=== PATIENT | female | born 1980 | race Caucasian/White ===

== ENCOUNTER 2023-03-16 07:58 | Outpatient (OUT) | payer BC, SELFPAY ==
--- NOTE | 2023-03-16 08:26 | MM_ITS ---
Patient Name: ANTHONY BETST MR#: [id number] : 1980 Exam Date: 03/16/2023 Ordering Doctor: DR KRISTYN BENNETT RADIOLOGY REPORT PROCEDURE: MM TOMOSYNTHESIS SCREENING BI COMPARISON: None. INDICATIONS: Screening Calculator Name NCI Breast Cancer Risk Assessment Tool 5 Year Breast Cancer Risk 0.70% Lifetime Breast Cancer Risk 12.50% Personal Breast Cancer No Personal Ovarian Cancer No Treatments None Family Cancers Aunt-paternal with breast cancer at age 50; Aunt-paternal with breast cancer at age 60; Grandmother-maternal with lung cancer at age 50; Grandfather-maternal with lung cancer at age 60; Grandfather-paternal with lung cancer at age 80; Aunt-maternal with vocal cord cancer at age 60. LOCATION: [facility] BREAST COMPOSITION: Heterogeneously dense,which may obscure small masses. FINDINGS: DIAGNOSTIC CATEGORY 1--NEGATIVE. RIGHT BREAST: No significant suspicious finding. LEFT BREAST: No significant suspicious finding. RECOMMENDATIONS: ROUTINE MAMMOGRAM AND CLINICAL EVALUATION IN 12 MONTHS. PLEASE NOTE: A NORMAL MAMMOGRAM DOES NOT EXCLUDE THE POSSIBILITY OF BREAST CANCER. A CLINICALLY SUSPICIOUS PALPABLE LUMP SHOULD BE BIOPSIED. Dictated by: Cong Ohara M.D. on 03/16/2023 at 14:45 Approved by: Cong Ohara M.D. on 03/16/2023 at 14:46
== END 2023-03-16 07:59 | disposition home or self-care (01) ==
LOC: MAMMO 07:58
PROVIDERS: PCP Nurse Practitioner Family; Visit Provider Nurse Practitioner Family
DX: Z12.31 Encounter for screening mammogram for malignant neoplasm of breast (principal); Z80.3 Family history of malignant neoplasm of breast; Z80.1 Family history of malignant neoplasm of trachea, bronchus and lung; Z80.8 Family history of malignant neoplasm of other organs or systems
CPT/HCPCS: 77063; 77067

== ENCOUNTER 2024-05-05 11:31 | Emergency (ER) | payer OTHER, SELFPAY ==
[2024-05-05 11:45] VITALS: BP 165/91; PULSE 90; TEMP 36.6; O2SAT 98; BMI 40.7
--- OUTSIDE RECORDS SUMMARY | 2024-05-05 11:48 | XMS_ITS | CCD ---
Author Organization [facility] Care Team Providers Care Fitter Type Bar And Segment Name Role Phone DARRELL Bennett R Primary Care Provider MD Phani Hope Referring Provider [phone] MD Nadir Farris Attending Provider [phone] Fabiola Felipe Admitting Unavailable Fabiola Felipe Attending Unavailable Phani Hope Referring Unavailable Sabrina, Estela R Primary Care Unavailable Nadir Farris Admitting Unavailable Nadir Farris Attending Unavailable Sabrina, Estela R Primary Care Unavailable Maxine Hanna Admitting Unavailable Maxine Hanna Attending Unavailable Sabrina, Estela R Primary Care Unavailable Phani Hope Admitting Unavailable Phani Hope Attending Unavailable Keith Torres Primary Care Unavailable Malcom Fonseca Admitting Unavailable Sabrina, Estela R Primary Care Unavailable Christian Alex Attending Unavailable Nadir Farris Admitting Unavailable Nadir Farris Attending Unavailable Sabrina, Estela R Primary Care Unavailable MELISSA, DR PARKER Referring Unavailable SABRINA, DR ESTELA Sheehan Admitting Unavailable SABRINA, DR ESTELA Sheehan Attending Unavailable SABRINA, DR ESTELA Sheehan Consulting Unavailable SABRINA, DR ESTELA Sheehan Primary Care Unavailable MISC, DR CHRISTIANSON Admitting Unavailable MISC, DR CHRISTIANSON Attending Unavailable MISC, DR CHRISTIANSON Consulting Unavailable SABRINA, DR ESTELA Sheehan Primary Care Unavailable SABRINA, DR ESTELA Sheehan Primary Care Unavailable SABRINA, DR ESTELA Sheehan Admitting Unavailable SABRINA, DR ESTELA Sheehan Attending Unavailable SABRINA, DR ESTELA Sheehan Consulting Unavailable CASIE ., DR TIERNEY Attending Unavailable CASIE ., DR TIERNEY Admitting Unavailable TIFFANIE, DR ZAYDA Gonzalez Consulting Unavailable SARBINA, DR ESTELA Sheehan Primary Care Unavailable CASIE ., DR TIERNEY Consulting Unavailable MISC, DR CHRISTIANSON Admitting Unavailable MISC, DR CHRISTIANSON Attending Unavailable MISC, DR CHRISTIANSON Consulting Unavailable SABRINA, DR ESTELA Sheehan Primary Care Unavailable ZIEBHERIBERTO, DR JENNIFER Sheehan Consulting Unavailable SABRINA, DR ESTELA Sheehan Admitting Unavailable SABRINA, DR ESTELA Sheehan Attending Unavailable SABRINA, DR ESTELA Sheehan Consulting Unavailable SABRINA, DR ESTELA Sheehan Primary Care Unavailable Kuns TERRAPIN FISHER-ASSISTANT PRESS OPERATOREstela Primary Care Provider ESTELA BENNETT Attending Unavailable ESTELA BENNETT Referring Unavailable SABRINA PRISCILLA Primary Care Unavailable SABRINA, ESTELA GROSS Attending Unavailable ESTELA BENNETT Referring Unavailable ESTELA BENNETT Primary Care Unavailable ESTELA BENNETT Attending Unavailable SABRINA, ESTELA GROSS Referring Unavailable KUNS, ESTELA GROSS Primary Care Unavailable JESS, ALFONSO L Attending Unavailable JESS, ALFONSO L Referring Unavailable JESS, ALFONSO L Primary Care Unavailable ESTELA BENNETT Referring Unavailable SABRINA, PRISCILLA Primary Care Unavailable JESS, ALFONSO L Referring Unavailable JESS, ALFONSO L Primary Care Unavailable Jess TERRAPIN FISHER-ENERGY CONSERVATION DIRECTOR, Alfonso L Primary Care Provider Medications Current Medications Medication Drug Class(es) Dates Sig (Normalized) Sig (Original) acetaminophen 500 mg oral tablet (3 sources) take 1 tablet by mouth every six hours as needed for pain acetaminophen (TYLENOL EXTRA STRENGTH) 500 mg tablet Take 1 tablet (500 mg total) by mouth every 6 (six) hours as needed for pain. Active cephalexin 500 mg oral capsule (1 source) Cephalosporin Antibacterial Start: 06-15-2023 End: 06-22-2023 take 1 capsule by mouth three times daily CEPHalexin (KEFLEX) 500 mg capsule Indications: Tongue and jaw pain , Adenitis, acute Take 1 capsule (500 mg total) by mouth 3 (three) times a day for 7 days. 21 capsule 0 06/15/2023 06/22/2023 Active doxycycline hyclate 100 mg oral capsule (1 source) Tetracycline-class Drug Start: 11-03-2021 take 100 mg by mouth twice daily Doxycycline Hyclate Active 100 MG PO Twice daily November 03, 2021 12:00am gentamicin 0.001 mg/mg topical ointment (1 source) Start: 10-06-2021 Gentamicin Active 1 APPLIC TOPICAL .3 times weekly October 06, 2021 12:00am follow wound care orders ibuprofen 600 mg oral tablet (5 sources) Nonsteroidal Anti-inflammatory Drug Start: 08-09-2021 Ibuprofen Active 600 MG PO Every 6 hours August 09, 2021 12:00am do not exceed 4 doses in a 24 hour period take 1 tablet by yola th every six hours as needed for pain ibuprofen (MOTRIN) 800 mg tablet Take 1 tablet (800 mg total) by mouth every 6 (six) hours as needed for pain. Active levoFLOXacin 500 mg oral tablet (1 source) Quinolone Antimicrobial Start: 11-07-2021 take 500 mg by mouth once daily Levofloxacin Active 500 MG PO Daily 14 November 07, 2021 12:00am levothyroxine sodium 0.1 mg oral tablet (5 sources) l-Thyroxine Start: 08-19-2023 take 1 tablet by mouth in the morning levothyroxine (SYNTHROID, LEVOTHROID) 100 MCG tablet Take 1 tablet (100 mcg total) by mouth in the morning. 90 tablet 3 08/19/2023 Active Start: 12-11-2022 take 1 tablet by yola th once daily levothyroxine (SYNTHROID, LEVOTHROID) 100 MCG tablet Take 1 tablet by mouth once daily 30 tablet 5 12/11/2022 Active Start: 08-06-2021 take 100 ug by mouth once daily Levothyroxine Active 100 MCG PO Daily August 06, 2021 12:00am metroNIDAZOLE 0.01 mg/mg topical gel (2 sources) Nitroimidazole Antimicrobial Start: 08-17-2023 metroNIDAZOLE (MetrogeL) 1 % gel Apply 1 Application topically in the morning. 45 g 1 08/17/2023 Active phentermine hydrochloride 37.5 mg oral tablet (2 sources) Sympathomimetic Amine Anorectic Start: 10-17-2023 take 1 tablet by mouth once daily before breakfast phentermine (ADIPEX-P) 37.5 mg tablet Indications: Morbid obesity (CMS-HCC) Take 1 tablet (37.5 mg total) by mouth every morning before breakfast. 30 tablet 10/17/2023 Active Prenat.Vits,Eddie,Mi l-Xpny-Jyjqn (2 sources) Start: 08-06-2021 take 1 tablet by mouth once daily Prenat.Vits,Eddie,Mi h-Wqgb-Fvoki Active 1 TAB PO Daily August 06, 2021 12:00am Completed/Discontinued Medications Medication Drug Class(es) Dates Sig (Normalized) Sig (Original) ciprofloxacin 500 mg oral tablet (2 sources) Quinolone Antimicrobial Start: 10-06-2021 End: 10-13-2021 take 1 tablet by mouth twice daily Ciprofloxacin Hcl (Cipro) 500 mg tablet Discontinued 500 MG PO Twice daily October 06, 2021 12:00am October 13, 2021 9:03am Problems Active Problems Problem Classification Problem Date Documented Date Episodic/Chronic Cardiac and circulatory congenital anomalies (4 sources) Congenital insufficiency of aortic valve; Translations: [CONGENITAL INSUFFICNCY AORTIC VALVE] Onset: 09-29-2021 Chronic Other inflammatory condition of skin (1 source) Rosacea, unspecified; Translations: [Rosacea, unspecified] Onset: 08-17-2023 Chronic Other injuries and conditions due to external causes (2 sources) Open wound with complication; Translations: [Other injury of unspecified body region, initial encounter] 10-04-2021 Episodic Other injuries and conditions due to external causes (2 sources) Other injury of unspecified body region, initial encounter; Translations: [Open wound(s) (multiple) of unspecified site(s), complicated] 12-13-2021 Episodic Other injuries and conditions due to external causes (1 source) Local infection of wound; Translations: [Other injury of unspecified body region, initial encounter] 12-22-2021 Episodic Other nutritional; endocrine; and metabolic disorders (1 source) Body mass index (BMI) 40.0-44.9, adult; Translations: [Body mass index (BMI) 40.0-44.9, adult] Onset: 10-12-2023 Chronic Other nutritional; endocrine; and metabolic disorders (1 source) Morbid (severe) obesity due to excess calories; Translations: [Morbid (severe) obesity due to excess calories] Onset: 08-17-2023 Chronic Other screening for suspected conditions (not mental disorders or infectious disease) (1 source) Patient encounter status; Translations: [Encounter for screening mammogram for malignant neoplasm of breast] 04-30-2024 Episodic Residual codes; unclassified (2 sources) Gestation period, 39 weeks; Translations: [39 weeks gestation of ] 08-06-2021 Episodic Thyroid disorders (10 sources) Hypothyroidism; Translations: [Hypothyroidism, unspecified] Onset: 07-17-2022 10-04-2021 Chronic Unclassified (1 source) Other complications of procedures, not elsewhere classified, initial encounter; Translations: [Other complications of procedures, not elsewhere classified, initial encounter] Onset: 05-08-2022 Unclassified (1 source) Encounter for preprocedural laboratory examination; Translations: [Encounter for preprocedural laboratory examination] Onset: 12-20-2021 Unclassified (1 source) Z39.1 - Encounter for care and examination of lactating mother; Translations: [Z39.1 - Encounter for care and examination of lactating mother] Onset: 08-11-2021 Unclassified (1 source) Z3A.39 - 39 weeks gestation of ; Translations: [Z3A.39 - 39 weeks gestation of ] Onset: 08-06-2021 Unclassified (1 source) Z36.85 - Encounter for screening for Streptococcus B; Translations: [Z36.85 - Encounter for screening for Streptococcus B] Onset: 07-18-2021 Unclassified (1 source) CONTACT W/AND (SUSP) EXPOS COVID-19; Translations: [CONTACT W/AND (SUSP) EXPOS COVID-19] Onset: 09-01-2021 Unclassified (1 source) Weight Check Onset: 09-11-2023 Unclassified (1 source) Annual Exam Onset: 08-17-2023 Unclassified (1 source) tongue pain Onset: 06-15-2023 Past or Other Problems Problem Classification Problem Date Documented Da te Episodic/Chronic Abdominal pain (3 sources) Lower abdominal pain, unspecified; Translations: [LOWER ABDOMINAL PAIN UNSPECIFIED] Onset: 08-30-2021 Episodic Complications of surgical procedures or medical care (8 sources) Non-healing surgical wound; Translations: [Other complications of procedures, not elsewhere classified, initial encounter] Onset: 03-21-2022 11-22-2021 Episodic Diseases of mouth; excluding dental (2 sources) Glossodynia; Translations: [Glossodynia] Onset: 06-15-2023 06-15-2023 Episodic Disorders of teeth and jaw (1 source) Jaw pain; Translations: [Jaw pain] Onset: 06-15-2023 Episodic Fever of unknown origin (1 source) Fever, unspecified; Translations: [FEVER UNSPECIFIED] Onset: 09-01-2021 Episodic Lymphadenitis (2 sources) Acute lymphadenitis; Translations: [Acute lymphadenitis, unspecified] Onset: 06-15-2023 06-15-2023 Episodic Mood disorders (3 sources) Mood disorders Onset: 06-15-2023 Resolved: 10-12-2023 06-15-2023 Other complications of ; puerperium affecting management of mother (1 source) Infection of obstetric surgical wound, organ and space site; Translations: [INF OB SURG WND ORGAN AND SPACE SITE] Onset: 09-01-2021 Episodic Other complications of ; puerperium affecting management of mother (1 source) Sepsis following an obstetrical procedure; Translations: [SEPSIS FOLLOW OBSTETRICAL PROCEDURE] Onset: 09-01-2021 Episodic Other complications of (3 sources) Maternal obesity complicating , childbirth and the puerperium, antepartum; Translations: [Obesity complicating , unspecified trimester] Onset: 12-04-2018 Resolved: 08-04-2022 08-04-2022 Chronic Other complications of (3 sources) Elderly primigravida; Translations: [Supervision of elderly primigravida, unspecified trimester] Onset: 12-04-2018 Resolved: 08-04-2022 08-04-2022 Episodic Other gastrointestinal disorders (4 sources) Intra-abdominal and pelvic swelling, mass and lump, unspecified site; Translations: [INTRA-ABD PELV SWELL MASS LUMP] Onset: 08-29-2021 Episodic Residual codes; unclassified (1 source) 36 weeks gestation of ; Translations: [Z3A.36 - 36 weeks gestation of ] Onset: 07-18-2021 Episodic Septicemia (except in labor) (1 source) Sepsis, unspecified organism; Translations: [SEPSIS UNSPECIFIED ORGANISM] Onset: 09-01-2021 Episodic Unclassified (2 sources) Onset: 08-17-2023 08-17-2023 Results Test Name Value Interpretation Reference Range Facility FREE T4on 10-12-2023 Free T4 [Mass/Vol] 1.04 ng/dL Normal 0.61-1.60 [facility] Comment on above: Performed By: #### 3 016-3, 3024-7 #### [facility] ([id number]) [address], [address] [place] [address] TSH Qnon 10-12-2023 TSH 1.05 uIU/mL Normal 0.49-4.67 [place] Comment on above: Performed By: #### 3 016-3, 3024-7 #### [facility] ([id number]) [address], [address] [place] [address] COMPREHENSIVE METABOLIC PANE Cuauhtemoc 08-17-2023 Albumin [Mass/Vol] 4.3 g/dL Normal 3.2-5.3 [facility] Comment on above: Performed By: #### C ANDREAS, 91768-7, THYR #### [facility] ([id number]) [address], [address] [place] [address] ALP [Catalytic activity/Vol] 64 U/L Normal 39-130 [place] Comment on above: Performed By: #### Zeny JOHNS, 78142-8, THYR #### [facility] ([id number]) [address], [address] [place] [address] ALT [Catalytic activity/Vol] 15 U/L Normal 0-31 [place] Comment on above: Performed By: #### Zeny JOHNS, 38597-2, THYR #### [facility] ([id number]) [address], [address] [place] [address] Anion gap [Moles/Vol] 8 mmol/L Normal 5-15 [facility] Comment on above: Performed By: #### Zeny JOHNS, 26873-0, THYR #### [facility] ([id number]) [address], [address] [place] [address] AST [Catalytic activity/Vol] 17 U/L Normal 0-41 [place] Comment on above: Performed By: #### Zeny JOHNS, 13988-6, THYR #### [facility] ([id number]) [address], [address] [place] [address] Bilirubin [Mass/Vol] 0.5 mg/dL Normal 0.3-1.2 [facility] Comment on above: Performed By: #### C ANDREAS, 94886-0, THYR #### [facility] ([id number]) [address], [address] [place] [address] Calcium [Mass/Vol] 9.1 mg/dL Normal 8.5-10.5 [facility] Comment on above: Performed By: #### Zeny JOHNS, 54491-0, THYR #### [facility] ([id number]) [address], [address] [place] [address] Chloride [Moles/Vol] 103 mmol/L Normal 98-109 [facility] Comment on above: Performed By: #### Zeny JOHNS, 61432-7, THYR #### [facility] ([id number]) [address], [address] [place] [address] CO2 [Moles/Vol] 26 mmol/L Normal 22-32 [place] Comment on above: Performed By: #### Zeny JOHNS, 23985-3, THYR #### [facility] ([id number]) [address], [address] [place] [address] Creatinine [Mass/Vol] 0.73 mg/dL Normal 0.40-1.00 [facility] Comment on above: Result Comment: METH OD TRACEABLE TO IDMS STANDARD Performed By: #### Zeny JOHNS, 98247-2, THYR #### [facility] ([id number]) [address], [address] [place] [address] eGFR (CKD-EPI) NON-RACE DEPENDENT >90 Normal >59 [place] Comment on above: Result Comment: Reported eGFR is based on the CKD-EPI 2020 equation that does not use a race coefficient. Performed By: #### Zeny JOHNS, 40805-5, THYR #### [facility] ([id number]) [address], [address] [place] [address] Glucose [Mass/Vol] 91 mg/dL Normal 65-99 [facility] Comment on above: Performed By: #### C ANDREAS, 87419-8, THYR #### [facility] ([id number]) [address], [address] [place] [address] Potassium [Moles/Vol] 4.6 mmol/L Normal 3.5-5.0 [facility] Comment on above: Performed By: #### Zeny JOHNS, 37721-1, THYR #### [facility] ([id number]) [address], [address] [place] [address] Protein [Mass/Vol] 7.8 g/dL Normal 6.0-8.0 [facility] Comment on above: Performed By: #### Zeny JOHNS, 23734-5, THYR #### [facility] ([id number]) [address], [address] [place] [address] Sodium [Moles/Vol] 137 mmol/L Normal 134-146 [facility] Comment on above: Performed By: #### Zeny JOHNS, 88660-1, THYR #### [facility] ([id number]) [address], [address] [place] [address] Urea nitrogen [Mass/Vol] 17 mg/dL Normal 5-23 [place] Comment on above: Performed By: #### Zeny JOHNS, 02370-8, THYR #### [facility] ([id number]) [address], [address] [place] [address] Lipid 1996 panelon 4 Cholesterol [Mass/Vol] 173 mg/dL Normal 150-200 [facility] Comment on above: Performed By: #### Zeny JOHNS, 98603-1, THYR #### [facility] ([id number]) [address], [address] [place] [address] Cholesterol in HDL [Mass/Vol] 60 mg/dL Normal >39 [place] Comment on above: Result Comment: HDL <40 mg/dL - High Risk HDL > or = 40mg/dL- Desirable HDL >60 mg/dL - Negative Risk Performed By: #### Zeny JOHNS, 73607-0, THYR #### [facility] ([id number]) [address], [address] [place] [address] Cholesterol in LDL [Mass/Vol] 96 mg/dL Normal <130 [place] Comment on above: Result Comment: LDL <100 mg/dL - Desirable LDL >160 mg/dL - High Risk Performed By: #### Zeny JOHNS, 93893-0, THYR #### [facility] ([id number]) [address], [address] [place] [address] Cholesterol in VLDL [Mass/Vol] 17 mg/dL Normal 0-30 [place] Comment on above: Performed By: #### Zeny JOHNS, 05075-1, THYR #### [facility] ([id number]) [address], [address] [place] [address] CHOLESTEROL:HDL 2.9 Normal 1.0-5.0 [place] Comment on above: Performed By: #### Zeny JOHNS, 97099-0, THYR #### [facility] ([id number]) [address], [address] [place] [address] Triglyceride [Mass/Vol] 83 mg/dL Normal 27-150 [facility] Comment on above: Performed By: #### Zeny JOHNS, 91360-0, THYR #### [facility] ([id number]) [address], [address] [place] [address] THYROID PROFILEon 08-17-2023 Free T4 [Mass/Vol] 0.85 ng/dL Normal 0.61-1.60 [facility] Comment on above: Performed By: #### C MP, 96449-2, THYR #### [facility] ([id number]) [address], [address] [place] [address] TSH 0.82 uIU/mL Normal 0.49-4.67 [place] Comment on above: Performed By: #### C ANDREAS, 57450-4, THYR #### [facility] ([id number]) [address] [place] [address] FREE T4on 08-12-2022 Free T4 [Mass/Vol] 0.98 ng/dL Normal 0.76-1.46 [facility] Comment on above: Performed By: #### F T4 #### [facility] [address] [place] [address] Dr. Yluy Schuler LIPID PROFILEon 08-12-2022 CHOL-HDL RATIO NORM SEE BELOW Normal [facility] Comment on above: Result Comment: 3.3 - 4.4 LOW RISK 4.4 - 7.1 AVERAGE RISK 7.1 - 11.0 MODERATE RISK >11.0 HIGH RISK Performed By: #### C MP, TSH #### [facility] [address] [place] [address] Dr. Yuly Schuler Cholesterol [Mass/Vol] 194 mg/dL Normal <=200 [facility] Comment on above: Performed By: #### C MP, TSH #### [facility] [address] [address] [address] Yuly Schuler Cholesterol in HDL [Mass/Vol] 63 mg/dL Critically high 40-60 [facility] Comment on above: Performed By: #### C MP, TSH #### [facility] [address] [place] [address] Dr. Yuly Schuler Cholesterol in LDL [Mass/Vol] 116.0 mg/dL Normal [facility] Comment on above: Performed By: #### C MP, TSH #### [facility] [address] [address] [address] Yuly Schuler Cholesterol.total/Choles terol in HDL [Mass ratio] 3.1 {ratio} Normal [facility] Comment on above: Performed By: #### C MP, TSH #### [facility] [address] [address] [address] Yuly Schuler HDL NORMAL > or = 60 mg/dl - LOW CARDIOVASCULAR RISK <40 mg/dl - HIGH CARDIOVASCULAR RISK Normal [facility] Comment on above: Performed By: #### C MP, TSH #### [facility] [address] [address] [address] Yuly Schuler LDL CALC NORMAL SEE BELOW Normal [facility] Comment on above: Result Comment: <100 mg/dl OPTIMAL 100 - 129 mg/dl NEAR OR ABOVE OPTIMAL 130 - 159 mg/dl BORDERLINE HIGH 160 - 189 mg/dl HIGH >190 mg/dl VERY HIGH Performed By: #### C MP, TSH #### [facility] [address] [address] [address] Yuly Schuler Triglyceride [Mass/Vol] 75 mg/dL Normal <=150 T [facility] Comment on above: Performed By: #### C MP, TSH #### [facility] [address] [address] [address] Yuly Schuler VLDL CALC 15.0 mg/dL Normal [facility] Comment on above: Performed By: #### C MP, TSH #### [facility] [address] [address] [address] Yuly Schuler PROF 14(COMP METB)on 023 Albumin [Mass/Vol] 3.6 g/dL Normal 3.4-5.0 [facility] Comment on above: Performed By: #### C MP, TSH #### [facility] [address] [place] [address] Dr. Yuly Schuler Albumin/Globulin [Mass ratio] 0.8 {ratio} Normal [facility] Comment on above: Performed By: #### C MP, TSH #### [facility] [address] [place] [address] Dr. Yuly Schuler ALP [Catalytic activity/Vol] 87 U/L Normal 46-116 [facility] Comment on above: Performed By: #### C MP, TSH #### [facility] [address] [place] [address] Dr. Yuly Schuler ALT [Catalytic activity/Vol] 23 U/L Normal 14-59 [facility] Comment on above: Performed By: #### C MP, TSH #### [facility] [address] [address] [address] Yuly Schuler Anion gap [Moles/Vol] 10.7 mmol/L Normal Th [facility] Comment on above: Performed By: #### C MP, TSH #### [facility] [address] [place] [address] Dr. Yuly Schuler AST [Catalytic activity/Vol] 17 U/L Normal 15-37 [facility] Comment on above: Performed By: #### C MP, TSH #### [facility] [address] [place] [address] Dr. Yuly Schuler Bilirubin [Mass/Vol] 0.2 mg/dL Normal 0.2-1.0 [facility] Comment on above: Performed By: #### C MP, TSH #### [facility] [address] [place] [address] Dr. Yuly Schuler Calcium [Mass/Vol] 8.8 mg/dL Normal 8.5-10.1 [facility] Comment on above: Performed By: #### C MP, TSH #### [facility] [address] [place] [address] Dr. Yuly Schuler Chloride [Moles/Vol] 104 mmol/L Normal 98-107 [facility] Comment on above: Performed By: #### C MP, TSH #### [facility] [address] [place] [address] Dr. Yuly Schuler CO2 [Moles/Vol] 28.5 mmol/L Normal 21.0-32.0 [facility] Comment on above: Performed By: #### C MP, TSH #### [facility] [address] [place] [address] Dr. Yuly Schuler Creatinine [Mass/Vol] 0.73 mg/dL Normal 0.55-1.02 [facility] Comment on above: Performed By: #### C MP, TSH #### [facility] [address] [place] [address] Dr. Yuly Schuler EGFR-AF ARGENTINE >60 Normal >=60 [facility] Comment on above: Performed By: #### C MP, TSH #### [facility] [address] [address] [address] Yuly Schuler EGFR-NON AF ARGENTINE >60 Normal >=60 [facility] Comment on above: Performed By: #### C MP, TSH #### [facility] [address] [address] [address] Yuly Schuler Globulin (S) [Mass/Vol] 4.4 g/dL Normal [facility] Comment on above: Performed By: #### C MP, TSH #### [facility] [address] [place] [address] Dr. Yuly Schuler Glucose [Mass/Vol] 96 mg/dL Normal 74-106 [facility] Comment on above: Performed By: #### C MP, TSH #### [facility] [address] [address] [address] Yuly Schuler Potassium [Moles/Vol] 4.2 mmol/L Normal 3.5-5.1 [facility] Comment on above: Performed By: #### C MP, TSH #### [facility] [address] [address] [address] Yuly Schuler Protein [Mass/Vol] 8.0 g/dL Normal 6.4-8.2 [facility] Comment on above: Performed By: #### C MP, TSH #### [facility] [address] [address] [address] Yuly Schuler Sodium [Moles/Vol] 139 mmol/L Normal 136-145 [facility] Comment on above: Performed By: #### C MP, TSH #### [facility] [address] [address] [address] Yuly Schuler Urea nitrogen [Mass/Vol] 12.0 mg/dL Normal 7.0-18.0 [facility] Comment on above: Performed By: #### C MP, TSH #### [facility] [address] [place] [address] Dr. Yuly Schuler Urea nitrogen/Creatinine [Mass ratio] 16.4 mg/mg Normal [facility] Comment on above: Performed By: #### C MP, TSH #### [facility] [address] [place] [address] Dr. Yuly Schuler TSHon 08-12-2022 TSH 1.533 uIU/mL Normal 0.358-3.740 [facility] Comment on above: Performed By: #### C MP, TSH #### [facility] [address] [place] [address] Dr. Yuly Schuler KAT by IFAon 03-22-2022 Antinuclear Antibodies, IFA Negative Normal [facility] Comment on above: Result Comment: Nega tive <1:80 Borderline 1:80 Positive >1:80 ICAP nomenclature: AC-0 For more information about Hep-2 cell patterns use ANApatterns.org, the official website for the International Consensus on Antinuclear Antibody (KAT) Patterns (ICAP). Performed By: #### C MP, TSH #### [facility] [address] [place] [address] Dr. Yuly Schuler CRPon 03-21-2022 CRP [Mass/Vol] mg/L Normal <=1.0 [facility] Comment on above: Performed By: #### C RP, PREALB #### [facility] [address] [place] [address] Dr. Yuly Schuler PREALBUMINon 03-21-2022 Prealbumin [Mass/Vol] 25.8 mg/dL Normal 20.9-45.5 [facility] Comment on above: Performed By: #### C RP, PREALB #### [facility] [address] [place] [address] Dr. Yuly Schuler SED RATE WESTERGRENon 2021 SED RATE 35 mm/hr Critically high <=20 [facility] Comment on above: Performed By: #### C MP, TSH #### [facility] [address] [address] [address] Yuly Schuler Aerobic Cultureon 02-27-2022 Aerobic Culture ORGANISM: Proteus mirabilis (O:PROMIR) Quantity of Growth Light Growth No Anaerobes Isolated 3 Days Gram Stain Result No Bacteria Seen Aerobic LANDON Charge (NUC86) ------ SUSCEPTIBILITY ----- ORGANISM: O:PROMIR ANTIBIOTIC INTERPRETATION LANDON Amikacin S <16 Ampicillin S <8 Ampicillin/Sulbacta m S <8 Aztreonam S <4 Cefazolin S <2 Cefepime S <2 Ceftazidime S <1 Ceftazidime/Avibact am S <8 Ceftriaxone S <1 Ciprofloxacin S <1 Ertapenem S <0.5 Gentamicin S <4 Levofloxacin S <2 Meropenem S <1 Piperacillin/Tazoba ctam S <16 Tetracycline R >8 Tobramycin S <4 Trimethoprim/Sulfam ethoxazole S <2 S = SUSCEPTIBLE I = INTERMEDIATE R = RESISTANT BLANK = DATA NOT AVAILABLE, OR DRUG NOT ADVISABLE OR TESTED R* = RESISTANCE DUE TO EXTENDED SPECTRUM BETA-LACTAMASES ESBL = EXTENDED SPECTRUM BETA-LACTAMASE TFG = THYMIDINE-DEPENDENT STRAIN HUA = BETA-LACTAMASE POSITIVE IB = INDUCIBLE BETA-LACTAMASE. APPEARS IN PLACE OF 'S' WITH SPECIES KNOWN TO POSSESS INDUCIBLE BETA-LACTAMASES. POTENTIALLY THEY MAY BECOME RESISTANT TO ALL B-LACTAM DRUGS. PERFORMED BY: [place] [address] PATHOLOGIST FITTER TYPE BAR AND SEGMENT TANYA CATHERINE M.D. [facility] Comment on above: Performed By: #### A [facility] #### [address] Aerobic Cultureon 12-22-2021 Aerobic Culture Result Tab Codes No Growth 2 Days No Anaerobes Isolated 3 Days Gram Stain Result Rare White Blood Cells No Bacteria Seen PERFORMED BY: [place] [address] PATHOLOGIST FITTER TYPE BAR AND SEGMENT TANYA CATHERINE M.D. [facility] Comment on above: Performed By: #### C OVID-19 YANICK, SOFIANEG #### [facility] [address] [place] [address] Gram Stainon 12-22-2021 Microscopic observation Gram stain Nom (Unsp spec) Gram Stain Result Rare White Blood Cells No Bacteria Seen PERFORMED BY: [place] [address] PATHOLOGIST FITTER TYPE BAR AND SEGMENT TANYA CATHERINE M.D. [facility] Comment on above: Performed By: #### A ERC, GS #### [address] HCG ( test) IAdiana lincoln Ql (U)Ordered By: Dhaval Moran on 12-22-2021 HCG ( test) Ql (U) Negative [facility] HCG,Urineon 12-22-2021 Beta HCG ( test) Ql (U) Negative [facility] Comment on above: Result Comment: PERF ORMED BY: [place] [address] PATHOLOGIST FITTER TYPE BAR AND SEGMENT TANYA CATHERINE M.D. Performed By: #### C OVID-19 YANICK SOFIANEG #### [address] Cuauhtemoc 12-22-2021 L Specimen: [id number] Received: 12/22/21 Status: KEELY Verónica Num: [id number] Spec Type: Surgical Subm Dr: Nadir Farris MD Tissues: A Debridement-Skin/Ot her Than Skin (ABDOMEN) Procedures: HE Stain, Gross/Micro L3 Age/ Patient Sex Location Account Attending Physician Anthony Ritchie 41/F [place] [id number] Nadir Farris MD SPEC NUM: [id number] RECD: 12/22/21 STATUS: KEELY SANCHES NUM: [id number] HELGA: 12/22/[address] [facility] [address]: Nadir Farris MD ENTERED: 12/22/[address] [facility] [address]: VICTOR HUGO TYPE: Surgical DEPT: S ORDERED: HE Stain, Gross/Micro L3 ORDERED: HE Stain, Gross/Micro L3 Pathological Diagnosis Skin and soft tissue, abdomen, products of debridement: - Benign skin with ulceration, granulation tissue and focal fibrosis. - No evidence of malignancy seen. Clinical Information Nonhealing wound Gross Description Received in formalin labeled with the patient's name, number and POD abdomen is a 1.8 x 1.7 x 0.7 cm aggregate of izquierdo red rubbery tissue which is partially surface by roper white skin.. Entirely submitted in one cassette labeled A1. Microscopic Description One glass slide with H E stained material has been examined. The microscopic findings support the above pathologic diagnosis. CPT Codes 34170 Specimen: [id number] Received: 12/22/21 Status: ELISEMaritza Sanches Num: [id number] Spec Type: Surgical Subm Dr: Nadir Farris MD Tissues: A Debridement-Skin/Ot her Than Skin (ABDOMEN) Procedures: HE Stain, Gross/Micro L3 Patient: Anthony Ritchie [id number] (Continued) Signed (signatur e on file) Anthony Peña MD 12/26/21 1516 Normal [facility] COVID-19 [facility] [place] SARS-CoV-2 (COVID-19) RNA AMINA+probe Ql (Unsp spec) Negative Normal Negative [facility] Comment on above: Order Comment: Healt hcare Worker?: N Result Comment: Testing for SARS-CoV-2 by RT-PCR This test was developed and its performance characteristics determined by [employer]) and validated at the [facility]. This test has not been FDA cleared or approved. This test has been authorized by FDA under an Emergency Use Authorization (EUA). This test has been validated in accordance with the FDA's Guidance Document (Policy for Diagnostics Testing in Laboratories Certified to Perform High Complexity Testing under CLIA prior to Emergency Use Authorization for Coronavirus Disease-2019 during the Public Health Emergency) issued on July 17, 2019. This test is only authorized for the duration of time the declaration that circumstances exist justifying the authorization of the emergency use of in vitro diagnostic tests for detection of SARS-CoV-2 virus and/or diagnosis of COVID-19 infection under section 564(b)(1) of the Act, 21 U.S.C. 360bbb-3(b)(1), unless the authorization is terminated or revoked sooner. PERFORMED BY: [place] [address] PATHOLOGIST FITTER TYPE BAR AND SEGMENT TANYA CATHERINE M.D. Performed By: #### C OVID 19 [facility] [place] #### [address] COVID-19 Positive/NegativeOr dered By: Nadir Farris on 12-20-2021 SARS-CoV-2 (COVID-19) N gene AMINA+probe Ql (Resp) Negative Negative [facility] Comment on above: Testing for SARS-CoV -2 by RT-PCR This test was developed and its performance characteristics determined by [employer] ([employer]) and validated at the [facility]. This test has not been FDA cleared or approved. This test has been authorized by FDA under an Emergency Use Authorization (EUA). This test has been validated in accordance with the FDA's Guidance Document (Policy for Diagnostics Testing in Laboratories Certified to Perform High Complexity Testing under CLIA prior to Emergency Use Authorization for Coronavirus Disease-2019 during the Public Health Emergency) issued on July 17, 2019. This test is only authorized for the duration of time the declaration that circumstances exist justifying the authorization of the emergency use of in vitro diagnostic tests for detection of SARS-CoV-2 virus and/or diagnosis of COVID-19 infection under section 564(b)(1) of the Act, 21 U.S.C. 360bbb-3(b)(1), unless the authorization is terminated or revoked sooner. Bacteria identified Anaer cx Nom (Unsp spec)Ordered By: Fabiola Felipe on 12-10-2021 Anaerobic microbial culture No Anaerobes Isolated 3 Days [facility] ABO and Rh group post transf usion reaction Nom (Bld)Ordered By: Fabiola Felipe on 12-08-2021 Microscopic observation Gram stain Nom (Unsp spec) [facility] Aerobic Cultureon 12-07-2021 Aerobic Culture Rare normal skin oli 2 Days No Anaerobes Isolated 3 Days Gram Stain Result No Bacteria Seen PERFORMED BY: [place] [address] PATHOLOGIST FITTER TYPE BAR AND SEGMENT TANYA CATHERINE M.D. [facility] Comment on above: Performed By: #### A ERC #### [address] CBC (INCLUDES DIFF/PLT)on Basophils (Bld) [#/Vol] 0.048 10*3/uL Normal 0-200 [facility] Comment on above: Performed By: #### 1 0231, 3991, 65987, 1620 #### [facility] [address] [facility], [address] [place] [id number] Oyster Cultivator: Jasbir Membreno MD Basophils/100 WBC (Bld) 0.7 % Normal [facility] Comment on above: Performed By: #### 1 0231, 6399, 72757, 8990 #### [facility] [address] , [address] [place] [address] Oyster Cultivator: Jasbir Membreno MD Eosinophils (Bld) [#/Vol] 0.041 10*3/uL Normal 15-500 [facility] Comment on above: Performed By: #### 1 0231, 6399, 73239, 7600 #### [facility] of [address], [address] [place] [address] Oyster Cultivator: Jasbir Membreno MD Eosinophils/100 WBC (Bld) 0.6 % Normal [facility] Comment on above: Performed By: #### 1 0231, 6399, 16724, 7600 #### [facility] of [address], [address] [place] [address] Oyster Cultivator: Jasbir Membreno MD Erythrocyte distribution width (RBC) [Ratio] 13.4 % Normal 11.0-15.0 [facility] Comment on above: Performed By: #### 1 0231, 6399, 07999, 7600 #### [facility] of [address], [address] [place] [address] Oyster Cultivator: Jasbir Membreno MD Hematocrit (Bld) [Volume fraction] 40.0 % Normal 35.0-45.0 [facility] Comment on above: Performed By: #### 1 0231, 63, 73295, 7600 #### [facility] of [address], [address] [place] [address] Oyster Cultivator: Jasbir Membreno MD Hemoglobin (Bld) [Mass/Vol] 13.4 g/dL Normal 11.7-15.5 [facility] Comment on above: Performed By: #### 1 0231, 6399, 33363, 7600 #### [facility] of [address], [address] [place] [address] Oyster Cultivator: Jasbir Membreno MD Lymphocytes (Bld) [#/Vol] 1.691 10*3/uL Normal 850-3900 [facility] Comment on above: Performed By: #### 1 0231, 6399, 97923, 7600 #### [facility] of [address], [address] [place] [address] Oyster Cultivator: Jasbir Membreno MD Lymphocytes/100 WBC (Bld) 24.5 % Normal [facility] Comment on above: Performed By: #### 1 0231, 6399, 21157, 7600 #### [facility] of [address], [address] [place] [address] Oyster Cultivator: Jasbir Membreno MD MCH (RBC) [Entitic mass] 29.5 pg Normal 27.0-33.0 [facility] Comment on above: Performed By: #### 1 0231, 6399, 62479, 7600 #### [facility] of [address], [address] [place] [address] Oyster Cultivator: Jasbir Membreno MD MCHC (RBC) [Mass/Vol] 33.5 g/dL Normal 32.0-36.[address] [facility] Comment on above: Performed By: #### 1 0231, 63, 84453, 7600 #### [facility] of [address], [address] [place] [address] Oyster Cultivator: Jasbir Membreno MD MCV (RBC) [Entitic vol] 87.9 fL Normal 80.0-100.0 [facility] Comment on above: Performed By: #### 1 0231, 6399, 15533, 7600 #### [facility] of [place] [address] Oyster Cultivator: Jasbir Membreno MD Monocytes (Bld) [#/Vol] 0.49 10*3/uL Normal 200-950 [facility] Comment on above: Performed By: #### 1 0231, 6399, 94743, 7600 #### [facility] of [place] [address] Oyster Cultivator: Jasbir Membreno MD Monocytes/100 WBC (Bld) 7.1 % Normal [facility] Comment on above: Performed By: #### 1 0231, 6399, 35775, 7600 #### [facility] of [place] [address] Oyster Cultivator: Jasbir Membreno MD Neutrophils (Bld) [#/Vol] 4.63 10*3/uL Normal 5049-7890 [facility] Comment on above: Performed By: #### 1 0231, 6399, 12707, 7600 #### [facility] of [address], [address] [place] [address] Oyster Cultivator: Jasbir Membreno MD Neutrophils/100 WBC (Bld) 67.1 % Normal [facility] Comment on above: Performed By: #### 1 0231, 6399, 97361, 7600 #### [facility] of [place] [address] Oyster Cultivator: Jasbir Membreno MD Platelet mean volume (Bld) [Entitic vol] 9.3 fL Normal 7.5-12.5 [facility] Comment on above: Performed By: #### 1 0231, 63, 84582, 7600 #### [facility] of [address], [address] [place] [address] Oyster Cultivator: Jasbir Membreno MD Platelets (Bld) [#/Vol] 390 10*3/uL Normal 140-400 [facility] Comment on above: Performed By: #### 1 0231, 6399, 60450, 7600 #### [facility] [place] [address] Oyster Cultivator: Jasbir Membreno MD RBC (Bld) [#/Vol] 4.55 10*6/uL Normal 3.80-5.10 [facility] Comment on above: Performed By: #### 1 0231, 6399, 78787, 7600 #### [facility] of [place] [address] Oyster Cultivator: Jasbir Membreno MD WBC (Bld) [#/Vol] 6.9 10*3/uL Normal 3.8-10.8 [facility] Comment on above: Performed By: #### 1 0231, 6399, 77084, 7600 #### [facility] of [address], [address] [place] [address] Oyster Cultivator: Jasbir Membreno MD [facility] 11-26-2021 Albumin [Mass/Vol] 4.2 g/dL Normal 3.6-5.1 [facility] Comment on above: Performed By: #### 1 0231, 6399, 13913, 7600 #### [facility] of [address], [address] [place] [address] Oyster Cultivator: Jasbir Membreno MD Albumin/Globulin [Mass ratio] 1.3 {ratio} Normal 1.0-2.5 [facility] Comment on above: Performed By: #### 1 0231, 6399, 31567, 7600 #### [facility] of [address], [address] [place] [address] Oyster Cultivator: Jasbir Membreno MD ALP [Catalytic activity/Vol] 89 U/L Normal 31-125 [facility] Comment on above: Performed By: #### 1 0231, 6399, 81347, 7600 #### [facility] of [address], [address] [place] [address] Oyster Cultivator: Jasbir Membreno MD ALT [Catalytic activity/Vol] 16 U/L Normal 6-29 [facility] Comment on above: Performed By: #### 1 0231, 6399, 39258, 7600 #### [facility] of [address], [address] [place] [address] Oyster Cultivator: Jasbir Membreno MD AST [Catalytic activity/Vol] 14 U/L Normal 10-30 [facility] Comment on above: Performed By: #### 1 0231, 6399, 28174, 7600 #### [facility] of [place] [address] Oyster Cultivator: Jasbir Membreno MD Bilirubin [Mass/Vol] 0.2 mg/dL Normal 0.2-1.2 [facility] Comment on above: Performed By: #### 1 0231, 6399, 33319, 7600 #### [facility] of [address], [address] [place] [address] Oyster Cultivator: Jasbir Membreno MD BUN/CREATININE RATIO NOT APPLICABLE Normal 6-22 [facility] Comment on above: Performed By: #### 1 0231, 6399, 71719, 7600 #### [facility] of [address], [address] [place] [address] Oyster Cultivator: Jasbir Membreno MD Calcium [Mass/Vol] 9.1 mg/dL Normal 8.6-10.2 [facility] Comment on above: Performed By: #### 1 0231, 6399, 09515, 7600 #### [facility] of [address], [address] [place] [address] Oyster Cultivator: Jasbir Membreno MD Chloride [Moles/Vol] 104 mmol/L Normal 98-110 [facility] Comment on above: Performed By: #### 1 0231, 6399, 14085, 7600 #### [facility] of [address], [address] [place] [address] Oyster Cultivator: Jasbir Membreno MD CO2 [Moles/Vol] 30 mmol/L Normal 20-32 [facility] Comment on above: Performed By: #### 1 0231, 6399, 98208, 7600 #### [facility] of [address], [address] [place] [address] Oyster Cultivator: Jasbir Membreno MD Creatinine [Mass/Vol] 0.73 mg/dL Normal 0.50-0.[address] [facility] [address] [facility] Comment on above: Performed By: #### 1 0231, 6399, 54592, 7600 #### [facility] of [address], [address] [place] [address] Oyster Cultivator: Jasbir Membreno MD GFR/1.73 sq M.predicted among non-blacks MDRD (S/P/Bld) [Vol rate/Area] 107 mL/min/{1.73_m2} Normal > OR = 60 [facility] Comment on above: Result Comment: The eGFR is based on the CKD-EPI 2020 equation. To calculate the new eGFR from a previous Creatinine or Cystatin C result, go to https://www.kidney.org/professionals/ kdoqi/gfr%5Fcalculator Performed By: #### 1 0231, 6399, 68014, 7600 #### [facility] [address], [address] [place] [address] Oyster Cultivator: Jasbir Membreno MD Globulin (S) [Mass/Vol] 3.2 g/dL Normal 1.9-3.7 [facility] Comment on above: Performed By: #### 1 0231, 6399, 67034, 7600 #### [facility] of [address], [address] [place] [address] Oyster Cultivator: Jasbir Membreno MD Glucose [Mass/Vol] 82 mg/dL Normal 65-139 [facility] Comment on above: Result Comment: Non-fasting reference interval Performed By: #### 1 0231, 6399, 28686, 7600 #### [facility] [address], [address] [place] [address] Oyster Cultivator: Jasbir Membreno MD Potassium [Moles/Vol] 4.4 mmol/L Normal 3.5-5.[address] [facility] Comment on above: Performed By: #### 1 0231, 6399, 10863, 7600 #### [facility] [place] [address] Oyster Cultivator: Jasbir Membreno MD Protein [Mass/Vol] 7.4 g/dL Normal 6.1-8.1 [facility] Comment on above: Performed By: #### 1 0231, 6399, 76287, 7600 #### [facility] [place] [address] Oyster Cultivator: Jasbir Membreno MD Sodium [Moles/Vol] 139 mmol/L Normal 135-146 [facility] Comment on above: Performed By: #### 1 0231, 6399, 38106, 7600 #### [facility] of [address], [address] [place] [address] Oyster Cultivator: Jasbir Membreno MD Urea nitrogen [Mass/Vol] 17 mg/dL Normal 7-25 [facility] Comment on above: Performed By: #### 1 0231, 6399, 48409, 7600 #### [facility] [address], [address] [place] [address] Oyster Cultivator: Jasbir Membreno MD LIPID PANEL, [facility] 08- Cholesterol [Mass/Vol] 158 mg/dL Normal <200 [facility] Comment on above: Order Comment: FASTI NG:NO FASTING: NO Performed By: #### 1 0231, 6399, 83394, 7600 #### [facility] [address], [address] [place] [address] Oyster Cultivator: Jasbir Membreno MD Cholesterol in HDL [Mass/Vol] 57 mg/dL Normal > OR = 50 [facility] Comment on above: Order Comment: FASTI NG:NO FASTING: NO Performed By: #### 1 0231, 6399, 87149, 7600 #### [facility] [address], [address] [place] [address] Oyster Cultivator: Jasbir Membreno MD Cholesterol in LDL [Mass/Vol] 85 mg/dL Normal [facility] Comment on above: Order Comment: FASTI NG:NO FASTING: NO Result Comment: Refe rence range: <100 Desirable range <100 mg/dL for primary prevention; <70 mg/dL for patients with CHD or diabetic patients with > or = 2 CHD risk factors. LDL-C is now calculated using the Colten calculation, which is a validated novel method providing better accuracy than the Friedewald equation in the estimation of LDL-C. Thai SS et al. LEFTY. 2013;310(19): 9255-2154 (http://education.[employer]/faq/BKD590) Performed By: #### 1 0231, 6399, 28856, 7600 #### [facility] [address], [address] [place] [address] Oyster Cultivator: Jasbir Membreno MD Cholesterol.total/Choles terol in HDL [Mass ratio] 2.8 {ratio} Normal <5.0 [facility] Comment on above: Order Comment: FASTI NG:NO FASTING: NO Performed By: #### 1 0231, 6399, 81484, 7600 #### [facility] [place] [address] Oyster Cultivator: Jasbir Membreno MD NON HDL CHOLESTEROL 101 mg/dL (calc) Normal <130 [facility] Comment on above: Order Comment: FASTI NG:NO FASTING: NO Result Comment: For patients with diabetes plus 1 major ASCVD risk factor, treating to a non-HDL-C goal of <100 mg/dL (LDL-C of <70 mg/dL) is considered a therapeutic option. Performed By: #### 1 0231, 6399, 58007, 7600 #### [facility] [place] [address] Oyster Cultivator: Jasbir Membreno MD Triglyceride [Mass/Vol] 75 mg/dL Normal <150 [facility] Comment on above: Order Comment: FASTI NG:NO FASTING: NO Performed By: #### 1 0231, 6399, 52099, 7600 #### [facility] [place] [address] Oyster Cultivator: Jasbir Membreno MD TSH+FREE T4on 11-26-2021 Free T4 [Mass/Vol] 1.3 ng/dL Normal 0.8-1.8 [facility] Comment on above: Performed By: #### 1 0231, 6399, 63811, 7600 #### [facility] [place] [address] Oyster Cultivator: Jasbir Membreno MD TSH Qn 0.67 m[IU]/L Normal [facility] Comment on above: Result Comment: Refe rence Range > or = 20 Years 0.40-4.50 Ranges First trimester 0.26-2.66 Second trimester 0.55-2.73 Third trimester 0.43-2.91 Performed By: #### 1 0231, 6399, 27766, 7600 #### [facility] [address], [address] [place] [address] Oyster Cultivator: Jasbir Membreno MD XR KUB 1 VIEWon 11-06-2021 XR KUB 1 VIEW EXAMINATION: XR KUB 1 VIEW HISTORY: Wound of abdomen ; recent COMPARISON: No relevant comparison available. FINDINGS: BOWEL GAS PATTERN: No abnormal dilation or deviation. CALCIFICATIONS: None significant. OTHER: Negative. No abnormal gaseous collections. IMPRESSION: 1. Normal bowel gas pattern. 2. No abnormal or suspicious findings. Electronically authenticated by: JENNIFER CALERO Date: 2021-11-06 08:23 Normal [facility] Superficial Wound Cultureon 11-02-2021 Superficial Wound Culture ORGANISM: Proteus mirabilis (O:PROMIR) Quantity of Growth Light Growth Aerobic LANDON Charge (NUC86) ------ SUSCEPTIBILITY ----- ORGANISM: O:PROMIR ANTIBIOTIC INTERPRETATION LANDON Amikacin S <16 Ampicillin S <8 Ampicillin/Sulbacta m S <8/4 Aztreonam S <4 Cefazolin S <2 Cefepime S <2 Ceftazidime S <1 Ceftazidime/Avibact am S <8 Ceftriaxone S <1 Ciprofloxacin S <1 Ertapenem S <0.5 Gentamicin S <4 Levofloxacin S <2 Meropenem S <1 Piperacillin/Tazoba ctam S <16 Tetracycline R >8 Tobramycin S <4 Trimethoprim/Sulfam ethoxazole S <2/38 S = SUSCEPTIBLE I = INTERMEDIATE R = RESISTANT BLANK = DATA NOT AVAILABLE, OR DRUG NOT ADVISABLE OR TESTED R* = RESISTANCE DUE TO EXTENDED SPECTRUM BETA-LACTAMASES ESBL = EXTENDED SPECTRUM BETA-LACTAMASE TFG = THYMIDINE-DEPENDENT STRAIN HUA = BETA-LACTAMASE POSITIVE IB = INDUCIBLE BETA-LACTAMASE. APPEARS IN PLACE OF 'S' WITH SPECIES KNOWN TO POSSESS INDUCIBLE BETA-LACTAMASES. POTENTIALLY THEY MAY BECOME RESISTANT TO ALL B-LACTAM DRUGS. PERFORMED BY: [address] [place] [address] PATHOLOGIST FITTER TYPE BAR AND SEGMENT TANYA CATHERINE M.D. [facility] Comment on above: Performed By: #### C OVID-19 IMELDA HERNDON #### [facility] [address] [place] [address] Aerobic Cultureon 10-04-2021 Aerobic Culture ORGANISM: Proteus mirabilis (O:PROMIR) Quantity of Growth Light Growth No Anaerobes Isolated 3 Days Gram Stain Result No Bacteria Seen Aerobic LANDON Charge (NUC86) ------ SUSCEPTIBILITY ----- ORGANISM: O:PROMIR ANTIBIOTIC INTERPRETATION LANDON Amikacin S <16 Ampicillin S <8 Ampicillin/Sulbacta m S <8/4 Aztreonam S <4 Cefazolin R 8 Cefepime S <2 Ceftazidime S <1 Ceftazidime/Avibact am S <8 Ceftriaxone S <1 Ciprofloxacin S <1 Ertapenem S <0.5 Gentamicin S <4 Levofloxacin S <2 Meropenem S <1 Piperacillin/Tazoba ctam S <16 Tetracycline R >8 Tobramycin S <4 Trimethoprim/Sulfam ethoxazole S <2/38 S = SUSCEPTIBLE I = INTERMEDIATE R = RESISTANT BLANK = DATA NOT AVAILABLE, OR DRUG NOT ADVISABLE OR TESTED R* = RESISTANCE DUE TO EXTENDED SPECTRUM BETA-LACTAMASES ESBL = EXTENDED SPECTRUM BETA-LACTAMASE TFG = THYMIDINE-DEPENDENT STRAIN HUA = BETA-LACTAMASE POSITIVE IB = INDUCIBLE BETA-LACTAMASE. APPEARS IN PLACE OF 'S' WITH SPECIES KNOWN TO POSSESS INDUCIBLE BETA-LACTAMASES. POTENTIALLY THEY MAY BECOME RESISTANT TO ALL B-LACTAM DRUGS. PERFORMED BY: [place] [address] PATHOLOGIST FITTER TYPE BAR AND SEGMENT TANYA CATHERINE M.D. [facility] Comment on above: Performed By: #### C OVID-19 IMELDA HERNDON #### [place] [id number] [facility] ECHOCARDIO M/2D COMPLETEon 0 09-29-2021 ECHOCARDIO M/2D COMPLETE Patient: ANTHONY RITCHIE Exam Date: 09/29/2021 : 1980 Gender:F Ordering : ESTELA Hall SABRINA Admission #: [id number] Family : Order #: [id number] CLICK HERE TO VIEW EXAM ECHOCARDIOGRAM REPORT PROCEDURE: CARDIO PULMONARY ECHOCARDIO M/2D COMP INDICATIONS: Familial bicuspid aortic valve COMPARISON: None. DESCRIPTION: COMPLETE ECHOCARDIOGRAM Real-time transthoracic echocardiography with 2D, M-mode, spectral and color flow Doppler performed. QUALITY: Technical quality was good. LEFT VENTRICLE: Normal chamber size. Normal left ventricular wall thickness. Global left ventricular systolic function is normal. LV EF: Normal left ventricular ejection fraction, (>55%). DIASTOLIC: Normal diastolic function. ATRIAL SEPTUM: Visually appears intact. LEFT ATRIUM: Normal chamber size. RIGHT ATRIUM: Normal chamber size. RIGHT VENTRICLE: Normal chamber size. Normal right ventricular systolic function. TRICUSPID VALVE: Normal mobility and thickness. No stenosis with trivial regurgitation. No evidence of pulmonary hypertension. RVSP 22 mmHg MITRAL VALVE: Normal mobility and thickness. No evidence of mitral valve stenosis. There is no mitral annular calcification. Trivial mitral regurgitation. AORTIC VALVE: Normal trileaflet appearance. No visible sclerosis. Normal leaflet mobility. No evidence of aortic valve stenosis. No aortic regurgitation. AORTIC ROOT: Normal diameter and appearance. Ascending aorta is normal in size. PULMONIC VALVE: Normal thickness and mobility. No stenosis. No regurgitation. PERICARDIUM: No evidence of pericardial effusion. IVC: Collapses with inspirations. IVC is normal in size. PLEURA: CONCLUSION: 1. Normal ventricular function. LVEF is 55 to 60%. 2. No significant valvular dysfunction. 3. Normal right-sided pressures. 4. No pericardial effusion. Adult Echocardiography Procedure Report Left Ventricle LVEDD (3.7 - 5.6 cm): 4.59 cm LVESD (2.2 - 4.0 cm): 3.42 cm LVIVS thickness (0.6 - 1.2 cm): 8.07 mm LVPW thickness (0.5 - 1.0 cm): 7.71 mm e': 10.60 cm/s E - e': 8.70 LVOT Area (cm2): 3.80 cm2 LVOT Diameter 2.20 cm Left Ventricular Ejection Fraction: 55-60 % Left Atrium LA Volume Index (2D A2C): 13.90 ml/m2 Left Atrium Systolic Dimension: 3.70 cm Left Atrium Systolic Area(A2C): 13.10 cm2 Left Atrium Systolic Area(A4C): 14.80 cm2 Left Atrium Systolic Volume(A2C): 51832 mm3 Left Atrium Systolic Volume(A4C): 13111 mm3 Mitral Valve MV E to A Ratio: 1.20 Mitral Valve A-Wave Peak Velocity: 76.50 cm/s Mitral Valve E-Wave Peak Velocity: 92.30 cm/s Deceleration Time: 190 ms Right Ventricle Aorta AO Root Diam: 2.90 cm Aortic Valve AoV Area (Peak Tao): 2.16 cm2 Peak Velocity(Antegrade Flow): 156.00 cm/s Peak Gradient(Antegrade Flow): 10 mm[Hg] Tricuspid Valve Peak Velocity (Regurgitant Flow): 212.00 cm/s Pulmonic Valve Peak Velocity: 117.00 cm/s Peak Gradient: 5 mm[Hg] Right Atrium Dictated by: Adrian Rogel M.D. on 09/29/2021 at 14:31 Approved by: Adrian Rogel M.D. on 09/29/2021 at 14:34 Normal [facility] WOUND CULTUREon 09-03-2021 Antimicrobial Susceptibility Comment Normal [facility] Comment on above: Result Comment: S = Susceptible; I = Intermediate; R = Resistant P = Positive; N = Negative MICS are expressed in micrograms per mL Antibiotic RSLT#1 RSLT#2 RSLT#3 RSLT#4 Amoxicillin/Clavulanic Acid S Ampicillin S Cefazolin R Cefepime S Ceftriaxone S Cefuroxime S Ciprofloxacin S Ertapenem S Gentamicin S Levofloxacin S Meropenem S Penicillin S Piperacillin/Tazobactam S Tetracycline R Tobramycin S Trimethoprim/Sulfa S Vancomycin S Performed By: #### C MP, TSH #### [facility] [address] [address] [address] Yuly Schuler Bacteria identified Aer cx Nom (Unsp spec) Final report Abnormal [facility] Comment on above: Performed By: #### C MP, TSH #### [facility] [address] [place] [address] Dr. Yuly Schuler Result 1 Enterococcus faecalis Abnormal [facility] Comment on above: Result Comment: For Enterococcus species, aminoglycosides (except for high-level resistance screening), cephalosporins, clindamycin, and trimethoprim-sulfamethoxazole are not effective clinically. (CLSI, [id number], 2016) Moderate growth Performed By: #### C MP, TSH #### [facility] [address] [place] [address] Dr. Yuly Schuler Result 2 Comment Abnormal [facility] Comment on above: Result Comment: Prot eus mirabilis/penneri Moderate growth Performed By: #### C MP, TSH #### [facility] [address] [place] [address] Dr. Yuly Schuler CBC AUTO DIFFon 08-30-2021 BASO # 0.1 103/ul Normal 0.0-0.1 [facility] Comment on above: Performed By: #### C BC #### [facility] [address] [place] [address] Dr. Yuly Schuler Basophils/100 WBC (Bld) 0.3 % Normal 0.2-2.0 [facility] Comment on above: Performed By: #### C BC #### [facility] [address] [place] [address] Dr. Yuly Schuler EO # 0.1 103/ul Normal 0.0-0.7 [facility] Comment on above: Performed By: #### C BC #### [facility] [address] [place] [address] Dr. Yuly Schuler Eosinophils/100 WBC (Bld) 0.4 % Critically low 0.9-7.0 [facility] Comment on above: Performed By: #### C BC #### [facility] [address] [place] [address] Dr. Yuly Schuler Erythrocyte distribution width (RBC) [Ratio] 14.0 % Normal 11.0-15.0 [facility] Comment on above: Performed By: #### C BC #### [facility] [address] [place] [address] Dr. Yuly Schuler Hematocrit (Bld) [Volume fraction] 33.2 % Critically low 36.0-48.0 [facility] Comment on above: Performed By: #### C BC #### [facility] [address] [address] [address] Yuly Schuler Hemoglobin (Bld) [Mass/Vol] 10.8 g/dL Critically low 12.0-16.0 [facility] Comment on above: Performed By: #### C BC #### [facility] [address] [place] [address] Dr. Yuly Schuler IG # 0.12 10e3/ul Critically high 0.00-0.03 [facility] Comment on above: Performed By: #### C BC #### [facility] [address] [place] [address] Dr. Yuly Schuler IG % 0.7 % Critically high 0.0-0.5 [facility] Comment on above: Performed By: #### C BC #### [facility] [address] [place] [address] Dr. Yuly Schuler LYMPH # 1.6 103/ul Normal 1.2-3.8 [facility] Comment on above: Performed By: #### C BC #### [facility] [address] [place] [address] Dr. Yuly Schuler Lymphocytes/100 WBC (Bld) 9.4 % Critically low 20.5-60.0 [facility] Comment on above: Performed By: #### C BC #### [facility] [address] [place] [address] Dr. Yuly Schuler MANUAL DIFF REQ NO Normal [facility] Comment on above: Performed By: #### C BC #### [facility] [address] [place] [address] Dr. Yuly Schuler MCH (RBC) [Entitic mass] 29.7 pg Normal 26.7-34.0 [facility] Comment on above: Performed By: #### C BC #### [facility] [address] [place] [address] Dr. Yuly Schuler MCHC (RBC) [Mass/Vol] 32.5 g/dL Normal 29.9-35.2 [facility] Comment on above: Performed By: #### C BC #### [facility] [address] [place] [address] Dr. Yuly Schuler MCV (RBC) [Entitic vol] 91.2 fL Normal 81.0-99.0 [facility] Comment on above: Performed By: #### C BC #### [facility] [address] [place] [address] Dr. Yuly Schuler MONO # 0.9 103/ul Critically high 0.3-0.8 [facility] Comment on above: Performed By: #### C BC #### [facility] [address] [place] [address] Dr. Yuly Schuler Monocytes/100 WBC (Bld) 5.5 % Normal 1.7-12.0 [facility] Comment on above: Performed By: #### C BC #### [facility] [address] [place] [address] Dr. Yuly Schuler NEUT # 14.0 103/ul Critically high 1.4-6.5 [facility] Comment on above: Performed By: #### C BC #### [facility] [address] [place] [address] Dr. Yuly Schuler Neutrophils/100 WBC (Bld) 83.7 % Critically high 43.0-75.0 [facility] Comment on above: Performed By: #### C BC #### [facility] [address] [place] [address] Dr. Yuly Schuler Platelet mean volume (Bld) [Entitic vol] 7.7 fL Critically low 9.5-13.5 [facility] Comment on above: Performed By: #### C BC #### [facility] [address] [place] [address] Dr. Yuly Schuler PLT 568 103/ul Critically high 150-450 [facility] Comment on above: Performed By: #### C BC #### [facility] [address] [place] [address] Dr. Yuly Schuler RBC 3.64 106/ul Critically low 4.20-5.40 [facility] Comment on above: Performed By: #### C BC #### [facility] [address] [place] [address] Dr. Yuly Schuler WBC 16.7 103/ul Critically high 4.0-11.0 [facility] Comment on above: Performed By: #### C BC #### [facility] [id number] Yuly Schuler CT ABD/PELVIS WO CONon 08-30 CT ABD/PELVIS WO CON EXAMINATION: CT ABD/PELVIS WO CON, 08/30/2021 7:45 AM EDT HISTORY: Lower abdominal pain COMPARISON: None. TECHNIQUE: CT scan of the abdomen and pelvis was performed without IV contrast. CT dose reduction technique was used, including Automated Exposure Control. FINDINGS: LUNG BASES: No visible pulmonary or pleural disease. LIVER: No enlargement, atrophy, abnormal density, or significant focal lesion. BILIARY: No dilatation or calcification. PANCREAS: No lesion, fluid collection, ductal dilatation, or atrophy. SPLEEN: No enlargement or focal lesion. ADRENALS: No mass or enlargement. KIDNEYS: No mass, obstruction, or calcification. BOWEL/MESENTERY: No visible mass, obstruction, or bowel wall thickening. AORTA/VASCULAR: No aneurysm or dissection. RETROPERITONEUM: No mass or adenopathy. LYMPH NODES: No adenopathy. URINARY BLADDER: No visible focal wall thickening, lesion, or calculus. PELVIC ORGANS: Enlarged uterus. Suspected fluid along the anterior aspect of the uterus measuring 4.5 x 0.9 cm, axial image 109. Some stranding of the ventral peritoneal fat with fluid extending to the rectus ABDOMINAL WALL: Thickening of the rectus abdominis wall with focal fluid collection in the subcutaneous fat extending to the skin surface. Some skin thickening. The area of fluid attenuation is 8.0 x 2.2 cm on axial image 123 BONES: No bony lesion or fracture. OTHER: Negative. IMPRESSION: 8 cm ventral abdominal fat fluid collection with inflammatory changes in the surrounding fat extending to the rectus and ventral peritoneal cavity with an additional fluid collection anterior to the uterus. While some of this likely represents postsurgical changes from section. Infection/abscess should be considered Electronically authenticated by: ZAYDA MORENO Date: 2021-08-30 08:38 Normal [facility] CULTURE BLOODon 08-30-2021 Microscopic examination of blood, culture Culture Observations: NO GROWTH AT 5 DAYS. Normal [facility] Comment on above: Performed By: #### C MP, TSH #### [facility] [address] [address] [address] Yuly Schuler Microscopic examination of blood, culture Culture Observations: NO GROWTH AT 5 DAYS. Normal [facility] Comment on above: Performed By: #### C MP, TSH #### [facility] [address] [place] [address] Dr. Yuly Schuler CULTURE URINEon 08-30-2021 CULTURE URINE Culture Observations: LIGHT GROWTH OF MIXED GENITAL OLI. NO POTENTIAL PATHOGENS SEEN. Normal [facility] Comment on above: Performed By: #### C MP, TSH #### [facility] [address] [address] [address] Yuly Schuler Covid-19 PCR (CVDTBH)on 08-14 SARS-CoV-2 (COVID-19) RNA AMINA+probe Ql (Unsp spec) Not detected Normal NOT DETECTED [facility] Comment on above: Result Comment: When diagnostic testing is negative, the possibility of a false negative should be considered in the context of a patient's recent exposures and the presence of clinical signs and symptoms consistent with SARS-CoV-2. This test is not yet approved or cleared by the [place] FDA. When there are no FDA-approved or cleared tests available, and other criteria are met, FDA can make tests available under an emergency access mechanism called an Emergency Use Authorization (EUA). The EUA for this test is supported by the [place] of Health and Human Service's declaration that circumstances exist to justify the emergency use of in vitro diagnostics for the detection and/or diagnosis of the virus that causes COVID-19. This EUA will remain in effect for the duration of the COVID-19 declaration justifying emergency of IVDs, unless it is terminated or revoked by the FDA (after which the test may no longer be used). Performed By: #### C VDTBH #### [facility] [address] [place] [address] Dr. Yuly Schuler ER URINE PROFILEon 2 Bilirubin Ql (U) Negative Normal NEGATIVE [facility] Comment on above: Performed By: #### C MP, TSH #### [facility] [address] [place] [address] Dr. Yuly Schuler Clarity (U) CLEAR Normal CLEAR [facility] Comment on above: Performed By: #### C MP, TSH #### [facility] [address] [place] [address] Dr. Yuly Schuler Color (U) LT. YELLOW Normal YELLOW [facility] Comment on above: Performed By: #### C MP, TSH #### [facility] [address] [place] [address] Dr. Yuly CAMACHOAHWild A micrscopic examination will be performed if indicated. Normal [facility] Comment on above: Performed By: #### C MP, TSH #### [facility] [address] [place] [address] Dr. Yuly Schuler Glucose Ql (U) Negative Normal NEGATIVE [facility] Comment on above: Performed By: #### C MP, TSH #### [facility] [address] [place] [address] Dr. Yuly Schuler Hemoglobin Ql (U) TRACE-INTACT Abnormal NEGATIVE [facility] Comment on above: Performed By: #### C MP, TSH #### [facility] [address] [place] [address] Dr. Yuly Schuler Ketones Ql (U) Negative Normal NEGATIVE [facility] Comment on above: Performed By: #### C MP, TSH #### [facility] [address] [place] [address] Dr. Yuly Schuler LEUKOCYTES TRACE Abnormal NEGATIVE [facility] Comment on above: Performed By: #### C MP, TSH #### [facility] [address] [place] [address] Dr. Yuly Schuler Nitrite Ql (U) Negative Normal NEGATIVE [facility] Comment on above: Performed By: #### C MP, TSH #### [facility] [address] [place] [address] Dr. Yuly Schuler pH (U) 6.5 [pH] Normal 5-9 [facility] Comment on above: Performed By: #### C MP, TSH #### [facility] [address] [place] [address] Dr. Yuly Schuler SPEC GRAVITY <=1.005 Abnormal 1.005-<=1.02 5 [facility] Comment on above: Performed By: #### C MP, TSH #### [facility] [address] [place] [address] Dr. Yuly Schuler UA PROTEIN Negative Normal NEGATIVE/ TRACE [facility] Comment on above: Performed By: #### C MP, TSH #### [facility] [address] [place] [address] Dr. Yuly Schuelr UR MICRO IND INDICATED Normal [facility] Comment on above: Performed By: #### C MP, TSH #### [facility] [address] [place] [address] Dr. Yuly Schuler Urobilinogen Qn (U) 0.2 {Robby'U}/dL Normal 0.2 - 1. 0 [facility] Comment on above: Performed By: #### C MP, TSH #### [facility] [address] [place] [address] Dr. Yuly Schuler LACTATE/LACTIC ACIDon 2021 Lactate [Moles/Vol] 0.4 mmol/L Normal 0.4-1.9 [facility] Comment on above: Performed By: #### L ACT #### [facility] [address] [place] [address] Dr. Yuly Schuler PROF 14(COMP METB)on 022 Albumin [Mass/Vol] 2.3 g/dL Critically low 3.4-5.0 [facility] Comment on above: Performed By: #### C MP #### [facility] [address] [place] [address] Dr. Yuly Schuler Albumin/Globulin [Mass ratio] 0.4 {ratio} Normal [facility] Comment on above: Performed By: #### C MP #### [facility] [address] [place] [address] Dr. Yuly Schuler ALP [Catalytic activity/Vol] 136 U/L Critically high 46-116 [facility] Comment on above: Performed By: #### C MP #### [facility] [address] [place] [address] Dr. Yuly Schuler ALT [Catalytic activity/Vol] 41 U/L Normal 14-59 [facility] Comment on above: Performed By: #### C MP #### [facility] [address] [place] [address] Dr. Yuly Schuler Anion gap [Moles/Vol] 12.6 mmol/L Normal [facility] Comment on above: Performed By: #### C MP #### [facility] [address] [address] [address] Yuly Schuler AST [Catalytic activity/Vol] 19 U/L Normal 15-37 [facility] Comment on above: Performed By: #### C MP #### [facility] [address] [address] [address] Yuly Schuler Bilirubin [Mass/Vol] 0.2 mg/dL Normal 0.2-1.0 [facility] Comment on above: Performed By: #### C MP #### [facility] [address] [place] [address] Dr. Yuly Schuler Calcium [Mass/Vol] 8.7 mg/dL Normal 8.5-10.1 [facility] Comment on above: Performed By: #### C MP #### [facility] [address] [place] [address] Dr. Yuly Schuler Chloride [Moles/Vol] 101 mmol/L Normal 98-107 [facility] Comment on above: Performed By: #### C MP #### [facility] [address] [address] [address] Yuly Schuler CO2 [Moles/Vol] 27.1 mmol/L Normal 21.0-32.0 [facility] Comment on above: Performed By: #### C MP #### [facility] [address] [address] [address] Yuly Schuler Creatinine [Mass/Vol] 0.79 mg/dL Normal 0.55-1.02 [facility] Comment on above: Performed By: #### C MP #### [facility] [address] [address] [address] Yuly Schuler EGFR-AF ARGENTINE >60 Normal >=60 [facility] Comment on above: Performed By: #### C MP #### [facility] [address] [address] [address] Yuly Schuler EGFR-NON AF ARGENTINE >60 Normal >=60 [facility] Comment on above: Performed By: #### C MP #### [facility] [address] [address] [address] Yuly Schuler Globulin (S) [Mass/Vol] 6.1 g/dL Normal [facility] Comment on above: Performed By: #### C MP #### [facility] [address] [address] [address] Yuly Schuler Glucose [Mass/Vol] 88 mg/dL Normal 74-106 [facility] Comment on above: Performed By: #### C MP #### [facility] [address] [address] [address] Yuly Schuler Potassium [Moles/Vol] 3.7 mmol/L Normal 3.5-5.1 [facility] Comment on above: Performed By: #### C MP #### [facility] [address] [address] [address] Yuly Schuler Protein [Mass/Vol] 8.4 g/dL Critically high 6.4-8.2 [facility] Comment on above: Performed By: #### C MP #### [facility] [address] [address] [address] Yuly Schuler Sodium [Moles/Vol] 137 mmol/L Normal 136-145 [facility] Comment on above: Performed By: #### C MP #### [facility] [address] [address] [address] Yuly Schuler Urea nitrogen [Mass/Vol] 11.0 mg/dL Normal 7.0-18.0 [facility] Comment on above: Performed By: #### C MP #### [facility] [address] [address] [address] Yuly Schuler Urea nitrogen/Creatinine [Mass ratio] 13.9 mg/mg Normal [facility] Comment on above: Performed By: #### C MP #### [facility] [address] [place] [address] Dr. Yuly Schuler URINE MICROSCOPIC ONLYon BACTERIA TRACE Abnormal NONE SEEN [facility] Comment on above: Performed By: #### C MP, TSH #### [facility] [address] [place] [address] Dr. Yuly Schuler Bacteria identified Cx Nom (U) INDICATED Normal [facility] Comment on above: Performed By: #### C MP, TSH #### [facility] [address] [place] [address] Dr. Yuly Schuler CAST NONE SEEN Normal NONE SEEN [facility] Comment on above: Performed By: #### C MP, TSH #### [facility] [address] [place] [address] Dr. Yuly Schuler Crystals LM Nom (Urine sed) NONE SEEN Normal NONE SEEN [facility] Comment on above: Performed By: #### C MP, TSH #### [facility] [address] [place] [address] Dr. Yuly Schuler Epithelial cells LM Ql (Urine sed) RARE Normal NONE SEEN /RARE [facility] Comment on above: Performed By: #### C MP, TSH #### [facility] [address] [place] [address] Dr. Yuly Schuler MUCOUS NONE SEEN Normal NONE SEEN [facility] Comment on above: Performed By: #### C MP, TSH #### [facility] [address] [place] [address] Dr. Yuly Schuler RBC 0-2 Normal 0-2 [facility] Comment on above: Performed By: #### C MP, TSH #### [facility] [address] [place] [address] Dr. Yuly Schuler WBC 0-2 Abnormal NONE SEEN [facility] Comment on above: Performed By: #### C MP, TSH #### [facility] [address] [place] [address] Dr. Yuly Schuler CBC AUTO DIFFon 08-29-2021 BASO # 0.1 103/ul Normal 0.0-0.1 [facility] Comment on above: Performed By: #### C BC #### [facility] [address] [address] [address] Yuly Schuler Basophils/100 WBC (Bld) 0.3 % Normal 0.2-2.0 [facility] Comment on above: Performed By: #### C BC #### [facility] [address] [address] [address] Yuly Schuler EO # 0.1 103/ul Normal 0.0-0.7 [facility] Comment on above: Performed By: #### C BC #### [facility] [address] [address] [address] Yuly Schuler Eosinophils/100 WBC (Bld) 0.4 % Critically low 0.9-7.0 [facility] Comment on above: Performed By: #### C BC #### [facility] [address] [place] [address] Dr. Yuly Schuler Erythrocyte distribution width (RBC) [Ratio] 14.0 % Normal 11.0-15.0 [facility] Comment on above: Performed By: #### C BC #### [facility] [address] [place] [address] Dr. Yuly Schuler Hematocrit (Bld) [Volume fraction] 31.7 % Critically low 36.0-48.0 [facility] Comment on above: Performed By: #### C BC #### [facility] [address] [place] [address] Dr. Yuly Schuler Hemoglobin (Bld) [Mass/Vol] 10.1 g/dL Critically low 12.0-16.0 [facility] Comment on above: Performed By: #### C BC #### [facility] [address] [address] [address] Yuly Schuler IG # 0.11 10e3/ul Critically high 0.00-0.03 [facility] Comment on above: Performed By: #### C BC #### [facility] [address] [address] [address] Yuly Schuler IG % 0.7 % Critically high 0.0-0.5 [facility] Comment on above: Performed By: #### C BC #### [facility] [address] [address] [address] Yuly Schuler LYMPH # 2.0 103/ul Normal 1.2-3.8 [facility] Comment on above: Performed By: #### C BC #### [facility] [address] [address] [address] Yuly Schuler Lymphocytes/100 WBC (Bld) 13.3 % Critically low 20.5-60.0 [facility] Comment on above: Performed By: #### C BC #### [facility] [address] [place] [address] Dr. Yuly Schuler MANUAL DIFF REQ NO Normal [facility] Comment on above: Performed By: #### C BC #### [facility] [address] [place] [address] Dr. Yuly Schuler MCH (RBC) [Entitic mass] 29.3 pg Normal 26.7-34.0 [facility] Comment on above: Performed By: #### C BC #### [facility] [address] [place] [address] Dr. Yuly Schuler MCHC (RBC) [Mass/Vol] 31.9 g/dL Normal 29.9-35.2 [facility] Comment on above: Performed By: #### C BC #### [facility] [address] [place] [address] Dr. Yuly Schuler MCV (RBC) [Entitic vol] 91.9 fL Normal 81.0-99.0 [facility] Comment on above: Performed By: #### C BC #### [facility] [address] [place] [address] Dr. Yuly Schuler MONO # 0.8 103/ul Normal 0.3-0.8 [facility] Comment on above: Performed By: #### C BC #### [facility] [address] [place] [address] Dr. Yuly Schuler Monocytes/100 WBC (Bld) 5.3 % Normal 1.7-12.0 [facility] Comment on above: Performed By: #### C BC #### [facility] [address] [address] [address] Yuly Schuler NEUT # 12.0 103/ul Critically high 1.4-6.5 [facility] Comment on above: Performed By: #### C BC #### [facility] [address] [address] [address] Yuly Schuler Neutrophils/100 WBC (Bld) 80.0 % Critically high 43.0-75.0 [facility] Comment on above: Performed By: #### C BC #### [facility] [address] [address] [address] Yuly Schuler Platelet mean volume (Bld) [Entitic vol] 8.0 fL Critically low 9.5-13.5 [facility] Comment on above: Performed By: #### C BC #### [facility] [address] [place] [address] Dr. Yuly Schuler PLT 608 103/ul Critically high 150-450 [facility] Comment on above: Performed By: #### C BC #### [facility] [address] [place] [address] Dr. Yuly Schuler RBC 3.45 106/ul Critically low 4.20-5.40 [facility] Comment on above: Performed By: #### C BC #### [facility] [address] [place] [address] Dr. Yuly Schuler WBC 15.0 103/ul Critically high 4.0-11.0 [facility] Comment on above: Performed By: #### C BC #### [facility] [address] [place] [address] Dr. Yuly Schuler PROF 14(COMP METB)on 022 Albumin [Mass/Vol] 2.3 g/dL Critically low 3.4-5.0 [facility] Comment on above: Performed By: #### C MP, TSH #### [facility] [address] [place] [address] Dr. Yuly Schuler Albumin/Globulin [Mass ratio] 0.4 {ratio} Normal [facility] Comment on above: Performed By: #### C MP, TSH #### [facility] [address] [address] [address] Yuly Schuler ALP [Catalytic activity/Vol] 131 U/L Critically high 46-116 [facility] Comment on above: Performed By: #### C MP, TSH #### [facility] [address] [address] [address] Yuly Schuler ALT [Catalytic activity/Vol] 43 U/L Normal 14-59 [facility] Comment on above: Performed By: #### C MP, TSH #### [facility] [address] [address] [address] Yuly Schuler Anion gap [Moles/Vol] 11.3 mmol/L Normal [facility] Comment on above: Performed By: #### C MP, TSH #### [facility] [address] [address] [address] Yuly Schuler AST [Catalytic activity/Vol] 18 U/L Normal 15-37 [facility] Comment on above: Performed By: #### C MP, TSH #### [facility] [address] [address] [address] Yuly Schuler Bilirubin [Mass/Vol] 0.1 mg/dL Critically low 0.2-1.0 [facility] Comment on above: Performed By: #### C MP, TSH #### [facility] [address] [address] [address] Yuly Schuler Calcium [Mass/Vol] 8.9 mg/dL Normal 8.5-10.1 [facility] Comment on above: Performed By: #### C MP, TSH #### [facility] [address] [address] [address] Yuly Schuler Chloride [Moles/Vol] 101 mmol/L Normal 98-107 [facility] Comment on above: Performed By: #### C MP, TSH #### [facility] [address] [address] [address] Yuly Schuler CO2 [Moles/Vol] 28.9 mmol/L Normal 21.0-32.0 [facility] Comment on above: Performed By: #### C MP, TSH #### [facility] [address] [place] [address] Dr. Yuly Schuler Creatinine [Mass/Vol] 0.80 mg/dL Normal 0.55-1.02 [facility] Comment on above: Performed By: #### C MP, TSH #### [facility] [address] [address] [address] Yuly Schuler EGFR-AF ARGENTINE >60 Normal >=60 [facility] Comment on above: Performed By: #### C MP, TSH #### [facility] [address] [address] [address] Yuly Schuler EGFR-NON AF ARGENTINE >60 Normal >=60 [facility] Comment on above: Performed By: #### C MP, TSH #### [facility] [address] [place] [address] Dr. Yuly Schuler Globulin (S) [Mass/Vol] 5.9 g/dL Normal [facility] Comment on above: Performed By: #### C MP, TSH #### [facility] [address] [place] [address] Dr. Yuly Schuler Glucose [Mass/Vol] 92 mg/dL Normal 74-106 [facility] Comment on above: Performed By: #### C MP, TSH #### [facility] [address] [place] [address] Dr. Yuly Schuler Potassium [Moles/Vol] 4.2 mmol/L Normal 3.5-5.1 [facility] Comment on above: Performed By: #### C MP, TSH #### [facility] [address] [place] [address] Dr. Yuly Schuler Protein [Mass/Vol] 8.2 g/dL Normal 6.4-8.2 [facility] Comment on above: Performed By: #### C MP, TSH #### [facility] [address] [place] [address] Dr. Yuly Schuler Sodium [Moles/Vol] 137 mmol/L Normal 136-145 [facility] Comment on above: Performed By: #### C MP, TSH #### [facility] [address] [address] [address] Yuly Schuler Urea nitrogen [Mass/Vol] 11.0 mg/dL Normal 7.0-18.0 [facility] Comment on above: Performed By: #### C MP, TSH #### [facility] [address] [address] [address] Yuly Schuler Urea nitrogen/Creatinine [Mass ratio] 13.8 mg/mg Normal [facility] Comment on above: Performed By: #### C MP, TSH #### [facility] [address] [address] [address] Yuly Schuler SED RATE [facility] 2021 SED RATE 72 mm/hr Critically high <=20 [facility] Comment on above: Performed By: #### C MP, TSH #### [facility] [address] [place] [address] Dr. Yuly Schuler TSHon 08-29-2021 TSH 1.088 uIU/mL Normal 0.358-3.740 [facility] Comment on above: Performed By: #### C MP, TSH #### [facility] [address] [address] [address] Yuly Schuler TSH RANGE SEE BELOW Normal [facility] Comment on above: Result Comment: <0.3 4 UIU/ml HYPERTHYROID 0.34-5.60 UIU/ml EUTHYROID >5.60 UIU/ml HYPOTHYROID Performed By: #### C MP, TSH #### [facility] [address] [address] [address] Yuly Schuler Complete Blood Count Auto Di ffon 08-07-2021 Basophils (Bld) [#/Vol] 0.0 10*3/uL Normal 0.0-0.2 [facility] Comment on above: Result Comment: PERF ORMED BY: [place] [address] PATHOLOGIST FITTER TYPE BAR AND SEGMENT TANYA CATHERINE M.D. Performed By: #### C BC #### [place] [address] [place] Basophils/100 WBC (Bld) 0.3 % Normal . [facility] Comment on above: Performed By: #### C BC #### [facility] [address] Eosinophils (Bld) [#/Vol] 0.0 10*3/uL Normal 0.0-0.45 [facility] Comment on above: Performed By: #### C BC #### [facility] [address] Eosinophils/100 WBC (Bld) 0.1 % Normal . [facility] Comment on above: Performed By: #### C BC #### [address] Erythrocyte distribution width (RBC) [Ratio] 13.9 % Normal 11.9-15.3 [facility] Comment on above: Performed By: #### C BC #### [address] Hematocrit (Bld) [Volume fraction] 35.0 % Normal 34.0-46.4 [facility] Comment on above: Performed By: #### C BC #### [address] Hemoglobin (Bld) [Mass/Vol] 11.8 g/dL Normal 11.8-15.4 [facility] Comment on above: Performed By: #### C BC #### [address] Lymphocytes (Bld) [#/Vol] 1.0 10*3/uL Normal 1.00-4.8 [facility] Comment on above: Performed By: #### C BC #### [address] Lymphocytes/100 WBC (Bld) 6.0 % Normal . [facility] Comment on above: Performed By: #### C BC #### [address] MCH (RBC) [Entitic mass] 31.1 pg Normal 24.7-34.3 [facility] Comment on above: Performed By: #### C BC #### [facility] [address] MCV (RBC) [Entitic vol] 92.0 fL Normal 80-100 [facility] Comment on above: Performed By: #### C BC #### [facility] [address] Mean Corpuscular HGB Conc 33.8 g/dL Normal 32.0-35.0 [facility] Comment on above: Performed By: #### C BC #### [facility] [address] Monocytes (Bld) [#/Vol] 0.8 10*3/uL Normal 0.0-0.8 [facility] Comment on above: Performed By: #### C BC #### [facility] [address] Monocytes/100 WBC (Bld) 4.8 % Normal . [facility] Comment on above: Performed By: #### C BC #### [facility] [address] Neutrophils (Bld) [#/Vol] 15.3 10*3/uL High 1.8-7.7 [facility] Comment on above: Performed By: #### C BC #### [facility] [address] Neutrophils/100 WBC (Bld) 88.8 % Normal . [facility] Comment on above: Performed By: #### C BC #### [facility] [address] Nucleated RBC/100 WBC (Bld) [Ratio] 0.0 % Normal 0-0.5 [facility] Comment on above: Performed By: #### C BC #### [facility] [address] Platelet mean volume (Bld) [Entitic vol] 8.8 fL Normal 6.3-10.7 [facility] Comment on above: Performed By: #### C BC #### [facility] [address] Platelets (Bld) [#/Vol] 214 10*3/uL Normal 150-450 [facility] Comment on above: Performed By: #### C BC #### [facility] [address] RBC (Bld) [#/Vol] 3.80 10*6/uL Normal 3.60-5.00 [facility] Comment on above: Performed By: #### C BC #### [facility] [address] WBC (Bld) [#/Vol] 17.2 10*3/uL High 4.5-11.0 [facility] Comment on above: Performed By: #### C BC #### [address] COVID-19 Antigenon 2 COVID-19 Antigen Healthcare Worker?: N Reference Range: Negative Negative results, from patients with symptom onset beyond five days, should be treated as presumptive and confirmation with a molecular assay, if necessary, for patient management, may be performed. Negative results do not rule out COVID-19 and should not be used as the sole basis for treatment or patient management decisions, including infection control decisions. Negative results should be considered in the context of a patient's recent exposures, history and the presence of clinical signs and symptoms consistent with COVID-19. The Yanick SARS Antigen IRMA does not differentiate between SARS-CoV and SARS-CoV-2. This test was developed and its performance characteristic determined by [facility] and validated at [facility]. This test has not been FDA cleared or approved. This test has been authorized by FDA under an Emergency Use Authorization (EUA). This test has been validated in accordance with the FDA's Guidance Document (Policy for Diagnostics Testing in Laboratories Certified to Perform High Complexity Testing under CLIA prior to Emergency Use Authorization for Coronavirus Disease-2019 during the Public Health Emergency) issued on July 17, 2019. This test is only authorized for the duration of time the declaration that circumstances exist justifying the authorization of the emergency use of in vitro diagnostic tests for detection of SARS-CoV-2 virus and/or diagnosis of COVID-19 infection under section 564(b)(1) of the Act, 21 U.S.C. 360bbb-3(b)(1), unless the authorization is terminated or revoked sooner. SARS-CoV+SARS-CoV-2 (COVID-19) Ag [Presence] in Respiratory specimen by Rapid immunoassay Negative for SARS Antigen by IRMA PERFORMED BY: [place] [address] PATHOLOGIST FITTER TYPE BAR AND SEGMENT TANYA CATHERINE M.D. Normal [facility] Comment on above: Performed By: #### C OVID-19 YANICK, SOFIANEG #### [address] Complete Blood Count Auto Di ffon 08-06-2021 Basophils (Bld) [#/Vol] 0.0 10*3/uL Normal 0.0-0.2 [facility] Comment on above: Result Comment: PERF ORMED BY: [place] [address] PATHOLOGIST FITTER TYPE BAR AND SEGMENT TANYA CATHERINE M.D. Performed By: #### C OVID-19 YANICK, SOFIANEG #### [address] Basophils/100 WBC (Bld) 0.5 % Normal . [facility] Comment on above: Performed By: #### C OVID-19 YANICK, SOFIANEG #### [facility] [address] [place] [address] [place] Eosinophils (Bld) [#/Vol] 0.0 10*3/uL Normal 0.0-0.45 [facility] Comment on above: Performed By: #### C OVID-19 YANICK, SOFIANEG #### [place] [address] [place] Eosinophils/100 WBC (Bld) 0.1 % Normal . [facility] Comment on above: Performed By: #### C OVID-19 YANICK, SOFIANEG #### [facility] [address] [place] [address] Erythrocyte distribution width (RBC) [Ratio] 13.8 % Normal 11.9-15.3 [facility] Comment on above: Performed By: #### C OVID-19 YANICK, SOFIANEG #### [facility] [address] [place] [address] Hematocrit (Bld) [Volume fraction] 41.3 % Normal 34.0-46.4 [facility] Comment on above: Performed By: #### C OVID-19 YANICK, SOFIANEG #### [address] Hemoglobin (Bld) [Mass/Vol] 14.0 g/dL Normal 11.8-15.4 [facility] Comment on above: Performed By: #### C OVID-19 YANICK, SOFIANEG #### [address] Lymphocytes (Bld) [#/Vol] 1.2 10*3/uL Normal 1.00-4.8 [facility] Comment on above: Performed By: #### C OVID-19 YANICK, SOFIANEG #### [address] Lymphocytes/100 WBC (Bld) 12.5 % Normal . [facility] Comment on above: Performed By: #### C OVID-19 YANICK, SOFIANEG #### [address] MCH (RBC) [Entitic mass] 31.0 pg Normal 24.7-34.3 [facility] Comment on above: Performed By: #### C OVID-19 YANICK, SOFIANEG #### [address] MCV (RBC) [Entitic vol] 91.1 fL Normal 80-100 [facility] Comment on above: Performed By: #### C OVID-19 YANICK, SOFIANEG #### [facility] [address] [place] [address] Mean Corpuscular HGB Conc 34.0 g/dL Normal 32.0-35.0 [facility] Comment on above: Performed By: #### C OVID-19 YANICK, SOFIANEG #### [facility] [address] [place] [address] [place] Monocytes (Bld) [#/Vol] 0.4 10*3/uL Normal 0.0-0.8 [facility] Comment on above: Performed By: #### C OVID-19 YANICK, SOFIANEG #### [facility] [address] Monocytes/100 WBC (Bld) 4.2 % Normal . [facility] Comment on above: Performed By: #### C OVID-19 YANICK, SOFIANEG #### [facility] [address] [place] [address] Neutrophils (Bld) [#/Vol] 7.6 10*3/uL Normal 1.8-7.7 [facility] Comment on above: Performed By: #### C OVID-19 YANICK, SOFIANEG #### [facility] [address] [place] [address] Neutrophils/100 WBC (Bld) 82.7 % Normal . [facility] Comment on above: Performed By: #### C OVID-19 YANICK, SOFIANEG #### [facility] [address] [place] [address] Nucleated RBC/100 WBC (Bld) [Ratio] 0.0 % Normal 0-0.5 [facility] Comment on above: Performed By: #### C OVID-19 YANICK, SOFIANEG #### [facility] [address] [place] [address] [place] Platelet mean volume (Bld) [Entitic vol] 8.0 fL Normal 6.3-10.7 [facility] Comment on above: Performed By: #### C OVID-19 YANICK, SOFIANEG #### [facility] [address] [place] [address] [place] Platelets (Bld) [#/Vol] 240 10*3/uL Normal 150-450 [facility] Comment on above: Performed By: #### C OVID-19 YANICK, SOFIANEG #### [address] [place] [id number] [place] RBC (Bld) [#/Vol] 4.53 10*6/uL Normal 3.60-5.00 [facility] Comment on above: Performed By: #### C OVID-19 YANICK, SOFIANEG #### [facility] [address] WBC (Bld) [#/Vol] 9.2 10*3/uL Normal 4.5-11.0 [facility] Comment on above: Performed By: #### C OVID-19 YANICK, SOFIANEG #### [facility] [address] Cuauhtemoc 08-06-2021 L Specimen: [id number] Received: 08/08/21 Status: KEELY Sanches Num: [id number] Spec Type: Surgical Subm Dr: Malcom Fonseca MD-[facility] Tissues: A Placenta - 3rd Trimester (Greater than 28 weeks) (PLACENTA WITH CORD) Procedures: LEENA Stain/6, Gross/Micro L5 Patient Age/Sex Location Account Attending Physician Anthony Ritchie 40/F [id number] Malcom Fonseca MD-[facility] SPEC NUM: [id number] RECD: 08/08/21 STATUS: KEELY SANCHES NUM: [id number] HELGA: 08/06/21- SUBM DR: Malcom Fonseca MD-[facility] ENTERED: 08/08/[address] [facility] [address]: VICTOR HUGO TYPE: Surgical DEPT: S ORDERED: HE Stain/6, Gross/Micro L5 ORDERED: HE Stain/6, Gross/Micro L5 Pathological Diagnosis Placenta and cord: - Third trimester placenta (541 g) with focal hemorrhage and intervillous thrombus. - Three-vessel umbilical cord. - Membrane with mild meconium stain, minimal acute chorionitis, no amnionitis identified. Clinical Information IUP 39 weeks, failure to progress, primary . Gross Description Received in formalin labeled with the patient's name, number and placenta is an 18.5 x 14.5 x 3 cm ovoid smith placenta. The marginally inserted izquierdo, translucent to edematous and slightly green tinged membranes are disrupted and a point of rupture is indeterminate. Eccentrically located, 2 cm to the disc edge is an 11.8 cm in length x 1.7 cm in diameter izquierdo-roper, loosely coiled trivascular umbilical cord. The surface is well vascularized, roper to green tinged and slightly edematous. The maternal surface appears focally disrupted and questionably complete. The placenta is 541 g after removal of the umbilical cord and membranes. Sectioning reveals few izquierdo, solid and fibrotic lesions measuring up to 1.7 cm in greatest dimension. The lesions comprise less than 5% of the disc volume. Also received within the specimen container are 2 fragments of detached umbilical cord that measure 3.2 cm in length and 6.9 cm in length. [place] Re[place] sections are submitted in 6 cassettes as follows: A1 - end umbilical cord and membrane roll A2 - Maternal end of the umbilical cord and membrane roll Specimen: [id number] Received: 08/08/21 Status: KEELY Sanches Num: [id number] Spec Type: Surgical Subm Dr: Malcom Fonseca MD-[facility] Tissues: A Placenta - 3rd Trimester (Greater than 28 weeks) (PLACENTA WITH CORD) Procedures: HE Stain/6, Gross/Micro L5 Patient: Anthony Ritchie [id number] (Continued) Specimen: [id number] Received: 08/08/21 (Continued) Gross Description (Continued) Signed (signatur e on file) Yolanda Leblanc MD 08/09/21 1837 Specimen: [id number] Received: 08/08/21 Status: KEELY Sanches Num: [id number] Spec Type: Surgical Subm Dr: Malcom Fonseca MD-[facility] Tissues: A Placenta - 3rd Trimester (Greater than 28 weeks) (PLACENTA WITH CORD) Procedures: HE Stain/6, Gross/Micro L5 Patient: Anthony Ritchie [id number] (Continued) Specimen: Received: 08/08/21 (Continued) Gross Description (Continued) A3 - Central A4 - Peripheral A5 - Lesions A6 - Maternal surface with adherent blood clot Type of Fixative: 10% Neutral Buffered Formalin (GAYLA/YDominik) Microscopic Description Six glass slides with H E stained material have been examined. The microscopic findings support the above pathologic diagnosis. CPT Codes 82531 Specimen: [id number] Received: 08/08/21 Status: KEELY Sanches Num: [id number] Spec Type: Surgical Subm Dr: Malcom Fonseca MD-[facility] Tissues: A Placenta - 3rd Trimester (Greater than 28 weeks) (PLACENTA WITH CORD) Procedures: HE Stain/6, Gross/Micro L5 Patient: ChauAnthony [id number] (more content not included)... Normal [facility] OB Urine Drug Screen (NO THC )on 08-06-2021 Amphetamine Screen,Urine Negative Normal Negative [facility] Comment on above: Performed By: #### O BUDS #### [facility] [address] Barbiturate Screen,Urine Negative Normal Negative [facility] Comment on above: Performed By: #### O BUDS #### [facility] [address] [place] [address] [place] Benzodiazepines Screen,Urine Negative Normal Negative [facility] Comment on above: Performed By: #### O BUDS #### [facility] [address] Cocaine Screen,Urine Negative Normal Negative [facility] Comment on above: Performed By: #### O BUDS #### [facility] [address] [place] [address] [place] Opiate Screen,Urine Negative Normal Negative [facility] Comment on above: Performed By: #### O BUDS #### [address] Phencyclidine Screen, Urine Negative Normal Negative [facility] Comment on above: Result Comment: Thes e are unconfirmed results and should not be used for legal purposes. Drug Cut-Off Concentration: AMPH 1000 ng/mL AUDREY 200 ng/mL NITA 200 ng/mL COCM 300 ng/mL OP 300 ng/mL PCP 25 ng/mL PERFORMED BY: [place] [address] PATHOLOGIST FITTER TYPE BAR AND SEGMENT TANYA CATHERINE M.D. Performed By: #### O BUDS #### [address] RPR w/rfx to Quant TP Abson 08-06-2021 RPR, Rfx Quant RPR Non-Reactive Normal Non Reactive [facility] Comment on above: Result Comment: Perf ormed at: CB - [facility] [place] [phone] Assistant Scientist: Ed Green PhD, Phone: [phone] PERFORMED BY: [place] [address] PATHOLOGIST FITTER TYPE BAR AND SEGMENT TANYA CATHERINE M.D. Performed By: #### C OVID-19 YANICK, SOFIANEG #### [address] Yan[place] Ag Negativeon 08-07-19 22 Yan[place] Ag Negative Negative Normal Negative [facility] Comment on above: Result Comment: This is a duplicate Yanick SARS Antigen (IRMA) result to be used for statistical tracking purpose only. PERFORMED BY: [place] [address] PATHOLOGIST FITTER TYPE BAR AND SEGMENT TANYA CATHERINE M.D. Performed By: #### C OVID-19 YANICK, SOFIANEG #### [address] Urinalysison 08-06-2021 Appearance (U) Clear Normal Clear [facility] Comment on above: Order Comment: Name Collection Type:: Clean-Voided Midstream Performed By: #### U A #### [facility] [address] [place] [address] [place] Bilirubin,Urine Negative Normal Negative [facility] Comment on above: Order Comment: Name Collection Type:: Clean-Voided Midstream Performed By: #### U A #### [facility] [address] [place] [address] [place] Color (U) Yellow Normal Yellow [facility] Comment on above: Order Comment: Name Collection Type:: Clean-Voided Midstream Performed By: #### U A #### [facility] [address] [place] [address] [place] Glucose Ql (U) Normal Normal Normal [facility] Comment on above: Order Comment: Name Collection Type:: Clean-Voided Midstream Performed By: #### U A #### [facility] [address] [place] [address] [place] Ketones Ql (U) Negative Normal Negative [facility] Comment on above: Order Comment: Name Collection Type:: Clean-Voided Midstream Performed By: #### U A #### [facility] [address] [place] [address] [place] Leukocyte esterase Test strip Ql (U) Negative Normal Negative [facility] Comment on above: Order Comment: Name Collection Type:: Clean-Voided Midstream Performed By: #### U A #### [facility] [address] [place] [address] [place] Nitrite,Urine Negative Normal Negative [facility] Comment on above: Order Comment: Name Collection Type:: Clean-Voided Midstream Performed By: #### U A #### [facility] [address] [place] [address] [place] Occult Blood,Urine Negative Normal Negative [facility] Comment on above: Order Comment: Name Collection Type:: Clean-Voided Midstream Result Comment: PERF ORMED BY: [place] [address] PATHOLOGIST FITTER TYPE BAR AND SEGMENT TANYA CATHERINE M.D. Performed By: #### U A #### [address] pH (U) 6.5 [pH] Normal 5.0-9.0 [facility] Comment on above: Order Comment: Name Collection Type:: Clean-Voided Midstream Performed By: #### U A #### [address] Protein,Urine Negative Normal Negative [facility] Comment on above: Order Comment: Name Collection Type:: Clean-Voided Midstream Performed By: #### U A #### [address] Specificy [place],Urine 1.006 Normal 1.001-1.030 [facility] Comment on above: Order Comment: Name Collection Type:: Clean-Voided Midstream Performed By: #### U A #### [address] Urobilinogen,Urine Normal Normal Normal [facility] Comment on above: Order Comment: Name Collection Type:: Clean-Voided Midstream Performed By: #### U A #### [address] Strep B Cultureon 07-18-2021 Strep B Culture Reason for Exam 36 weeks gestation of ; screening for stre Vaginal/Rectal ORGANISM: Strep. agalactiae Grp B (O:B) PERFORMED BY: [place] [address] PATHOLOGIST FITTER TYPE BAR AND SEGMENT TANYA CATHERINE M.D. [facility] Comment on above: Performed By: #### C USTB #### [address] Provider Letteron 10-27-2020 Provider Letter October 27, 2020 Dear Anthony, We have been trying to reach you with no success. It is important that you return our call regarding your appointment upon receiving this letter. Also, at the time of your call, please provide us with your current information. Thank you for your prompt attention to this matter. Sincerely, [facility] [address] [place] [address] Normal [facility] Auth for Release of Medical Recordson 09-27-2020 Auth for Release of Medical Records [id number]:127 Normal [facility] Ambulatory Clinical Summaryo n 06-14-2020 Ambulatory Clinical Summary {[id number] Normal [facility] Gynecology Office/Clinic Not dougie 06-14-2020 Gynecology Office/Clinic Note Chief Complaint Yearly Exam last pap 06-10-2018 Neg. with Neg. HR/HPV, LMP 05-20-2020 is trying to get , still breast feeding twice a day, formula rest of feedings, will call when gets ( + ) test at home Obstetric History History (0,0,0,1) # 1 Baby 1 Outcome Date: 04/24/2019 Outcome: Live Outcome or Result: Vaginal Gender: Female Gest Age: 39 weeks 1 days Wt: -- Hospital: [facility] Labor: 40 hr 30 min Child's Name: -- Baby's Father: -- Anesthesia Type: Epidural Complications: None History of Present Illness 39 yo here for WWE. Last pap 06-10-2018 Neg. with Neg. HR/HPV, LMP 05-20-2020 is trying to get , still breast feeding twice a day, formula rest of feedings, will call when gets ( + ) test at home. Has been having periods since 6 wks PP despite . Currently weaning, prob will be done by end of week. Review of Systems ROS ? Provider Constitutional: No fever, No chills, No sweats, No weakness. No Weight change; No fatigue. Skin: No rash, No lesions. ENMT: No ear pain, No sore throat, No congestion. Respiratory: No shortness of breath, No cough, No orthopnea, No wheezing. Cardiovascular: No chest pain, No palpitations, No peripheral edema. Gastrointestinal: No nausea, No vomiting, No diarrhea, No GI bleeding. Genitourinary: No dysuria, No hematuria, No discharge, No pain. Gynecology: No abnormal vaginal discharge, No vaginal itching/burning, No vaginal dryness, No painful periods, No abnormal bleeding, No pelvic pain, No painful intercourse, No hair loss/growth, No hot flashes Breast: No breast pain, No skin changes, No masses/lumps, No nipple discharge. Musculoskeletal: No back pain, No trauma. Neurological: No headache, No dizziness, No numbness, No weakness. Psychiatric: No sleeping problems, No irritability, No mood swings/depression. Heme/Lymph: No bleeding tendency, No bruising tendency, No petechiae, No swollen. Physical Exam Vitals & Measurements T: 37 ?C (Temporal Artery) BP: 130/78 HT: 160 cm HT: 160.0 cm WT: 102.1 kg WT: 102.1 kg BMI: 39.88 General Exam: Constitutional: alert, no acute distress, well hydrated, well developed, well nourished. Skin: normal color, no rashes, no lesions, no unusual bruising. Head: atraumatic, normocephalic. Eyes: EOM intact, no nystagmus, no icterus. Ears: no external deformities, gross hearing intact. Mouth: normal dentition Breasts: skin/areolae normal, no masses, no nipple discharge, no erythema/warmth/ten derness, axillae normal. Fibrocystic changes throughout. Respiratory: no respiratory distress. Abdomen: nondistended, nontender, no guarding, no masses. Spine: normal mobility, no deformities. Extremities: no deformities, no clubbing, no cyanosis, no edema. Neuro: normal, cranial nn II-XII grossly intact, sensation intact, motor intact, station & gait normal. Psych: oriented to all spheres, affect and mood appropriate, normal interaction, good eye contact. Pelvic Exam: Vulva: normal appearance, normal hair distribution, no lesions or masses. Urethra: normal, no masses, non-tender, no discharge. Bladder: normal, non-tender, non-distended. Vagina: normal, rugated, physiologic discharge, no lesions, no masses, adequate pelvic support. Cervix: normal, midposition, no motion tenderness, no lesions. Uterus: smooth, mobile, non-tender, adequate support, retroverted. Adnexa: normal, no masses, mobile, nontender. Assessment/Plan RTC 1 yr or prn. Not due for pap smear. Attempting currently. 1. Encounter for routine gynecological examination (Z01.419: Encounter for gynecological examination (general) (routine) without abnormal findings) Ordered: Jim Preventative 18 to 39 years [address] Follow-up With When Contact Information [facility] In 1 year Additional Instructions: Problem List/Past Medical History Ongoing Hypothyroidism Obesity Historical Obesity complicating childbirth Procedure/Surgical History Tonsillectomy and adenoidectomy (1988). Medications ibuprofen 800 mg Tab, 800 mg= 1 tab(s), Oral, TID levothyroxine 100 mcg (0.1 mg) Tab, 100 mcg, Oral, Daily, PRN, 6 refills M-Franklin Plus oral tablet, 1 tab(s), Oral, Daily, 3 refills Allergies No Known Allergies Social History Alcohol - Denies Alcohol Use, 04/11/2019 Past, Wine, 1-2 times per year, Household alcohol concerns: No., 06/14/2020 Employment/School Employed, Work/School description: [employer]. Activity level: Occasional physical work., 04/03/2019 Nutrition/Health Caffeine intake amount: one pop/day., 10/04/2018 Sexual Sexually active: Yes., 10/04/2018 Substance Abuse - Denies Substance Abuse, 04/11/2019 DENIES, Household substance abuse concerns: No., 06/14/2020 Tobacco - Denies Tobacco Use, 04/11/2019 Never (less than 100 in lifetime) Tobacco Use:. Never Smokeless Tobacco Use:., 06/14/2020 (more content not included)... Normal [facility] Comment on above: Result Comment: Elec tronically Signed By: KODY BOWEN, Kathryn Lehman\.christine\Date and Time Signed: 06/14/20 17:02 JIM Patient Educationon 06-15-19 Patient Education Preventive Care for Adults, Female A healthy lifestyle and preventive care can promote health and wellness. Preventive health guidelines for women include the following junior practices. ? A routine yearly physical is a good way to check with your caregiver about your health and preventive screening. It is a chance to share any concerns and updates on your health, and to receive a thorough exam. ? Visit your dentist for a routine exam and preventive care every 6 months. Wall your teeth twice a day and floss once a day. Good oral hygiene prevents tooth decay and gum disease. ? The frequency of eye exams is based on your age, health, family medical history, use of contact lenses, and other factors. Follow your caregiver's recommendations for frequency of eye exams. ? Eat a healthy diet. Foods like vegetables, fruits, whole grains, low-fat dairy products, and lean protein foods contain the nutrients you need without too many calories. Decrease your intake of foods high in solid fats, added sugars, and salt. Eat the right amount of calories for you.?Get information about a proper diet from your caregiver, if necessary. ? Regular physical exercise is one of the most important things you can do for your health. Most adults should get at least 150 minutes of moderate-intensity exercise (any activity that increases your heart rate and causes you to sweat) each week. In addition, most adults need muscle-strengthenin g exercises on 2 or more days a week. ? Maintain a healthy weight. The body mass index (BMI) is a screening tool to identify possible weight problems. It provides an estimate of body fat based on height and weight. Your caregiver can help determine your BMI, and can help you achieve or maintain a healthy weight.?For adults 20 years and older: ? A BMI below 18.5 is considered underweight. ? A BMI of 18.5 to 24.9 is normal. ? A BMI of 25 to 29.9 is considered overweight. ? A BMI of 30 and above is considered obese. ? Maintain normal blood lipids and cholesterol levels by exercising and minimizing your intake of saturated fat. Eat a balanced diet with plenty of fruit and vegetables. Blood tests for lipids and cholesterol should begin at age 20 and be repeated every 5 years. If your lipid or cholesterol levels are high, you are over 50, or you are at high risk for heart disease, you may need your cholesterol levels checked more frequently.?Ongoing high lipid and cholesterol levels should be treated with medicines if diet and exercise are not effective. ? If you smoke, find out from your caregiver how to quit. If you do not use tobacco, do not start. ? If you are , do not drink alcohol. If you are , be very cautious about drinking alcohol. If you are not and choose to drink alcohol, do not exceed 1 drink per day. One drink is considered to be 12 ounces (355 mL) of beer, 5 ounces (148 mL) of wine, or 1.5 ounces (44 mL) of liquor. ? Avoid use of street drugs. Do not share needles with anyone. Ask for help if you need support or instructions about stopping the use of drugs. ? High blood pressure causes heart disease and increases the risk of stroke. Your blood pressure should be checked at least every 1 to 2 years. Ongoing high blood pressure should be treated with medicines if weight loss and exercise are not effective. ? If you are 55 to 79 years old, ask your caregiver if you should take aspirin to prevent strokes. ? Diabetes screening involves taking a blood sample to check your fasting blood sugar level. This should be done once every 3 years, after age 45, if you are within normal weight and without risk factors for diabetes. Testing should be considered at a younger age or be carried out more frequently if you are overweight and have at least 1 risk factor for diabetes. ? Breast cancer screening is essential preventive care for women. You should practice breast self-awareness. This means understanding the normal appearance and feel of your breasts and may include breast self-examination. Any changes detected, no matter how small, should be reported to a caregiver. Women in their 20s and 30s should have a clinical breast exam (CBE) by a caregiver as part of a regular health exam every 1 to 3 years. After age 40, women should have a CBE every year. Starting at age 40, women should consider having a mammography (breast X-ray test ) every year. Women who have a family history of breast cancer should talk to their caregiver about genetic screening. Women at a high risk of breast cancer should talk to their caregivers about having magnetic resonance imaging (MRI) and a mammography every year. ? The Pap test is a screening test for cervical cancer. A Pap test can show cell changes on the cervix that might become cervical cancer if left untreated. A Pap test is a procedure in which cells are obtained and examined from the lower end of the uterus (cervix ). ? Women should have a Pap test starting at age 21. ? Between ages 21 and 29, Pap tests (more content not included)... Normal Carlos [facility] Progress Noteon 12-04-2018 Nail Galvanizer Authentication Interface Message Text The total patient time of the visit was 30 minutes, of which greater than 50% of the time was spent counseling and coordinating care. Yoko Ann MD [facility] Coding Summary.on 10-07-2018 Coding Summary. CODING DATE: 10/07/2018 FINAL [facility] STATUS: Home (Routine DC) PAYOR: [facility] [place] [facility] DESCRIPTION 5671 Level 1 Pathology ADMIT DX: REASON FOR VISIT DX: O09.511 Supervision of elderly primigravida, first trimester FINAL DX: PRINCIPAL: O09.511 Supervision of elderly primigravida, first trimester SECONDARY: O99.214 Obesity complicating childbirth O99.281 Endocrine, nutritional and metabolic diseases complicating , first trimester Z3A.10 10 weeks gestation of PYMT PROC APC STAT DESCRIPTION DOCTOR NAME DATE NOTE: The code number assigned matches the documented diagnosis and / or procedure in the patient's chart. However, the narrative phrase printed from the coding software may appear abbreviated, or result in slightly different terminology. Coded By: Arely Escobedo CphT Date Saved: 10/07/2018 07:12 am [facility] C Urineon 10-06-2018 Bacteria identified Cx Nom (U) Microbiology PROCEDURE: Urine Culture [R1] SOURCE: U Random BODY SITE: COLLECTED DATE/TIME: 10/04/2018 11:48 EDT RECEIVED DATE/TIME: 10/04/2018 19:46 EDT START DATE/TIME: 10/04/2018 19:46 EDT FREE TEXT SOURCE: Donna BERMUDEZ CNP, CNP, Heather R FINAL REPORTS Final Report [] Verified Date/Time: 10/06/2018 06:52 EDT 100 cfu/ml Mixed skin contaminants Performing Locations R1: This test was performed at: [facility], [address] [place] [address], [id number] , [facility] Comment on above: Performed By: #### 2 [id number] #### [facility] [address] [place] [address] Hep Bs Agon 10-06-2018 HBV surface Ag IA Ql Negative Negative Fish er [facility] Comment on above: Result Comment: Perf ormed at: [facility] [address] [id number] PhD Peter Ward Performed By: #### 2 [id number], [id number], [id number] #### [facility] [address] [place] [address] ABSCon 10-04-2018 ABSC Gel Interp Negative Normal [facility] Comment on above: Performed By: #### 1 [id number] #### [facility] [address] [place] [address] CBC w/Indiceson 10-04-2018 Erythrocyte distribution width Ratio (RBC) 13.1 % Normal 10.9-14.2 [facility] Comment on above: Performed By: #### 2 [id number], [id number], [id number], [id number] #### [facility] [address] [place] [address] Hematocrit Volume Fraction (Bld) 40.9 % Normal 34.0-46.0 [facility] Comment on above: Performed By: #### 2 558677, [id number], [id number], [id number] #### [facility] [address] [place] [address] Hemoglobin mass conc (Bld) 14.3 g/dL Normal 12.0-16.0 [facility] Comment on above: Performed By: #### 2 218992, [id number], [id number], [id number] #### [facility] [address] [place] [address] MCH Entitic mass (RBC) 32.5 pg Normal 27.0-34.0 [facility] Comment on above: Performed By: #### 2 830650, [id number], [id number], [id number] #### [facility] [address] [place] [address] MCHC mass conc (RBC) 35.0 g/dL Normal 33.3-35.7 [facility] Comment on above: Performed By: #### 2 022975, [id number], [id number], [id number] #### [facility] [address] [place] [address] MCV Entitic volume (RBC) 92.8 fL Normal 80.0-100.0 [facility] Comment on above: Performed By: #### 2 737339, [id number], [id number], [id number] #### [facility] [address] [place] [address] Platelet mean volume Entitic volume (Bld) 8.0 fL Normal 6.4-10.8 [facility] Comment on above: Performed By: #### 2 658479, [id number], [id number], [id number] #### [facility] [address] [place] [address] Platelets #/vol (Bld) 267.0 E9/L Normal 150.0-500.0 [facility] Comment on above: Performed By: #### 2 136707, [id number], [id number], [id number] #### [facility] [address] [place] [address] RBC #/vol (Bld) 4.4 E12/L Normal 4.3-5.9 [facility] Comment on above: Performed By: #### 2 557019, [id number], [id number], [id number] #### [facility] [address] [place] [address] WBC corrected for nucl RBC Auto #/vol (Bld) 8.3 E9/L Normal 4.0-11.0 [facility] Comment on above: Performed By: #### 2 852649, [id number], [id number], [id number] #### [facility] [address] [place] [address] Gynecology Office/Clinic Not dougie 10-04-2018 Gynecology Office/Clinic Note Chief Complaint First OB Visit Last pap 06/10/18 neg hpv neg Obstetric History History (0,0,0,0) No previous pregnancies history have been recorded History of Present Illness who is here for . This is her first visit. Having nausea daily, most in the evening. Tolerable Denies bleeding, pain, or cramping Had chicken pox as a child She is and monogamous Pap UTD Does have a cat at home, but changing litter box Discussed different options of genetic testing and she would like NIPT. Denies recent travel out of the country LMP 07/24/18, with SUSANAN of 04/30/18 but did have 2 periods in June. FOB, Carine, excited for . Review of Systems PHQ Score Initial Depression Screen Score: 0 ROS ? Provider Constitutional: No fever, No chills, Nosweats, No weakness.No Weight change;No fatigue. Skin:No rash,No lesions. ENMT:No ear pain,No sore throat,No congestion. Respiratory:No shortness of breath,No cough,No orthopnea,No wheezing. Cardiovascular:No chest pain,No palpitations,No peripheral edema. Gastrointestinal:No nausea,No vomiting,No diarrhea,No GI bleeding. Genitourinary:No dysuria,No hematuria,No discharge,No pain. Gynecology:No abnormal vaginal discharge,No vaginal itching/burning,No vaginal dryness,No painful periods,No abnormal bleeding,No pelvic pain,No painful intercourse,No hair loss/growth,No hot flashes Breast:No breast pain,No skin changes,No masses/lumps,No nipple discharge. Musculoskeletal:No back pain,No trauma. Neurological:No headache,No dizziness,No numbness,No weakness. Psychiatric:No sleeping problems,No irritability,No mood swings/depression. Heme/Lymph:No bleeding tendency,No bruising tendency,No petechiae,No swollen. Has hypothyroid, had TSH 2 weeks ago, stable. Physical Exam Vitals & Measurements HR: 76(Peripheral) RR: 20 BP: 116/68 HT: 160 cm WT: 99.2 kg BMI: 38.75 General Exam: Constitutional: alert, no acute distress, well hydrated, well developed, well nourished. Obese. Skin: normal color, no rashes, no lesions, no unusual bruising. Head: atraumatic, normocephalic. Eyes: EOM intact, no injection, no nystagmus, no icterus. Ears: no external deformities, gross hearing intact. Mouth: normal dentition Cardiovascular: RRR, no murmurs, no gallops, no edema. Respiratory: no respiratory distress, clear to auscultation. Abdomen: nondistended, nontender, no guarding. Spine: normal mobility, no deformities. Extremities: no deformities, no clubbing, no cyanosis, no edema. Neuro: normal, cranial nn II-XII grossly intact, sensation intact, motor intact, station & gait normal. Psych: oriented to all spheres, affect and mood appropriate, normal interaction, good eye contact. Pelvic Exam: Vulva: normal appearance, normal hair distribution, no lesions or masses. Urethra: normal, no masses, non-tender, no discharge. Bladder: normal, non-tender, non-distended. Vagina: normal, rugated, physiologic discharge, no lesions, no masses, adequate pelvic support. Cultures obtained and sent. no pap per asccp guidelines Cervix: normal, midposition, no motion tenderness, no lesions. Uterus: smooth, mobile, non-tender, adequate support. Adnexa: normal, no masses, mobile, nontender. Assessment/Plan 1. 10 weeks gestation of (Z3A.10: 10 weeks gestation of ) RTC 4 weeks Dating US ordered Still take PNV Given safe medication list in Discussed needs TSH monitored, had drawn 2 weeks ago and was WNL, will repeat Obese, discussed weight gain in and the need to gain minimal weight with her current BMI Discussed purple folder in depth Discussed genetic testing, discussed options, patient would like NIPT Ordered: Antibody Screen CBC w/ Indices Chlamydia/Gonococcu s, AMINA Collection Venous Blood Venipuncture 93292 Drug Screen Urine Hepatitis B Surface Antigen HgbA1c HIV Screen 4th Generation wRfx Office Visit Level 4 Est 37022 RPR Rubella Antibody TSH With T4fr Reflex Urine Culture US 1st Trimester 2. Endocrine, nutritional and metabolic diseases complicating , first trimester(O99.281: Hypothyroid) Will monitor TSH in Ordered: Antibody Screen CBC w/ Indices Chlamydia/Gonococcu s, AMINA Collection Venous Blood Venipuncture 78395 Drug Screen Urine Hepatitis B Surface Antigen HgbA1c HIV Screen 4th Generation wRfx Office Visit Level 4 Est 64162 RPR Rubella Antibody TSH With T4fr Reflex Urine Culture US 1st Trimester 3. Obesity complicating childbirth, (O99.214: Obesity)Obesity complicating childbirth Discussed in depth need to gain minimal weight in Ordered: Antibody Screen CBC w/ Indices Chlamydia/Gonococcu s, AMINA Collection Venous Blood Venipuncture 67043 Drug Screen Urine Hepatitis B Surface Antigen HgbA1c HIV Screen 4th Generation wRfx Office Visit Level 4 Est 78507 RPR Rubella Antibody TSH With T4fr Reflex Urine Culture US 1st Trimester 4. Supervision of elderly primigravida, first trimester(O09.511: Supervision of high risk in first trimester) NIPT ordered Will have weekly BPPS at 36 weeks Ordered: Antibody Screen CBC w/ Indices Chlamydia/Gonococcu s, AMINA Collection Venous Blood Venipuncture 08815 Drug Screen Urine Hepatitis B Surface Antigen HgbA1c HIV Screen 4th Generation wRfx Office Visit Level 4 Est 36034 RPR Rubella Antibody TSH With T4fr Reflex Urine Culture US 1st Trimester Follow-up With When Contact Information womens health In 4 weeks Additional Instructions: Problem List/Past Medical History Ongoing Abnormal uterine bleeding Hyperthyroidism Historical Obesity complicating childbirth Procedure/Surgical History Tonsillectomy and adenoidectomy (1988). Medications levothyroxine, 100 microgram, Oral, Daily, PRN Plus, 1 tab(s), Oral, Daily Allergies No Known Allergies Social History Alcohol - Denies Alcohol Use, 10/04/2018 Nutrition/Health Caffeine intake amount: one pop/day., 10/04/2018 Sexual Sexually active: Yes., 10/04/2018 Substance Abuse - Denies Substance Abuse, 10/04/2018 Tobacco Never (less than 100 in lifetime) Tobacco Use:. Never Smokeless Tobacco Use:., 10/04/2018 Family History Heart failure: Father. Lab Results Ambulatory Point of Care Results Glucose Urine Dipstick: Negative (10/04/18 10:48:00 EDT) Protein Urine Dipstick: Negative (10/04/18 10:48:00 EDT) Normal [facility] Comment on above: Result Comment: Elec tronically Signed By: Donna BERMUDEZ CNP.christine\Date and Time Signed: 10/04/18 13:24 EDT [id number] 10-04-2018 Hemoglobin A1c/Hemoglobin.total mass fraction (Bld) 4.9 % Normal <=5.9 [facility] Comment on above: Performed By: #### 2 [id number] #### [facility] [address] [place] [address] TSH With T4fr Reflexon 10-04 Thyrotropin Qn 1.03 mcIU/mL Normal 0.34-5.60 [facility] Comment on above: Performed By: #### 2 [id number] #### [facility] [address] [place] [address] U Drug Screenon 10-04-2018 Amphetamines Screen method >1000 ng/mL Ql (U) Negative Normal Negative [facility] Comment on above: Result Comment: Nega tive Cutoff: <1000 ng/mL Performed By: #### 2 [id number] #### [facility] [address] [place] [address] Barbiturates Screen Ql (U) Negative Normal Negative [facility] Comment on above: Result Comment: Nega tive Cutoff: <200 ng/mL Performed By: #### 2 [id number] #### [facility] [address] [place] [address] Benzodiazepines Ql (U) Negative Normal Negative [facility] Comment on above: Result Comment: Nega tive Cutoff: <200 ng/mL Performed By: #### 2 [id number] #### [facility] [address] [place] [address] Cocaine Ql (U) Negative Normal Negative [facility] Comment on above: Result Comment: Nega tive Cutoff: <300 ng/mL Performed By: #### 2 [id number] #### [facility] [address] [place] [address] Opiates Screen Ql (U) Negative Normal Negative [facility] Comment on above: Result Comment: Nega tive Cutoff: <300 ng/mL Performed By: #### 2 [id number] #### [facility] [address] [place] [address] Phencyclidine Screen method >25 ng/mL Ql (U) Negative Normal Negative [facility] Comment on above: Result Comment: Nega tive Cutoff: <25 ng/mL These drug screen results are to be used for medical (i.e., treatment) purposes only. Unconfirmed drug screening results must not be used for non-medical purposes (e.g., employment testing, legal testing). Performed By: #### 2 [id number] #### [facility] [address] [place] [address] Tetrahydrocannabinol Screen method >50 ng/mL Ql (U) Negative Normal Negative [facility] Comment on above: Result Comment: Nega tive Cutoff: <50 ng/mL Performed By: #### 2 [id number] #### [facility] [address] [place] [address] Vital Signs Date Time Vital Sign Value Performing Clinician Ck mariano 06-15-2023 09:56-0500 Body height 160 cm Estela Bennett APRN-ASSISTANT PRESS OPERATOR Work Phone: [facility] 06-15-2023 09:56-0500 Body mass index (BMI) [Ratio] 45.67 kg/m2 Estela Bennett APRN-ASSISTANT PRESS OPERATOR Work Phone: [facility] 06-15-2023 09:56-0500 Body temperature 98.4 [degF] Estela Bennett APRN-ASSISTANT PRESS OPERATOR Work Phone: [facility] [email or web address] 06-15-2023 09:56-0500 Body weight 116.94 kg Estela Bennett APRN-ASSISTANT PRESS OPERATOR Work Phone: [facility] [employer] [facility] 06-15-2023 09:56-0500 Diastolic blood pressure 62 mm[Hg] Estela Bennett APRN-ASSISTANT PRESS OPERATOR Work Phone: [facility] [employer] [facility] 06-15-2023 09:56-0500 Heart rate 88 /min Estela Bennett APRN-ASSISTANT PRESS OPERATOR Work Phone: [facility] [email or web address] 06-15-2023 09:56-0500 SaO2% (BldA) [Mass fraction] 99 % Estela Bennett APRN-ASSISTANT PRESS OPERATOR Work Phone: [facility] [employer] [facility] 06-15-2023 09:56-0500 Systolic blood pressure 108 mm[Hg] Estela Kuns TERRAPIN FISHER-ASSISTANT PRESS OPERATOR Work Phone: [facility] 12-22-2021 12:26-0400 Diastolic blood pressure 81 mm[Hg] ASSISTANT PRESS OPERATOR Estela Bennett Work Phone: [facility] 12-22-2021 12:26-0400 Heart rate 69 /min ASSISTANT PRESS OPERATOR Estela Bennett Work Phone: [facility] 12-22-2021 12:26-0400 Respiratory rate 16 /min ASSISTANT PRESS OPERATOR Estela Bennett Work Phone: [facility] 12-22-2021 12:26-0400 SaO2% (BldA) [Mass fraction] 100 % ASSISTANT PRESS OPERATOR Estela Bennett Work Phone: [facility] 12-22-2021 12:26-0400 Systolic blood pressure 126 mm[Hg] ASSISTANT PRESS OPERATOR Estela Bennett Work Phone: [facility] 12-22-2021 11:41-0400 Inhaled oxygen flow rate 8 L/min ASSISTANT PRESS OPERATOR Estela Bennett Work Phone: [facility] 12-22-2021 11:15-0400 Body mass index (BMI) [Ratio] 42.5 kg/m2 ASSISTANT PRESS OPERATOR Estela Bennett Work Phone: [facility] 12-22-2021 10:25-0400 Body height 160.02 cm ASSISTANT PRESS OPERATOR Estela Bennett Work Phone: [facility] 12-22-2021 10:25-0400 Body weight 108.86 kg ASSISTANT PRESS OPERATOR Estela Bennett Work Phone: [facility] 12-22-2021 09:05-0400 Body temperature 97.9 [degF] ASSISTANT PRESS OPERATORRoshan Bennett Work Phone: [facility] 12-13-2021 10:23-0400 Body height 160.02 cm ASSISTANT PRESS OPERATORRoshan Bennett Work Phone: [facility] 12-13-2021 10:23-0400 Body mass index (BMI) [Ratio] 38.9 kg/m2 ASSISTANT PRESS OPERATOR Estela Bennett Work Phone: [facility] 12-13-2021 10:23-0400 Body weight 99.79 kg ASSISTANT PRESS OPERATOR Estela Bennett Work Phone: [facility] 12-13-2021 09:28-0400 Body temperature 97.7 [degF] ASSISTANT PRESS OPERATOR Estela Bennett Work Phone: [facility] 12-13-2021 09:28-0400 Diastolic blood pressure 80 mm[Hg] ASSISTANT PRESS OPERATOR Estela Bennett Work Phone: [facility] 12-13-2021 09:28-0400 Heart rate 72 /min ASSISTANT PRESS OPERATOR Estela Bennett Work Phone: [facility] 12-13-2021 09:28-0400 Respiratory rate 16 /min ASSISTANT PRESS OPERATOR Estela Bennett Work Phone: [facility] 12-13-2021 09:28-0400 Systolic blood pressure 134 mm[Hg] [facility] Estela Bennett Work Phone: [facility] Encounters Encounter Date Encounter Type Care Provider Facility Start: 04-30-2024 End: 04-30-2024 Orders Only Alfonso Escalante TERRAPIN FISHER-ENERGY CONSERVATION DIRECTOR [facility] Comment on above: Encounter for screen ing mammogram for malignant neoplasm of breast (Primary Dx) Start: 04-29-2024 End: 04-30-2024 Telephone encounter Saranya Mendoza [facility] Start: 10-12-2023 End: 10-12-2023 ambulatory ALFONSO L [facility] Start: 10-12-2023 End: 10-12-2023 ambulatory [facility] Pernell [facility] Start: 09-11-2023 End: 09-11-2023 ambulatory [facility] Start: 08-17-2023 End: 08-17-2023 ambulatory [facility] Start: 08-17-2023 Encounter for genera l adult medical examination without abnormal findings [facility] MARC[facility] [place] Start: 08-17-2023 End: 08-17-2023 ambulatory ESTELA GROSS SABRINA [facility] Start: 08-17-2023 Encounter for genera l adult medical examination without abnormal findings [facility] Start: 06-15-2023 End: 06-15-2023 Office outpatient visit 15 minutes Estela Bennett TERRAPIN FISHER-ASSISTANT PRESS OPERATOR Work Phone: [facility] Comment on above: Tongue and jaw pain (Primary Dx); Adenitis, acute Start: 06-15-2023 End: 06-15-2023 ambulatory [facility] Start: 08-17-2022 Encounter for genera l adult medical examination without abnormal findings DR ESTELA BENNETT [facility] Start: 08-12-2022 End: 08-13-[address] ESTELA BENNETT Facility:[facility] Start: 08-12-2022 End: 08-13-2022 Encounter for general adult medical examination without abnormal findings DR ESTELA BENNETT Facility:[facility] Start: 05-08-2022 End: 05-08-2022 ambulatory Fabiola Felipe Facility:[facility] Start: 03-21-2022 End: 03-22-[address] DOCTOR HEWITT Facility:[facility] Start: 12-22-2021 End: 12-22-2021 ambulatory Nadir Farris Facility:[facility] Start: 12-22-2021 End: 12-22-2021 Admission to same day surgery center DARRELL Bennett Work Phone: [facility] [place] Start: 12-20-2021 End: 12-20-2021 ambulatory Nadir Farris Facility:[facility] Start: 12-20-2021 End: 12-20-2021 Patient encounter procedure DARRELL Bennett Work Phone: [facility] Start: 12-13-2021 Registered Recurring DARRELL Bennett Work Phone: [facility] [place] Start: 11-04-2021 End: 11-05-[address] DOCTOR HEWITT Facility:[facility] Start: 09-29-2021 End: 09-30-[address] ESTELA BENNETT Facility:[facility] Start: 08-30-2021 End: 08-30-[address] KELSY JASON . Facility:[facility] Start: 08-29-2021 End: 08-30-[address] KEITH TORRES Facility:[facility] Start: 08-11-2021 End: 08-11-2021 ambulatory Maxine Hanna Facility:[facility] Start: 08-06-2021 End: 08-09-2021 Evaluation and management of inpatient Malcom Roshan Fonseca Facility:[facility] Start: 07-18-2021 End: 07-18-2021 ambulatory Phani Hope Facility:[facility] Procedures Date Procedure Procedure Detail Performing Clinician Start: 10-12-2023 Adult depression scr eening assessment Alfonso Escalante TERRAPIN FISHER-ENERGY CONSERVATION DIRECTOR Work Phone: Start: 06-15-2023 Adult depression scr eening assessment Estela Bennett TERRAPIN FISHER-ASSISTANT PRESS OPERATOR Work Phone: Start: 03-22-2023 Mammography Alfonso Sykes TERRAPIN FISHER-ENERGY CONSERVATION DIRECTOR Work Phone: Start: 02-02-2023 Microscopic observat ion [Identifier] in Cervix by Cyto stain Estela Bennett TERRAPIN FISHER-ASSISTANT PRESS OPERATOR Work Phone: Start: 12-22-2021 OR Wound Debridement/I&D/Hydradeniti s (Not Applicable) ASSISTANT PRESS OPERATOR Estela Bennett Work Phone: Aerobic microbial culture FN P Estela Bennett Work Phone: Anaerobic microbial culture ASSISTANT PRESS OPERATOR Estela Sabrina Work Phone: Investigation of transfusion reaction ASSISTANT PRESS OPERATOR Estela Marcycaden Work Phone: Plan of Treatment Date Care Activity Detail Author Start: 06-21-2031 DTaP,Tdap and Td Vaccines (4 - Td or Tdap) DTaP,Tdap and Td Vaccines (4 - Td or Tdap) [facility] [employer] [facility] Start: 02-02-2026 Screening for malign ant neoplasm of cervix Pap Smear [facility] Start: 10-11-2024 Adult BMI Screening Adult BMI Screen ing [facility] Start: 10-11-2024 Depression Screening Depression Scre ening [facility] Start: 10-11-2024 Tobacco Screening Tobacco Screening [facility] Start: 08-22-2024 End: 08-22-2024 Patient encounter procedure 08/22/2024 8:40 AM EDT Office Visit [facility] [address] [place] [address] Alfonso Escalante, TERRAPIN FISHER-ENERGY CONSERVATION DIRECTOR [address] [facility] [place] [address] [facility] Start: 08-16-2024 Adult BMI Follow Up Plan Adult BMI Follow Up Plan [facility] Start: 06-14-2024 Depression Screening Depression Scre ening [facility] Start: 06-14-2024 Tobacco Screening Tobacco Screening [facility] Start: 04-30-2024 End: 04-30-2025 DBT Breast - bilateral screening Mammography screening bilateral with CAD Imaging Routine Encounter for screening mammogram for malignant neoplasm of breast Expected: 04/30/2024, Expires: 04/30/[address] [facility] Work Phone: Comment on above: Expected: 04/30/2024 , Expires: 04/30/2025 Start: 03-22-2024 Screening for malign ant neoplasm of breast Mammogram [facility] Start: 02-03-2024 Adult BMI Screening Adult BMI Screen ing [facility] Start: 12-16-2023 Influenza vaccination Influenza Vacc ine [facility] Start: 08-17-2023 End: 08-17-2023 Patient encounter procedure 08/17/2023 9:00 AM EDT [facility] [address] [place] [address] Estela Bennett, TERRAPIN FISHER-ASSISTANT PRESS OPERATOR [address] [facility] [place] [address] [facility] Start: 12-15-2022 Influenza vaccination Influenza Vacc ine [facility] Start: 12-23-2021 [facility] Work Phone: Start: 12-22-2021 End: 12-22-2021 [facility] Work Phone: Start: 12-20-2021 [facility] Work Phone: Start: 2000 Adult BMI Follow Up Plan Adult BMI Follow Up Plan [facility] Aerobic Culture Aerobic Culture [facility] Anaerobic Culture Anaerobic Culture [facility] Bacteria identified in Unspecified specimen by Aerobe culture [facility] Work Phone: Bacteria identified in Unspecified specimen by Anaerobe culture [facility] Work Phone: Microscopic observat ion [Identifier] in Unspecified specimen by Gram stain [facility] Patient Education How to Change a Wet to Dry Dressing [facility] Work Phone: Patient referral [facility] Work Phone: SARS-CoV-2 (COVID-19 ) N gene [Presence] in Respiratory specimen by AMINA with probe detection [facility] Work Phone: Immunizations Immunization Date Immunization Notes Care Provider Fa cility 06-20-2021 diphtheria, tetanus toxoids and acellular pertussis vaccine, 5 pertussis antigens Estela Bennett TERRAPIN FISHER-ASSISTANT PRESS OPERATOR Work Phone: [facility] 02-03-2019 tetanus toxoid, reduced diphtheria toxoid, and acellular pertussis vaccine, adsorbed Estela Bennett TERRAPIN FISHER-ASSISTANT PRESS OPERATOR Work Phone: [facility] 06-10-2012 tetanus toxoid, reduced diphtheria toxoid, and acellular pertussis vaccine, adsorbed Estela Bennett TERRAPIN FISHER-ASSISTANT PRESS OPERATOR Work Phone: [facility] 06-01-2000 hepatitis A vaccine, unspecified formulation Estela Bennett TERRAPIN FISHER-ASSISTANT PRESS OPERATOR Work Phone: [employer] 06-01-2000 hepatitis B vaccine, pediatric or pediatric/adolescent dosage Estela Bennett TERRAPIN FISHER-ASSISTANT PRESS OPERATOR Work Phone: [employer] 01-11-2000 hepatitis B vaccine, pediatric or pediatric/adolescent dosage Estela Bennett TERRAPIN FISHER-ASSISTANT PRESS OPERATOR Work Phone: [employer] [facility] 11-18-1999 hepatitis A vaccine, unspecified formulation Estela Bennett TERRAPIN FISHER-ASSISTANT PRESS OPERATOR Work Phone: [employer] 11-18-1999 hepatitis B vaccine, pediatric or pediatric/adolescent dosage Estela Bennett TERRAPIN FISHER-ASSISTANT PRESS OPERATOR Work Phone: [facility] NEGATED: Highlighted row has not occurred!08-06-2021 tetanus toxoid, reduced diphtheria toxoid, and acellular pertussis vaccine, adsorbed ASSISTANT PRESS OPERATOR Estela Bennett Work Phone: [facility] Payers Date Payer Category Payer [employer] [facility] ANTHEM [id number] 2022 Unknown ANTHEM BCBS OUT OF STATE PPO/TRUST [id number] 2022-Present [phone] [address] [place] [address] [id number] 2021 Self-pay [id number] 1982 Unknown [id number]. 593 1982 Unknown [id number] 2.16840.1.884992.3.579.2. 593 1982 Unknown [id number] 2.840.1.733962.3.579.2. 59 1982 Unknown [id number] 2.840.1.798561.3.579.2. 59 1982 Unknown [id number] 2.840.1.279879.3.579.2. 59 1982 Unknown [id number] 2.840.1.767363.3.579.2. 59 1982 Unknown [id number] 2.840.1.428329.3.579.2. 128 1982 Unknown [id number] 2.840.1.947723.3.579.2. 1285 1982 Unknown [id number] 2.840.1.536455.3.579.2. 1285 1982 Unknown [id number] 840.1.721481.3.579.2. 1285 1982 Unknown [id number] .840.1.874810.3.579.2. 128 1982 Unknown [id number] 840.1.017236.3.579.2. 1286 1959 Unknown [id number] 1959 Unknown [id number] Unknown [id number] 2.840.1.289480.3.579.2. 531 Unknown [id number] 2.16.840.1.959131.3.579.2. 531 Unknown [id number] 2.16.840.1.740768.3.579.2. 531 Unknown [id number] 2.16.840.1.133101.3.579.2. 531 Unknown [id number] 2.16.840.1.726515.3.579.2. 531 Unknown [id number] 2.16.840.1.574952.3.579.2. 531 Social History Date Type Detail Facility Start: 12-13-2021 End: 08-04-2022 Tobacco smoking status NHIS Never smoked tobacco (finding) [facility] Start: 1980 Sex Assigned At Female [facility] Start: 08-04-2022 Tobacco use and exposure Smokeless tobacco non-user [facility] Start: 06-15-2023 End: 10-12-2023 Alcohol intake Ex-drinker (finding) [facility] Start: 06-15-2023 End: 10-12-2023 History of Social function [facility] Start: 06-15-2023 End: 10-12-2023 Tobacco use panel [facility] How hard is it for y ou to pay for the very basics like food, housing, medical care, and heating Not hard at all [facility] Start: 1980 Sex Assigned At Not on file [facility] How hard is it for y ou to pay for the very basics like food, housing, medical care, and heating Not very hard [facility] Start: 12-26-2021 Sex Female (finding) [facility] Goals Date Patient Goal Desired Activity /State Note 04-29-2024 Telephone Encounter - Saranya Mendoza CMA - 04/29/2024 1:31 PM EST Note Date & Type Note Facility 04-29-2024 Miscellaneous Notes Formattin g of this note might be different from the original. Patient called and would like a mammogram. documented in this encounter [facility] Telephone encounter Note 04-29-2024 Telephone Encounter - Saranya Mendoza CMA - 04/29/2024 1:31 PM EST Note Date & Type Note Facility 04-29-2024 Telephone encount er Note Patient called and would like a mammogram. [facility] History of Present illness Narrative 06-15-2023 Estela Bennett, TERRAPIN FISHER-ASSISTANT PRESS OPERATOR - 06/15/2023 9:40 AM EST Note Date & Type Note Facility 06-15-2023 History of Present illness Narrative Subjective Patient ID: Anthony Ritchie is a 42 y.o. female. On May 24 she had her right upper wisdom tooth pulled It was a relatively easy extraction however it did take at least two weeks to heal Since then she has had intermittent pain in both the back right of her tongue and on the right side of her tongue but mostly in the far back of her tongue It is worse at night It improves with swallowing liquids She describes it as a stabbing pain Sometimes motrin helps She called the dentist but he didn't think it was a problem as in it wasn't related to the extraction as it was an upper tooth that was pulled and not a lower The following portions of the patient's history were reviewed and updated as appropriate: allergies, current medications, past family history, past medical history, past social history, past surgical history, problem list, and medication reconciliation was completed including current medication and post discharge medication. Review of Systems Constitutional: Negative. HENT: Positive for dental problem (tongue pain). Eyes: Negative. Respiratory: Negative. Cardiovascular: Negative. Gastrointestinal: Negative. Endocrine: Negative. Genitourinary: Negative. Musculoskeletal: Negative. Allergic/Immunologic: Negative. Neurological: Negative. Hematological: Negative. Psychiatric/Behavioral: Negative. Objective Physical Exam Vitals and nursing note reviewed. HENT: Right Ear: Tympanic membrane, ear canal and external ear normal. Left Ear: Tympanic membrane, ear canal and external ear normal. Nose: Nose normal. Mouth/Throat: Comments: The oral cavity appears normal moist The site of the recent extraction appears well healed and is not tender Palpation of the buccal mucosa and the lower teeth is not tender Unable to palpate any mass or irregularity of the tongue The tongue appears normal in appearance Eyes: Conjunctiva/sclera: Conjunctivae normal. Neck: Comments: She has tenderness in the right submandibular area and swelling in this region Cardiovascular: Rate and Rhythm: Normal rate and regular rhythm. Heart sounds: Murmur heard. Pulmonary: Effort: Pulmonary effort is normal. Breath sounds: Normal breath sounds. Musculoskeletal: Cervical back: Tenderness present. Psychiatric: Thought Content: Thought content normal. Judgment: Judgment normal. Assessment/Plan Anthony was seen today for tongue pain. Diagnoses and all orders for this visit: Tongue and jaw pain - CEPHalexin (KEFLEX) 500 mg capsule; Take 1 capsule (500 mg total) by mouth 3 (three) times a day for 7 days. Adenitis, acute - CEPHalexin (KEFLEX) 500 mg capsule; Take 1 capsule (500 mg total) by mouth 3 (three) times a day for 7 days. With the submandibular tenderness will treat this as an infection and then reassess, if the symptoms are persistent will refer to ENT for further management LAVELLE Dodson 06/15/23 1052 documented in this encounter [facility] Evaluation note Note Date & Type Note Facility Evaluation note Diagnosis Onset Date Non-healing surgical wound a cute Hypothyroidism chronic Nonhealing nonsurgical wound chronic [facility] Work Phone: Evaluation note Note Date & Type Note Facility Evaluation note Diagnosis Tongue and jaw pain- Primary Adenitis, acute documented [facility] Evaluation note Note Date & Type Note Facility Evaluation note Diagnosis Encounter for screening mammogram for malignant neoplasm of breast- Primary documented in this encounter [facility] Instructions Note Date & Type Note Facility Instructions Not on filedocumented in this en counter [facility] Instructions Note Date & Type Note Facility Instructions Not on filedocumented in this en counter [facility] Summary Purpose Family History Relationship Condition Age at Onset Recorded Date/T ruby grandparent Malignant neoplasm of lung Unknown grandparent Tuberculosis Unknown Malignant neoplasm of lung Unknown grandparent Lupus Unknown Advance Directives Advance Directive Response Recorded Date/ Time Advance Directives No April 29, 2021 2:55pm Chief Complaint and Reason for Visit Chief Complaint Open Wound Abdominal Wound Reason for Visit Non-healing surgical wound Hypothyroidism Nonhealing nonsurgical wound Chief Complaint Open Wound Abdominal Wound Abdominal Wound Reason for Visit Non-healing surgical wound Hypothyroidism Nonhealing nonsurgical wound Additional Source Comments INFORMATION SOURCE (unrecogn ized section and content) DATE CREATED AUTHOR 10/07/2018 [facility] DATE CREATED AUTHOR AUTHOR'S ORGANIZ ATION 12/05/2018 [facility] DATE CREATED AUTHOR AUTHOR'S ORGANIZ ATION 10/28/2020 [facility] DATE CREATED AUTHOR AUTHOR'S ORGANIZ ATION 11/26/2021 [facility] DATE CREATED AUTHOR AUTHOR'S ORGANIZ ATION 07/17/2022 [facility] DATE CREATED AUTHOR AUTHOR'S ORGANIZ ATION 08/18/2022 [facility] DATE CREATED AUTHOR AUTHOR'S ORGANIZ ATION 10/14/2023 [facility] DATE CREATED AUTHOR AUTHOR'S ORGANIZ ATION 10/14/2023 [place] Care Teams (unrecognized sec tion and content) Team Status: Inactive Member Role Status Dates DARRELL Prabhakar Primary Care Provider Active Nadir Farris MD Attending Provider Active Team Status: Active Member Role Status Dates DARRELL Prabhakar Primary Care Provider Active Fabiola Felipe APRN Active Phani Hope MD Referring Provider Active Nadir Farris MD Attending Provider Active Team Status: Active Member Role Status Dates DARRELL Prabhakar Primary Care Provider Active F[employer] Relationship Specialty Start Date End Date Estela Bennett APRN-ASSISTANT PRESS OPERATOR [address] [place] [address] PCP - General Internal Medicine 01/30/22 [employer] Relationship Specialty Start Date End Date Alfonso Escalante APRN-CNP [address] [place] [address] PCP - General Internal Medicine 09/11/23 Fitter Type Bar And Segment Relationship Specialty Start Date End Date Alfonso Escalante APRN-CNP [address] [place] [address] PCP - General Internal Medicine 09/11/23 Goals (unrecognized section and content) Goals may be documented in a n alternate sectionNot on filedocumented as of this encounterNot on filedocumented as of this encounterNot on filedocumented as of this encounter Reason for Visit (unrecogniz ed section and content) Reason Comments tongue pain No fever roughly 2 w eeks FOR RECORDS PERTAINING TO PATIENTS WHO ARE OR HAVE BEEN ENROLLED IN A CHEMICAL DEPENDENCY/SUBSTANCEABUSE PROGRAM, SOME INFORMATION MAY BE OMITTED. This clinical summary was aggregated from multiple sources. Caution should be exercised in using it in the provision of clinical care. This summary normalizes information from multiple sources, and as a consequence, information in this document may materially change the coding, format and clinical context of patient data. In addition, data may be omitted in some cases. CLINICAL DECISIONS SHOULD BE BASED ON THE PRIMARY CLINICAL RECORDS. [facility] provides no warranty or guarantee of the accuracy or completeness of information in this document.
[2024-05-05] MEDS: LIDOCAINE/EPINEPHRINE/TETRACAINE 3 ML GEL.PF.APP 1.5 ML TOPICAL (12:13)
[2024-05-05] MEDS: LIDOCAINE HCL 1% 100 MG/10 ML MDV INJ (12:13)
[2024-05-05 13:06] VITALS: BP 145/85; PULSE 78; O2SAT 98
--- NOTE | 2024-05-05 17:21 | ED_ITS ---
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 and apparently she was trying to get a dog from his pulmonary to get the ground when the patient was bit in her upper lip by the dog, the patient mentioned that the dog is owned but he is not up-to-date with his vaccination from last year, the patient is up-to-date with her tetanus Patient mentioned that it was provoked because she was trying to get the dog food shredder operator and have his rectal gland evaluated and the dog is not aggressive usually Related Data Home Medications ?Medication ?Instructions ?Recorded ?Confirmed levothyroxine 100 mcg tablet 100 mcg PO .once daily 05/05/24 05/05/24 Previous Rx's ?Medication ?Instructions ?Recorded amoxicillin 875 mg-potassium 1 tab PO Q12H #20 tabs 05/05/24 clavulanate 125 mg tablet bacitracin 500 unit/gram topical 1 applic topical BID #14 grams 05/05/24 ointment ibuprofen 600 mg tablet 600 mg PO Q8H PRN pain #20 tabs 05/05/24 Allergies Allergy/AdvReac Type Severity Reaction Status Date / Time No Known Drug Allergies Allergy Verified 05/05/24 11:48 Review of Systems ROS Status of ROS 10 or more systems reviewed and unremark able except as noted in history and below PFSH PFSH Social History Little interest or pleasure in doing things: not at all Feeling down, depressed, or hopeless: not at all Exam Narrative Exam Narrative: Nurses notes and vital signs reviewed and patient is not hypoxic. General: Well-appearing and in no apparent distress. Skin: Warm, dry, no pallor noted. No rash. Head: Normocephalic, just above the upper lip in the middle almost involving the lip by 2 mm there is a 5 cm 2 lacerations beside each other the right sided laceration is more superficial than the left side and is not a full-thickness laceration and there is no foreign body Neck: Supple, non-tender. Eye: Pupils are equal, round and EOMI. No scleral icterus. Ears, Nose, Mouth, and Throat: TM are clear, no nasal mucosal hypertrophy. Oral mucosa is moist, no posterior oropharynx erythema, uvula is mid-line Cardiovascular: Regular Rate and Rhythm without murmur, gallop or rub. Respiratory: No accessory muscle use or respiratory distress. Constitutional Vital Signs, click to edit/add: Last Vital Signs Temp 98 F 05/05/24 11:45 Pulse 78 05/05/24 13:06 Resp 16 05/05/24 13:06 BP 145/85 H 05/05/24 13:06 Pulse Ox 98 05/05/24 13:06 O2 Del Method Room Air 05/05/24 13:06 Course Vital Signs Vital signs: Vital Signs Temperature 98 F 05/05/24 11:45 Pulse Rate 90 05/05/24 11:45 Respiratory Rate 16 05/05/24 11:45 Blood Pressure 165/91 H 05/05/24 11:45 Pulse Oximetry 98 05/05/24 11:45 Oxygen Delivery Method Room Air 05/05/24 11:45 Temperature 98 F 05/05/24 11:45 Pulse Rate 78 05/05/24 13:06 Respiratory Rate 16 05/05/24 13:06 Blood Pressure 145/85 H 05/05/24 13:06 Pulse Oximetry 98 05/05/24 13:06 Oxygen Delivery Method Room Air 05/05/24 13:06 MDM - Animal Bite MDM Narrative Medical decision making narrative: The patient is up-to-date with a tetanus I did explain to the patient that the risk of exposure to rabies mostly less likely especially with the patient being attacked by a dog that is owned and and the fact that the patient provoked attacked by trying to get the dog from his optometrist/practice owner, but still the optometrist/practice owner have to be contacted and make sure that the optometrist/practice owner will contact her in case of any thing happened to the dog or any new sickness I also explained to the patient due to cosmetic reason I need to place stitches on the laceration to close them because of the depth of the laceration ,that is going through the dermis and epidermis and there is a risk of infection that would be covered with Augmentin but with the cosmetic risk as well and the fact that is in the middle of her face and just above her lip , it is better not to leave it open to avoid any cosmetic complication as well, with monitoring for risk of infection Patient understand and she agreed with the stitches The patient was provided with Augmentin After cleaning the area thoroughly with Betadine and chlorhexidine the patient had the area initially treated with LET then the patient had the area infiltrated with almost 2 cc of 1% lidocaine Then I placed 4 stitches of 6-0 Prolene The patient to monitor her symptoms in case of infection she is to come back to the ER she is also to keep the wound clean and dry and sutures have to be moved after 5 days Bacitracin to be applied twice daily High-dose ibuprofen for pain The patient had her work comp paper filled The patient is to follow up with primary care physician in next 2-3 days or to return to the emergency department should any of the signs or symptoms worsen or new symptoms develop. The patient agrees with the following Diagnosis and Treatment plan and the patient will be discharged home. Discharge Plan Discharge Chief Complaint: Animal Bite Clinical Impression: Dog bite, Face lacerations Patient Disposition: Home, Self-Care Time of Disposition Decision: 12:57 Condition: Good Mode of Transportation: Private Vehicle Prescriptions / Home Meds: New amoxicillin-pot clavulanate 875-125 mg tablet 1 tab PO Q12H Qty: 20 0RF bacitracin 500 unit/gram ointment 1 applic topical BID Qty: 14 0RF ibuprofen 600 mg tablet 600 mg PO Q8H PRN (Reason: pain) Qty: 20 0RF No Action levothyroxine 100 mcg tablet 100 mcg PO .once daily Print Language: Persian Instructions: Animal Bite (ED), Facial Laceration (ED) Referrals: Physician,Non-Staff, MD [Primary Care Provider] - 1 week Discharge Date/Time: 05/05/24 13:06
== END 2024-05-05 13:06 | disposition home or self-care (01) ==
PROVIDERS: Emergency Provider Emergency Medicine
DX: S01.511A Laceration without foreign body of lip, initial encounter (principal); W54.0XXA Bitten by dog, initial encounter
CPT/HCPCS: 12011; 99284

== ENCOUNTER 2024-06-20 08:25 | Outpatient (OUT) | payer BC, SELFPAY ==
--- NOTE | 2024-06-20 | MM_ITS ---
Patient Name: ANTHONY BETTS MR#: [id number] : 1980 Exam Date: 06/20/2024 Ordering Doctor: ALFONSO MERCADO RADIOLOGY REPORT PROCEDURE: MM TOMOSYNTHESIS SCREENING BI COMPARISON: MM TOMOSYNTHESIS SCREENING BI, 03/16/2023. INDICATIONS: ENCOUNTER FOR SCREENING MAMMOGRAM Z12.31 Calculator Name NCI Breast Cancer Risk Assessment Tool 5 Year Breast Cancer Risk 0.80% Lifetime Breast Cancer Risk 12.40% Personal Breast Cancer No Personal Ovarian Cancer No Treatments None Family Cancers Aunt-paternal with breast cancer at age 50; Aunt-paternal with breast cancer at age 60; Grandmother-maternal with lung cancer at age 50; Grandfather-maternal with lung cancer at age 60; Grandfather-paternal with lung cancer at age 80; Aunt-maternal with vocal cord cancer at age 60. LOCATION: [facility] BREAST COMPOSITION: There are scattered areas of fibroglandular density. FINDINGS: DIAGNOSTIC CATEGORY 0--INCOMPLETE: NEED ADDITIONAL IMAGING EVALUATION. LEFT BREAST: No significant suspicious finding. Asymmetry superior aspect of the right breast, posterior depth on MLO view only. RECOMMENDATIONS: ADDITIONAL MAMMOGRAPHIC VIEWS REQUIRED: RIGHT BREAST - spot-compression/true lateral views, possible ultrasound recommended. PLEASE NOTE: A NORMAL MAMMOGRAM DOES NOT EXCLUDE THE POSSIBILITY OF BREAST CANCER. A CLINICALLY SUSPICIOUS PALPABLE LUMP SHOULD BE BIOPSIED. Dictated by: Jay Booker DO on 06/20/2024 at 15:51 Approved by: Jay Booker DO on 06/20/2024 at 16:00
--- OUTSIDE RECORDS SUMMARY | 2024-06-20 08:29 | XMS_ITS | CCD ---
Author Organization [facility] Care Team Providers Care Filter Changing Technician Name Role Phone DARRELL Bennett R Primary Care Provider [phone] MD Phani Hope Referring Provider [phone] MD Nadir Farris Attending Provider [phone] Fabiola Felipe Admitting Unavailable Fabiola Felipe Attending Unavailable Phani Hope Referring Unavailable Sabrina, Estela R Primary Care Unavailable Nadir Farris Admitting Unavailable Nadir aFrris Attending Unavailable Sabrina, Estela R Primary Care [...] Unavailable TIFFANIE, DR ZAYDA Gonzalez Consulting Unavailable SABRINA, DR ESTELA Sheehan Primary Care Unavailable CASIE ., DR TIERNEY Consulting Unavailable MISC, DR CHRISTIANSON Admitting Unavailable MISC, DR CHRISTIANSON Attending Unavailable MISC, DR CHRISTIANSON Consulting Unavailable SABRINA, DR ESTELA Sheehan Primary Care Unavailable ZIEBHERIBERTO, DR JENNIFER Sheehan Consulting Unavailable SABRINA, DR ESTELA Sheehan Admitting Unavailable SABRINA, DR ESTELA Sheehan Attending Unavailable SABRINA, DR ESTELA Sheehan Consulting Unavailable SBARINA, DR ESTELA Sheehan Primary Care Unavailable SABRINA, ESTELA GROSS Attending Unavailable SABRINA, ESTELA GROSS Referring Unavailable MARCYS, ESTELA GROSS Primary Care Unavailable SABRINA, ESTELA GROSS Attending Unavailable SABRINA, ESTELA GROSS Referring Unavailable SABRINA, ESTELA GROSS Primary Care Unavailable SABRINA, ESTELA GROSS Attending Unavailable ETSELA BENNETT Referring Unavailable MARCYS, ESTELA GROSS Primary Care Unavailable JESS, ALFONSO L Attending Unavailable JESS, ALFNOSO L Referring Unavailable JESS, ALFONSO L Primary Care Unavailable SABRINA, ESTELA GROSS Referring Unavailable MARCYS, PRISCILLA Primary Care Unavailable JESS, ALFONSO L Referring Unavailable JESS, ALFONSO L Primary Care Unavailable Jess INDUSTRIAL WELDER-PARADI OPERATOR, Alfonso L Primary Care Provider Sabrina INDUSTRIAL WELDER-DYE STAND LOADER, Estela Gross Primary Care Provider Medications Current Medications Medication Drug Class(es) Dates Sig (Normalized) Sig (Original) acetaminophen 500 mg oral tablet (9 sources) take 1 tablet by mouth every [...] care orders ibuprofen 600 mg oral tablet (11 sources) Nonsteroidal Anti-inflammatory Drug Start: 08-09-2021 Ibuprofen [...] daily Levofloxacin Active 500 MG PO Daily November 07, 2021 12:00am levothyroxine sodium 0.1 mg oral tablet (12 sources) l-Thyroxine Start: 12-11-2022 End: 08-19-2023 take 1 tablet by mouth in the morning levothyroxine (SYNTHROID, LEVOTHROID) 100 MCG tablet Take 1 tablet (100 mcg total) by mouth in the morning. 90 tablet 3 08/19/2023 Active Start: 08-06-2021 take 100 ug by mouth once daily Levothyroxine Active 100 MCG PO Daily August 06, 2021 12:00am metroNIDAZOLE 0.01 mg/mg topical gel (8 sources) Nitroimidazole Antimicrobial Start: 08-17-2023 metroNIDAZOLE (MetrogeL) 1 % gel Apply 1 Application topically in the morning. 45 g 1 08/17/2023 Active phentermine hydrochloride 37.5 mg oral tablet (10 sources) Sympathomimetic Amine Anorectic Start: 10-17-2023 take 1 tablet by mouth once daily before breakfast phentermine (ADIPEX-P) 37.5 mg tablet Indications: Morbid obesity (CMS-HCC) Take 1 tablet (37.5 mg total) by mouth every morning before breakfast. 30 tablet 10/17/2023 Active Start: 08-17-2023 End: 10-17-2023 take 1 tablet by mouth once daily before breakfast phentermine (ADIPEX-P) 37.5 mg tablet Indications: Morbid obesity (CMS-HCC) Take 1 tablet (37.5 mg total) by mouth every morning before breakfast. 30 tablet 10/17/2023 Active Prenat.Vits,Eddie,Kuu-Zmni-Tph ic (2 sources) Start: 08-06-2021 take 1 tablet by mouth once daily Prenat.Vits,Eddie,Fcw-Chcu-Hfags Active 1 TAB PO Daily August 06, [...] Translations: [Rosacea, unspecified] Onset: 08-17-2023 Chronic Other inflammatory condition of skin (2 sources) Rosacea; Translations: [Rosacea, unspecified] 08-17-2023 Chronic Other injuries and conditions due [...] to excess calories] Onset: 08-17-2023 Chronic Other nutritional; endocrine; and metabolic disorders (4 sources) Morbid obesity; Translations: [Morbid (severe) obesity due to excess calories] 08-17-2023 Chronic Other nutritional; endocrine; and metabolic disorders (1 source) Severe obesity; Translations: [Morbid (severe) obesity due to excess calories] 10-12-2023 Chronic Other screening for suspected conditions (not mental disorders or infectious disease) (1 source) Patient encounter status; Translations: [Encounter for screening mammogram for malignant neoplasm of breast] 04-30-2024 Episodic Residual codes; unclassified (2 sources) Gestation period, 39 weeks; Translations: [39 weeks gestation of ] 08-06-2021 Episodic Thyroid disorders (18 sources) Hypothyroidism; Translations: [Hypothyroidism, unspecified] Onset: 07-17-2022 [...] [LOWER ABDOMINAL PAIN UNSPECIFIED] Onset: 08-30-2021 Episodic Cardiac dysrhythmias (1 source) Palpitations; Translations: [Palpitations] 09-11-2023 Episodic Complications of surgical procedures or medical [...] Onset: 09-01-2021 Episodic Lymphadenitis (2 sources) Acute lymphadenitis, unspecified; Translations: [Acute lymphadenitis] Onset: 06-15-2023 06-15-2023 Episodic Mood disorders (9 sources) Mood disorders Onset: 06-15-2023 Resolved: 10-12-2023 10-12-2023 Other complications of ; puerperium affecting management of mother (1 source) Infection of obstetric surgical wound, organ and space site; Translations: [INF OB SURG WND ORGAN AND SPACE SITE] Onset: 09-01-2021 Episodic Other complications of ; puerperium affecting management of mother (1 source) Sepsis following an obstetrical procedure; Translations: [SEPSIS FOLLOW OBSTETRICAL PROCEDURE] Onset: 09-01-2021 Episodic Other complications of (9 sources) Maternal obesity complicating , childbirth and the puerperium, antepartum; Translations: [Obesity complicating , unspecified trimester] Onset: 12-04-2018 Resolved: 08-04-2022 08-04-2022 Chronic Other complications of (9 sources) Elderly primigravida; Translations: [Supervision of elderly [...] [SEPSIS UNSPECIFIED ORGANISM] Onset: 09-01-2021 Episodic Unclassified (8 sources) Onset: 08-17-2023 08-17-2023 Results Test Name Value Interpretation Reference Range Facility FREE T4on 10-12-2023 Free T4 [Mass/Vol] 1.04 ng/dL Normal 0.61-1.60 [facility] Comment on above: Performed By: #### 3 016-3, 3024-7 #### [facility] ([id number]) [address], [address] [place] [address] TSH Qnon 10-12-2023 TSH 1.05 uIU/mL Normal 0.49-4.67 [facility] Comment on above: Performed By: #### 3 016-3, 3024-7 #### [facility] ([id number]) [address], [address] [place] [address] COMPREHENSIVE METABOLIC PANE Cuauhtemoc 08-17-2023 Albumin [Mass/Vol] 4.3 g/dL Normal 3.2-5.3 [facility] Comment on above: Performed By: #### Zeny JOHNS 70234-3, THYR #### [facility] ([id number]) [address], [address] [place] [address] ALP [Catalytic activity/Vol] 64 U/L Normal 39-130 [facility] Comment on above: Performed By: #### Zeny JOHNS 66104-3, THYR #### [facility] ([id number]) [address], [address] [place] [address] ALT [Catalytic activity/Vol] 15 U/L Normal 0-31 [facility] Comment on above: Performed By: #### Zeny JOHNS, 44092-8, THYR #### [facility] ([id number]) [address], [address] [place] [address] Anion gap [Moles/Vol] 8 mmol/L Normal 5-15 [facility] Comment on above: Performed By: #### C ANDREAS, 92863-5, THYR #### [facility] ([id number]) [address], [address] [place] [address] AST [Catalytic activity/Vol] 17 U/L Normal 0-41 [facility] Comment on above: Performed By: #### C ANDREAS, 28984-3, THYR #### [facility] ([id number]) [address], [address] [place] [address] Bilirubin [Mass/Vol] 0.5 mg/dL Normal 0.3-1.2 [facility] Comment on above: Performed By: #### C ANDREAS 82166-0, THYR #### [facility] ([id number]) [address], [address] [place] [address] Calcium [Mass/Vol] 9.1 mg/dL Normal 8.5-10.5 [facility] Comment on above: Performed By: #### C ANDREAS, 59656-7, THYR #### [facility] ([id number]) [address], [address] [place] [address] Chloride [Moles/Vol] 103 mmol/L Normal 98-109 [facility] Comment on above: Performed By: #### Zeny JOHNS 25010-2, THYR #### [facility] ([id number]) [address] [place] [address] CO2 [Moles/Vol] 26 mmol/L Normal 22-32 [facility] Comment on above: Performed By: #### Zeny JOHNS, 72520-3, THYR #### [facility] ([id number]) [address], [address] [place] [address] Creatinine [Mass/Vol] 0.73 mg/dL Normal 0.40-1.00 [facility] Comment on above: Result Comment: METH OD TRACEABLE TO IDMS STANDARD Performed By: #### C ANDREAS 81065-7, THYR #### [facility] ([id number]) [address], [address] [place] [address] eGFR (CKD-EPI) NON-RACE DEPENDENT >90 Normal >59 [facility] Comment on above: Result Comment: Reported eGFR is based on the CKD-EPI 2020 equation that does not use a race coefficient. Performed By: #### Vinicio Moura MP31-1, THYR #### [facility] ([id number]) [address] [place] [address] Glucose [Mass/Vol] 91 mg/dL Normal 65-99 [facility] Comment on above: Performed By: #### Vinicio Moura MP31-1, THYR #### [facility] ([id number]) [address] [place] [address] Potassium [Moles/Vol] 4.6 mmol/L Normal 3.5-5.0 [facility] Comment on above: Performed By: #### Zeny JOHNS 46404-4, THYR #### [facility] ([id number]) [address] [place] [address] Protein [Mass/Vol] 7.8 g/dL Normal 6.0-8.0 [facility] Comment on above: Performed By: #### Zeny JOHNS 94403-5, THYR #### [facility] ([id number]) [address] [place] [address] Sodium [Moles/Vol] 137 mmol/L Normal 134-146 [facility] Comment on above: Performed By: #### Vinicio Moura MP31-1, THYR #### [facility] ([id number]) [address], [address] [place] [address] Urea nitrogen [Mass/Vol] 17 mg/dL Normal 5-23 [facility] Comment on above: Performed By: #### Vinicio Moura MP31-1, THYR #### [facility] ([id number]) [address], [address] [place] [address] Comprehensive metabolic pane cuauhtemoc 08-17-2023 Albumin [Mass/Vol] 4.3 g/dL 3.2 - 5.3 g/dL [facility] ALP [Catalytic activity/Vol] 64 U/L 39 - 130 U/L [facility] ALT No additional P-5'-P [Catalytic activity/Vol] 15 U/L 0 - 31 U/L [facility] Anion gap [Moles/Vol] 8 mmol/L 5 - 15 mmol/L [facility] AST [Catalytic activity/Vol] 17 U/L 0 - 41 U/L [facility] Bilirubin [Mass/Vol] 0.5 mg/dL 0.3 - 1 .2 mg/dL [facility] Calcium [Mass/Vol] 9.1 mg/dL 8.5 - 10. 5 mg/dL [facility] Chloride [Moles/Vol] 103 mmol/L 98 - 10 9 mmol/L [facility] CO2 [Moles/Vol] 26 mmol/L 22 - 32 mmol/L [facility] Creatinine [Mass/Vol] 0.73 mg/dL 0.40 - 1.00 mg/dL [facility] Comment on above: METHOD TRACEABLE TO IDRI STANDARD eGFR (CKD-EPI)non-race dependent - PINF [facility] Comment on above: Reported eGFR is based on the CKD-EPI 2020 equation that does not use a race coefficient. Glucose [Mass/Vol] 91 mg/dL 65 - 99 mg/dL [facility] Potassium [Moles/Vol] 4.6 mmol/L 3.5 - 5.0 mmol/L [facility] Protein [Mass/Vol] 7.8 g/dL 6.0 - 8.0 g/dL [facility] Sodium [Moles/Vol] 137 mmol/L 134 - 146 mmol/L [facility] Urea nitrogen [Mass/Vol] 17 mg/dL 5 - 23 mg/d L [facility] Lipid 1996 panelon Cholesterol [Mass/Vol] 173 mg/dL 150 - 200 mg/dL [facility] Cholesterol in HDL [Mass/Vol] 60 mg/dL 39 - PINF mg/dL [facility] Comment on above: HDL <40 mg/dL - High Risk HDL > or = 40mg/dL- Desirable HDL >60 mg/dL - Negative Risk Cholesterol in LDL [Mass/Vol] 96 mg/dL NINF - 130 mg/dL [facility] Comment on above: LDL <100 mg/dL - Desirable LDL >160 mg/dL - High Risk Cholesterol in VLDL [Mass/Vol] 17 mg/dL 0 - 30 mg/dL [facility] Cholesterol.total/Choles terol in HDL [Mass ratio] 2.9 {ratio} 1.0 - 5.0 [facility] Triglyceride [Mass/Vol] 83 mg/dL 27 - 150 mg/dL [facility] Cholesterol [Mass/Vol] 173 mg/dL Normal 150-200 [facility] Comment on above: Performed By: ###[place], [address]-3, THYR #### [facility] ([id number]) [address], [address] [place] [address] Cholesterol in HDL [Mass/Vol] 60 mg/dL Normal >39 [facility] Comment on above: Result Comment: HDL <40 mg/dL - High Risk HDL > or = 40mg/dL- Desirable HDL >60 mg/dL - Negative Risk Performed By: #### Zeny JOHNS, 49936-8, THYR #### [facility] ([id number]) [address], [address] [place] [address] Cholesterol in LDL [Mass/Vol] 96 mg/dL Normal <130 [facility] Comment on above: Result Comment: LDL <100 mg/dL - Desirable LDL >160 mg/dL - High Risk Performed By: #### Zeny JOHNS, 93702-0, THYR #### [facility] ([id number]) [address] [place] [address] Cholesterol in VLDL [Mass/Vol] 17 mg/dL Normal 0-30 [facility] Comment on above: Performed By: #### Zeny JOHNS, 49879-8, THYR #### [facility] ([id number]) [address] [address] CHOLESTEROL:HDL 2.9 Normal 1.0-5.0 [facility] Comment on above: Performed By: #### Zeny JOHNS 53043-0, THYR #### [facility] ([id number]) [address], [facility] [address] [place] [address] Triglyceride [Mass/Vol] 83 mg/dL Normal 27-150 [facility] Comment on above: Performed By: #### Zeny JOHNS 95869-6, THYR #### [facility] ([id number]) [address], [facility] [address] [place] [address] No Panel Informationon 08-16 [facility] THYROID PROFILEon 08-17-2023 Free T4 [Mass/Vol] 0.85 ng/dL Normal 0.61-1.60 [facility] Comment on above: Performed By: #### Zeny JOHNS, 39768-8, THYR #### [facility] ([id number]) [address] [address] TSH 0.82 uIU/mL Normal 0.49-4.67 [facility] Comment on above: Performed By: #### [place], [address]-4, THYR #### [facility] ([id number]) [address] [place] [address] Thyroid profile includes TSH FT4on 08-17-2023 Free T4 [Mass/Vol] 0.85 ng/dL 0.61 - 1. 60 ng/dL [facility] TSH Qn 0.82 m[IU]/L [facility] FREE T4on 08-12-2022 Free T4 [Mass/Vol] 0.98 ng/dL Normal 0.76-1.46 [facility] Comment on above: Performed By: #### F T4 #### [facility] [address] [place] [address] Dr. Yuly Schuler LIPID PROFILEon 08-12-2022 CHOL-HDL RATIO NORM SEE BELOW Normal [facility] Comment on above: Result Comment: 3.3 - 4.4 LOW RISK 4.4 - 7.1 AVERAGE RISK 7.1 - 11.0 MODERATE RISK >11.0 HIGH RISK Performed By: #### C MP, TSH #### [facility] [address] [address] [address] Yuly Schuler Cholesterol [Mass/Vol] 194 mg/dL Normal <=[address] [facility] Comment on above: Performed By: #### C MP, TSH #### [facility] [address] [address] [address] Yuly Schuler Cholesterol in HDL [Mass/Vol] 63 mg/dL Critically high 40-60 [facility] Comment on above: Performed By: #### C MP, TSH #### [facility] [address] [address] [address] Yuly Schuler Cholesterol in LDL [Mass/Vol] 116.0 mg/dL Normal [facility] Comment on above: Performed By: #### C MP, TSH #### [facility] [address] [address] [address] Yuly Schuler Cholesterol.total/Choles terol in HDL [Mass ratio] 3.1 {ratio} Normal [facility] Comment on above: Performed By: #### C MP, TSH #### [facility] [address] [address] [address] Yuly Schuler HDL NORMAL > or = 60 mg/dl - LOW CARDIOVASCULAR RISK <40 mg/dl - HIGH CARDIOVASCULAR RISK Normal [facility] Comment on above: Performed By: #### C MP, TSH #### [facility] [address] [place] [address] Dr. Yuly Schuler LDL CALC NORMAL SEE BELOW Normal [facility] Comment on above: Result Comment: <100 mg/dl OPTIMAL 100 - 129 mg/dl NEAR OR ABOVE OPTIMAL 130 - 159 mg/dl BORDERLINE HIGH 160 - 189 mg/dl HIGH >190 mg/dl VERY HIGH Performed By: #### C MP, TSH #### [facility] [address] [place] [address] Dr. Yuly Schuler Triglyceride [Mass/Vol] 75 mg/dL Normal <=150 T [facility] Comment on above: Performed By: #### C MP, TSH #### [facility] [address] [place] [address] Dr. Yuly Schuler VLDL CALC 15.0 mg/dL Normal [facility] Comment on above: Performed By: #### C MP, TSH #### [facility] [address] [place] [address] Dr. Yuly Schuler PROF 14(COMP METB)on 023 Albumin [Mass/Vol] 3.6 g/dL Normal 3.4-5.0 [facility] Comment on above: Performed By: #### C MP, TSH #### [facility] [address] [place] [address] Dr. Yuly Schuler Albumin/Globulin [Mass ratio] 0.8 {ratio} Normal [facility] Comment on above: Performed By: #### C MP, TSH #### [facility] [address] [place] [address] Dr. Yuly Schuler ALP [Catalytic activity/Vol] 87 U/L Normal 46-116 [facility] Comment on above: Performed By: #### C MP, TSH #### [facility] [address] [address] [address] Yuly Schuler ALT [Catalytic activity/Vol] 23 U/L Normal 14-59 [facility] Comment on above: Performed By: #### C MP, TSH #### [facility] [address] [address] [address] Yuly Schuler Anion gap [Moles/Vol] 10.7 mmol/L Normal Th [facility] Comment on above: Performed By: #### C MP, TSH #### [facility] [address] [place] [address] Dr. Yuly Schuler AST [Catalytic activity/Vol] 17 U/L Normal 15-37 [facility] Comment on above: Performed By: #### C MP, TSH #### [facility] [address] [place] [address] Dr. Yuly Schuler Bilirubin [Mass/Vol] 0.2 mg/dL Normal 0.2-1.0 [facility] Comment on above: Performed By: #### C MP, TSH #### [facility] [address] [place] [address] Dr. Yuly Schuler Calcium [Mass/Vol] 8.8 mg/dL Normal 8.5-10.1 [facility] Comment on above: Performed By: #### C MP, TSH #### [facility] [address] [place] [address] Dr. Yuly Schuler Chloride [Moles/Vol] 104 mmol/L Normal 98-107 [facility] Comment on above: Performed By: #### C MP, TSH #### [facility] [address] [place] [address] Dr. Yuly Schuler CO2 [Moles/Vol] 28.5 mmol/L Normal 21.0-32.0 [facility] Comment on above: Performed By: #### C MP, TSH #### [facility] [address] [place] [address] Dr. Yuly Schuler Creatinine [Mass/Vol] 0.73 mg/dL Normal 0.55-1.02 [facility] Comment on above: Performed By: #### C MP, TSH #### [facility] [address] [address] [address] Yuly Schuler EGFR-AF IRISH >60 Normal >=60 [facility] Comment on above: Performed By: #### C MP, TSH #### [facility] [address] [address] [address] Yuly Schuler EGFR-NON AF IRISH >60 Normal >=60 [facility] Comment on above: Performed By: #### C MP, TSH #### [facility] [address] [address] [address] Yuly Schuler Globulin (S) [Mass/Vol] 4.4 g/dL Normal T [facility] Comment on above: Performed By: #### C MP, TSH #### [facility] [address] [place] [address] Dr. Yuly Schuler Glucose [Mass/Vol] 96 mg/dL Normal 74-106 [facility] Comment on above: Performed By: #### C MP, TSH #### [facility] [address] [place] [address] Dr. Yuly Schuler Potassium [Moles/Vol] 4.2 mmol/L Normal 3.5-5.1 [facility] Comment on above: Performed By: #### C MP, TSH #### [facility] [address] [place] [address] Dr. Yuly Schuler Protein [Mass/Vol] 8.0 g/dL Normal 6.4-8.2 [facility] Comment on above: Performed By: #### C MP, TSH #### [facility] [address] [place] [address] Dr. Yuly Schuler Sodium [Moles/Vol] 139 mmol/L Normal 136-145 [facility] Comment on above: Performed By: #### C MP, TSH #### [facility] [address] [address] [address] Yuly Schuler Urea nitrogen [Mass/Vol] 12.0 mg/dL Normal 7.0-18.0 [facility] Comment on above: Performed By: #### C MP, TSH #### [facility] [address] [place] [address] Dr. Yuly Schuler Urea nitrogen/Creatinine [Mass ratio] 16.4 mg/mg Normal [facility] Comment on above: Performed By: #### C MP, TSH #### [facility] [address] [place] [address] Dr. Yuly Schuler TSHon 08-12-2022 TSH 1.533 uIU/mL Normal 0.358-3.740 [facility] Comment on above: Performed By: #### C MP, TSH #### [facility] [address] [place] [address] Dr. Yuly Schuler KAT by IFAon 03-22-2022 Antinuclear Antibodies, IFA Negative Normal [facility] Comment on above: Result Comment: Nega tive <1:80 Borderline 1:80 Positive >1:80 ICAP nomenclature: AC-0 For more information about Hep-2 cell patterns use ANApatterns.org, the official website for the International Consensus on Antinuclear Antibody (KAT) Patterns (ICAP). Performed By: #### C MP, TSH #### [facility] [address] [place] [address] Dr. Yuly Schuler CRPon 03-21-2022 CRP [Mass/Vol] mg/L Normal <=1.0 [facility] Comment on above: Performed By: #### C RP, PREALB #### [facility] [address] [place] [address] Dr. Yuly Schuler PREALBUMINon 03-21-2022 Prealbumin [Mass/Vol] 25.8 mg/dL Normal 20.9-45.5 [facility] Comment on above: Performed By: #### C RP, PREALB #### [facility] [address] [place] [address] Dr. Yuly Schuler SED RATE WESTERGRENon 2021 SED RATE 35 mm/hr Critically high <=20 [facility] Comment on above: Performed By: #### C MP, TSH #### [facility] [address] [place] [address] Dr. Yuly Schuler Aerobic Cultureon 02-27-2022 Aerobic [...] RESISTANT TO ALL B-LACTAM DRUGS. PERFORMED BY: [place] [address] PATHOLOGIST EVIDENCE SPECIALIST TANYA CATHERINE M.D. [facility] Comment on above: Performed By: #### A [facility] #### [address] Aerobic Cultureon 12-22-2021 Aerobic Culture Result Tab Codes No Growth 2 Days No Anaerobes Isolated 3 Days Gram Stain Result Rare White Blood Cells No Bacteria Seen PERFORMED BY: [place] [address] PATHOLOGIST EVIDENCE SPECIALIST TANYA CATHERINE M.D. [facility] Comment on above: Performed By: #### C OVID-19 YANICK, SOFIANEG #### [id number] [place] Gram Stainon 12-22-2021 Microscopic observation Gram stain Nom (Unsp spec) Gram Stain Result Rare White Blood Cells No Bacteria Seen PERFORMED BY: [place] [address] PATHOLOGIST EVIDENCE SPECIALIST TANYA CATHERINE M.D. Normal [facility] Comment on above: Performed By: #### A ALIDA, BLANK #### [facility] [address] [place] [address] HCG ( test) IA.rapi d Ql (U)Ordered By: Dhaval Moran on 12-22-2021 HCG ( test) Ql (U) Negative [facility] HCG,Urineon 12-22-2021 Beta HCG ( test) Ql (U) Negative Normal [facility] Comment on above: Result Comment: PERF ORMED BY: [place] [address] PATHOLOGIST EVIDENCE SPECIALIST TANYA CATHERINE M.D. Performed By: #### C OVID-19 IMELDA HERNDON #### [address] [place] 12-22-2021 L Specimen: [id number] Received: 12/22/21 Status: KEELY Verónica Num: [id number] Spec Type: Surgical Subm Dr: Nadir Farris MD Tissues: A Debridement-Skin/Ot her Than Skin (ABDOMEN) Procedures: HE Stain, Gross/Micro L3 Age/ Patient Sex Location Account Attending Physician ChauAnthony young Yakelin 41/F [place] [id number] Nadir Farris MD SPEC NUM: [id number] RECD: 12/22/21 STATUS: KEELY SANCHES NUM: [id number] HELGA: 12/22/[address] [facility] [address]: Nadir Farris MD ENTERED: 12/22/[address] [facility] [address]: VICTOR HUGO TYPE: Surgical DEPT: [...] support the above pathologic diagnosis. CPT Codes 30780 Specimen: [id number] Received: 12/22/21 Status: KEELY Adamskelley Num: [id number] Spec Type: Surgical Subm Dr: Nadir Farris MD Tissues: A Debridement-Skin/Ot her Than Skin (ABDOMEN) Procedures: HE Stain, Gross/Micro L3 Patient: Anthony Ritchie [id number] (Continued) Signed (signatur e on file) Anthony Peña MD 12/26/21 1516 [facility]19 [facility] SARS-CoV-2 (COVID-19) RNA AMINA+probe Ql (Unsp spec) Negative Normal Negative [facility] Comment on above: Order Comment: Healt hcare Worker?: N Result Comment: Testing for SARS-CoV-2 by RT-PCR This test was developed and its performance characteristics determined by [employer] (BD) and validated at the [facility]. This test has not been FDA [...] is terminated or revoked sooner. PERFORMED BY: [place] [address] PATHOLOGIST EVIDENCE SPECIALIST TANYA CATHERINE M.D. Performed By: #### C OVID 19 [facility] #### [address] COVID-19 Positive/NegativeOr dered By: Nadir Farris on 12-20-2021 SARS-CoV-2 (COVID-19) N gene AMINA+probe Ql (Resp) Negative Negative [facility] Comment on above: Testing for SARS-CoV -2 by RT-PCR This test was developed and its performance characteristics determined by [employer] (BD) and validated at the [facility]. This test has not been FDA [...] microbial culture No Anaerobes Isolated [address] [facility] ABO and Rh group post transf usion reaction Nom (Bld)Ordered By: Fabiola Felipe on 12-08-2021 Microscopic observation Gram stain Nom (Unsp spec) [facility] Aerobic Cultureon 12-07-2021 Aerobic Culture Rare normal skin oli 2 Days No Anaerobes Isolated 3 Days Gram Stain Result No Bacteria Seen PERFORMED BY: [place] [address] PATHOLOGIST EVIDENCE SPECIALIST TANYA CATHERINE M.D. [facility] Comment on above: Performed By: #### A ERC #### [address] CBC (INCLUDES DIFF/PLT)on Basophils (Bld) [#/Vol] 0.048 10*3/uL Normal 0-200 [facility] Comment on above: Performed By: #### 1 0231, 6342, 23447, 2100 #### [facility] [place] [address] Front Line Leader: Jabsir Membreno MD Basophils/100 WBC (Bld) 0.7 % Normal [facility] Comment on above: Performed By: #### 1 0231, 6399, 38468, 7600 #### [facility] [address], [address] [place] [address] Front Line Leader: Jasbir Membreno MD Eosinophils (Bld) [#/Vol] 0.041 10*3/uL Normal 15-500 [facility] Comment on above: Performed By: #### 1 0231, 6392, 96346, 7600 #### [facility] of [address], [address] [place] [address] Front Line Leader: Jasbir Membreno MD Eosinophils/100 WBC (Bld) 0.6 % Normal [facility] Comment on above: Performed By: #### 1 0231, 6399, 64292, 7600 #### [facility] of [place] [address] Front Line Leader: Jasbir Membreno MD Erythrocyte distribution width (RBC) [Ratio] 13.4 % Normal 11.0-15.0 [facility] Comment on above: Performed By: #### 1 0231, 63, 11201, 7600 #### [facility] of [address], [address] [place] [address] Front Line Leader: Jasbir Membreno MD Hematocrit (Bld) [Volume fraction] 40.0 % Normal 35.0-45.0 [facility] Comment on above: Performed By: #### 1 0231, 63, 94925, 7600 #### [facility] of [place] [address] Front Line Leader: Jasbir Membreno MD Hemoglobin (Bld) [Mass/Vol] 13.4 g/dL Normal 11.7-15.5 [facility] Comment on above: Performed By: #### 1 0231, 63, 12028, 7600 #### [facility] of [address], [address] [place] [address] Front Line Leader: Jasbir Membreno MD Lymphocytes (Bld) [#/Vol] 1.691 10*3/uL Normal 850-3900 [facility] Comment on above: Performed By: #### 1 0231, 6399, 87977, 7600 #### [facility] of [place] [address] Front Line Leader: Jasbir Membreno MD Lymphocytes/100 WBC (Bld) 24.5 % Normal [facility] Comment on above: Performed By: #### 1 0231, 63, 29128, 7600 #### [facility] of [place] [address] Front Line Leader: Jasbir Membreno MD MCH (RBC) [Entitic mass] 29.5 pg Normal 27.0-33.0 [facility] Comment on above: Performed By: #### 1 0231, 6399, 63767, 7600 #### [facility] of [place] [address] Front Line Leader: Jasbir Membreno MD MCHC (RBC) [Mass/Vol] 33.5 g/dL Normal 32.0-36.[address] [facility] Comment on above: Performed By: #### 1 0231, 6399, 39382, 7600 #### [facility] of [place] [address] Front Line Leader: Jasbir Membreno MD MCV (RBC) [Entitic vol] 87.9 fL Normal 80.0-100.0 [facility] Comment on above: Performed By: #### 1 0231, 6399, 80756, 7600 #### [facility] of [place] [address] Front Line Leader: Jasbir Membreno MD Monocytes (Bld) [#/Vol] 0.49 10*3/uL Normal 200-950 [facility] Comment on above: Performed By: #### 1 0231, 6399, 90070, 7600 #### [facility] of [place] [address] Front Line Leader: Jasbir Membreno MD Monocytes/100 WBC (Bld) 7.1 % Normal [facility] Comment on above: Performed By: #### 1 0231, 6399, 89386, 7600 #### [facility] of [place] [address] Front Line Leader: Jasbir Membreno MD Neutrophils (Bld) [#/Vol] 4.63 10*3/uL Normal 8472-7559 [facility] Comment on above: Performed By: #### 1 0231, 6399, 10864, 7600 #### [facility] of [place] [address] Front Line Leader: Jasbir Membreno MD Neutrophils/100 WBC (Bld) 67.1 % Normal [facility] Comment on above: Performed By: #### 1 0231, 6399, 18460, 7600 #### [facility] of [place] [address] Front Line Leader: Jasbir Membreno MD Platelet mean volume (Bld) [Entitic vol] 9.3 fL Normal 7.5-12.5 [facility] Comment on above: Performed By: #### 1 0231, 6399, 32197, 7600 #### [facility] of [address], [address] [place] [address] Front Line Leader: Jasbir Membreno MD Platelets (Bld) [#/Vol] 390 10*3/uL Normal 140-400 [facility] Comment on above: Performed By: #### 1 0231, 6399, 72191, 7600 #### [facility] of [place] [address] Front Line Leader: Jasbir Membreno MD RBC (Bld) [#/Vol] 4.55 10*6/uL Normal 3.80-5.10 [facility] Comment on above: Performed By: #### 1 0231, 6399, 16955, 7600 #### [facility] of [address], [address] [place] [address] Front Line Leader: Jasbir Membreno MD WBC (Bld) [#/Vol] 6.9 10*3/uL Normal 3.8-10.8 [facility] Comment on above: Performed By: #### 1 0231, 6399, 68597, 7600 #### [facility] of [address], [address] [place] [address] Front Line Leader: Jasbir Membreno MD COMPREHENSIVE METABOLIC PANE [facility] 11-26-2021 Albumin [Mass/Vol] 4.2 g/dL Normal 3.6-5.1 [facility] Comment on above: Performed By: #### 1 0231, 6399, 76426, 7600 #### [facility] of [address], [address] [place] [address] Front Line Leader: Jasbir Membreno MD Albumin/Globulin [Mass ratio] 1.3 {ratio} Normal 1.0-2.5 [facility] Comment on above: Performed By: #### 1 0231, 6399, 91099, 7600 #### [facility] of [address], [address] [place] [address] Front Line Leader: Jasbir Membreno MD ALP [Catalytic activity/Vol] 89 U/L Normal 31-125 [facility] Comment on above: Performed By: #### 1 0231, 6399, 10598, 7600 #### [facility] of [address], [address] [place] [address] Front Line Leader: Jasbir Membreno MD ALT [Catalytic activity/Vol] 16 U/L Normal 6-29 [facility] Comment on above: Performed By: #### 1 0231, 6399, 02750, 7600 #### [facility] of [place] [address] Front Line Leader: Jasbir Membreno MD AST [Catalytic activity/Vol] 14 U/L Normal 10-30 [facility] Comment on above: Performed By: #### 1 0231, 6399, 57004, 7600 #### [facility] of [address], [address] [place] [address] Front Line Leader: Jasbir Membreno MD Bilirubin [Mass/Vol] 0.2 mg/dL Normal 0.2-1.2 [facility] Comment on above: Performed By: #### 1 0231, 6399, 99782, 7600 #### [facility] of [address], [address] [place] [address] Front Line Leader: Jasbir Membreno MD BUN/CREATININE RATIO NOT APPLICABLE Normal 6-22 [facility] Comment on above: Performed By: #### 1 0231, 6399, 23456, 7600 #### [facility] [address], [address] [place] [address] Front Line Leader: Jasbir Membreno MD Calcium [Mass/Vol] 9.1 mg/dL Normal 8.6-10.2 [facility] Comment on above: Performed By: #### 1 0231, 6399, 20168, 7600 #### [facility] [address], [address] [place] [address] Front Line Leader: Jasbir Membreno MD Chloride [Moles/Vol] 104 mmol/L Normal 98-110 [facility] Comment on above: Performed By: #### 1 0231, 6399, 25892, 7600 #### [facility] [address], [address] [place] [address] Front Line Leader: Jasbir Membreno MD CO2 [Moles/Vol] 30 mmol/L Normal 20-32 [facility] Comment on above: Performed By: #### 1 0231, 6399, 62020, 7600 #### [facility] [address], [address] [place] [address] Front Line Leader: Jasbir Membreno MD Creatinine [Mass/Vol] 0.73 mg/dL Normal 0.50-0.[address] [facility] Comment on above: Performed By: #### 1 0231, 6399, 74632, 7600 #### [facility] of [address], [address] [place] [address] Front Line Leader: Jasbir Membreno MD GFR/1.73 sq M.predicted among non-blacks MDRD (S/P/Bld) [Vol rate/Area] 107 mL/min/{1.73_m2} Normal > OR = 60 [facility] Comment on above: Result Comment: The eGFR is based on the CKD-EPI 202 equation. To calculate the new eGFR from a previous Creatinine or Cystatin C result, go to https://www.kidney.org/professionals/ kdoqi/gfr%5Fcalculator Performed By: #### 1 0231, 6399, 22413, 7600 #### [facility] [place] [address] Front Line Leader: Jasbir Membreno MD Globulin (S) [Mass/Vol] 3.2 g/dL Normal 1.9-3.7 [facility] Comment on above: Performed By: #### 1 0231, 6399, 95356, 7600 #### [facility] of [address], [address] [place] [address] Front Line Leader: Jasbir Membreno MD Glucose [Mass/Vol] 82 mg/dL Normal 65-139 [facility] Comment on above: Result Comment: Non-fasting reference interval Performed By: #### 1 0231, 6399, 51307, 7600 #### [facility] [address], [address] [place] [address] Front Line Leader: Jasbir Membreno MD Potassium [Moles/Vol] 4.4 mmol/L Normal 3.5-5.[address] [facility] Comment on above: Performed By: #### 1 0231, 6399, 03503, 7600 #### [facility] [place] [address] Front Line Leader: Jasbir Membreno MD Protein [Mass/Vol] 7.4 g/dL Normal 6.1-8.1 [facility] Comment on above: Performed By: #### 1 0231, 63, 15919, 7600 #### [facility] of [place] [address] Front Line Leader: Jasbir Membreno MD Sodium [Moles/Vol] 139 mmol/L Normal 135-146 [facility] Comment on above: Performed By: #### 1 0231, 6399, 33950, 7600 #### [facility] of [place] [address] Front Line Leader: Jasbir Membreno MD Urea nitrogen [Mass/Vol] 17 mg/dL Normal 7-25 [facility] Comment on above: Performed By: #### 1 0231, 6399, 82620, 7600 #### [facility] [address], [address] [place] [address] Front Line Leader: Jasbir Membreno MD LIPID PANEL, [facility] 08- Cholesterol [Mass/Vol] 158 mg/dL Normal <200 [facility] Comment on above: Order Comment: FASTI NG:NO FASTING: NO Performed By: #### 1 0231, 6399, 36445, 7600 #### [facility] [address], [address] [place] [address] Front Line Leader: Jasbir Membreno MD Cholesterol in HDL [Mass/Vol] 57 mg/dL Normal > OR = 50 [facility] Comment on above: Order Comment: FASTI NG:NO FASTING: NO Performed By: #### 1 0231, 6399, 04415, 7600 #### [facility] [address], [address] [place] [address] Front Line Leader: Jasbir Membreno MD Cholesterol in LDL [Mass/Vol] 85 mg/dL Normal [facility] Comment on above: Order Comment: FASTI NG:NO FASTING: NO Result Comment: Refe rence range: <100 Desirable range <100 mg/dL for primary prevention; <70 mg/dL for patients with CHD or diabetic patients with > or = 2 CHD risk factors. LDL-C is now calculated using the Thai-Tamera calculation, which is a validated novel method providing better accuracy than the Friedewald equation in the estimation of LDL-C. Thai CALDWELL et al. LEFTY. 2013;310(19): 9081-5852 (http://education.Nagi.Smartsheet/faq/RQL656) Performed By: #### 1 0231, 6399, 58026, 7600 #### [facility] [address], [address] [place] [address] Front Line Leader: Jasbir Membreno MD Cholesterol.total/Choles terol in HDL [Mass ratio] 2.8 {ratio} Normal <5.0 [facility] Comment on above: Order Comment: FASTI NG:NO FASTING: NO Performed By: #### 1 0231, 6399, 74461, 7600 #### [facility] [address], [address] [place] [address] Front Line Leader: Jasbir Membreno MD NON HDL CHOLESTEROL 101 mg/dL (calc) Normal <130 [facility] Comment on above: Order Comment: FASTI NG:NO FASTING: NO Result Comment: For patients with diabetes plus 1 major ASCVD risk factor, treating to a non-HDL-C goal of <100 mg/dL (LDL-C of <70 mg/dL) is considered a therapeutic option. Performed By: #### 1 0231, 6399, 41399, 7600 #### [facility] [place] [address] Front Line Leader: Jasbir Membreno MD Triglyceride [Mass/Vol] 75 mg/dL Normal <150 [facility] Comment on above: Order Comment: FASTI NG:NO FASTING: NO Performed By: #### 1 0231, 6399, 87185, 7600 #### [facility] [address], [address] [place] [address] Front Line Leader: Jasbir Membreno MD TSH+FREE T4 11-26-2021 Free T4 [Mass/Vol] 1.3 ng/dL Normal 0.8-1.8 [facility] Comment on above: Performed By: #### 1 0231, 6399, 16238, 7600 #### [facility] [place] [address] Front Line Leader: Jasbir Membreno MD TSH Qn 0.67 m[IU]/L Normal [facility] Comment on above: Result Comment: Refe rence Range > or = 20 Years 0.40-4.50 Ranges First trimester 0.26-2.66 Second trimester 0.55-2.73 Third trimester 0.43-2.91 Performed By: #### 1 0231, 6399, 58429, 7600 #### [facility] [address], [address] [place] [address] Front Line Leader: Jasbir Membreno MD XR KUB 1 VIEWon [...] by: JENNIFER CALERO Date: 2021-11-06 08:23 Normal [facility] Superficial Wound Cultureon 11-02-2021 Superficial Wound [...] RESISTANT TO ALL B-LACTAM DRUGS. PERFORMED BY: [facility] [address] [place] [address] PATHOLOGIST EVIDENCE SPECIALIST TANYA CATHERINE M.D. Normal [facility] Comment on above: Performed By: #### C OVID-19 IMELDA HERNDON #### [facility] [address] [place], [place] [id number] [facility] Aerobic Cultureon 10-04-2021 Aerobic Culture ORGANISM: Proteus [...] RESISTANT TO ALL B-LACTAM DRUGS. PERFORMED BY: [place] [address] PATHOLOGIST EVIDENCE SPECIALIST TANYA CATHERINE M.D. Normal [facility] Comment on above: Performed By: #### C OVID-19 IMELDA HERNDON #### [facility] [address] [place] [address] ECHOCARDIO M/2D COMPLETEon 0 09-29-2021 ECHOCARDIO M/2D COMPLETE Patient: ANTHONY RITCHIE Exam Date: 09/29/2021 : 1980 Gender:F Ordering : DR ESTELA BENNETT Admission #: [id number] Family : Order #: [id number] CLICK HERE TO VIEW EXAM ECHOCARDIOGRAM REPORT [...] Area(A4C): 14.80 cm2 Left Atrium Systolic Volume(A2C): 50492 mm3 Left Atrium Systolic Volume(A4C): 72905 mm3 Mitral Valve MV E to A [...] Rogel M.D. on 09/29/2021 at 14:34 Normal [facility] WOUND CULTUREon 09-03-2021 Antimicrobial Susceptibility Comment Normal [facility] Comment on above: Result Comment: S = [...] S Vancomycin S Performed By: #### C ANDREAS, TSH #### [facility] [address] [place] [address] Dr. Yuly Schuler Bacteria identified Aer cx Nom (Unsp spec) Final report Abnormal [facility] Comment on above: Performed By: #### C MP, TSH #### [facility] [address] [place] [address] [address] Yuly Schuler Result 1 Enterococcus faecalis Abnormal [facility] Comment on above: Result Comment: For Enterococcus species, aminoglycosides (except for high-level resistance screening), cephalosporins, clindamycin, and trimethoprim-sulfamethoxazole are not effective clinically. (CLSI, Z944-E90, 2016) Moderate growth Performed By: #### C MP, TSH #### [facility] [address] [place] [address] [address] Yuly Schuler Result 2 Comment Abnormal [facility] Comment on above: Result Comment: Prot eus mirabilis/penneri Moderate growth Performed By: #### C MP, TSH #### [facility] [address] [place] [address] [address] Yuly Schuler CBC AUTO DIFFon 08-30-2021 BASO # 0.1 103/ul Normal 0.0-0.1 [facility] Comment on above: Performed By: #### C BC #### [facility] [address] [place] [address] Dr. Yuly Schuler Basophils/100 WBC (Bld) 0.3 % Normal 0.2-2.0 [facility] Comment on above: Performed By: #### C BC #### [facility] [address] [place] [address] Dr. Yuly Schuler EO # 0.1 103/ul Normal 0.0-0.7 [facility] Comment on above: Performed By: #### C BC #### [facility] [address] [place] [address] Dr. Yuly Schuler Eosinophils/100 WBC (Bld) 0.4 % Critically low 0.9-7.0 [facility] Comment on above: Performed By: #### C BC #### [facility] [address] [place] [address] Dr. Yuly Schuler Erythrocyte distribution width (RBC) [Ratio] 14.0 % Normal 11.0-15.0 [facility] Comment on above: Performed By: #### C BC #### [facility] [address] [place] [address] Dr. Yuly Schuler Hematocrit (Bld) [Volume fraction] 33.2 % Critically low 36.0-48.0 [facility] Comment on above: Performed By: #### C BC #### [facility] [address] [place] [address] Dr. Yuly Schuler Hemoglobin (Bld) [Mass/Vol] 10.8 g/dL Critically low 12.0-16.0 [facility] Comment on above: Performed By: #### C BC #### [facility] [address] [place] [address] [address] Yuly Schuler IG # 0.12 10e3/ul Critically high 0.00-0.03 [facility] Comment on above: Performed By: #### C BC #### [facility] [address] [place] [address] [address] Yuly Schuler IG % 0.7 % Critically high 0.0-0.5 [facility] Comment on above: Performed By: #### C BC #### [facility] [address] [place] [address] [address] Yuly Schuler LYMPH # 1.6 103/ul Normal 1.2-3.8 [facility] Comment on above: Performed By: #### C BC #### [facility] [address] [place] [address] Dr. Yuly Schuler Lymphocytes/100 WBC (Bld) 9.4 % Critically low 20.5-60.0 [facility] Comment on above: Performed By: #### C BC #### [facility] [address] [place] [address] Dr. Yuly Schuler MANUAL DIFF REQ NO Normal [facility] Comment on above: Performed By: #### C BC #### [facility] [address] [place] [address] Dr. Yuly Schuler MCH (RBC) [Entitic mass] 29.7 pg Normal 26.7-34.0 [facility] Comment on above: Performed By: #### C BC #### [facility] [address] [place] [address] Dr. Yuly Schuler MCHC (RBC) [Mass/Vol] 32.5 g/dL Normal 29.9-35.2 [facility] Comment on above: Performed By: #### C BC #### [facility] [address] [place] [address] [address] Yuly Schuler MCV (RBC) [Entitic vol] 91.2 fL Normal 81.0-99.0 [facility] Comment on above: Performed By: #### C BC #### [facility] [address] [place] [address] [address] Yuly Schuler MONO # 0.9 103/ul Critically high 0.3-0.8 [facility] Comment on above: Performed By: #### C BC #### [facility] [address] [place] [address] [address] Yuly Schuler Monocytes/100 WBC (Bld) 5.5 % Normal 1.7-12.0 [facility] Comment on above: Performed By: #### C BC #### [facility] [address] [place] [address] [address] Yuly Schuler NEUT # 14.0 103/ul Critically high 1.4-6.5 [facility] Comment on above: Performed By: #### C BC #### [facility] [address] [place] [address] Dr. Yuly Schuler Neutrophils/100 WBC (Bld) 83.7 % Critically high 43.0-75.0 [facility] Comment on above: Performed By: #### C BC #### [facility] [address] [place] [address] Dr. Yuly Schuler Platelet mean volume (Bld) [Entitic vol] 7.7 fL Critically low 9.5-13.5 [facility] Comment on above: Performed By: #### C BC #### [facility] [address] [place] [address] [address] Yuly Schuler PLT 568 103/ul Critically high 150-450 [facility] Comment on above: Performed By: #### C BC #### [facility] [address] [place] [address] [address] Yuly Schuler RBC 3.64 106/ul Critically low 4.20-5.40 [facility] Comment on above: Performed By: #### C BC #### [facility] [address] [address] [address] Yuly Schuler WBC 16.7 103/ul Critically high 4.0-11.0 [facility] Comment on above: Performed By: #### C BC #### [facility] [address] [address] ABD/PELVIS WO CONon [...] ZAYDA MORENO Date: 2021-08-30 08:38 Normal [facility] CULTURE BLOODon 08-30-2021 Microscopic examination of blood, culture Culture Observations: NO GROWTH AT 5 DAYS. Normal [facility] Comment on above: Performed By: #### C MP, [facility] #### [facility] [address] [address] [address] Yuly Schuler Microscopic examination of blood, culture Culture Observations: NO GROWTH AT 5 DAYS. Normal [facility] Comment on above: Performed By: #### C MP, TSH #### [facility] [address] [place] [address] Dr. Yuly Schuler CULTURE URINEon 08-30-2021 CULTURE URINE Culture Observations: LIGHT GROWTH OF MIXED GENITAL OLI. NO POTENTIAL PATHOGENS SEEN. Normal [facility] Comment on above: Performed By: #### C MP, TSH #### [facility] [address] [place] [address] Dr. Yuly Schuler Covid-19 PCR (CVDTB)on 08-14 SARS-CoV-2 (COVID-19) RNA AMINA+probe Ql (Unsp spec) Not detected Normal NOT DETECTED [facility] Comment on above: Result Comment: When diagnostic [...] for this test is supported by the [place] of Health and Human Service's declaration that [...] used). Performed By: #### C VDTBH #### [facility] [address] [place] [address] Dr. Yuly Schuler ER URINE PROFILEon 2 Bilirubin Ql (U) Negative Normal NEGATIVE [facility] Comment on above: Performed By: #### C MP, TSH #### [facility] [address] [place] [address] Dr. Yuly Schluer Clarity (U) CLEAR Normal CLEAR [facility] Comment on above: Performed By: #### C MP, TSH #### [facility] [address] [place] [address] Dr. Yuly Schuler Color (U) LT. YELLOW Normal YELLOW [facility] Comment on above: Performed By: #### C MP, TSH #### [facility] [address] [place] [address] Dr. Yuly TEJEDA A micrscopic examination will be performed if indicated. Normal [facility] Comment on above: Performed By: #### C MP, TSH #### [facility] [address] [place] [address] Dr. Yuly Schuler Glucose Ql (U) Negative Normal NEGATIVE [facility] Comment on above: Performed By: #### C MP, TSH #### [facility] [address] [place] [address] Dr. Yuly Schuler Hemoglobin Ql (U) TRACE-INTACT Abnormal NEGATIVE [facility] Comment on above: Performed By: #### C MP, TSH #### [facility] [address] [place] [address] Dr. Yuly Schuler Ketones Ql (U) Negative Normal NEGATIVE [facility] Comment on above: Performed By: #### C MP, TSH #### [facility] [address] [place] [address] Dr. Yuly Schuler LEUKOCYTES TRACE Abnormal NEGATIVE [facility] Comment on above: Performed By: #### C MP, TSH #### [facility] [address] [place] [address] Dr. Yuly Schuler Nitrite Ql (U) Negative Normal NEGATIVE [facility] Comment on above: Performed By: #### C MP, TSH #### [facility] [address] [place] [address] Dr. Yuly Schuler pH (U) 6.5 [pH] Normal 5-9 [facility] Comment on above: Performed By: #### C MP, TSH #### [facility] [address] [place] [address] Dr. Yuly Schuler SPEC GRAVITY <=1.005 Abnormal 1.005-<=1.02 5 [facility] Comment on above: Performed By: #### C MP, TSH #### [facility] [address] [place] [address] Dr. Yuly Schuler UA PROTEIN Negative Normal NEGATIVE/ TRACE [facility] Comment on above: Performed By: #### C MP, TSH #### [facility] [address] [place] [address] Dr. Yuly Schuler UR MICRO IND INDICATED Normal [facility] Comment on above: Performed By: #### C MP, TSH #### [facility] [address] [place] [address] Dr. Yuly Schuler Urobilinogen Qn (U) 0.2 {Robby'U}/dL Normal 0.2 - 1. 0 [facility] Comment on above: Performed By: #### C MP, TSH #### [facility] [address] [place] [address] Dr. Yuly Schuler LACTATE/LACTIC ACIDon 2021 Lactate [Moles/Vol] 0.4 mmol/L Normal 0.4-1.9 [facility] Comment on above: Performed By: #### L ACT #### [facility] [address] [place] [address] Dr. Yuly Schuler PROF 14(COMP METB)on 022 Albumin [Mass/Vol] 2.3 g/dL Critically low 3.4-5.0 [facility] Comment on above: Performed By: #### C MP #### [facility] [address] [place] [address] Dr. Yuly Schuler Albumin/Globulin [Mass ratio] 0.4 {ratio} Normal [facility] Comment on above: Performed By: #### C MP #### [facility] [address] [place] [address] Dr. Yuly Schuler ALP [Catalytic activity/Vol] 136 U/L Critically high 46-116 [facility] Comment on above: Performed By: #### C MP #### [facility] [address] [place] [address] Dr. Yuly Schuler ALT [Catalytic activity/Vol] 41 U/L Normal 14-59 [facility] Comment on above: Performed By: #### C MP #### [facility] [address] [address] [address] Yuly Schuler Anion gap [Moles/Vol] 12.6 mmol/L Normal Th [facility] Comment on above: Performed By: #### C MP #### [facility] [address] [address] [address] Yuly Schuler AST [Catalytic activity/Vol] 19 U/L Normal 15-37 [facility] Comment on above: Performed By: #### C MP #### [facility] [address] [address] [address] Yuly Schuler Bilirubin [Mass/Vol] 0.2 mg/dL Normal 0.2-1.0 [facility] Comment on above: Performed By: #### C MP #### [facility] [address] [place] [address] Dr. Yuly Schuler Calcium [Mass/Vol] 8.7 mg/dL Normal 8.5-10.1 [facility] Comment on above: Performed By: #### C MP #### [facility] [address] [place] [address] Dr. Yuly Schuler Chloride [Moles/Vol] 101 mmol/L Normal 98-107 [facility] Comment on above: Performed By: #### C MP #### [facility] [address] [place] [address] Dr. Yuly Schuler CO2 [Moles/Vol] 27.1 mmol/L Normal 21.0-32.0 [facility] Comment on above: Performed By: #### C MP #### [facility] [address] [place] [address] Dr. Yuly Schuler Creatinine [Mass/Vol] 0.79 mg/dL Normal 0.55-1.02 [facility] Comment on above: Performed By: #### C MP #### [facility] [address] [address] [address] Yuly Schuler EGFR-AF IRISH >60 Normal >=60 [facility] Comment on above: Performed By: #### C MP #### [facility] [address] [place] [address] Dr. Yuly Schuler EGFR-NON AF IRISH >60 Normal >=60 [facility] Comment on above: Performed By: #### C MP #### [facility] [address] [place] [address] Dr. Yuly Schuler Globulin (S) [Mass/Vol] 6.1 g/dL Normal [facility] Comment on above: Performed By: #### C MP #### [facility] [address] [address] [address] Yuly Schuler Glucose [Mass/Vol] 88 mg/dL Normal 74-106 [facility] Comment on above: Performed By: #### C MP #### [facility] [address] [place] [address] Dr. Yuly Schuler Potassium [Moles/Vol] 3.7 mmol/L Normal 3.5-5.1 [facility] Comment on above: Performed By: #### C MP #### [facility] [address] [place] [address] Dr. Yuly Schuler Protein [Mass/Vol] 8.4 g/dL Critically high 6.4-8.2 [facility] Comment on above: Performed By: #### C MP #### [facility] [address] [place] [address] Dr. Yuly Schuler Sodium [Moles/Vol] 137 mmol/L Normal 136-145 [facility] Comment on above: Performed By: #### C MP #### [facility] [address] [place] [address] Dr. Yuly Schuler Urea nitrogen [Mass/Vol] 11.0 mg/dL Normal 7.0-18.0 [facility] Comment on above: Performed By: #### C MP #### [facility] [address] [address] [address] Yuly Schuler Urea nitrogen/Creatinine [Mass ratio] 13.9 mg/mg Normal [facility] Comment on above: Performed By: #### C MP #### [facility] [address] [place] [address] Dr. Yuly Schuler URINE MICROSCOPIC ONLYon BACTERIA TRACE Abnormal NONE SEEN [facility] Comment on above: Performed By: #### C MP, TSH #### [facility] [address] [place] [address] Dr. Yuly Schuler Bacteria identified Cx Nom (U) INDICATED Normal [facility] Comment on above: Performed By: #### C MP, TSH #### [facility] [address] [place] [address] Dr. Yuly Schuler CAST NONE SEEN Normal NONE SEEN [facility] Comment on above: Performed By: #### C MP, TSH #### [facility] [address] [place] [address] Dr. Yuly Schuler Crystals LM Nom (Urine sed) NONE SEEN Normal NONE SEEN [facility] Comment on above: Performed By: #### C MP, TSH #### [facility] [address] [place] [address] Dr. Yuly Schuler Epithelial cells LM Ql (Urine sed) RARE Normal NONE SEEN /RARE [facility] Comment on above: Performed By: #### C MP, TSH #### [facility] [address] [place] [address] Dr. Yuly Schuler MUCOUS NONE SEEN Normal NONE SEEN [facility] Comment on above: Performed By: #### C MP, TSH #### [facility] [address] [place] [address] Dr. Yuly Schuler RBC 0-2 Normal 0-2 [facility] Comment on above: Performed By: #### C MP, TSH #### [facility] [address] [place] [address] Dr. Yuly Schuler WBC 0-2 Abnormal NONE SEEN [facility] Comment on above: Performed By: #### C MP, TSH #### [facility] [address] [place] [address] Dr. Yuly Schuler CBC AUTO DIFFon 08-29-2021 BASO # 0.1 103/ul Normal 0.0-0.1 [facility] Comment on above: Performed By: #### C BC #### [facility] [address] [place] [address] Dr. Yuly Schuler Basophils/100 WBC (Bld) 0.3 % Normal 0.2-2.0 [facility] Comment on above: Performed By: #### C BC #### [facility] [address] [place] [address] Dr. Yuly Schuler EO # 0.1 103/ul Normal 0.0-0.7 [facility] Comment on above: Performed By: #### C BC #### [facility] [address] [place] [address] Dr. Yuly Schuler Eosinophils/100 WBC (Bld) 0.4 % Critically low 0.9-7.0 [facility] Comment on above: Performed By: #### C BC #### [facility] [address] [place] [address] Dr. Yuly Schuler Erythrocyte distribution width (RBC) [Ratio] 14.0 % Normal 11.0-15.0 [facility] Comment on above: Performed By: #### C BC #### [facility] [address] [place] [address] Dr. Yuly Schuler Hematocrit (Bld) [Volume fraction] 31.7 % Critically low 36.0-48.0 [facility] Comment on above: Performed By: #### C BC #### [facility] [address] [place] [address] Dr. Yuly Schuler Hemoglobin (Bld) [Mass/Vol] 10.1 g/dL Critically low 12.0-16.0 [facility] Comment on above: Performed By: #### C BC #### [facility] [address] [place] [address] Dr. Yuly Schuler IG # 0.11 10e3/ul Critically high 0.00-0.03 [facility] Comment on above: Performed By: #### C BC #### [facility] [address] [place] [address] Dr. Yuly Schuler IG % 0.7 % Critically high 0.0-0.5 [facility] Comment on above: Performed By: #### C BC #### [facility] [address] [place] [address] Dr. Yuly Schuler LYMPH # 2.0 103/ul Normal 1.2-3.8 [facility] Comment on above: Performed By: #### C BC #### [facility] [address] [place] [address] Dr. Yuly Schuler Lymphocytes/100 WBC (Bld) 13.3 % Critically low 20.5-60.0 [facility] Comment on above: Performed By: #### C BC #### [facility] [address] [place] [address] Dr. Yuly Schuler MANUAL DIFF REQ NO Normal [facility] Comment on above: Performed By: #### C BC #### [facility] [address] [place] [address] Dr. Yuly Schuler MCH (RBC) [Entitic mass] 29.3 pg Normal 26.7-34.0 [facility] Comment on above: Performed By: #### C BC #### [facility] [address] [place] [address] Dr. Yuly Schuler MCHC (RBC) [Mass/Vol] 31.9 g/dL Normal 29.9-35.2 [facility] Comment on above: Performed By: #### C BC #### [facility] [address] [place] [address] Dr. Yuly Schuler MCV (RBC) [Entitic vol] 91.9 fL Normal 81.0-99.0 [facility] Comment on above: Performed By: #### C BC #### [facility] [address] [place] [address] Dr. Yuly Schuler MONO # 0.8 103/ul Normal 0.3-0.8 [facility] Comment on above: Performed By: #### C BC #### [facility] [address] [place] [address] Dr. Yuly Schuler Monocytes/100 WBC (Bld) 5.3 % Normal 1.7-12.0 [facility] Comment on above: Performed By: #### C BC #### [facility] [address] [place] [address] Dr. Yuly Schuler NEUT # 12.0 103/ul Critically high 1.4-6.5 [facility] Comment on above: Performed By: #### C BC #### [facility] [address] [address] [address] Yuly Schuler Neutrophils/100 WBC (Bld) 80.0 % Critically high 43.0-75.0 [facility] Comment on above: Performed By: #### C BC #### [facility] [address] [address] [address] Yuly Schuler Platelet mean volume (Bld) [Entitic vol] 8.0 fL Critically low 9.5-13.5 [facility] Comment on above: Performed By: #### C BC #### [facility] [address] [address] [address] Yuly Schuler PLT 608 103/ul Critically high 150-450 [facility] Comment on above: Performed By: #### C BC #### [facility] [address] [place] [address] Dr. Yuly Schuler RBC 3.45 106/ul Critically low 4.20-5.40 [facility] Comment on above: Performed By: #### C BC #### [facility] [address] [place] [address] Dr. Yuly Schuler WBC 15.0 103/ul Critically high 4.0-11.0 [facility] Comment on above: Performed By: #### C BC #### [facility] [address] [place] [address] Dr. Yuly Schuler PROF 14(COMP METB)on 022 Albumin [Mass/Vol] 2.3 g/dL Critically low 3.4-5.[address] [facility] Comment on above: Performed By: #### C MP, TSH #### [facility] [address] [place] [address] Dr. Yuly Schuler Albumin/Globulin [Mass ratio] 0.4 {ratio} Normal [facility] Comment on above: Performed By: #### C MP, TSH #### [facility] [address] [address] [address] Yuly Schuler ALP [Catalytic activity/Vol] 131 U/L Critically high 46-116 [facility] Comment on above: Performed By: #### C MP, TSH #### [facility] [address] [address] [address] Yuly Schuler ALT [Catalytic activity/Vol] 43 U/L Normal 14-59 [facility] Comment on above: Performed By: #### C MP, TSH #### [facility] [address] [address] [address] Yuly Schuler Anion gap [Moles/Vol] 11.3 mmol/L Normal Th [facility] Comment on above: Performed By: #### C MP, TSH #### [facility] [address] [address] [address] Yuly Schuler AST [Catalytic activity/Vol] 18 U/L Normal 15-37 [facility] Comment on above: Performed By: #### C MP, TSH #### [facility] [address] [place] [address] Dr. Yuly Schuler Bilirubin [Mass/Vol] 0.1 mg/dL Critically low 0.2-1.0 [facility] Comment on above: Performed By: #### C MP, TSH #### [facility] [address] [address] [address] Yuly Schuler Calcium [Mass/Vol] 8.9 mg/dL Normal 8.5-10.1 [facility] Comment on above: Performed By: #### C MP, TSH #### [facility] [address] [address] [address] Yuly Schuler Chloride [Moles/Vol] 101 mmol/L Normal 98-107 [facility] Comment on above: Performed By: #### C MP, TSH #### [facility] [address] [address] [address] Yuly Schuler CO2 [Moles/Vol] 28.9 mmol/L Normal 21.0-32.0 [facility] Comment on above: Performed By: #### C MP, TSH #### [facility] [address] [address] [address] Yuly Schuler Creatinine [Mass/Vol] 0.80 mg/dL Normal 0.55-1.02 [facility] Comment on above: Performed By: #### C MP, TSH #### [facility] [address] [address] [address] Yuly Schuler EGFR-AF IRISH >60 Normal >=60 [facility] Comment on above: Performed By: #### C MP, TSH #### [facility] [address] [address] [address] Yuly Schuler EGFR-NON AF IRISH >60 Normal >=60 [facility] Comment on above: Performed By: #### C MP, TSH #### [facility] [address] [address] [address] Yuly Schuler Globulin (S) [Mass/Vol] 5.9 g/dL Normal T [facility] Comment on above: Performed By: #### C MP, TSH #### [facility] [address] [address] [address] Yuly Schuler Glucose [Mass/Vol] 92 mg/dL Normal 74-106 [facility] Comment on above: Performed By: #### C MP, TSH #### [facility] [address] [address] [address] Yuly Schuler Potassium [Moles/Vol] 4.2 mmol/L Normal 3.5-5.1 [facility] Comment on above: Performed By: #### C MP, TSH #### [facility] [address] [address] [address] Yuly Schuler Protein [Mass/Vol] 8.2 g/dL Normal 6.4-8.2 [facility] Comment on above: Performed By: #### C MP, TSH #### [facility] [address] [address] [address] Yuly Schuler Sodium [Moles/Vol] 137 mmol/L Normal 136-145 [facility] Comment on above: Performed By: #### C MP, TSH #### [facility] [address] [address] [address] Yuly Schuler Urea nitrogen [Mass/Vol] 11.0 mg/dL Normal 7.0-18.0 [facility] Comment on above: Performed By: #### C MP, TSH #### [facility] [address] [address] [address] Yuly Schuler Urea nitrogen/Creatinine [Mass ratio] 13.8 mg/mg Normal [facility] Comment on above: Performed By: #### C MP, TSH #### [facility] [address] [address] [address] [facility] mm/hr Critically high <=20 [facility] Comment on above: Performed By: #### C MP, TSH #### [facility] [address] [address] [address] Yuly Schuler TSHon 08-29-2021 TSH 1.088 uIU/mL Normal 0.358-3.740 [facility] Comment on above: Performed By: #### C MP, TSH #### [facility] [address] [address] [address] Yuly Schuler TSH RANGE SEE BELOW Normal [facility] Comment on above: Result Comment: <0.3 4 UIU/ml HYPERTHYROID 0.34-5.60 UIU/ml EUTHYROID >5.60 UIU/ml HYPOTHYROID Performed By: #### C MP, TSH #### [facility] [address] [place] [address] Dr. Yuly Schuler Complete Blood Count Auto Di ffon 08-07-2021 Basophils (Bld) [#/Vol] 0.0 10*3/uL Normal 0.0-0.[address] [facility] Comment on above: Result Comment: PERF ORMED BY: [place] [address] PATHOLOGIST EVIDENCE SPECIALIST TANYA CATHERINE M.D. Performed By: #### C BC #### [facility] [address] [place] [address] [place] Basophils/100 WBC (Bld) 0.3 % Normal . [facility] Comment on above: Performed By: #### C BC #### [address] Eosinophils (Bld) [#/Vol] 0.0 10*3/uL Normal 0.0-0.[address] [facility] Comment on above: Performed By: #### C BC #### [address] Eosinophils/100 WBC (Bld) 0.1 % Normal . [facility] Comment on above: Performed By: #### C BC #### [address] Erythrocyte distribution width (RBC) [Ratio] 13.9 % Normal 11.9-15.[address] [facility] Comment on above: Performed By: #### C BC #### [address] Hematocrit (Bld) [Volume fraction] 35.0 % Normal 34.0-46.[address] [facility] Comment on above: Performed By: #### C BC #### [address] Hemoglobin (Bld) [Mass/Vol] 11.8 g/dL Normal 11.8-15.[address] [facility] Comment on above: Performed By: #### C BC #### [address] Lymphocytes (Bld) [#/Vol] 1.0 10*3/uL Normal 1.00-4.[address] [facility] Comment on above: Performed By: #### C BC #### [address] Lymphocytes/100 WBC (Bld) 6.0 % Normal . [facility] Comment on above: Performed By: #### C BC #### [address] MCH (RBC) [Entitic mass] 31.1 pg Normal 24.7-34.[address] [facility] Comment on above: Performed By: #### C BC #### [address] MCV (RBC) [Entitic vol] 92.0 fL Normal 80-100 [facility] Comment on above: Performed By: #### C BC #### [facility] [address] Mean Corpuscular HGB Conc 33.8 g/dL Normal 32.0-35.[address] [facility] Comment on above: Performed By: #### C BC #### [facility] [address] [place] [address] [place] Monocytes (Bld) [#/Vol] 0.8 10*3/uL Normal 0.0-0.[address] [facility] Comment on above: Performed By: #### C BC #### [facility] [address] [place] [address] [place] Monocytes/100 WBC (Bld) 4.8 % Normal . [facility] Comment on above: Performed By: #### C BC #### [facility] [address] [place] [address] [place] Neutrophils (Bld) [#/Vol] 15.3 10*3/uL High 1.8-7.[address] [facility] Comment on above: Performed By: #### C BC #### [facility] [address] [place] [address] [place] Neutrophils/100 WBC (Bld) 88.8 % Normal . [facility] Comment on above: Performed By: #### C BC #### [facility] [address] [place] [address] [place] Nucleated RBC/100 WBC (Bld) [Ratio] 0.0 % Normal 0-0.[address] [facility] Comment on above: Performed By: #### C BC #### [facility] [address] [place] [address] [place] Platelet mean volume (Bld) [Entitic vol] 8.8 fL Normal 6.3-10.[address] [facility] Comment on above: Performed By: #### C BC #### [facility] [address] [place] [address] [place] Platelets (Bld) [#/Vol] 214 10*3/uL Normal 150-[address] [facility] Comment on above: Performed By: #### C BC #### [facility] [id number] [facility] RBC (Bld) [#/Vol] 3.80 10*6/uL Normal 3.60-5.00 [facility] Comment on above: Performed By: #### C BC #### [facility] [address] [id number] [place] WBC (Bld) [#/Vol] 17.2 10*3/uL High 4.5-11.0 [facility] Comment on above: Performed By: #### C BC #### [facility] [address] COVID-19 Antigenon 2 COVID-19 [facility] [...] developed and its performance characteristic determined by [employer] and validated at [facility]. This test has not been FDA [...] for SARS Antigen by [facility] PERFORMED BY: [place] [address] PATHOLOGIST EVIDENCE SPECIALIST TANYA CATHERINE M.D. [facility] Comment on above: Performed By: #### C OVID-19 YANICK, SOFIANEG #### [address] Complete Blood Count Auto Di ffon 08-06-2021 Basophils (Bld) [#/Vol] 0.0 10*3/uL Normal 0.0-0.[address] [facility] Comment on above: Result Comment: PERF ORMED BY: [place] [address] PATHOLOGIST EVIDENCE SPECIALIST TANYA CATHERINE M.D. Performed By: #### C OVID-19 YANICK, SOFIANEG #### [address] Basophils/100 WBC (Bld) 0.5 % Normal . [facility] Comment on above: Performed By: #### C OVID-19 YANICK, SOFIANEG #### [address] Eosinophils (Bld) [#/Vol] 0.0 10*3/uL Normal 0.0-0.[address] [facility] Comment on above: Performed By: #### C OVID-19 YANICK, SOFIANEG #### [address] Eosinophils/100 WBC (Bld) 0.1 % Normal . [facility] Comment on above: Performed By: #### C OVID-19 YANICK, SOFIANEG #### [address] Erythrocyte distribution width (RBC) [Ratio] 13.8 % Normal 11.9-15.[address] [facility] Comment on above: Performed By: #### C OVID-19 YANICK, SOFIANEG #### [facility] [address] Hematocrit (Bld) [Volume fraction] 41.3 % Normal 34.0-46.[address] [facility] Comment on above: Performed By: #### C OVID-19 YANICK, SOFIANEG #### [address] Hemoglobin (Bld) [Mass/Vol] 14.0 g/dL Normal 11.8-15.[address] [facility] Comment on above: Performed By: #### C OVID-19 YANICK, SOFIANEG #### [address] Lymphocytes (Bld) [#/Vol] 1.2 10*3/uL Normal 1.00-4.[address] [facility] Comment on above: Performed By: #### C OVID-19 YANICK, SOFIANEG #### [address] Lymphocytes/100 WBC (Bld) 12.5 % Normal . [facility] Comment on above: Performed By: #### C OVID-19 YANICK, SOFIANEG #### [address] MCH (RBC) [Entitic mass] 31.0 pg Normal 24.7-34.[address] [facility] Comment on above: Performed By: #### C OVID-19 YANICK, SOFIANEG #### [address] MCV (RBC) [Entitic vol] 91.1 fL Normal 80-100 [facility] Comment on above: Performed By: #### C OVID-19 YANICK, SOFIANEG #### [facility] [address] [place] [address] Mean Corpuscular HGB Conc 34.0 g/dL Normal 32.0-35.[address] [facility] Comment on above: Performed By: #### C OVID-19 YANICK, SOFIANEG #### [facility] [address] [place] [address] [place] Monocytes (Bld) [#/Vol] 0.4 10*3/uL Normal 0.0-0.[address] [facility] Comment on above: Performed By: #### C OVID-19 YANICK, SOFIANEG #### [facility] [address] [place] [address] [place] Monocytes/100 WBC (Bld) 4.2 % Normal . [facility] Comment on above: Performed By: #### C OVID-19 YANICK, SOFIANEG #### [facility] [address] Neutrophils (Bld) [#/Vol] 7.6 10*3/uL Normal 1.8-7.[address] [facility] Comment on above: Performed By: #### C OVID-19 YANICK, SOFIANEG #### [facility] [address] Neutrophils/100 WBC (Bld) 82.7 % Normal . [facility] Comment on above: Performed By: #### C OVID-19 YANICK, SOFIANEG #### [facility] [address] [place] [address] [place] Nucleated RBC/100 WBC (Bld) [Ratio] 0.0 % Normal 0-0.[address] [facility] Comment on above: Performed By: #### C OVID-19 YANICK, SOFIANEG #### [facility] [address] Platelet mean volume (Bld) [Entitic vol] 8.0 fL Normal 6.3-10.[address] [facility] Comment on above: Performed By: #### C OVID-19 YANICK, SOFIANEG #### [facility] [address] [place] [address] [place] Platelets (Bld) [#/Vol] 240 10*3/uL Normal 150-[address] [facility] Comment on above: Performed By: #### C OVID-19 YANICK, SOFIANEG #### [facility] [address] [place] [address] [place] RBC (Bld) [#/Vol] 4.53 10*6/uL Normal 3.60-5.00 [facility] Comment on above: Performed By: #### C OVID-19 YANICK, SOFIANEG #### [facility] [address] WBC (Bld) [#/Vol] 9.2 10*3/uL Normal 4.5-11.0 [facility] Comment on above: Performed By: #### C OVID-19 YANICK, SOFIANEG #### [facility] [address] Cuauhtemoc 08-06-2021 L Specimen: [id number] Received: 08/08/21 Status: KEELY Sanches Num: [id number] Spec Type: Surgical Subm Dr: Malcom Fonseca MD-NOMS Tissues: A Placenta - 3rd Trimester (Greater than 28 weeks) (PLACENTA WITH CORD) Procedures: HE Stain/6, Gross/Micro L5 Patient Age/Sex Location Account Attending Physician Anthony Ritchie 40/F [id number] Malcom Fonseca MD-NOMS SPEC NUM: [id number] RECD: 08/08/21 STATUS: KEELY SANCHES NUM: [id number] HELGA: 08/06/21- SUBM DR: Malcom Fonseca MD-NOMS ENTERED: 08/08/[address] [facility] [address]: VICTOR HUGO TYPE: Surgical DEPT: [...] in length and 6.9 cm in length. Embossed Or Impressed Lettering Painter sections are submitted in 6 cassettes as follows: A1 - end umbilical cord and membrane roll A2 - Maternal end of the umbilical cord and membrane roll Specimen: [id number] Received: 08/08/21 Status: KEELY Sanches Num: [id number] Spec Type: Surgical Subm Dr: Malcom Fonseca MD-NOMS Tissues: A Placenta - 3rd Trimester (Greater than 28 weeks) (PLACENTA WITH CORD) Procedures: LEENA Stain/6, Gross/Micro L5 Patient: Anthony Ritchie [id number] (Continued) Specimen: [id number] Received: 08/08/21 (Continued) Gross Description (Continued) Signed (signatur e on file) Yolanda Leblanc MD 08/09/21 1837 Specimen: [id number] Received: 08/08/21 Status: KEELY Sanches Num: [id number] Spec Type: Surgical Subm Dr: Malcom Fonseca MD-[facility]OMS Tissues: A Placenta - 3rd Trimester (Greater than 28 weeks) (PLACENTA WITH CORD) Procedures: HE Stain/6, Gross/Micro L5 Patient: Anthony Ritchie [id number] (Continued) Specimen: Received: 08/08/21 (Continued) Gross Description (Continued) A3 - Central A4 - Peripheral A5 - Lesions A6 - Maternal surface with adherent blood clot Type of Fixative: 10% Neutral Buffered Formalin (GAYLA/YDominik) Microscopic Description Six glass slides with H E stained material have been examined. The microscopic findings support the above pathologic diagnosis. CPT Codes 56927 Specimen: [id number] Received: 08/08/21 Status: KEELY Sanches Num: [id number] Spec Type: Surgical Subm Dr: Malcom Fonseca MD-[facility] Tissues: A Placenta - 3rd Trimester (Greater than 28 weeks) (PLACENTA WITH CORD) Procedures: HE Stain/6, Gross/Micro L5 Patient: Anthony Ritchie [id number] (more content not included)... Normal [facility] OB Urine Drug Screen (NO THC )on 08-06-2021 Amphetamine Screen,Urine Negative Normal Negative [facility] Comment on above: Performed By: #### O BUDS #### [facility] [address] [place] [address] Barbiturate Screen,Urine Negative Normal Negative [facility] Comment on above: Performed By: #### O BUDS #### [facility] [address] [place] [address] [place] Benzodiazepines Screen,Urine Negative Normal Negative [facility] Comment on above: Performed By: #### O BUDS #### [facility] [address] [place] [address] [place] Cocaine Screen,Urine Negative Normal Negative [facility] Comment on above: Performed By: #### O BUDS #### [facility] [address] Opiate Screen,Urine Negative Normal Negative [facility] Comment on above: Performed By: #### O BUDS #### [address] Phencyclidine Screen, Urine Negative Normal Negative [facility] Comment on above: Result Comment: Thes e are unconfirmed results and should not be used for legal purposes. Drug Cut-Off Concentration: AMPH 1000 ng/mL AUDREY 200 ng/mL NITA 200 ng/mL COCM 300 ng/mL OP 300 ng/mL PCP 25 ng/mL PERFORMED BY: [place] [address] PATHOLOGIST EVIDENCE SPECIALIST TANYA CATHERINE M.D. Performed By: #### O BUDS #### [address] RPR w/rfx to Quant TP Abson 08-06-2021 RPR, Rfx Quant RPR Non-Reactive Normal Non Reactive [facility] Comment on above: Result Comment: Perf ormed at: - [facility] [address] [id number] Piercing Specialist: Ed Green PhD, Phone: [phone] PERFORMED BY: [place] [address] PATHOLOGIST EVIDENCE SPECIALIST TANYA CATHERINE M.D. Performed By: #### C OVID-19 YAINCK, SOFIANEG #### [address] Yanick Ag Negativeon 08-07-19 Yanick Ag Negative Negative Normal Negative [facility] Comment on above: Result Comment: This is a duplicate Yanick SARS Antigen (IRMA) result to be used for statistical tracking purpose only. PERFORMED BY: [place] [address] PATHOLOGIST EVIDENCE SPECIALIST TANYA CATHERINE M.D. Performed By: #### C OVID-19 YANICK, SOFIANEG #### [address] Urinalysison 08-06-2021 Appearance (U) Clear Normal Clear [facility] Comment on above: Order Comment: Name Collection Type:: Clean-Voided Midstream Performed By: #### U A #### [facility] [address] [place] [address] [place] Bilirubin,Urine Negative Normal Negative [facility] Comment on above: Order Comment: Name Collection Type:: Clean-Voided Midstream Performed By: #### U A #### [place] [address] [place] Color (U) Yellow Normal Yellow [facility] Comment on above: Order Comment: Name Collection Type:: Clean-Voided Midstream Performed By: #### U A #### [place] [address] [place] Glucose Ql (U) Normal Normal Normal [facility] Comment on above: Order Comment: Name Collection Type:: Clean-Voided Midstream Performed By: #### U A #### [address] Ketones Ql (U) Negative Normal Negative [facility] Comment on above: Order Comment: Name Collection Type:: Clean-Voided Midstream Performed By: #### U A #### [address] Leukocyte esterase Test strip Ql (U) Negative Normal Negative [facility] Comment on above: Order Comment: Name Collection Type:: Clean-Voided Midstream Performed By: #### U A #### [place] [address] [place] Nitrite,Urine Negative Normal Negative [facility] Comment on above: Order Comment: Name Collection Type:: Clean-Voided Midstream Performed By: #### U A #### [facility] [address] [place] [address] [place] Occult Blood,Urine Negative Normal Negative [facility] Comment on above: Order Comment: Name Collection Type:: Clean-Voided Midstream Result Comment: PERF ORMED BY: [place] [address] PATHOLOGIST EVIDENCE SPECIALIST TANYA CATHERINE M.D. Performed By: #### U A #### [place] [address] [place] pH (U) 6.5 [pH] Normal 5.0-9.[address] [facility] Comment on above: Order Comment: Name Collection Type:: Clean-Voided Midstream Performed By: #### U A #### [address] Protein,Urine Negative Normal Negative [facility] Comment on above: Order Comment: Name Collection Type:: Clean-Voided Midstream Performed By: #### U A #### [address] Specificy [place],Urine 1.006 Normal 1.001-1.[address] [facility] Comment on above: Order Comment: Name Collection Type:: Clean-Voided Midstream Performed By: #### U A #### [address] Urobilinogen,Urine Normal Normal Normal [facility] Comment on above: Order Comment: Name Collection Type:: Clean-Voided Midstream Performed By: #### U A #### [address] Strep B Cultureon 07-18-2021 Strep B Culture Reason for Exam 36 weeks gestation of ; screening for stre Vaginal/Rectal ORGANISM: Strep. agalactiae Grp B (O:B) PERFORMED BY: [place] [address] PATHOLOGIST EVIDENCE SPECIALIST TANYA CATHERINE M.D. [facility] Comment on above: Performed By: #### C USTB #### [address] Provider Letteron 10-27-2020 Provider Letter October [...] this matter. Sincerely, [facility] [address] [place] [address] [facility] Auth for Release of Medical Recordson 09-27-2020 Auth for Release of Medical Records [id number]#[id number]:[address] [facility] Ambulatory Clinical Summaryo n 06-14-2020 Ambulatory Clinical Summary {[id number] [facility] Gynecology Office/Clinic Not dougie 06-14-2020 Gynecology [...] examination (general) (routine) without abnormal findings) Ordered: Est Preventative 18 to 39 years [address] Follow-up With When Contact Information [facility] In 1 year Additional Instructions: Problem List/Past Medical History Ongoing Hypothyroidism Obesity Historical Obesity complicating childbirth Procedure/Surgical History Tonsillectomy and adenoidectomy (1988). Medications ibuprofen 800 mg Tab, 800 mg= 1 tab(s), Oral, TID levothyroxine 100 mcg (0.1 mg) Tab, 100 mcg, Oral, Daily, PRN, 6 refills M- Plus oral tablet, 1 tab(s), Oral, Daily, 3 refills Allergies No Known Allergies Social History Alcohol - Denies Alcohol Use, 04/11/2019 Past, Wine, 1-2 times per year, Household alcohol concerns: No., 06/14/2020 Employment/School Employed, Work/School description: [employer]. Activity level: Occasional physical work., 04/03/2019 Nutrition/Health Caffeine intake amount: one pop/day., 10/04/2018 Sexual Sexually active: Yes., 10/04/2018 Substance Abuse - Denies Substance Abuse, 04/11/2019 DENIES, Household substance abuse concerns: No., 06/14/2020 Tobacco - Denies Tobacco Use, 04/11/2019 Never (less than 100 in lifetime) Tobacco Use:. Never Smokeless Tobacco Use:., 06/14/2020 (more content not included)... Normal [facility] Comment on above: Result Comment: Elec tronically Signed By: KODY BOWEN, Kathryn Caballero.joey\Date and Time Signed: 06/14/20 17:02 EST Patient Educationon 06-15-19 21 Patient Education Preventive Care for Adults, Female [...] exam and preventive care every 6 months. Sherrill your teeth twice a day and floss [...] Pap tests (more content not included)... Normal [facility] Progress Noteon 12-04-2018 Public Records Officer Authentication Interface Message Text The total patient time of the visit was 30 minutes, of which greater than 50% of the time was spent counseling and coordinating care. Yoko Ann MD [facility] Coding Summary.on 10-07-2018 Coding Summary. CODING DATE: 10/07/2018 FINAL [facility] STATUS: Home (Routine DC) PAYOR: Medical [place] [employer] DESCRIPTION 5671 Level 1 Pathology ADMIT [...] Escobedo CphT Date Saved: 10/07/2018 07:12 am [facility] C Urineon 10-06-2018 Bacteria identified Cx Nom [...] Locations R1: This test was performed at: [facility], [address] [place] [address], [address] , [facility] Comment on above: Performed By: #### 2 [id number] #### [facility] [address] [place] [address] Hep Bs Agon 10-06-2018 HBV surface Ag IA Ql Negative Negative Fish [facility] Comment on above: Result Comment: Perf ormed at: [facility] [address] [id number] PhD Peter Ward Performed By: #### 2 068511, [id number], [id number], [id number] #### [facility] [address] [place] [address] ABSCon 10-04-2018 ABSC Gel Interp Negative Normal [facility] Comment on above: Performed By: #### 1 [id number] #### [facility] [address] [place] [address] CBC w/Indiceson 10-04-2018 Erythrocyte distribution width Ratio (RBC) 13.1 % Normal 10.9-14.2 [facility] Comment on above: Performed By: #### 2 647340, [id number], [id number], [id number] #### [facility] [address] [place] [address] Hematocrit Volume Fraction (Bld) 40.9 % Normal 34.0-46.0 [facility] Comment on above: Performed By: #### 2 572875, [id number], [id number], [id number] #### [facility] [address] [place] [address] Hemoglobin mass conc (Bld) 14.3 g/dL Normal 12.0-16.0 [facility] Comment on above: Performed By: #### 2 292092, [id number], [id number], 6667553 #### [facility] [address] [place] [address] MCH Entitic mass (RBC) 32.5 pg Normal 27.0-34.0 [facility] Comment on above: Performed By: #### 2 097259, [id number], 14810622, 6160447 #### [facility] [address] [place] [address] MCHC mass conc (RBC) 35.0 g/dL Normal 33.3-35.[address] [facility] Comment on above: Performed By: #### 2 903370, [id number], [id number], 1766731 #### [facility] [address] [place] [address] MCV Entitic volume (RBC) 92.8 fL Normal 80.0-100.0 [facility] Comment on above: Performed By: #### 2 352310, [id number], [id number], 6963762 #### [facility] [address] [place] [address] Platelet mean volume Entitic volume (Bld) 8.0 fL Normal 6.4-10.8 [facility] Comment on above: Performed By: #### 2 893136, [id number], [id number], 9464545 #### [facility] [address] [place] [address] Platelets #/vol (Bld) 267.0 E9/L Normal 150.0-500.0 [facility] Comment on above: Performed By: #### 2 868797, [id number], 43614918, 2129530 #### [facility] [address] [place] [address] RBC #/vol (Bld) 4.4 E12/L Normal 4.3-5.9 [facility] Comment on above: Performed By: #### 2 924706, [id number], 06964081, 1231407 #### [facility] [address] [place] [address] WBC corrected for nucl RBC Auto #/vol (Bld) 8.3 E9/L Normal 4.0-11.0 [facility] Comment on above: Performed By: #### 2 576162, [id number], 89108246, 7512940 #### [facility] [address] [place] [address] Gynecology Office/Clinic Not dougie 10-04-2018 Gynecology Office/Clinic [...] [place] 07[place]24[place]18, with SUSANNA of 04/30/18 but did have 2 periods [...] Chlamydia/Gonococcu s, AMINA Collection Venous Blood Venipuncture 87704 Drug Screen Urine Hepatitis B Surface Antigen HgbA1c HIV Screen 4th Generation wRfx Office Visit Level 4 Est 91941 RPR Rubella Antibody TSH With T4fr Reflex Urine Culture US 1st Trimester 2. Endocrine, nutritional and metabolic diseases complicating , first trimester(O99.281: Hypothyroid) Will monitor TSH in Ordered: Antibody Screen CBC w/ Indices Chlamydia/Gonococcu s, AMINA Collection Venous Blood Venipuncture 11283 Drug Screen Urine Hepatitis B Surface Antigen HgbA1c HIV Screen 4th Generation wRfx Office Visit Level 4 Est 50135 RPR Rubella Antibody TSH With T4fr Reflex Urine Culture US 1st Trimester 3. Obesity complicating childbirth, (O99.214: Obesity)Obesity complicating childbirth Discussed in depth need to gain minimal weight in Ordered: Antibody Screen CBC w/ Indices Chlamydia/Gonococcu s, AMINA Collection Venous Blood Venipuncture 59377 Drug Screen Urine Hepatitis B Surface Antigen HgbA1c HIV Screen 4th Generation wRfx Office Visit Level 4 Est 18633 RPR Rubella Antibody TSH With T4fr Reflex Urine Culture US 1st Trimester 4. Supervision of elderly primigravida, first trimester(O09.511: Supervision of high risk in first trimester) NIPT ordered Will have weekly BPPS at 36 weeks Ordered: Antibody Screen CBC w/ Indices Chlamydia/Gonococcu s, AMINA Collection Venous Blood Venipuncture 37490 Drug Screen Urine Hepatitis B Surface Antigen HgbA1c HIV Screen 4th Generation wRfx Office Visit Level 4 Est 69986 RPR Rubella Antibody TSH With T4fr Reflex [...] Urine Dipstick: Negative (10/04/18 10:48:00 EDT) Normal [facility] Comment on above: Result Comment: Elec tronically Signed By: Donna BERMUDEZ CNP\jhon\Date and Time Signed: 10/04/18 13:24 EDT [id number] 10-04-2018 Hemoglobin A1c/Hemoglobin.total mass fraction (Bld) 4.9 % Normal <=5.9 [facility] Comment on above: Performed By: #### 2 044863, [id number], 40641875, [id number] #### [facility] [address] [place] [address] TSH With T4fr Reflexon 10-04 Thyrotropin Qn 1.03 mcIU/mL Normal 0.34-5.60 [facility] Comment on above: Performed By: #### 2 877785, [id number], 06370168, 9489821 #### [facility] [address] [place] [address] U Drug Screenon 10-04-2018 Amphetamines Screen method >1000 ng/mL Ql (U) Negative Normal Negative [facility] Comment on above: Result Comment: Nega tive Cutoff: <1000 ng/mL Performed By: #### 2 [id number] #### [facility] [address] [place] [address] Barbiturates Screen Ql (U) Negative Normal Negative [facility] Comment on above: Result Comment: Nega tive Cutoff: <200 ng/mL Performed By: #### 2 617712 #### [facility] [address] [place] [address] Benzodiazepines Ql (U) Negative Normal Negative [facility] Comment on above: Result Comment: Nega tive Cutoff: <200 ng/mL Performed By: #### 2 540281 #### [facility] [address] [place] [address] Cocaine Ql (U) Negative Normal Negative [facility] Comment on above: Result Comment: Nega tive Cutoff: <300 ng/mL Performed By: #### 2 725381 #### [facility] [address] [place] [address] Opiates Screen Ql (U) Negative Normal Negative [facility] Comment on above: Result Comment: Nega tive Cutoff: <300 ng/mL Performed By: #### 2 974542 #### [facility] [address] [place] [address] Phencyclidine Screen method >25 ng/mL Ql (U) Negative Normal Negative [facility] Comment on above: Result Comment: Nega tive Cutoff: <25 ng/mL These drug screen results are to be used for medical (i.e., treatment) purposes only. Unconfirmed drug screening results must not be used for non-medical purposes (e.g., employment testing, legal testing). Performed By: #### 2 906004 #### [facility] [address] [place] [address] Tetrahydrocannabinol Screen method >50 ng/mL Ql (U) Negative Normal Negative [facility] Comment on above: Result Comment: Nega tive Cutoff: <50 ng/mL Performed By: #### 2 005526 #### [facility] [address] [place] [address] Vital Signs Date Time Vital Sign Value Performing Clinician Facility 10-12-2023 09:40-0400 Body height 160 cm Alfonso Mercado INDUSTRIAL WELDER-PARADI OPERATOR Work Phone: [facility] 10-12-2023 09:40-0400 Body mass index (BMI) [Ratio] 42.23 kg/m2 Alfonso Mercado INDUSTRIAL WELDER-PARADI OPERATOR Work Phone: [facility] 10-12-2023 09:40-0400 Body temperature 97.7 [degF] Alfonso Mercado INDUSTRIAL WELDER-PARADI OPERATOR Work Phone: [facility] 10-12-2023 09:40-0400 Body weight 108.14 kg Alfonso Mercado INDUSTRIAL WELDER-PARADI OPERATOR Work Phone: [facility] 10-12-2023 09:40-0400 Diastolic blood pressure 70 mm[Hg] Alfonso Mercado INDUSTRIAL WELDER-PARADI OPERATOR Work Phone: [facility] 10-12-2023 09:40-0400 Heart rate 73 /min Alfonso Mercado INDUSTRIAL WELDER-PARADI OPERATOR Work Phone: [facility] 10-12-2023 09:40-0400 SaO2% (BldA) [Mass fraction] 99 % Alfonso Mercado INDUSTRIAL WELDER-PARADI OPERATOR Work Phone: [facility] 10-12-2023 09:40-0400 Systolic blood pressure 104 mm[Hg] Alfonso Mercado INDUSTRIAL WELDER-PARADI OPERATOR Work Phone: [facility] 09-11-2023 09:41-0400 Body height 160 cm Estela Bennett INDUSTRIAL WELDER-DYE STAND LOADER Work Phone: [facility] 09-11-2023 09:41-0400 Body mass index (BMI) [Ratio] 43.65 kg/m2 Estela Bennett INDUSTRIAL WELDER-DYE STAND LOADER Work Phone: [facility] 09-11-2023 09:41-0400 Body temperature 98.01 [degF] Estela Bennett APRN-DYE STAND LOADER Work Phone: [facility] 09-11-2023 09:41-0400 Body weight 111.77 kg Estela Bennett APRN-DYE STAND LOADER Work Phone: [facility] 09-11-2023 09:41-0400 Diastolic blood pressure 70 mm[Hg] Estela Bennett INDUSTRIAL WELDER-DYE STAND LOADER Work Phone: [facility] 09-11-2023 09:41-0400 Heart rate 81 /min Estela Bennett APRN-DYE STAND LOADER Work Phone: [facility] 09-11-2023 09:41-0400 Respiratory rate 18 /min Estela Bennett INDUSTRIAL WELDER-DYE STAND LOADER Work Phone: [facility] 09-11-2023 09:41-0400 SaO2% (BldA) [Mass fraction] 98 % Estela Bennett APRN-DYE STAND LOADER Work Phone: [facility] 09-11-2023 09:41-0400 Systolic blood pressure 110 mm[Hg] Estela Bennett APRN-DYE STAND LOADER Work Phone: [facility] 08-17-2023 09:13-0400 Body height 160 cm Estela Bennett INDUSTRIAL WELDER-DYE STAND LOADER Work Phone: [facility] 08-17-2023 09:13-0400 Body mass index (BMI) [Ratio] 45.88 kg/m2 Estela Bennett INDUSTRIAL WELDER-DYE STAND LOADER Work Phone: [facility] 08-17-2023 09:13-0400 Body temperature 98.49 [degF] Estela Bennett INDUSTRIAL WELDER-DYE STAND LOADER Work Phone: [facility] 08-17-2023 09:13-0400 Body weight 117.48 kg Estela BARNARDDYE STAND LOADER Work Phone: [facility] 08-17-2023 09:13-0400 Diastolic blood pressure 74 mm[Hg] Estela Bennett APRN-DYE STAND LOADER Work Phone: [facility] 08-17-2023 09:13-0400 Heart rate 73 /min Estela Bennett APRN-DYE STAND LOADER Work Phone: [facility] 08-17-2023 09:13-0400 Respiratory rate 20 /min Estela Bennett APRN-DYE STAND LOADER Work Phone: [facility] 08-17-2023 09:13-0400 SaO2% (BldA) [Mass fraction] 100 % Estela Bennett APRN-DYE STAND LOADER Work Phone: [facility] 08-17-2023 09:13-0400 Systolic blood pressure 116 mm[Hg] Estela Bennett APRN-DYE STAND LOADER Work Phone: [facility] 06-15-2023 09:56-0500 Body height 160 cm Estela Bennett APRN-DYE STAND LOADER Work Phone: [facility] 06-15-2023 09:56-0500 Body mass index (BMI) [Ratio] 45.67 kg/m2 Estela Bennett APRN-DYE STAND LOADER Work Phone: [facility] 06-15-2023 09:56-0500 Body temperature 98.4 [degF] Estela Bennett APRN-DYE STAND LOADER Work Phone: [facility] 06-15-2023 09:56-0500 Body weight 116.94 kg Estela Bennett APRN-DYE STAND LOADER Work Phone: [facility] 06-15-2023 09:56-0500 Diastolic blood pressure 62 mm[Hg] Estela Bennett APRN-DYE STAND LOADER Work Phone: [facility] 06-15-2023 09:56-0500 Heart rate 88 /min Estela Bennett INDUSTRIAL WELDER-DYE STAND LOADER Work Phone: [facility] 06-15-2023 09:56-0500 SaO2% (BldA) [Mass fraction] 99 % Estela Bennett INDUSTRIAL WELDER-DYE STAND LOADER Work Phone: [facility] 06-15-2023 09:56-0500 Systolic blood pressure 108 mm[Hg] Estela Bennett INDUSTRIAL WELDER-DYE STAND LOADER Work Phone: [facility] 12-22-2021 12:26-0400 Diastolic blood pressure 81 mm[Hg] DYE STAND LOADER Estela Bennett Work Phone: [facility] 12-22-2021 12:26-0400 Heart rate 69 /min DYE STAND LOADER Estela Bennett Work Phone: [facility] 12-22-2021 12:26-0400 Respiratory rate 16 /min DYE STAND LOADER Estela Bennett Work Phone: [facility] 12-22-2021 12:26-0400 SaO2% (BldA) [Mass fraction] 100 % DYE STAND LOADER Estela Bennett Work Phone: [facility] 12-22-2021 12:26-0400 Systolic blood pressure 126 mm[Hg] DYE STAND LOADER Estela Bennett Work Phone: [facility] 12-22-2021 11:41-0400 Inhaled oxygen flow rate 8 L/min DYE STAND LOADER Estela Bennett Work Phone: [facility] 12-22-2021 11:15-0400 Body mass index (BMI) [Ratio] 42.5 kg/m2 DYE STAND LOADER Estela Bennett Work Phone: [facility] 12-22-2021 10:25-0400 Body height 160.02 cm DYE STAND LOADER Estela Bennett Work Phone: [facility] 12-22-2021 10:25-0400 Body weight 108.86 kg DYE STAND LOADER Estela Bennett Work Phone: [facility] 12-22-2021 09:05-0400 Body temperature 97.9 [degF] DYE STAND LOADER Estela Bennett Work Phone: [facility] 12-13-2021 10:23-0400 Body height 160.02 cm DYE STAND LOADER Estela Bennett Work Phone: [facility] 12-13-2021 10:23-0400 Body mass index (BMI) [Ratio] 38.9 kg/m2 DYE STAND LOADER Estela Bennett Work Phone: [facility] 12-13-2021 10:23-0400 Body weight 99.79 kg DYE STAND LOADER Estela Bennett Work Phone: [facility] 12-13-2021 09:28-0400 Body temperature 97.7 [degF] DYE STAND LOADER Estela Bennett Work Phone: [facility] 12-13-2021 09:28-0400 Diastolic blood pressure 80 mm[Hg] DYE STAND LOADER Estela Bennett Work Phone: [facility] 12-13-2021 09:28-0400 Heart rate 72 /min DYE STAND LOADER Estela Bennett Work Phone: [facility] 12-13-2021 09:28-0400 Respiratory rate 16 /min DYE STAND LOADER Estela Bennett Work Phone: [facility] 12-13-2021 09:28-0400 Systolic blood pressure 134 mm[Hg] DYE STAND LOADER Estela Bennett Work Phone: [facility] Encounters Encounter Date Encounter Type Care Provider Facility Start: 04-30-2024 End: 04-30-2024 Orders Only Alfonso Mercado APRN-PARADI OPERATOR Work Phone: [facility] Comment on above: Encounter for screen ing mammogram for malignant neoplasm of breast (Primary Dx) Start: 04-29-2024 End: 04-30-2024 Telephone encounter Saranya Mendoza [facility] Start: 10-17-2023 End: 10-17-2023 Orders Only Alfonso Gimenez [facility] INDUSTRIAL WELDER-PARADI OPERATOR Work Phone: [facility] Comment on above: Morbid obesity ([facility]) Start: 10-12-2023 End: 10-12-2023 ambulatory [facility] Start: 10-12-2023 End: 10-12-2023 Office outpatient visit 15 minutes Alfonso Mercado INDUSTRIAL WELDER-PARADI OPERATOR Work Phone: [facility] Comment on above: Class 3 severe obesi ty due to excess calories without serious comorbidity with body mass index (BMI) of 40.0 to 44.9 in adult ([facility]) (Primary Dx); Acquired hypothyroidism Start: 10-12-2023 End: 10-12-2023 ambulatory [facility] Start: 09-14-2023 End: 09-14-2023 Orders Only Estela Bennett INDUSTRIAL WELDER-DYE STAND LOADER Work Phone: [facility] Comment on above: Morbid obesity ([facility]) Start: 09-11-2023 End: 09-11-2023 Office outpatient visit 15 minutes Estela Bennett INDUSTRIAL WELDER-DYE STAND LOADER Work Phone: [facility] Comment on above: Morbid obesity ([facility]) (Primary Dx); Rosacea; Palpitations Start: 09-11-2023 End: 09-11-2023 ambulatory [facility] Start: 08-19-2023 End: 08-19-2023 Orders Only Estela Bennett INDUSTRIAL WELDER-DYE STAND LOADER Work Phone: [facility] Start: 08-17-2023 End: 08-17-2023 ambulatory PRISCILLA [facility] Start: 08-17-2023 Encounter for genera l adult medical examination without abnormal findings [facility] Start: 08-17-2023 End: 08-17-2023 [facility] Start: 08-17-2023 Encounter for genera l adult medical examination without abnormal findings PRISCILLA [facility] Start: 08-17-2023 End: 08-17-2023 Patient encounter procedure Estela Bennett INDUSTRIAL WELDER-DYE STAND LOADER Work Phone: [employer] Work Phone: Start: 08-17-2023 End: 08-17-2023 Periodic preventive med est patient 40-64yrs Estela Bennett INDUSTRIAL WELDER-DYE STAND LOADER Work Phone: [facility] Comment on above: Encounter for annual health examination (Primary Dx); Acquired hypothyroidism; Rosacea; Morbid obesity ([facility]) Start: 06-15-2023 End: 06-15-2023 Office outpatient visit 15 minutes Estela Bennett INDUSTRIAL WELDER-DYE STAND LOADER Work Phone: [facility] Comment on above: Tongue and jaw pain (Primary Dx); Adenitis, acute Start: 06-15-2023 End: 06-15-2023 ambulatory ESTELA GROSS [facility] Start: 08-17-2022 Encounter for genera l adult medical examination without abnormal findings DR ESTELA BENNETT [facility] Start: 08-12-2022 End: 08-13-[address] ESTELA BENNETT Facility:[facility] Start: 08-12-2022 End: 08-13-2022 Encounter for general adult medical examination without abnormal findings DR ESTELA BENNETT Facility:[facility] Start: 05-08-2022 End: 05-08-2022 ambulatory Fabiola Felipe Facility:[facility] Start: 03-21-2022 End: 03-22-[address] DOCTOR HEWITT Facility:[facility] Start: 12-22-2021 End: 12-22-2021 ambulatory Nadir Farris Facility:[facility] Start: 12-22-2021 End: 12-22-2021 Admission to same day surgery center DYE STAND LOADERRoshan Bennett Work Phone: [facility] [place] Start: 12-20-2021 End: 12-20-2021 ambulatory Nadir Farris Facility:[facility] Start: 12-20-2021 End: 12-20-2021 Patient encounter procedure DYE STAND LOADER Estela Bennett Work Phone: [facility] [employer] [facility] Start: 12-13-2021 Registered Recurring DYE STAND LOADER Estela Bennett Work Phone: [facility] Start: 11-04-2021 End: 11-05-[address] DOCTOR HEWITT Facility:[facility] Start: 09-29-2021 End: 09-30-[address] ESTELA BENNETT Facility:[facility] Start: 08-30-2021 End: 08-30-[address] KELSY JASON . Facility:[facility] Start: 08-29-2021 End: 08-30-[address] KEITH TORRES Facility:[facility] Start: 08-11-2021 End: 08-11-2021 ambulatory Maxine Hanna Facility:[facility] Start: 08-06-2021 End: 08-09-2021 Evaluation and management of inpatient Malcom Fonseca Facility:[facility] Start: 07-18-2021 End: 07-18-2021 ambulatory Phani Hope Facility:[facility] Procedures Date Procedure Procedure Detail Performing Clinician Start: 10-12-2023 Adult depression scr eening assessment Alfonso Mercado INDUSTRIAL WELDER-PARADI OPERATOR Work Phone: Start: 09-11-2023 Adult depression scr eening assessment Estela Bennett INDUSTRIAL WELDER-DYE STAND LOADER Work Phone: Start: 08-17-2023 Adult depression scr eening assessment Estela Bennett INDUSTRIAL WELDER-DYE STAND LOADER Work Phone: Start: 06-15-2023 Adult depression scr eening assessment Estela Bennett INDUSTRIAL WELDER-DYE STAND LOADER Work Phone: Start: 03-22-2023 Mammography Estela Bennett INDUSTRIAL WELDER-DYE STAND LOADER Work Phone: Start: 02-02-2023 Microscopic observat ion [Identifier] in Cervix by Cyto stain Estela Bennett INDUSTRIAL WELDER-DYE STAND LOADER Work Phone: Start: 12-22-2021 OR Wound Debridement/I&D/Hydradeniti s (Not Applicable) DYE STAND LOADER Estela Bennett Work Phone: Aerobic microbial culture FN P Estela Bennett Work Phone: Anaerobic microbial culture DYE STAND LOADER Estela Bennett Work Phone: Investigation of transfusion reaction DYE STAND LOADER Estela Bennett Work Phone: Plan of Treatment Date Care Activity Detail Author Start: 06-21-2031 DTaP,Tdap and Td Vaccines (4 - Td or Tdap) DTaP,Tdap and Td Vaccines (4 - Td or Tdap) [facility] Start: 02-02-2026 Screening for malignant neoplasm of cervix Pap Smear [facility] Start: 10-11-2024 Adult BMI Screening Adult BMI Screen ing [facility] Start: 10-11-2024 Depression Screening Depression Scre ening [facility] Start: 10-11-2024 Tobacco Screening Tobacco Screening [facility] Start: 09-10-2024 Adult BMI Screening Adult BMI Screen ing [facility] Start: 09-10-2024 Depression Screening Depression Scre ening [facility] Start: 09-10-2024 Tobacco Screening Tobacco Screening [facility] Start: 08-22-2024 End: 08-22-2024 Patient encounter procedure 08/22/2024 8:40 AM EDT Office Visit [facility] [address] [place] [address] Alfonso Mercado, INDUSTRIAL WELDER-PARADI OPERATOR [address] [place] [address] [facility] Start: 08-16-2024 Adult BMI Follow Up Plan Adult BMI Follow Up Plan [facility] Start: 08-16-2024 Adult BMI Screening Adult BMI Screen ing [facility] Start: 08-16-2024 Depression Screening Depression Scre ening [facility] Start: 08-16-2024 Tobacco Screening Tobacco Screening [facility] Start: 06-14-2024 Depression Screening Depression Scre ening [facility] Start: 06-14-2024 Tobacco Screening Tobacco Screening [facility] Start: 04-30-2024 End: 04-30-2025 DBT Breast - bilateral screening Mammography screening bilateral with CAD Imaging Routine Encounter for screening mammogram for malignant neoplasm of breast Expected: 04/30/2024, Expires: 04/30/2025 [employer] Work Phone: Comment on above: Expected: 04/30/2024 , Expires: 04/30/2025 Start: 03-22-2024 Screening for malignant neoplasm of breast Mammogram [facility] Start: 02-03-2024 Adult BMI Screening Adult BMI Screen ing [facility] Start: 12-16-2023 Influenza vaccination Influenza Vacc ine [facility] Start: 10-12-2023 End: 10-11-2024 Thyrotropin [Units/volume] in Serum or Plasma TSH Lab Routine Acquired hypothyroidism Expected: 10/12/2023 (Approximate), Expires: 10/11/2024 [employer] Work Phone: Comment on above: Expected: 10/12/2023 (Approximate), Expires: 10/11/2024 Start: 10-12-2023 End: 10-12-2023 Patient encounter procedure 10/12/2023 9:40 AM EDT Office Visit [facility] [address] [place] [id number] Alfonso Mercado, INDUSTRIAL WELDER-PARADI OPERATOR [address] [facility] [place] [address] [facility] Start: 09-14-2023 End: 09-14-2023 Patient encounter procedure 09/14/2023 9:40 AM EDT Office Visit [facility] [address] [place] [id number] Estela Bennett, INDUSTRIAL WELDER-DYE STAND LOADER [address] [facility] [place] [address] [facility] Start: 08-17-2023 End: 08-17-2023 Patient encounter procedure 08/17/2023 9:00 AM EDT [facility] [address] [place] [address] Estela Bennett, INDUSTRIAL WELDER-DYE STAND LOADER [address] [place] [address] [facility] Start: 12-15-2022 Influenza vaccination Influenza Vacc ine [facility] Start: 12-23-2021 [facility] Work Phone: Start: 12-22-2021 End: 12-22-2021 [facility] Work Phone: Start: 12-20-2021 [facility] Work Phone: Start: 2000 Adult BMI Follow Up Plan Adult BMI Follow Up Plan [facility] Aerobic Culture Aerobic Culture [facility] Anaerobic Culture Anaerobic Culture [facility] Bacteria identified in Unspecified specimen by Aerobe culture [facility] Work Phone: Bacteria identified in Unspecified specimen by Anaerobe culture [facility] Work Phone: Microscopic observation [Identifier] in Unspecified specimen by Gram stain [facility] Patient Education How to Change a Wet to Dry Dressing [facility] Work Phone: Patient referral [facility] Work Phone: SARS-CoV-2 (COVID-19 ) N gene [Presence] in Respiratory specimen by AMINA with probe detection [facility] Work Phone: End: 10-11-2024 Thyroxine (T4) free [Mass/volume] in Serum or Plasma T4, free Lab Routine Acquired hypothyroidism 1 Occurrences starting 10/12/2023 until 10/11/2024 [facility] Comment on above: 1 Occurrences starti ng 10/12/2023 until 10/11/2024 Immunizations Immunization Date Immunization Notes Care Provider Fa cility 06-20-2021 diphtheria, tetanus toxoids and acellular pertussis vaccine, 5 pertussis antigens Estela Bennett INDUSTRIAL WELDER-DYE STAND LOADER Work Phone: [facility] [employer] [facility] 02-03-2019 tetanus toxoid, reduced diphtheria toxoid, and acellular pertussis vaccine, adsorbed Estela Bennett INDUSTRIAL WELDER-DYE STAND LOADER Work Phone: [facility] 06-10-2012 tetanus toxoid, reduced diphtheria toxoid, and acellular pertussis vaccine, adsorbed Estela Bennett INDUSTRIAL WELDER-DYE STAND LOADER Work Phone: [facility] 06-01-2000 hepatitis A vaccine, unspecified formulation Estela Bennett INDUSTRIAL WELDER-DYE STAND LOADER Work Phone: [facility] 06-01-2000 hepatitis B vaccine, pediatric or pediatric/adolescent dosage Estela Bennett INDUSTRIAL WELDER-DYE STAND LOADER Work Phone: [facility] 01-11-2000 hepatitis B vaccine, pediatric or pediatric/adolescent dosage Estela Bennett INDUSTRIAL WELDER-DYE STAND LOADER Work Phone: [facility] [employer] 11-18-1999 hepatitis A vaccine, unspecified formulation Estela Bennett INDUSTRIAL WELDER-DYE STAND LOADER [facility] hepatitis B vaccine, pediatric or pediatric/adolescent dosage Estela Bennett INDUSTRIAL WELDER-DYE STAND LOADER Work Phone: [facility] NEGATED: Highlighted row has not occurred!08-06-2021 tetanus toxoid, reduced diphtheria toxoid, and acellular pertussis vaccine, adsorbed DYE STAND LOADER Estela Bennett Work Phone: [facility] Payers Date Payer Category Payer Blue Cross Blue Shie ld Managed Care - Other [employer] [id number] 2022 Unknown [employer]M BCBS OUT OF STATE PPO/TRUST [id number] 2022-Present [phone] [address] [place] [address] [id number] 2021 Self-pay [id number] 1980 Unknown [id number] [id number]. 593 1982 Unknown [id number] 2.840.1.695353.3.579.2. 593 1982 Unknown [id number] 2.840.1.277655.3.579.2. 593 1982 Unknown [id number] 2.840.1.525787.3.579.2. 593 1982 Unknown [id number] 2.16840.1.323697.3.579.2. 593 1982 Unknown [id number] 2.16840.1.212555.3.579.2. 593 1982 Unknown [id number] 2.16840.1.901679.3.579.2. 1286 1982 Unknown [id number] 2.16840.1.550426.3.579.2. 1286 1982 Unknown [id number] 2.16840.1.205144.3.579.2. 1286 1982 Unknown [id number] 2.16.840.1.268994.3.579.2. 1286 1982 Unknown [id number] 2.16.840.1.292201.3.579.2. 1286 1982 Unknown [id number] 2.16840.1.329869.3.579.2. 1286 1959 Unknown [id number] 1959 Unknown [id number] Unknown [id number] 2.16.840.1.156528.3.579.2. 531 Unknown [id number] 2.16840.1.593477.3.579.2. 531 Unknown [id number] 2.840.1.330832.3.579.2. 531 Unknown [id number] 2.16840.1.342132.3.579.2. 531 Unknown [id number] 2.16840.1.704626.3.579.2. 531 Unknown [id number] [id number]. 531 Social History Date Type Detail Facility Start: 12-13-2021 End: 08-04-2022 Tobacco smoking status IDIS Never smoked tobacco (finding) [facility] Start: 1980 Sex Assigned At Female F [facility] Start: 08-04-2022 Tobacco use and exposure Smokeless tobacco non-user [facility] Start: 06-15-2023 End: 10-12-2023 Alcoholic beverage intake Ex-drinker (finding) [facility] Start: 06-14-2023 End: 10-12-2023 History of Social function [facility] Start: 06-14-2023 End: 10-12-2023 Tobacco use panel [facility] How hard is it for y ou to pay for the very basics like food, housing, medical care, and heating Not very hard [facility] Adolescent depressio n screening assessment 0 [facility] Start: 1980 Sex assigned at Not on file P [facility] Start: 12-26-2021 Sex Female (finding) [facility] Goals Date Patient Goal Desired Activity /State Clinical Notes 06-15-2023 to 04-29-2024 Telephone Encounter - Saranya Mendoza CMA - 04/29/2024 1:31 PM ESTTelephone Encounter - Saranya Mendoza CMA - 04/29/2024 1:31 PM FRANCIA Vences - 10/17/2023 10:13 AM EDT Note Date & Type Note Facility 04-29-2024 Miscellaneous Notes Formattin g of this note might be different from the original. Patient called and would like a mammogram. documented in this encounter [facility] 04-29-2024 Telephone encount er Note Patient called and would like a mammogram. [facility] 10-17-2023 History of Presen t illness Narrative The OARRS/MAPPS database was reviewed today and found to be appropriate. No indication of medication diversion, or non compliance. FRANCIA Winn 10/17/23 [id number] documented in this encounter [facility] 10-12-2023 History of Presen t illness Narrative [address] [facility] [address] Patient: Anthony Ritchie Date of : 1980 Encounter Date: 10/12/2023 History of Present Illness: The patient is a 42 y.o. female, an established patient, and is here for Chief Complaint Patient presents with Weight Check . HPI Patient has been on the Adipex now for 3 months total. She has lost 21 lb since August 16 and her body mass index has gone down 3%. When she started the Adipex she was not having any adverse side effects but this month has developed some lightheaded and dizziness episodes and she feels she is dehydrated so she drinks more water which does help the symptoms subside. She denies any palpitations, chest pain, anxiety, insomnia. Problem List Items Addressed This Visit Endocrine Acquired hypothyroidism Other Visit Diagnoses Class 3 severe obesity due to excess calories without serious comorbidity with body mass index (BMI) of 40.0 to 44.9 in adult ([facility]) - Primary Past Medical, Family, and Social History Update: The following portions of the patient's history were reviewed and updated as appropriate: allergies, current medications, past family history, past medical history, past social history, past surgical history and problem list. Past Medical History: Diagnosis Date Advanced maternal age, primigravida, antepartum 12/04/2018 - Genetic counseling - Negative cell free [place] teeth removed 05/24/2023 RIGHT SIDE No past surgical history on file. Current Outpatient Medications Medication Sig Dispense Refill acetaminophen (TYLENOL EXTRA STRENGTH) 500 mg tablet Take 1 tablet (500 mg total) by mouth every 6 (six) hours as needed for pain. ibuprofen (MOTRIN) 800 mg tablet Take 1 tablet (800 mg total) by mouth every 6 (six) hours as needed for pain. levothyroxine (SYNTHROID, LEVOTHROID) 100 MCG tablet Take 1 tablet (100 mcg total) by mouth in the morning. 90 tablet 3 metroNIDAZOLE (MetrogeL) 1 % gel Apply 1 Application topically in the morning. 45 g 1 phentermine (ADIPEX-P) 37.5 mg tablet Take 1 tablet (37.5 mg total) by mouth every morning before breakfast. 30 tablet 0 No current facility-administered medications for this visit. (All medications reviewed and updated by provider since last office visit or hospitalization) Allergies: Patient has no known allergies. Tobacco History: Social History Tobacco Use Smoking Status Never Smokeless Tobacco Never (If patient a smoker, smoking cessation counseling offered) Social History: Social History Substance and Sexual Activity Alcohol Use Not Currently Review of Systems: Review of Systems Constitutional: Negative for activity change. HENT: Negative. Respiratory: Negative. Cardiovascular: Negative. Endocrine: Negative. Musculoskeletal: Negative. Skin: Positive for rash. Allergic/Immunologic: Negative. Neurological: Positive for dizziness and light-headedness. Hematological: Negative. Psychiatric/Behavioral: Negative. Physical Exam: BP 104/70 (BP Site: Left Arm, BP Postition: Sitting) Pulse 73 Temp 36.5 C (97.7 F) (Tympanic) Ht 160 cm (5' 3 ) Wt 108.1 kg (238 lb 6.4 oz) SpO2 99% BMI 42.23 kg/m Physical Exam Vitals and nursing note reviewed. Constitutional: Appearance: She is obese. HENT: Head: Normocephalic. Neck: Thyroid: No thyroid mass, thyromegaly or thyroid tenderness. Cardiovascular: Rate and Rhythm: Normal rate and regular rhythm. Heart sounds: Normal heart sounds. No murmur heard. Pulmonary: Effort: Pulmonary effort is normal. No respiratory distress. Breath sounds: Normal breath sounds. Abdominal: General: Bowel sounds are normal. Palpations: Abdomen is soft. Tenderness: There is no abdominal tenderness. Musculoskeletal: Cervical back: Neck supple. Right lower leg: No edema. Left lower leg: No edema. Lymphadenopathy: Cervical: No cervical adenopathy. Skin: Capillary Refill: Capillary refill takes less than 2 seconds. Neurological: General: No focal deficit present. Mental Status: She is alert and oriented to person, place, and time. Gait: Gait normal. Psychiatric: Mood and Affect: Mood normal. Behavior: Behavior normal. Thought Content: Thought content normal. Judgment: Judgment normal. Assessment and Plan: Anthony was seen today for weight check. Diagnoses and all orders for this visit: Class 3 severe obesity due to excess calories without serious comorbidity with body mass index (BMI) of 40.0 to 44.9 in adult ([facility]) Acquired hypothyroidism Follow-up: Since she is having episodes of lightheaded and dizziness we will check her thyroid levels as she has lost a significant amount of weight in a short period of time and was also taking her thyroid medicine with the Adipex for several months. If her thyroid levels are euthyroid we will continue with the Adipex as she has not due for refill until October 16. If her thyroid levels are abnormal we will adjust her medicine and recheck in 1 month to ensure euthyroid state before restarting the Adipex. Discussed G LP 1 inhibitors with patient but she is hesitant to take these as her sister had an allergic reaction to them. Return to office in 1 month if continuing with the Adipex. The OARRS/MAPPS database was reviewed today and found to be appropriate. No indication of medication diversion, or non compliance. ALFONSO MERCADO APRN-FRANCIA Villegas 10/12/23 1008 FRANCIA Winn 10/12/23 1008 documented in this encounter [facility] 09-14-2023 History of Presen t illness Narrative The OARRS/MAPPS database was reviewed today and found to be appropriate. No indication of medication diversion, or non compliance. LAVELLE Dodson 09/14/23 0810 documented in this encounter [facility] 09-11-2023 History of Presen t illness Narrative Subjective Patient ID: Anthony Ritchie is a 42 y.o. female. Weight check today - 259 at last visit and 246 today for a total of 13 lbs in the last 4 weeks Except for a couple episodes of palpitations that lasted less than 15 minutes no side effects She has had good energy, no headaches We also reviewed her rosacea, she started the cream since the last time she was here The facial rash does seem to be fading some It does worsen when she is out in the sun The following portions of the patient's history were reviewed and updated as appropriate: allergies, current medications, past family history, past medical history, past social history, past surgical history, problem list, and medication reconciliation was completed including current medication and post discharge medication. Review of Systems Constitutional: Negative for activity change. HENT: Negative. Cardiovascular: Positive for palpitations. Endocrine: Negative. Musculoskeletal: Negative. Skin: Positive for rash. Allergic/Immunologic: Negative. Neurological: Negative. Hematological: Negative. Psychiatric/Behavioral: Negative. Objective Physical Exam Vitals and nursing note reviewed. Constitutional: Appearance: She is obese. HENT: Head: Normocephalic. Cardiovascular: Rate and Rhythm: Normal rate and regular rhythm. Heart sounds: Normal heart sounds. No murmur heard. Pulmonary: Effort: Pulmonary effort is normal. No respiratory distress. Breath sounds: Normal breath sounds. Musculoskeletal: Cervical back: Neck supple. Right lower leg: No edema. Left lower leg: No edema. Lymphadenopathy: Cervical: No cervical adenopathy. Skin: Findings: Erythema (mild erythema on cheeks and nose) and rash present. Neurological: Mental Status: She is alert. Psychiatric: Mood and Affect: Mood normal. Behavior: Behavior normal. Thought Content: Thought content normal. Judgment: Judgment normal. Assessment/Plan Anthony was seen today for weight check. Diagnoses and all orders for this visit: Morbid obesity (CMS-HCC) Rosacea Palpitations She is having a very good response to the adipex, it is not due to be filled until September 16 so she has almost a week yet to go on her first month and has lost 13 lbs She has had a few palpitations but they haven't bothered her much We did just recently check her thyroid function and that is well managed Cautioned her to stay well hydrated with the medication Will monitor the palpitations for now as her blood pressure is very stable Her rosacea does seem to be fading will reassess in one month to ensure there is a continued response before making a decision re: need for dermatology referral The OARRS/MAPPS database was reviewed today and found to be appropriate. No indication of medication diversion, or non compliance. LAVELLE Dodson 09/11/23 1009 documented in this encounter [facility] 08-17-2023 History of Presen t illness Narrative Subjective Patient ID: Anthony Ritchie is a 42 y.o. female. Here today for her annual health visit She overall feels she is doing well She just in the past two weeks started weight watchers and has lost 1.5 lbs, she would like to try the adipex again to help as well She is trying to get regular exercise as well although this is a bit more difficult with two active toddlers age 2 and 4 She is not having any difficulty with her current medications She has since her 2 year old was born a red rash on her cheeks, it isn't itchy it hasn't worsened it does darken in the heat She is up to date on her mammogram and pap Her periods are good and she has no further need for contraception The following portions of the patient's history were reviewed and updated as appropriate: allergies, current medications, past family history, past medical history, past social history, past surgical history, problem list, and medication reconciliation was completed including current medication and post discharge medication. Review of Systems Constitutional: Negative. HENT: Negative. Eyes: Negative. Respiratory: Negative. Cardiovascular: Negative. Gastrointestinal: Negative. Endocrine: Negative. Genitourinary: Negative. Musculoskeletal: Negative. Skin: Positive for rash. Neurological: Negative. Hematological: Negative. Psychiatric/Behavioral: Negative. Objective Physical Exam Vitals and nursing note reviewed. Constitutional: Appearance: She is obese. HENT: Head: Normocephalic. Eyes: Conjunctiva/sclera: Conjunctivae normal. Neck: Vascular: No carotid bruit. Cardiovascular: Rate and Rhythm: Normal rate and regular rhythm. Pulses: Normal pulses. Heart sounds: Normal heart sounds. No murmur heard. Pulmonary: Effort: Pulmonary effort is normal. No respiratory distress. Breath sounds: Normal breath sounds. Musculoskeletal: Cervical back: Neck supple. Right lower leg: No edema. Left lower leg: No edema. Lymphadenopathy: Cervical: No cervical adenopathy. Skin: General: Skin is warm and dry. Capillary Refill: Capillary refill takes less than 2 seconds. Neurological: Mental Status: She is alert and oriented to person, place, and time. Psychiatric: Mood and Affect: Mood normal. Behavior: Behavior normal. Thought Content: Thought content normal. Judgment: Judgment normal. Assessment/Plan Anthony was seen today for annual exam. Diagnoses and all orders for this visit: Encounter for annual health examination - Comprehensive metabolic panel; Future - Lipid panel; Future Acquired hypothyroidism - Thyroid profile includes TSH FT4; Future Rosacea Morbid obesity ([facility]) - phentermine (ADIPEX-P) 37.5 mg tablet; Take 1 tablet (37.5 mg total) by mouth every morning before breakfast. Other orders - metroNIDAZOLE (MetrogeL) 1 % gel; Apply 1 Application topically in the morning. Her blood pressure is normal She is up to date with pap and mammogram Labs are drawn to check her blood sugar, kidney, liver and lipids and to recheck the status of her thyroid She does have rosacea and will manage this with metrogel, if she fails to respond to this would make a referral to dermatology We discussed her wieght, she has fought with this for many years, she already is in weight watchers and will continue with this - will add adipex and recheck in one month, encouraged exercise as well The OARRS/MAPPS database was reviewed today and found to be appropriate. No indication of medication diversion, or non compliance. Patient noted to have elevated BMI and the following intervention(s) were applied: encouragement to exercise. LAVELLE Dodson 08/17/23 1147 documented in this encounter [facility] 06-15-2023 History of Presen t illness Narrative Subjective Patient ID: Anthony Ritchie [...] Dodson 06/15/23 1052 documented in this encounter [facility] Evaluation note Diagnosis Onset Date Non-healing surgical wound a cute Hypothyroidism chronic Nonhealing nonsurgical wound chronic [facility] Work Phone: Evaluation note* Diagnosis Encounter for screening mammogram for malignant neoplasm of breast- Primary documented [facility] encounter [facility] Diagnosis Encounter for annual health examination- Primary Acquired hypothyroidism Unspecified hypothyroidism Rosacea Morbid obesity ([facility]) Morbid obesity [facility] Diagnosis Morbid obesity ([facility])- Primary Morbid obesity Rosacea Palpitations [facility] Diagnosis Morbid obesity ([facility]) Morbid obesity [facility] Diagnosis Class 3 severe obesity due to excess calories without serious comorbidity with body mass index (BMI) of 40.0 to 44.9 in adult ([facility])- Primary Acquired hypothyroidism Unspecified hypothyroidism [facility] Diagnosis Morbid obesity ([facility]) Morbid obesity [facility]* Diagnosis Tongue and jaw pain- Primary Adenitis, acute documented in this [facility] filedocumented in this encounter [facility] filedocument[facility] in [facility] filed[facility] in [facility] filed[facility] in [facility] Summary Purpose Family History Relationship Condition [...] and content) DATE CREATED AUTHOR 10/07/2018 Carlos [facility] DATE CREATED AUTHOR AUTHOR'S ORGANIZ ATION 12/05/2018 [facility] DATE CREATED AUTHOR AUTHOR'S ORGANIZ ATION 10/28/2020 Carlos [facility] DATE CREATED AUTHOR AUTHOR'S ORGANIZ ATION 11/26/2021 [facility] DATE CREATED AUTHOR AUTHOR'S ORGANIZ ATION 07/17/[address] [facility] DATE CREATED AUTHOR AUTHOR'S ORGANIZ ATION [facility]/18/2022 [facility] DATE CREATED AUTHOR AUTHOR'S ORGANIZ ATION 10/14/2023 [facility] DATE CREATED AUTHOR AUTHOR'S ORGANIZ ATION 10/14/2023 [facility] Care Teams (unrecognized sec tion and content) Team Status: Inactive Member Role Status Dates Estela Bennett , DYE STAND LOADER Primary Care Provider Active Nadir Farris MD Attending Provider Active Team Status: Active Member Role Status Dates Estela Bennett , DYE STAND LOADER Primary Care Provider Active Fabiola Felipe APRN Active Phani Hope MD Referring Provider Active Nadir Farris MD Attending Provider Active Team Status: Active Member Role Status Dates Estela Bennett , DYE STAND LOADER Primary Care Provider Active Filter Changing Technician Relationship Specialty Start Date End Date Alfonso Mercado INDUSTRIAL WELDER-PARADI OPERATOR [address] [place] [address] PCP - General Internal Medicine 09/11/23 Filter Changing Technician Relationship Specialty Start Date End Date Alfonso Mercado INDUSTRIAL WELDER-PARADI OPERATOR [address] [place] [address] PCP - General Internal Medicine 09/11/23 Filter Changing Technician Relationship Specialty Start Date End Date Estela Bennett INDUSTRIAL WELDER-DYE STAND LOADER [address] [place] [address] PCP - General Internal Medicine 01/30/22 Filter Changing Technician Relationship Specialty Start Date End Date Estela Bennett INDUSTRIAL WELDER-DYE STAND LOADER [address] [place] [address] PCP - General Internal Medicine 01/30/22 Filter Changing Technician Relationship Specialty Start Date End Date Alfonso Mercado, INDUSTRIAL WELDER-PARADI OPERATOR [address] [place] [address] PCP - General Internal Medicine 09/11/23 Filter Changing Technician Relationship Specialty Start Date End Date JessJoeyAlfonsodenise Gimenez INDUSTRIAL WELDER-PARADI OPERATOR [address] [place] [address] PCP - General Internal Medicine 09/11/23 Filter Changing Technician Relationship Specialty Start Date End Date Jess Alfonso L, INDUSTRIAL WELDER-PARADI OPERATOR [address] [place] [address] PCP - General Internal Medicine 09/11/23 Filter Changing Technician Relationship Specialty Start Date End Date Estela Bennett, INDUSTRIAL WELDER-DYE STAND LOADER [address] [place] [address] PCP - General Internal Medicine 01/30/22 Goals (unrecognized section and content) Goals may [...] (unrecogniz ed section and content) Reason Comments Annual Exam Redness on cheeks Reason Comments Weight Check Reason Comments tongue pain No fever roughly [...] BE BASED ON THE PRIMARY CLINICAL RECORDS. [employer] provides no warranty or guarantee of the accuracy or completeness of information in this document.
== END 2024-06-20 08:26 | disposition home or self-care (01) ==
LOC: MAMMO 08:25
PROVIDERS: Visit Provider Nurse Practitioner Family
DX: Z12.31 Encounter for screening mammogram for malignant neoplasm of breast (principal); Z80.3 Family history of malignant neoplasm of breast; Z80.1 Family history of malignant neoplasm of trachea, bronchus and lung; Z80.8 Family history of malignant neoplasm of other organs or systems; R92.8 Other abnormal and inconclusive findings on diagnostic imaging of breast
CPT/HCPCS: 77063; 77067

== ENCOUNTER 2024-12-12 07:43 | Outpatient (OUT) | payer BC, SELFPAY ==
--- OUTSIDE RECORDS SUMMARY | 2024-12-12 07:45 | XMS_ITS | Encounter Summary ---
Author Organization [facility] Address [id number] [address] [place] [address] Care Team Providers Care Pipe Insulator Helper Name Role Phone Felicity Escalante BUTTONHOLE MAKER HAND-PICK UP ATTENDANT Primary Care Provider + Encounter Details Date Type Department Care Team (Late st Contact Info) Description 03/22/2023 Orders Only [facility] Internal [facility] - Family Medicine [address] [place] [id number] Melissa Hillman CMA Encounter for screening mammogram for malignant neoplasm of breast Social History Tobacco Use Types Packs/Day Years Used Date Smoking Tobacco: Never Smokeless Tobacco: Never Alcohol Use Standard Drinks/Week Comments Not Currently 0 (1 standard drink = 0.6 oz pur e alcohol) Overall Financial Resource Strain (CARDIA) Answe r Date Recorded How hard is it for you to pa y for the very basics like food, housing, medical care, and heating? Somewhat hard 08/01/2022 PHQ-2 Answer Date Recorded Total Score 0 02/02/2023 PRAPARE - Transportation Answer Date Re corded In the past 12 months, has l ack of transportation kept you from medical appointments or from getting medications? No 07/15 In the past 12 months, has l ack of transportation kept you from meetings, work, or from getting things needed for daily living? No 08/01/2022 Housing Instability Answer Date Recorde d Are you worried or concerned that in the next two months you may not have stable housing that you own, rent or stay in as a part of a household? No 08/01/2022 Hunger Screening Answer Date Recorded Within the past 12 months we worried whether our food would run out before we got money to buy more. Never True 02/02/2023 Within the past 12 months th e food we bought just didn't last and we didn't have money to get more. Never True 02/02/2023 Comments Yes Sex and Gender Information Value Date Recorded Sex Assigned at Not on file Legal Sex Female 7:31 PM EDT Gender Identity Not on file Sexual Orientation Not on file documented as of this encounter Plan of Treatment Not on file documented as of this encounter Procedures Procedure Name Priority Date/Time Associated Diagnosis Comments MAMM SCREENING BILATERAL W CAD Routine 03/22/2023 3:29 PM EST Encounter for screening mammogram for malignant neoplasm of breast documented in this encounter Results * Mammography screening bilateral with CAD (03/22/2023 3:29 PM EST) Anatomical Region Laterality Modality Breast Bilateral Mammography Estela Soto BUTTONHOLE MAKER HAND-BALLAST CLEANING MACHINE OPERATOR IMG MAMMOGRAPHY ORDERABLES Final Result documented in this encounter Visit Diagnoses Diagnosis Encounter for screening mammogram for malignant neoplasm of breast documented in this encounter Additional Health Concerns Assessment Noted Time PHQ-9 Depression Total Score: 0 02/03/20 23 10:25 AM EDT documented as of this encounter Care Teams Pipe Insulator Helper Relationship Specialty Start Date End Date Felicity Escalante APRN-PICK UP ATTENDANT [address] [place] [address] PCP - General Internal Medicine 09/11/23 documented as of this encounter
--- OUTSIDE RECORDS SUMMARY | 2024-12-12 07:45 | XMS_ITS | Encounter Summary ---
[id number] [address] [place] [address] Care Team Providers Care Roller Shop Utility Worker Name Role Phone Felicity Escalante GRAIN OPERATIONS MANAGER-SNACK BAR ATTENDANT Primary Care Provider + Encounter Details Date Type Department Care Team (Late st Contact Info) Description 07/17/2022 Telephone [facility] Internal Medicine - Family Medicine [address] [place] [address] Estela Soto APRN-DARRELL [address] [address] Social History Tobacco Use Types Packs/Day Years Used Date Smoking Tobacco: Never Assessed Comments Unknown Sex and Gender Information Value Date Recorded Sex Assigned at Not on file Legal Sex Female 7:31 PM EDT Gender Identity Not on file Sexual Orientation Not on file documented as of this encounter Miscellaneous Notes * Telephone Encounter - Nimo Kaufman - 07/17/2022 9:07 AM EDT Patient is coming in for a wellness and would like labs sent to the [facility]. Thanks * Telephone Encounter - LAVELLE Dodson - 07/17/2022 9:07 AM EDT She had her wellness done last year in November, does her insurance allow her to do it anytime duringthe year? * Telephone Encounter - Nimo Kaufman - 07/17/2022 9:07 AM EDT She got a new insurance documented in this encounter Plan of Treatment Not on file documented as of this encounter Visit Diagnoses Not on filedocumented in this encounter Care Teams Roller Shop Utility Worker Relationship Specialty Start Date End Date Felicity Escalante APRN-SNACK BAR ATTENDANT [address] [place] [address] PCP - General Internal Medicine 09/11/23 documented as of this encounter
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
--- OUTSIDE RECORDS SUMMARY | 2024-12-12 07:45 | XMS_ITS | Encounter Summary ---
Author Organization [facility] Sys tem Address [id number] [address] [place] [address] Care Team Providers Care Data Entry Name Role Phone Felicity Escalante LEATHER GOODS II ASSEMBLER-HYDRAULIC REPAIRER Primary Care Provider + Encounter Details Date Type Department Care Team (Late st Contact Info) Description 08/14/2022 Orders Only [facility] Internal Medicine - Family Medicine [address] [place] [address] Deanna Tang CMA Encounter for wellness examination in adult; Acquired hypothyroidism Social History Tobacco Use Types Packs/Day Years Used Date Smoking Tobacco: Never Smokeless Tobacco: Never Overall Financial Resource Strain (CARDIA) Answe r Date Recorded How hard is it for you to pa y for the very basics like food, housing, medical care, and heating? Somewhat hard 08/01/2022 PRAPARE - Transportation Answer Date Re corded [...] a part of a household? No 08/01/2022 Comments Yes Sex and Gender Information Value Date Recorded Sex Assigned at Not on file Legal Sex Female 7:31 PM EDT Gender Identity Not on file Sexual Orientation Not on file documented as of this encounter Plan of Treatment Not on file documented as of this encounter Procedures Procedure Name Priority Date/Time Associated Diagnosis Comments THYROID PROFILE INCLUDES TSH FT4 Routine 08/12/2022 Acquired hypothyroidism LIPID PROFILE Routine 08/12/2022 Encounter for wellness examination in adult COMPREHENSIVE METABOLIC PANEL Routine 08/12/2022 Encounter for wellness examination in adult documented in this encounter Results * Thyroid profile includes TSH FT4 (08/12/2022) TSH 1.533 0.358 - 3.740 MANUALLY TRANSCRIBED RESULTS FREET4 {PL} 0.98 0.79 - 1.46 MANUAL LY TRANSCRIBED RESULTS 08/12/2022 Estela Bolaoñscaden [facility] BLOOD ORDERABLES Final Result Performing Organization Address [facility] Co de Phone Number MANUALLY TRANSCRIBED RESULTS * (ABNORMAL) Lipid panel (08/12/2022) Pathologist [facility] External Cholesterol 194 0 - 200 MANUALLY TRANSCRIBED RESULTS External Cholesterol:Hdl 3.1(A) 3.3 - 7.1 MANUALLY TRANSCRIBED RESULTS External Hdl Cholesterol 63(A) 40 - 60 MANUALLY TRANSCRIBED RESULTS External Ldl (Calc) 118 0 - 129 MANUALLY TRANSCRIBED RESULTS External Triglycerides 75 0 - 150 MANUALLY TRANSCRIBED RESULTS External Very Low Lipoprotein 15 MANUALLY TRANSCRIBED RESULTS Blood 08/12/2022 Estela Soto [facility] BLOOD ORDERABLES Final Result Performing Organization Address City/[facility]/ZIP Co de Phone Number MANUALLY TRANSCRIBED RESULTS * (ABNORMAL) Comprehensive metabolic panel (08/12/2022) External Albumin 3.6 3.4 - 5 MAN UALLY TRANSCRIBED RESULTS External Alt Sgpt 23 14 - 59 MANUALLY TRANSCRIBED RESULTS External Anion Gap 10.7 MANUALLY TRANSCRIBED RESULTS External Ast 17 15 - 37 MANUALL Y TRANSCRIBED RESULTS External Blood Urea Nitrogen Bun 12 7 - 18 MANUALLY TRANSCRIBED RESULTS External Calcium Ca 8.8 8.5 - 10.1 MANUALLY TRANSCRIBED RESULTS External Chloride 104 98 - 108 MANUALLY TRANSCRIBED RESULTS External Co2 / Carbon Dioxide 28.5 21 - 32 MANUALLY TRANSCRIBED RESULTS External Creatinine 0.73 0.55 - 1.02 MANUALLY TRANSCRIBED RESULTS External Gfr Amer >60 >60 MANUALLY TRANSCRIBED RESULTS External Gfr Non Amer >60 >60 MANUALLY TRANSCRIBED RESULTS ALK PHOSPHATASE {PL} 87 46 - 116 MANUALLY TRANSCRIBED RESULTS External Glucose Fasting Or Random (Fbs) 96 74 - 108 MANUALLY TRANSCRIBED RESULTS External Potassium K 4.2 3.5 - 5.1 MANUALLY TRANSCRIBED RESULTS External Sodium Na 139 136 - 145 MANUALLY TRANSCRIBED RESULTS Total Bilirubin 0.2 0.2 - 1.0 MANU ALLY TRANSCRIBED RESULTS External Total Protein 8 6.4 - 8.2 MANUALLY TRANSCRIBED RESULTS Blood 08/12/2022 Estela Soto [employer] ASSEMBLER-IMAGING ENGINEER LAB BLOOD ORDERABLES Final Result MANUALLY TRANSCRIBED RESULTS documented in this encounter Visit Diagnoses Diagnosis Encounter for wellness examination in adult Acquired hypothyroidism Unspecified hypothyroidism documented in this encounter Care Teams Data Entry Relationship Specialty Start Date End Date Felicity Escalante APRN-HYDRAULIC REPAIRER [address] [place], [place] [address] [address] PCP - General Internal Medicine 09/11/23 documented as of this encounter
--- OUTSIDE RECORDS SUMMARY | 2024-12-12 07:45 | XMS_ITS | Encounter Summary ---
Author Organization [facility] Sys [facility] Address [facility] [id number] [address] [place] [address] Care Team Providers Care Cable Reeler Name Role Phone Felicity Escalante MARY-LABORER TAN HOUSE Primary Care Provider + Encounter Details Date Type Department Care Team (Late st Contact Info) Description 06/25/2024 Telephone [facility] Internal Medicine - Family Medicine [address] [place] [phone] Leelee, Minerva, FITNESS TEACHER Social History Tobacco Use Types Packs/Day Years [...] encounter Miscellaneous Notes * Telephone Encounter - Minerva Mckoy CMA - 06/25/2024 9:20 AM EDT Tb scheduling called they dont have an in house radiologist so they can not do the orders you sentin today. I called pt to find out dilan else they can be sent and she stated they can be sent to [facility] * Telephone Encounter - FRANCIA Winn - 06/25/2024 9:20 AM EDT Please fax orders to [facility] [place] I do not have my fax list at home, just TB * Telephone Encounter - Minerva Mckoy CMA - 06/25/2024 9:20 AM EDT Done documented in this encounter Plan of Treatment Not on file documented as of this encounter Visit Diagnoses Not on filedocumented in this encounter Additional Health Concerns Assessment Noted Time PHQ-9 Depression Total Score: 0 10/12/19 9:39 AM EDT A Body Mass Index follow-up plan has been documented for the patient 08/17/2023 11:47 AM EDT documented as of this encounter Care Teams Cable Reeler Relationship Specialty Start Date End Date Feilcity Escalante APRN-CNP [address] [place] [id number] PCP - General Internal Medicine 09/11/23 documented as of this encounter
--- OUTSIDE RECORDS SUMMARY | 2024-12-12 07:45 | XMS_ITS | Encounter Summary ---
Author Organization [facility] Sys tem Address [id number] [address] [place] [address] Care Team Providers Care Hand Button Splitter Name Role Phone Felicity Escalante POLY PACKER AND HEAT SEALER-LEATHER NOVELTY PARTS CUTTER Primary Care Provider + Encounter Details Date Type Department Care Team (Late st Contact Info) Description 12/26/2021 [facility] - Family Medicine [address] [place] [phone] External, Scanning Provider Social History Tobacco Use Types Packs/Day Years [...] Procedure Name Priority Date/Time Associated Diagnosis Comments MULTIPLE LABS Routine 12/22/2021 SARS COV 2 (COVID-19) STAT 12/19/2021 documented in this encounter Results * Multiple labs (12/22/2021) 12/22/2021 us Scanning Provider External RI IMAGING Final Result MANUALLY TRANSCRIBED RESULTS * SARS COV 2 (COVID-19) (12/19/2021) EXTERNAL SARS COV 2 Negative Negative MANUALLY TRANSCRIBED RESULTS NASOPHARYNGEAL 12/19/2021 us Scanning Provider External MICROBIOLOGY - GENERA L ORDERABLES Final Result MANUALLY TRANSCRIBED RESULTS documented in this encounter Visit Diagnoses Not on filedocumented in this encounter Care Teams Hand Button Splitter Relationship Specialty Start Date End Date Felicity Escalante, POLY PACKER AND HEAT SEALER-LEATHER NOVELTY PARTS CUTTER [address] [place] [address] PCP - General Internal Medicine 09/11/23 documented as of this encounter
--- OUTSIDE RECORDS SUMMARY | 2024-12-12 07:45 | XMS_ITS | Encounter Summary ---
[id number] [address] [place] [address] Care Team Providers Care Track Worker Name Role Phone Felicity Escalante FORENSIC SCIENCE EXAMINER-BADGER DISTILLER OPERATOR Primary Care Provider + Encounter Details Date Type Department Care Team (Late st Contact Info) Description 02/07/2022 Telephone [facility] Internal Medicine - Family Medicine [address] [place] [address] Nieves Banegas MA Social History Tobacco Use Types Packs/Day Years Used Date Smoking Tobacco: Never Assessed Comments Unknown Sex and Gender Information Value Date Recorded Sex Assigned at Not on file Legal Sex Female 7:31 PM EDT Gender Identity Not on file Sexual Orientation Not on file documented as of this encounter Miscellaneous Notes * Telephone Encounter - Nieves Banegas MA - 02/07/2022 11:47 AM EDT Patient called and said she tested positive for covid last Sunday. She said she is now coughing up green/yellow phlegm and blowing it out of her nose also. Should we schedule her to be seen? She asked if an antibiotic can be sent in for her. * Telephone Encounter - Estela Soto APRN-INSURANCE LAW SPECIALIST - 02/07/2022 11:47 AM EDT I sent in an antibiotic to [facility] on [address] * Telephone Encounter - Nieves Banegas MA - 02/07/2022 11:47 AM EDT Patient notified and understands. documented in this encounter Plan of Treatment Not on file documented as of this encounter Visit Diagnoses Not on filedocumented in this encounter Care Teams Track Worker Relationship Specialty Start Date End Date Felicity Escalante APRN-BADGER DISTILLER OPERATOR [address] [place] [address] PCP - General Internal Medicine 09/11/23 documented as of this encounter
--- OUTSIDE RECORDS SUMMARY | 2024-12-12 07:45 | XMS_ITS | Clinical Summary ---
Author Organization [facility] Address [address] [place] [address] Care Team Providers Care Poker In Name Role Phone Reuben Mckeon MD Primary Care Provider [phone] Allergies No known active allergies Medications levothyroxine (Synthroid, Levoxyl) 100 MCG tablet Take 100 mcg by mouth in the morning. 5 Active Vit-Fe Fumarate-FA (Classic ) 28-0.8 MG tablet Take 1 tablet by mouth in the morning. 5 Active metroNIDAZOLE (Metrogel) 1 % gel Apply topically Daily Active Encounters Date Type Department Care Team Description 11/27/2024 2:45 PM EDT Routine [facility] [address] [phone] Katalina Edwards DO related condition, second trimester (HHS-HCC) (Primary Dx); 24 weeks gestation of (HHS-HCC); Advanced maternal age in multigravida, second trimester (HHS-HCC); Rh negative state in antepartum period (HHS-HCC); Hypothyroid in , antepartum (HCC); Other obesity due to excess calories affecting in second trimester (HHS-HCC); Screening for diabetes mellitus 11/27/2024 Bamboo flowsheet [facility] [address] [phone] Katalina Edwards DO 11/27/2024 Travel 10/30/2024 4:00 PM EDT Routine [facility] [address] [employer] [facility] [employer] [address] [phone] Katalina Edwards DO related condition, second trimester (HHS-HCC) (Primary Dx); 20 weeks gestation of (HHS-HCC); Advanced maternal age in multigravida, second trimester (HHS-HCC); Rh negative state in antepartum period (HHS-HCC); Hypothyroid in , antepartum (HCC); Other obesity due to excess calories affecting in second trimester (HHS-HCC) 10/30/2024 3:00 PM EDT [facility] [address] [phone] related condition in second trimester (HHS-HCC); AMA (advanced maternal age) multigravida 35+, second trimester (HHS-HCC); Hypothyroid in , antepartum (HCC); Maternal care for low transverse scar from previous delivery (HHS-HCC); Obesity affecting in second trimester, unspecified obesity type (HHS-HCC); 20 weeks gestation of (HHS-HCC) 10/30/2024 Travel 10/02/2024 3:45 PM EDT Routine [facility] [address] [phone] Katalina Edwards DO related condition, second trimester (HHS-HCC) (Primary Dx); 16 weeks gestation of (HHS-HCC); Advanced maternal age in multigravida, second trimester (HHS-HCC); Rh negative state in antepartum period (HHS-HCC); Hypothyroid in , antepartum (HCC); Maternal care due to low transverse uterine scar from previous delivery (HHS-HCC); Other obesity due to excess calories affecting in second trimester (HHS-HCC) 10/02/2024 Bamboo flowsheet [facility] [address] [employer] [address] [phone] Katalina Edwards DO 10/02/2024 Travel from Last 3 Months Family History Medical History Relation Name Comments Arthritis Father Coronary artery disease Father trip le bypass 42 yrs Relation Name Status Comments Father Alive Mother Alive Social History Tobacco Use Types Packs/Day Years Used Date Smoking Tobacco: Never Smokeless Tobacco: Never Tobacco Cessation:Counseling Given: No Alcohol Use Standard Drinks/Week Comments Not Currently 0 (1 standard drink = 0.6 oz pur e alcohol) Humiliation, Afraid, Rape, and Kick questionnair e Answer Date Recorded Within the last year, have y ou been afraid of your partner or ex-partner? No 07/29/2024 Within the last year, have y ou been humiliated or emotionally abused in other ways by your partner or ex-partner? No Within the last year, have y ou been kicked, hit, slapped, or otherwise physically hurt by your partner or ex-partner? No 07/29/2024 Within the last year, have y ou been raped or forced to have any kind of sexual activity by your partner or ex-partner? No 07/29/2024 Social Connection and Isolat ion Panel [NHANES] Answer Date Recorded In a typical week, how many times do you talk on the phone with family, friends, or neighbors? More than three times a week 07/29/2024 How often do you get togethe r with friends or relatives? More than three times a week 07/29/2024 How often do you attend chur or hindu services? More than 4 times per year 07/29/2024 Do you belong to any clubs o r organizations such as zoroastrianism groups, unions, fraternal or athletic groups, or school groups? No 07/29/2024 How often do you attend meet ings of the clubs or organizations you belong to? Never 07/29/2024 Are you , , di vorced, , never , or living with a partner? 07/29/2024 AUDIT-C Answer Date Recorded Q1: How often do you have a drink containing alc ohol? Monthly or less 07/29/2024 Q2: How many drinks containi ng alcohol do you have on a typical day when you are drinking? 1 or 2 07/29/2024 Q3: How often do you have si x or more drinks on one occasion? Never 07/29/2024 Overall Financial Resource Strain (CARDIA) Answe r Date Recorded How hard is it for you to pa y for the very basics like food, housing, medical care, and heating? Not hard at all 07/29/2024 PHQ-2 Answer Date Recorded Patient Health Questionnaire-2 Score 0 07/29/2024 [facility] - Occupational Stress Questionnaire Answer Date Recorded Do you feel stress - tense, restless, nervous, or anxious, or unable to sleep at night because your mind is troubled all the time - these days? Only a little 07/29/2024 Exercise Vital Sign Answer Date Recorde d On average, how many days pe r week do you engage in moderate to strenuous exercise (like a brisk walk)? 4 days 07/29/2024 On average, how many minutes do you engage in exercise at this level? 60 min 07/29/2024 Hunger Vital Sign Answer Date Recorded Within the past 12 months, y ou worried that your food would run out before you got the money to buy more. Never true 07/30/19 25 Within the past 12 months, t he food you bought just didn't last and you didn't have money to get more. Never true 07/29/2024 PRAPARE - Transportation Answer Date Re corded In the past 12 months, has l ack of transportation kept you from medical appointments or from getting medications? No 07/15 In the past 12 months, has l ack of transportation kept you from meetings, work, or from getting things needed for daily living? No 07/29/2024 Housing Stability Vital Sign Answer Mahendra e Recorded In the last 12 months, was t here a time when you were not able to pay the mortgage or rent on time? No 07/29/2024 In the past 12 months, how m any times have you moved where you were living? 0 07/29/2024 At any time in the past 12 m [facility], were you homeless or living in a half-way (including now)? No 07/29/2024 Education Answer Date Recorded What is the highest level of school you have completed or the highest degree you have received? Associate degree: occupational, technical, or vocational program 07/29/2024 Estimated Date of Delivery Comme nts Yes 03/14/2025 Based on last me nstrual period of 06/07/2024 Sex and Gender Information Value Date Recorded Sex Assigned at Not on file Legal Sex Female 11:18 PM EDT Gender Identity Not on file Sexual Orientation Not on file Occupation Industry Job Start Date Job End Date [employer] Not on file Not on file Not on file Last Filed Vital Signs Vital Sign Reading Time Taken Comments Blood Pressure 122/76 11/27/2024 3:00 PM EDT Pulse - - Temperature - - Respiratory Rate - - Oxygen Saturation - - Inhaled Oxygen Concentration - - Weight 121 kg (266 lb) 11/27/2024 3:00 PM EDT Height 160 cm (5' 3 ) 07/29/2024 8:02 AM EDT Body Mass Index 47.12 07/29/2024 8:02 AM EDT Plan of Treatment Upcoming Encounters Date Type Department Care Team (Late st Contact Info) Description 12/18/2024 2:40 PM EDT Routine [facility] [address] [phone] Dea James EXTR[employer]ION UTILITY WORKER [address] [place] [address] 01/22/2025 3:00 PM EDT Ancillary Procedure [facility] [address] [phone] 01/22/2025 4:00 PM EDT Routine [facility] [address] [phone] Katalina Edwards DO [address] [phone] 02/05/2025 3:45 PM EDT Routine [facility] [address] [phone] Katalina Edwards, DO [address] [phone] 02/19/2025 4:00 PM EST Routine [facility] [address] [place] [address] [phone] Katalina Edwards, DO [address] [phone] Procedures Procedure Name Priority Date/Time Associated Diagnosis Comments POCT URINALYSIS 4 DIPSTICK Routine 11/27/2024 3:09 PM EDT related condition, second trimester (HHS-HCC) 24 weeks gestation of (HHS-HCC) POCT URINALYSIS 4 DIPSTICK Routine 10/30/2024 4:20 PM EDT related condition, second trimester (HHS-HCC) 20 weeks gestation of (HHS-HCC) US OB TRANSVAGINAL Routine 10/30/2024 4: 12 PM EDT related condition in second trimester (HHS-HCC) AMA (advanced maternal age) multigravida 35+, second trimester (HHS-HCC) Hypothyroid in , antepartum (HCC) Maternal care for low transverse scar from previous delivery (HHS-HCC) Obesity affecting in second trimester, unspecified obesity type (HHS-HCC) 20 weeks gestation of (HHS-HCC) US OB 14+ WEEKS ANATOMY SCAN Routine 10/30/2024 4:12 PM EDT related condition in second trimester (HHS-HCC) AMA (advanced maternal age) multigravida 35+, second trimester (HHS-HCC) Hypothyroid in , antepartum (HCC) Maternal care for low transverse scar from previous delivery (HHS-HCC) Obesity affecting in second trimester, unspecified obesity type (HHS-HCC) 20 weeks gestation of (HHS-HCC) POCT URINALYSIS 4 DIPSTICK Routine 10/02/2024 4:02 PM EDT related condition, second trimester (HHS-HCC) 16 weeks gestation of ([facility]) from Last 3 Months Results * POCT URINALYSIS 4 DIPSTICK (11/27/2024 3:09 PM EDT) Only the most recent of3 resultswithin the time period is included. Glucose, UA Negative Negative - 1999(110) ++++ mg/dL Protein, UA Negative Negative - 1999(20) ++++ mg/dL Urine 11/27/2024 3:09 PM EDT us Katalina Edwards DO POINT OF CARE TEST ENTER/E DIT ORDERABLES Final Result * US OB transvaginal (10/30/2024 4:12 PM EDT) Anatomical Region Laterality Modality Body Ultrasound Study GA Study Date Study SUSANNA Working SUSANNA (Source) 10/30/2024 03/14/2025 (Last Menstrua l Period) Fetus A Measurements Value GA (days) CRL Sac Diameter Biparietal Diameter Head Circumference Abdominal Circumference Femur Length Ulna Length Humerus Length Tibia Length Heart Rate YOLK SAC MEASUREMENT CERVICAL W/FUNDAL PRESSURE CERVICAL W/ VALSALVA us Katalina Edwards DO IMG OB US PROCEDURES Final Result * US OB 14+ weeks anatomy scan (10/30/2024 4:12 PM EDT) Anatomical Region Laterality Modality Body Ultrasound Study GA Study Date Study SUSANNA Working SUSANNA (Source) 10/30/2024 03/14/2025 (Last Menstrua l Period) Fetus A Measurements Value GA (days) HEART RATE Biparietal Diameter Head Circumference Abdominal Circumference Femur Length Amniotic Fluid Index Quadrant 1 Amniotic Fluid Index Quadrant 2 Amniotic Fluid Index Quadrant 3 Amniotic Fluid Index Quadrant 4 Amniotic Fluid Index Deep Vertical Pocket CEREBELLUM LATERAL VENTRICLE CISTERNA MAGNA NUCHAL FOLD NASAL BONE TWIN DISCORDANCE UA SD Ratio UA Resistance Index UA Pulsatility Index MCA SD Ratio MCA Resistance Index MCA Pulsatility Index Ulna Length Humerus Length Tibia Length Composite GA Narrative 10/30/2024 5:24 PM EDT Images from the original result were not included. Obstetrics & Gynecology [address] [facility] [address] [address] [place] [address] - - - - - - - - - - - - - - - - - - - - - - - - - - - - - - - - - - - - - - - - - - - - - - - - - - - - - - - - - - - - - - - - - - - - Date of exam: 10/30/24 Patient name: Vidya Ritchie : 1980 Age: 43 y.o. - - - - - - - - - - - - - - - - - - - - - - - - - - - - - - - Indication: anatomy survey, AMA, Hypothyroidism Method: Transabdominal and transvaginal ultrasound examination View: Suboptimal, Limited by body habitus, Limited by position - - - - - - - - - - - - - - - - - - - - - - - - - - - - - - - : Type of gestation: Mujica Number of fetuses: 1 - - - - - - - - - - - - - - - - - - - - - - - - - - - - - - - Assigned Dating based on: LMP: SUSANNA: 03/14/25 GA: 20 weeks, 5 days - - - - - - - - - - - - - - - - - - - - - - - - - - - - - - - General Evaluation: Cardiac activity: present FHR: 152bpm movements: visualized Presentation: Breech Placenta: posterior Umbilical cord: 3 vessel cord Amniotic fluid: subjectively normal - - - - - - - - - - - - - - - - - - - - - - - - - - - - - - - Biometry: The BPD measures at the 27 percentile. The HC measures at the 57 percentile. The AC measures at the 84 percentile. The FL measures at the 69 percentile. The EFW measures at the 91 percentile. EFW: 1 lb 0 oz GA by biometry: 21 weeks, 2 days - - - - - - - - - - - - - - - - - - - - - - - - - - - - - - - Anatomy: Head/Neck: Lateral ventricles: suboptimal Choroid plexus:suboptimal Midline falx: visualized Cavum septi pellucidi: visualized Thalami: visualized Cerebellum: visualized Cisterna magna: visualized Orbits: visualized Nose/Lips: visualized Nasal bone: visualized Maxilla: visualized Mandible: visualized Profile: visualized Heart/Thorax: 4-chamber view: visualized LVOT: visualized RVOT: visualized 3-vessel view: visualized 1-[id number]-[id number]: visualized Aortic arch: visualized Ductal arch: suboptimal Diaphragm: visualized Abdomen: Cord insertion: visualized Stomach: visualized Gallbladder: visualized Bowel: visualized Right kidney: visualized Left kidney: visualized Bladder: visualized Genitals: visualized Spine: Cervical spine: visualized Thoracic spine: visualized Lumbar spine: visualized Sacral spine: visualized Limbs: Arms: visualized Hands: visualized Legs: visualized Feet: visualized - - - - - - - - - - - - - - - - - - - - - - - - - - - - - - - - - - - - - - - - - - - - - - - - - - - - - - - - - - - - - - - - - - - - Impression: There is a single intrauterine visualized. biometry is consistent with the established dates. Some of the anatomy is not well visualized. The remaining anatomy is adequately visualized and appears normal. No anomalies are identified. No common markers for aneuploidy are identified. There is a normal amount of amniotic fluid. The cervix measures 4.0 cm in length. The cervix measures 4.0 cm in length when fundal pressure is applied. The cervix measures 3.9 cm when the Valsalva maneuver is employed. There is no funnel. Please note that a normal ultrasound does not rule out anomalies. - - - - - - - - - - - - - - - - - - - - - - - - - - - - - - - - - - - - - - - - - - - - - - - - - - - - - - - - - - - - - - - - - - - - us Katalina Edwards DO IMG OB US PROCEDURES Final Result from Last 3 Months Insurance BCBS Care Teams Poker In Relationship Specialty Start Date End Date Reuben Mckeon MD [address] [place] [address] PCP - General Internal Medicine 07/29/24
--- OUTSIDE RECORDS SUMMARY | 2024-12-12 07:45 | XMS_ITS | Clinical Summary ---
Author Organization [employer] s tem Address [id number] [address] [place] [address] Care Team Providers Care Ball Point Splitter Name Role Phone Felicity Escalante MARY-ROSS LIFT OPERATOR Primary Care Provider + Allergies No known active allergies Medications acetaminophen (TYLENOL EXTRA STRENGTH) 500 mg tablet Take 1 tablet (500 mg total) by mouth every 6 (six) hours as needed for pain. Active metroNIDAZOLE (MetrogeL) 1 % gel Apply 1 Application topically in the morning. 45 g 1 4 Active 60-wmhz-oyqfxw 9-dha 31 mg iron- 1 mg-200 mg capsule Take 1 capsule by mouth in the morning. 90 capsule 3 5 Active levothyroxine (SYNTHROID, LEVOTHROID) 100 MCG tablet Take 1 tablet (100 mcg total) by mouth in the morning. 90 tablet 3 5 Active Active Problems Problem Noted Date Diagnosed Date 11 weeks gestation of 08/22/2024 Acquired hypothyroidism 07/17/2022 Comments Yes Resolved Problems Problem Noted Date Diagnosed Date Resolved Date Obesity affecting , antepartum 12/04/2018 0 08/04/2022 08/04/2022 Overview (08/04/2022): [facility] recommend weight gain in : Obese (all classes) > 30: total weight gain 11-20 lbs, 0.5 lb per week in the second and third trimester. Nutrition consult complete. Daily exercise recommended. 50 gram glucola now and if negative, repeat at 24 weeks Advanced maternal age, primi , antepartum 12/04/2018 08/04/2022 08/04/2022 Overview (08/04/2022): - Genetic counseling - Negative cell free Immunizations Immunization Administration Dates Next Due DTaP 5 06/20/2021 Hep A, Unspecified 06/01/2000,11/18/1999 Hep B, Adolescent or Pediatric 06/01/2000,1999,11/18/1999 Tdap 02/03/2019,06/10/2012 Family History Medical History Relation Name Comments Arthritis Father Heart disease Father Cancer Maternal Aunt Lung cancer Maternal Grandfather Hypothyroidism Maternal Grandmother Arthritis Mother Hypertension Mother Breast cancer Paternal Aunt 1 Luna Breast cancer Paternal Aunt 2 Nafisa Lung cancer Paternal Grandfather Hypothyroidism Paternal Grandmother Heart disease Paternal Uncle 1 Derian Leukemia Paternal Uncle 2 Yaniv No Known Problems Sister Heart disease Son Relation Name Status Comments Father Alive Maternal Aunt Alive Maternal Grandfather Alive Maternal Grandmother Mother Alive Paternal Aunt 1 Luna Alive Paternal Aunt 2 Nafisa Alive Paternal Grandfather Paternal Grandmother Paternal Uncle 1 Derian Paternal Uncle 2 Yaniv Alive Sister Alive Son Alive Social History Tobacco Use Types Packs/Day Years Used Date Smoking Tobacco: Never Smokeless Tobacco: Never Tobacco Cessation:Counseling Given: Not Answered Alcohol Use Standard Drinks/Week Comments Not Currently 0 (1 standard drink = 0.6 oz pur e alcohol) Overall Financial Resource Strain (CARDIA) Answe r Date Recorded How hard is it for you to pa y for the very basics like food, housing, medical care, and heating? Not very hard 08/14/2023 PHQ-2 Answer Date Recorded Total Score 0 08/22/2024 PRAPARE - Transportation Answer Date Re corded [...] got money to buy more. Never True 08/22/2024 Within the past 12 months th e food we bought just didn't last and we didn't have money to get more. Never True 08/22/2024 Comments Yes Sex and Gender Information Value Date Recorded Sex Assigned at Not on file Legal Sex Female 7:31 PM EDT Gender Identity Not on file Sexual Orientation Not on file Last Filed Vital Signs Vital Sign Reading Time Taken Comments Blood Pressure 122/60 08/22/2024 8:46 AM EDT Pulse 90 08/22/2024 8:46 AM EDT Temperature 36.6 C (97.9 F) 08/22/2024 8:46 AM EDT Respiratory Rate 18 08/22/2024 8:46 AM EDT Oxygen Saturation 99% 08/22/2024 8:46 AM EDT Inhaled Oxygen Concentration - - Weight 111.1 kg (245 lb) 08/22/2024 8:46 AM EDT Height 160 cm (5' 2.99 ) 08/22/2024 8:46 AM EDT Body Mass Index 43.41 08/22/2024 8:46 AM EDT Plan of Treatment Health Maintenance Due Date Last Done Comments Adult BMI Follow Up Plan 08/16/2024 08/17/2023 Tobacco Screening 10/11/2024 10/12/2023 Influenza Vaccine 12/15/2024 Mammogram 07/10/2025 07/10/2024, 0310/2024, 03/22/2023 Adult BMI Screening 08/22/2025 08/22/2024 Depression Screening 08/22/2025 08/22/2024 Pap Smear 02/02/2026 02/02/2023, 02/02/2023 DTaP,Tdap and Td Vaccines (4 - Td or Tdap) 06/21/2031 06/20/2021, 02/03/2019, 06/10/2012 Medical Devices Not on file Procedures Procedure Name Priority Date/Time Associated Diagnosis Comments MAMM DIAGNOSTIC UNILAT RT W CAD Routine 07/10/2024 9:10 AM EDT Abnormal screening mammogram HIGH RISK HPV W/MARCIE Routine 02/02/2023 4:27 AM EDT Encounter for gynecological examination (general) (routine) without abnormal findings from Last 3 Months or Most Recently Relevant to Health Maintenance Results * Mammography diagnostic unilateral right with CAD (07/10/2024 9:10 AM EDT) Anatomical Region Laterality Modality Breast Right Mammography us Felicity Escalante RN CLINICIAN-ROSS LIFT OPERATOR IMG MAMMOGRAPHY ORDERABL ES Final Result * High risk HPV w/marcie (02/02/2023 4:27 AM EDT) Hpv specimen type ThinPrep 02/05/2023 4:27 AM EDT [facility] Hpv 16 Negative Negative^N egative 02/05/2023 1:57 PM EDT [facility] Hpv 18 Negative Negative^N egative 02/05/2023 1:57 PM EDT [facility] Other high risk hpv Negative Negative^N egative 02/05/2023 1:57 PM EDT [facility] Comment: HPV types 31,33,35,39,45,52,56,58,59,66 and 68 DNA were undetectable. THINP 02/02/2023 4:27 AM EDT 02/05/2023 4:28 AM EDT Estela Soto RN CLINICIAN-GENERAL FARMWORKER LAB BLOOD ORDERABLES Final Result [facility] [address] [facility], [place] [address] [facility] [address] [facility] [place] [address] from Last 3 Months or Most Recently Relevant to Health Maintenance Insurance [employer] Care Teams Ball Point Splitter Relationship Specialty Start Date End Date Felicity Escalante, RN CLINICIAN-ROSS LIFT OPERATOR [address] [facility] [place] [address] PCP - General Internal Medicine 09/11/23
--- OUTSIDE RECORDS SUMMARY | 2024-12-12 07:45 | XMS_ITS | Encounter Summary ---
Author Organization [facility] Address [address] [place] [address] Care Team Providers Care Bone Char Kiln Tender Name Role Phone Reuben Mckeon MD Primary Care Provider [phone] Encounter Details Date Type Department Care Team (Late st Contact Info) Description 09/01/2024 Orders Only [facility] [place] [facility] [address] [phone] Dea James, CORE BLOWER OPERATOR [address] [place] [address] Social History Tobacco Use Types Packs/Day Years [...] 07/29/2024 How often do you attend chur ch or congregational services? More than 4 times per year 07/29/2024 Do you belong to any clubs o r organizations such as voodoo groups, unions, fraternal or athletic groups, or [...] Recorded Patient Health Questionnaire-2 Score 0 07/29/2024 [facility] - Occupational Stress Questionnaire Answer Date Recorded [...] time in the past 12 m [facility], were you homeless or living in a nursing home (including now)? No 07/29/2024 Education Answer Date [...] file Not on file Not on file documented as of this encounter Plan of Treatment Upcoming Encounters Date Type Department Care Team (Late st Contact Info) Description 12/18/2024 2:40 PM EDT Routine [facility] [place] [facility] [address] [phone] Dea James NP [address] [place] [address] 01/22/2025 3:00 PM EDT Ancillary Procedure [facility] [place] [facility] [address] [phone] 01/22/2025 4:00 PM EDT Routine [facility] [place] [facility] [address] [phone] Katalina Edwards, DO [address] [phone] 02/05/2025 3:45 PM EDT Routine [facility] [place] [facility] [address] [phone] Katalina Edwards DO [address] [facility] [address] [phone] 02/19/2025 4:00 PM EST Routine [facility] [place] [facility] [address] [phone] Katalina Edwards, DO [address] [facility] [address] [phone] documented as of this encounter Procedures Procedure Name Priority Date/Time Associated Diagnosis Comments MISCELLANEOUS LAB TEST Routine 08/29/2024 9:33 AM EDT documented in this encounter Results * - Miscellaneous Test (08/29/2024 9:33 AM EDT) Dea James CORE BLOWER OPERATOR LAB BLOOD ORDERABLES Ayleen l Result documented in this encounter Visit Diagnoses Not on filedocumented in this encounter Care Teams Bone Char Kiln Tender Relationship Specialty Start Date End Date Reuben Mckeon MD [facility] [place] [address] PCP - General Internal Medicine 07/29/24 documented as of this encounter
--- OUTSIDE RECORDS SUMMARY | 2024-12-12 07:45 | XMS_ITS | Encounter Summary ---
Author Organization [employer] [facility] Address [facility] [id number] [address] [place] [address] Care Team Providers Care Civil Celebrant Name Role Phone Felicity Escalante APRNHAI Primary Care Provider + Reason for Visit * Reason Onset Date Comments Med Refill 01/30/2022 Encounter Details Date Type Department Care Team (Late st Contact Info) Description 01/30/2022 Refill [facility] - Family Medicine [address] [place] [address] Nieves Banegas MA Social History Tobacco Use [...] on filedocumented in this encounter Care Teams Civil Celebrant Relationship Specialty Start Date End Date Felicity Escalante APRN-CNP [address] [place] [address] PCP - General Internal Medicine 09/11/23 documented as of this encounter
--- OUTSIDE RECORDS SUMMARY | 2024-12-12 07:45 | XMS_ITS | Encounter Summary ---
Author Organization [facility] [employer] [facility] Address [id number] [address] [place] [address] Care Team Providers Care Imager Name Role Phone Felicity Escalante TEACHING ASSISTANT-ARMY RANGER Primary Care Provider + Encounter Details Date Type Department Care Team (Late st Contact Info) Description 07/17/2022 Telephone [facility] Internal [facility] - Family Medicine [address] [place] [address] Estela Soto, MARY-CERTIFIED MEDICAL TECHNICIAN ASSISTANT [address] [address] [place], [place] [id number] Social History Tobacco Use Types Packs/Day Years [...] on filedocumented in this encounter Care Teams Imager Relationship Specialty Start Date End Date Felicity Escalante APRN-ARMY RANGER [address] [place] [address] PCP - General Internal Medicine 09/11/23 documented as of this encounter
--- OUTSIDE RECORDS SUMMARY | 2024-12-12 07:45 | XMS_ITS | Encounter Summary ---
Author Organization [facility] Address [id number] [address] [place] [address] Care Team Providers Care Factory Worker Name Role Phone [place] Escalante STACKER AND SORTER OPERATOR-REFRIGERATOR TESTER Primary Care Provider + Encounter Details Date Type Department Care Team (Late st Contact Info) Description 07/10/2024 Orders Only [facility] Internal Medicine - Family Medicine [address] [place] [id number] Melissa Hillman CMA Abnormal screening mammogram Social History Tobacco Use Types Packs/Day Years [...] 07/10/2024 9:10 AM EDT Abnormal screening mammogram documented in this encounter Results * Mammography diagnostic unilateral right with CAD (07/10/2024 9:10 AM EDT) Anatomical Region Laterality Modality Breast Right Mammography Felicity FELDMNA IMG MAMMOGRAPHY ORDERABL ES Final Result documented in this encounter Visit Diagnoses Diagnosis Abnormal screening mammogram documented in this encounter Additional Health Concerns Assessment Noted Time PHQ-9 Depression Total Score: 0 10/12/19 9:39 AM EDT A Body Mass Index follow-up plan has been documented for the patient 08/17/2023 11:47 AM EDT documented as of this encounter Care Teams Factory Worker Relationship Specialty Start Date End Date Felicity Escalante APRN-CNP [address] [place] [address] PCP - General Internal Medicine 09/11/23 documented as of this encounter
--- OUTSIDE RECORDS SUMMARY | 2024-12-12 07:45 | XMS_ITS | Clinical Summary ---
Author Organization [facility] Address [address] [address] Care Team Providers Care Software Deployment Engineer Name Role Phone Unavailable Primary Care Provider Unavailabl e Social History Tobacco Use Types Packs/Day Years Used Date Smoking Tobacco: Never Assessed [place] Safety & Environment Answer Date Rec orded Fear of Current or Ex-Partner Not on file Emotionally Abused Not on file 06/07/2023 Physically Abused Not on file 06/07/2023 Sexually Abused Not on file 06/07/2023 Physically or Sexually Abused Not on file Comments Unknown Sex and Gender Information Value Date Recorded Sex Assigned at Not on file Legal Sex Female 7:15 AM EDT Gender Identity Not on file Sexual Orientation Not on file Plan of Treatment Not on file
--- OUTSIDE RECORDS SUMMARY | 2024-12-12 07:46 | XMS_ITS | CCD ---
Author Organization [facility] ion [facility] Care Team Providers Care One Piece Expansion Maker Hand Name Role Phone DARRELL Bennett Primary Care Provider MD Phani Hope Referring Provider MD Nadir Farris Attending Provider [phone] MELISSA, DR PARKER Referring Unavailable KUNS, DR ESTELA Sheehan Admitting Unavailable KUNS, DR ESTELA Sheehan Attending Unavailable KUNS, DR ESTELA Sheehan Consulting Unavailable KUNS, DR ESTELA Sheehan Primary Care Unavailable MISC, DR CHRISTIANSON Admitting Unavailable MISC, DR CHRISTIANSON Attending Unavailable MISC, DR CHRISTIANSON Consulting Unavailable KUNS, DR ESTELA Sheehan Primary Care Unavailable KUNS, DR ESTELA Sheehan Primary Care Unavailable KUNS, DR ESTELA Sheehan Admitting Unavailable KUNS, DR ESTELA Sheehan Attending Unavailable KUNS, DR ESTELA Sheehan Consulting Unavailable HAY ., DR TIERNEY Attending Unavailable HAY ., DR TIERNEY Admitting Unavailable KINARDS, DR ZAYDA Gonzalez Consulting Unavailable KUNS, DR ESTELA Sheehan Primary Care Unavailable HAY ., DR TIERNEY Consulting Unavailable MISC, DR CHRISTIANSON Admitting Unavailable MISC, DR CHRISTIANSON Attending Unavailable MISC, DR CHRISTIANSON Consulting Unavailable KUNS, DR ESTELA Sheehan Primary Care Unavailable ZIEBER, DR JENNIFER Sheehan Consulting Unavailable KUNS, DR ESTELA Sheehan Admitting Unavailable KUNS, DR ESTELA Sheehan Attending Unavailable KUNS, DR ESTELA Sheehan Consulting Unavailable SABRINA, DR ESTELA Sheehan Primary Care Unavailable KUNAnabel, ESTELA GROSS Referring Unavailable KUNS, ESTELA GROSS Primary Care Unavailable JESS, ALFONSO L Referring Unavailable JESS, ALFONSO L Primary Care Unavailable Jess CHINESE LANGUAGE PROFESSOR-NAME PLATE STAMPER, Alfonso L Primary Care Provider Kuns CHINESE LANGUAGE PROFESSOR-MAKE UP OPERATOR, Estela Gross Primary Care Provider Jess MAKE UP OPERATOR, Alfonso Primary Care Provider Alfonso Kim Attending Provider Alfonso Mercado Attending Unavailable Alofnso Mercado Primary Care Unavailable Alfonso Mercado Admitting Unavailable Keith Torres MD Primary Care Provider Alfonso Rodriguez Primary Care Provider JAE STRICKLAND Primary Care Physician JAE STRICKLAND Primary Care Unavailable Dea HENRY Admitting Unavailable Dea HENRY Attending Unavailable JAE STRICKLAND Primary Care Unavailable Dea HENRY Admitting Unavailable Dea HENRY Attending Unavailable ALFONSO MERCADO Attending Unavailable ALFONSO MERCADO Referring Unavailable ALFONSO MERCADO Primary Care Unavailable ALFONSO MERCADO Attending Unavailable ALFONSO MERCADO Referring Unavailable ALFONSO MERCADO Primary Care Unavailable DEA HENRY F Attending Unavailable DEA HENRY Attending Unavailable KATALINA EDWARDS Attending Unavailable KATALINA EDWARDS Attending Unavailable KATALINA EDWARDS Attending Unavailable Medications Current Medications Medication Drug Class(es) Dates Sig (Normalized) Sig (Original) acetaminophen 500 mg oral tablet (14 sources) take 1 tablet by mouth every [...] care orders ibuprofen 600 mg oral tablet (18 sources) Nonsteroidal Anti-inflammatory Drug Start: 08-09-2021 take 4 tablets by mouth every twenty-four hours for pain Ibuprofen 600 mg tablet Active 600 MG PO Every 6 hours as needed for pain August 09, 2021 12:00am do not exceed 4 doses in a 24 hour period Start: 10-25-2019 take 1 tablet by yola th three times daily ibuprofen 800 mg Tab 800 mg = 1 tab(s), Oral, TID, # 90 tab(s), Refills(s) 0, Pharmacy: [id number], 160, cm, 06/10/19 10:27:00 EST, Height/Length Measured, 101.5, kg, 06/10/19 10:27:00 EST, Weight Measured Start Date: 10/25/19 Status: Ordered Quantity: 90.0 Unit: tab(s) Repeat number: 1 End: 08-22-2024 take 1 tablet by mouth every six hours as needed for pain ibuprofen (MOTRIN) 800 mg tablet Take 1 tablet (800 mg total) by mouth every 6 (six) hours as needed for pain. 08/22/2024 Discontinued (Patient Stopped On Own) levoFLOXacin 500 mg oral tablet (1 source) Quinolone Antimicrobial Start: 11-07-2021 take 500 mg by mouth once daily Levofloxacin Active 500 MG PO Daily November 07, 2021 12:00am levothyroxine sodium 0.1 mg oral tablet (20 sources) l-Thyroxine Start: 08-06-2021 End: 08-01-2024 take 1 tablet by mouth in the morning levothyroxine (Synthroid, Levoxyl) 100 MCG tablet Take 100 mcg by mouth in the morning. 05/04/2024 Active Start: 02-03-2019 levothyroxine 100 mcg (0.1 mg) Tab 100 microgram, Oral, Daily, PRN Pain, # 30 tab(s), Refills(s) 6, Pharmacy: [id number] Start Date: 02/03/19 Status: Ordered Quantity: 30.0 Unit: tab(s) Repeat number: 7 metroNIDAZOLE 0.01 mg/mg topical gel (20 sources) Nitroimidazole Antimicrobial Start: 08-17-2023 metroNIDAZOLE (MetrogeL) 1 % gel Apply 1 Application topically in the morning. 45 g 1 08/17/2023 Active phentermine hydrochloride 37.5 mg oral tablet (15 sources) Sympathomimetic Amine Anorectic Start: 08-17-2023 End: 08-22-2024 take 1 tablet by mouth once daily before breakfast phentermine (ADIPEX-P) 37.5 mg tablet Indications: Morbid obesity (CMS-HCC) Take 1 tablet (37.5 mg total) by mouth every morning before breakfast. 30 tablet 10/17/2023 08/22/2024 Discontinued (Patient Stopped On Own) Prenat.Vits,Eddie,Mi x-Adrh-Icbdt (2 sources) Start: 08-06-2021 take 1 tablet by mouth once daily Prenat.Vits,Eddie,Mi j-Whpg-Gwrcg Active 1 TAB PO Daily August 06, 2021 12:00am 22-ubmn-bcpdlv 9-dha 31 mg iron- 1 mg-200 mg capsule (4 sources) Start: 07-07-2024 take 1 capsule by mouth in the morning 88-qefg-fkolwk 9-dha 31 mg iron- 1 mg-200 mg capsule Take 1 capsule by mouth in the morning. 90 capsule 3 07/07/2024 Active Vit-Fe Fumarate-FA (Classic ) 28-0.8 MG tablet (10 sources) Start: 07-07-2024 take 1 tablet by mouth in the morning Vit-Fe Fumarate-FA (Classic ) 28-0.8 MG tablet Take 1 tablet by mouth in the morning. 07/07/2024 Active Completed/Discontinued Medications Medication Drug Class(es) Dates Sig (Normalized) Sig (Original) ciprofloxacin 500 mg oral tablet (3 sources) Quinolone Antimicrobial Start: 10-06-2021 End: 10-13-2021 take 1 tablet by mouth twice daily Ciprofloxacin Hcl (Cipro) 500 mg tablet Discontinued 500 MG PO Twice daily October 06, 2021 12:00am October 13, 2021 9:03am clindamycin 0.01 mg/mg topical gel (1 source) Lincosamide Antibacterial Start: 02-27-2022 End: 03-06-2022 Clindamycin Phosphate 1 % gel Discontinued 1 APPLIC TOPICAL .w/dressings February 27, 2022 1:00am March 06, 2022 2:04pm thin layer to wound bed ofloxacin 3 mg/ml ophthalmic solution (1 source) Quinolone Antimicrobial Start: 01-10-2022 End: 03-06-2022 Ofloxacin 0.3 % drops Discontinued 0 EYE-LEFT .COMPLEX January 10, 2022 12:00am March 06, 2022 2:03pm put 1-2 drps into affected eye(s) every 2-4 h x 2 days, then 1-2 drps 4 times/day days 3-7 Prenat.Vits,Eddie,Min-Ir on-Folic Tablet (1 source) Start: 08-06-2021 End: 01-25-2024 take 1 tablet by mouth once daily Prenat.Vits,Eddie,Mi y-Adnp-Igmez Tablet Discontinued 1 TAB PO Daily August 06, 2021 12:00am January 25, 2024 10:09am sulfamethoxazole 800 mg / trimethoprim 160 mg oral tablet (1 source) Dihydrofolate Reductase Inhibitor Antibacterial, Sulfonamide Antimicrobial Start: 03-01-2022 End: 03-20-2022 take 1 tablet by mouth twice daily Sulfamethoxazole-T rimethoprim (Bactrim Ds) 800-160 mg tablet Discontinued 1 TAB PO Twice daily 20 March 01, 2022 1:00am March 20, 2022 2:56pm Problems Active Problems Problem Classification Problem Date Documented Date Episodic/Chronic Cardiac and circulatory congenital anomalies (4 sources) Congenital insufficiency of aortic valve; Translations: [CONGENITAL INSUFFICNCY AORTIC VALVE] Onset: 09-29-2021 Chronic Complications of surgical procedures or medical care (9 sources) Non-healing surgical wound; Translations: [Other complications of procedures, not elsewhere classified, initial encounter] Onset: 03-21-2022 11-22-2021 Episodic Comment on above: Problem List clean-u p per request of Phys. EHR Cmte Inflammation; infection of eye (except that caused by tuberculosis or sexually transmitteddisease) (1 source) Conjunctivitis of left eye; Translations: [Unspecified conjunctivitis] 03-28-2023 Episodic Comment on above: Problem List clean-u p per request of Phys. EHR Cmte Other complications of (20 sources) Maternal obesity complicating , childbirth and the puerperium, antepartum; Translations: [Obesity complicating , unspecified trimester] Onset: 12-04-2018 Resolved: 08-04-2022 08-04-2022 Chronic Other complications of (6 sources) Finding related to ; Translations: [ related conditions, unspecified, second trimester] 10-02-2024 Episodic Other complications of (6 sources) Multigravida of advanced maternal age; Translations: [Supervision of elderly multigravida, second trimester] 10-02-2024 Episodic Other complications of (6 sources) RhD negative; Translations: [Other specified related conditions, unspecified trimester] 10-02-2024 Episodic Other complications of (6 sources) Hypothyroidism in ; Translations: [Endocrine, nutritional and metabolic diseases complicating , unspecified trimester] 10-02-2024 Episodic Other infections; including parasitic (1 source) Disorder due to infection; Translations: [Unspecified infectious disease] 03-20-2022 Episodic Other inflammatory condition of skin (2 sources) [...] conditions due to external causes (2 sources) Local infection of wound; Translations: [Other injury of unspecified body region, initial encounter] 12-22-2021 Episodic Comment on above: Problem List clean-u p per request of Phys. EHR Cmte Other injuries and conditions due to external causes (1 source) Open wound; Translations: [Other injury of unspecified body region, initial encounter] 05-08-2022 Episodic Other nutritional; endocrine; and metabolic disorders (4 sources) Morbid obesity; Translations: [Morbid (severe) obesity due to excess calories] 08-17-2023 Chronic Other nutritional; endocrine; and metabolic disorders (1 source) Severe obesity; Translations: [Morbid (severe) obesity due to excess calories] 10-12-2023 Chronic Other nutritional; endocrine; and metabolic disorders (2 sources) Obesity; Translations: [Obesity, unspecified] 03-20-2022 Chronic Other nutritional; endocrine; and metabolic disorders (1 source) Morbid (severe) obesity due to excess calories; Translations: [Morbid (severe) obesity due to excess calories] Onset: 10-12-2023 Chronic Other nutritional; endocrine; and metabolic disorders (1 source) Body mass index (BMI) 40.0-44.9, adult; Translations: [Body mass index (BMI) 40.0-44.9, adult] Onset: 10-12-2023 Chronic Other and delivery including normal (1 source) care status; Translations: [Encounter for supervision of other normal , first trimester] 07-29-2024 Episodic Other screening for suspected conditions (not mental disorders or infectious disease) (6 sources) Patient encounter status; Translations: [Encounter for screening mammogram for malignant neoplasm of breast] Onset: 07-04-2024 04-30-2024 Episodic Previous (2 sources) Uterine scar from previous surgery affecting ; Translations: [Maternal care for low transverse scar from previous delivery] 10-02-2024 Episodic Residual codes; unclassified (3 sources) Gestation period, 39 weeks; Translations: [39 weeks gestation of ] 08-06-2021 Episodic Comment on above: Problem List clean-u p per request of Phys. EHR Cmte Residual codes; unclassified (1 source) Inflammatory disorder 02-27-2022 Episodic Residual codes; unclassified (1 source) Gestation period, 7 weeks; Translations: [Less than 8 weeks gestation of ] 07-29-2024 Episodic Residual codes; unclassified (2 sources) Gestation period, 11 weeks; Translations: [11 weeks gestation of ] Onset: 08-22-2024 08-22-2024 Episodic Residual codes; unclassified (1 source) 11 weeks gestation of ; Translations: [11 weeks gestation of ] Onset: 08-22-2024 Episodic Residual codes; unclassified (2 sources) Gestation period, 16 weeks; Translations: [16 weeks gestation of ] 10-02-2024 Episodic Residual codes; unclassified (2 sources) Gestation period, 20 weeks; Translations: [20 weeks gestation of ] 10-30-2024 Episodic Residual codes; unclassified (2 sources) Gestation period, 24 weeks; Translations: [24 weeks gestation of ] 11-27-2024 Episodic Thyroid disorders (20 sources) Hypothyroidism; Translations: [Hypothyroidism, unspecified] Onset: 07-17-2022 10-04-2021 Chronic Unclassified (1 source) CONTACT W/AND (SUSP) EXPOS COVID-19; Translations: [CONTACT W/AND (SUSP) EXPOS COVID-19] Onset: 09-01-2021 Unclassified (1 source) Age mother conceived over 35 04-22-2019 Unclassified (1 source) Annual Exam Onset: 08-22-2024 Unclassified (1 source) Weight Check Onset: 10-12-2023 Viral infection (1 source) Disease caused by 2019-nCoV; Translations: [COVID-19] 01-25-2024 Episodic Past or Other Problems Problem Classification Problem Date Documented Da te Episodic/Chronic Abdominal pain (3 sources) Lower abdominal pain, unspecified; Translations: [LOWER ABDOMINAL PAIN UNSPECIFIED] Onset: 08-30-2021 Episodic Cardiac dysrhythmias (1 source) Palpitations; Translations: [Palpitations] 09-11-2023 Episodic Diseases of mouth; excluding dental (1 source) Glossodynia; Translations: [Glossodynia] 06-15-2023 Episodic Fever of unknown origin (1 source) Fever, unspecified; Translations: [FEVER UNSPECIFIED] Onset: 09-01-2021 Episodic Lymphadenitis (1 source) Acute lymphadenitis; Translations: [Acute lymphadenitis, unspecified] 06-15-2023 Episodic Mood disorders (14 sources) Mood disorders Onset: 10-12-2023 Resolved: 08-22-2024 10-12-2023 Other complications of ; puerperium affecting management of mother (1 source) Infection of obstetric surgical wound, organ and space site; Translations: [INF OB SURG WND ORGAN AND SPACE SITE] Onset: 09-01-2021 Episodic Other complications of ; puerperium affecting management of mother (1 source) Sepsis following an obstetrical procedure; Translations: [SEPSIS FOLLOW OBSTETRICAL PROCEDURE] Onset: 09-01-2021 Episodic Other complications of (14 sources) Elderly primigravida; Translations: [Supervision of elderly primigravida, unspecified trimester] Onset: 12-04-2018 Resolved: 04-21-2023 04-21-2023 Episodic Other gastrointestinal disorders (4 sources) Intra-abdominal and pelvic swelling, mass and lump, unspecified site; Translations: [INTRA-ABD PELV SWELL MASS LUMP] Onset: 08-29-2021 Episodic Septicemia (except in labor) (1 source) Sepsis, unspecified organism; Translations: [SEPSIS UNSPECIFIED ORGANISM] Onset: 09-01-2021 Episodic Unclassified (13 sources) Onset: 08-17-2023 08-17-2023 Unclassified (1 source) Onset: 07-24-2018 Resolved: 04-24-2019 04-26-2019 Results Test Name Value Interpretation Reference Range Facility No Panel Informationon 11-27 Glucose, UA Negative Negative - 1999(110) ++++ mg/dL [facility] Interpretation and review of laboratory results Normal [facility] Protein, UA Negative Negative - 2000(20) ++++ mg/dL [facility] No Panel Informationon 10-30 Glucose, UA Negative Negative - 2000(110) ++++ mg/dL [facility] Interpretation and review of laboratory results Normal [facility] Protein, UA Negative Negative - 2000(20) ++++ mg/dL [facility] No Panel Informationon 10-02 Glucose, UA Negative Negative - 2000(110) ++++ mg/dL [facility] Interpretation and review of laboratory results Normal [facility] Protein, UA Negative Negative - 2000(20) ++++ mg/dL [facility] COMPREHENSIVE METABOLIC PANE [place] 08-22-2024 Albumin [Mass/Vol] 3.9 g/dL Normal 3.2-5.3 [facility] Comment on above: Performed By: #### C MP #### [facility] ([facility]) [address] [place] [address] VIR ALP [Catalytic activity/Vol] 50 U/L Normal 39-130 [facility] Comment on above: Performed By: #### C MP #### [facility] ([facility]) [address] [place] [address] VIR ALT [Catalytic activity/Vol] 16 U/L Normal <=31 [facility] Comment on above: Performed By: #### C MP #### [facility] ([facility]) [address] [place] [address] VIR Anion gap [Moles/Vol] 9 mmol/L Normal 5-15 [facility] Comment on above: Performed By: #### C MP #### [facility] ([facility]) [address] [place] [address] VIR AST [Catalytic activity/Vol] 14 U/L Normal <=41 [facility] Comment on above: Performed By: #### C MP #### [facility] ([facility]) [address] [place] [address] VIR Bilirubin [Mass/Vol] 0.3 mg/dL Normal 0.3-1.2 [facility] Comment on above: Performed By: #### C MP #### [facility] ([facility]) [address] [place] [address] VIR Calcium [Mass/Vol] 9.0 mg/dL Normal 8.5-10.5 [facility] Comment on above: Performed By: #### C MP #### [facility] ([facility]) [address] [place] [address] VIR Chloride [Moles/Vol] 104 mmol/L Normal 98-109 [facility] Comment on above: Performed By: #### C MP #### [facility] ([facility]) [address] [place] [address] VIR CO2 [Moles/Vol] 24 mmol/L Normal 22-32 [facility] Comment on above: Performed By: #### C MP #### [facility] ([facility]) [address] [place] [address] VIR Creatinine [Mass/Vol] 0.62 mg/dL Normal 0.40-1.00 [facility] Comment on above: Result Comment: METH OD TRACEABLE TO IDMS STANDARD Performed By: #### C MP #### [facility] ([facility]) [address] [place] [address] VIR EGFR (CKD-EPI) NON-RACE DEPENDENT >^90 Normal >=60 [facility] Comment on above: Result Comment: Repo rted eGFR is based on the CKD-EPI 2020 equation that does not use a race coefficient. Performed By: #### C MP #### [facility] ([facility]) [address] [place] [address] VIR Glucose [Mass/Vol] 93 mg/dL Normal 65-99 [facility] Comment on above: Performed By: #### C MP #### [facility] ([facility]) [address] [place] [address] VIR Potassium [Moles/Vol] 4.1 mmol/L Normal 3.5-5.0 [facility] Comment on above: Performed By: #### C MP #### [facility] ([facility]) [address] [place] [address] VIR Protein [Mass/Vol] 7.0 g/dL Normal 6.0-8.0 [facility] Comment on above: Performed By: #### C MP #### [facility] ([facility]) [address] [place] [address] VIR Sodium [Moles/Vol] 137 mmol/L Normal 134-146 [facility] Comment on above: Performed By: #### C MP #### [facility] ([facility]) [address] [place] [address] VIR Urea nitrogen [Mass/Vol] 10 mg/dL Normal 5-23 [facility] Comment on above: Performed By: #### C MP #### [facility] ([facility]) [address] [place] [address] VIR LIPID PROFILEon 08-22-2024 Cholesterol [Mass/Vol] 174 mg/dL Normal 150-200 [facility] Comment on above: Performed By: #### L IPR #### [facility] ([facility]) [address] [place] [address] VIR Cholesterol in HDL [Mass/Vol] 73 mg/dL Normal >39 [facility] Comment on above: Result Comment: HDL <40 mg/dL - High Risk HDL > or = 40mg/dL- Desirable HDL >60 mg/dL - Negative Risk Performed By: #### L IPR #### [facility] ([facility]) [address] [place] [address] VIR Cholesterol in LDL [Mass/Vol] 85 mg/dL Normal <130 [facility] Comment on above: Result Comment: LDL <100 mg/dL - Desirable LDL >160 mg/dL - High Risk Performed By: #### L IPR #### [facility] ([facility]) [address] [place] [address] VIR CHOLESTEROL:HDL 2.4 Normal 1.0-5.0 [facility] Comment on above: Performed By: #### L IPR #### [facility] ([facility]) [address] [place] [address] VIR Triglyceride [Mass/Vol] 80 mg/dL Normal 27-150 P [facility] Comment on above: Performed By: #### L IPR #### [facility] ([facility]) [address] [place] [address] VIR VERY LOW LIPOPROTEIN 16 mg/dL Normal 0-30 [facility] Comment on above: Performed By: #### L IPR #### [facility] ([facility]) [address] [place] [address] VIR C Urineon 08-16-2024 Bacteria identified Cx Nom (U) Microbiology PROCEDURE: Urine Culture [R1] SOURCE: U CleanCatch BODY SITE: COLLECTED DATE/TIME: 08/14/2024 17:14 EDT RECEIVED DATE/TIME: 08/14/2024 18:18 EDT START DATE/TIME: 08/14/2024 18:18 EDT FREE TEXT SOURCE: Dea CORLEY Stephanie FINAL REPORTS Final Report [] Verified Date/Time: 08/16/2024 06:35 EDT 5,000 cfu/ml Mixed skin contaminants Performing Locations R1: This test was performed at: [facility], [address] [place] [address], [id number]- , [place], Normal [facility] Comment on above: Performed By: #### 2 [id number] #### [facility] [address] [place] [id number] HIV Screen 4th Generation wR fxon 08-16-2024 HIV 1+2 Ab+HIV1 p24 Ag IA Ql Non-Reactive Invalid Interpretation Code Non Reactive [facility] Comment on above: Result Comment: HIV- 1/HIV-2 antibodies and HIV-1 p24 antigen were NOT detected. There is no laboratory evidence of HIV infection. HIV Negative Performed at: [address] [id number] PhD Peter Ward Performed By: #### 9 [id number] #### [facility] [address] [place] [id number] Hep Bs Agon 08-16-2024 HBV surface Ag IA Ql Negative Invalid Interpretation Code Negative [facility] Comment on above: Result Comment: Perf ormed at: [address] [id number] PhD Peter Ward Performed By: #### 2 [id number] #### [facility] [address] [place] [id number] RPR with Conf Rfxon 08-17-19 25 Reagin Ab RPR Ql (S) Non-Reactive Invalid Interpretation Code Non Reactive [facility] Comment on above: Result Comment: Perf ormed at: [address] [id number] PhD Peter Ward Performed By: #### 1 [id number] #### [facility] [address] [place] [id number] Rubella IgGon 08-16-2024 Rubella virus IgG Qn (S) 6.17 [IU]/mL Invalid Interpretation Code Immune >0.99 [facility] Comment on above: Result Comment: Non- immune <0.90 Equivocal 0.90 - 0.99 Immune >0.99 Performed at: [address] [id number] PhD Peter Ward Performed By: #### 1 [id number] #### [facility] [address] [place] [address] ABO/Rhon 08-15-2024 ABO/Rh Negative Invalid Interpretation Code [facility] Comment on above: Performed By: #### 2 [id number] #### [facility] Laboratory [address] [place] [address] ABSCon 08-15-2024 ABSC Gel Interp Negative Normal [facility] Comment on above: Performed By: #### 1 [id number] #### [facility] Laboratory [address] [place] [address] CBC w/ Auto Diffon 5 Basophils/100 WBC (Bld) 0.3 % Normal 0.0-2.0 [facility] Comment on above: Performed By: #### 2 [id number] #### [facility] Laboratory [address] [place] [address] Erythrocyte distribution width (RBC) [Ratio] 14.3 % High 10.9-14.2 [facility] Comment on above: Performed By: #### 2 [id number] #### [facility] Laboratory [address] [place] [address] Hematocrit (Bld) [Volume fraction] 42.1 % Normal 34.0-46.0 [facility] Comment on above: Performed By: #### 2 [id number] #### [facility] Laboratory [address] [place] [address] Lymphocytes/100 WBC (Bld) 20.4 % Normal 14.0-50.0 [facility] Comment on above: Performed By: #### 2 [id number] #### [facility] Laboratory [address] [place] [address] Platelet mean volume (Bld) [Entitic vol] 7.7 fL Normal 6.4-10.8 [facility] Comment on above: Performed By: #### 2 [id number] #### [facility] Laboratory [address] [place] [address] Basophils/Leukocytes Auto (Bld) [Pure # fraction] 0.0 E9/L Normal 0.0-0.2 [facility] Comment on above: Performed By: #### 2 [id number] #### [facility] Laboratory [address] [place] [address] Eosinophils (Bld) [#/Vol] 0.0 E9/L Normal 0.0-0.5 [facility] Comment on above: Performed By: #### 2 [id number] #### [facility] Laboratory [address] [place] [address] Eosinophils/100 WBC (Bld) 0.4 % Normal 0.0-8.0 [facility] Comment on above: Performed By: #### 2 [id number] #### [facility] Laboratory [address] [place] [address] Hemoglobin (Bld) [Mass/Vol] 14.5 g/dL Normal 12.0-16.0 [facility] Comment on above: Performed By: #### 2 [id number] #### [facility] Laboratory [address] [place] [address] Lymphocytes (Bld) [#/Vol] 2.0 E9/L Normal 1.0-4.0 [facility] Comment on above: Performed By: #### 2 [id number] #### [facility] Laboratory [address] [place] [address] MCH (RBC) [Entitic mass] 30.5 pg Normal 27.0-34.0 [facility] Comment on above: Performed By: #### 2 [id number] #### [facility] Laboratory [address] [place] [address] MCHC (RBC) [Mass/Vol] 34.5 g/dL Normal 31.4-36.0 [facility] Comment on above: Performed By: #### 2 [id number] #### [facility] Laboratory [address] [place] [address] MCV (RBC) [Entitic vol] 88.4 fL Normal 80.0-100.0 [facility] Comment on above: Performed By: #### 2 145050 #### [facility] Laboratory [address] [place] [address] Monocytes (Bld) [#/Vol] 0.6 E9/L Normal 0.2-1.0 [facility] Comment on above: Performed By: #### 2 833349 #### [facility] Laboratory [address] [place] [address] Neutrophils (Bld) [#/Vol] 7.0 E9/L Normal 2.0-7.5 [facility] Comment on above: Performed By: #### 2 [id number] #### [facility] Laboratory [address] [place] [address] Neutrophils/100 WBC (Bld) 73.0 % Normal 36.0-75.0 [facility] Comment on above: Performed By: #### 2 909800 #### [facility] Laboratory [address] [place] [address] Platelets (Bld) [#/Vol] 328.0 E9/L Normal 150.0-500.0 [facility] Comment on above: Performed By: #### 2 [id number] #### [facility] Laboratory [address] [place] [address] RBC (Bld) [#/Vol] 4.8 E12/L Normal 4.3-5.9 [facility] Comment on above: Performed By: #### 2 150075 #### [facility] Laboratory [address] [place] [address] WBC corrected for nucl RBC Auto (Bld) [#/Vol] 9.6 E9/L Normal 4.0-11.0 [facility] Comment on above: Performed By: #### 2 127492 #### [facility] Laboratory [address] [place] [address] CHEMISTRYOrdered By: SYSTEM SYSTEM on 08-14-2024 Amphetamines Screen method >1000 ng/mL Ql (U) NEGATIVE 6 (08/14/24 5:14 PM) Normal NEGATIVE [facility] Comment on above: Interpretive Data: N egative Cutoff: <1000 ng/mL Barbiturates Screen Ql (U) NEGATIVE 7 (08/14/24 5:14 PM) Normal NEGATIVE [facility] Comment on above: Interpretive Data: N egative Cutoff: <200 ng/mL Benzodiazepines Ql (U) NEGATIVE 1 (08/14/24 5:14 PM) Normal NEGATIVE [facility] Comment on above: Interpretive Data: N egative Cutoff: <200 ng/mL Cannabinoids Screen Ql (U) NEGATIVE 5 (08/14/24 5:14 PM) Normal NEGATIVE [facility] Comment on above: Interpretive Data: N egative Cutoff: <50 ng/mL Cocaine Ql (U) NEGATIVE 2 (08/14/24 5:14 PM) Normal NEGATIVE [facility] Comment on above: Interpretive Data: N egative Cutoff: <300 ng/mL Opiates Screen Ql (U) NEGATIVE 3 (08/14/24 5:14 PM) Normal NEGATIVE [facility] Comment on above: Interpretive Data: N egative Cutoff: <300 ng/mL Phencyclidine Screen method >25 ng/mL Ql (U) NEGATIVE 4 (08/14/24 5:14 PM) Normal NEGATIVE [facility] Comment on above: Interpretive Data: N egative Cutoff: <25 ng/mL These drug screen results are to be used for medical (i.e., treatment) purposes only. Unconfirmed drug screening results must not be used for non-medical purposes (e.g., employment testing, legal testing). U Fentanyl NEGATIVE 9 (08/14/24 5:14 PM) Normal NEGATIVE [facility] Comment on above: Interpretive Data: N egative Cutoff: <5 ng/mL These drug screen results are to be used for medical (i.e., treatment) purposes only. Unconfirmed drug screening results must not be used for non-medical purposes (e.g., employment testing, legal testing). Free T4 [Mass/Vol] 0.88 ng/dL Normal 0.58 - 1. 64 ng/dL [facility] TSH Qn 1.40 m[IU]/L Normal 0.34 - 5.60 mcIU/mL [facility] CHEMISTRYOrdered By: Shi Schmitz on 08-14-2024 HbA1c (Bld) [Mass fraction] 4.9 % Normal <=5.9% [facility] ChemAutoSS [facility] CBC W/ AUTO DIFFon EOSINOPHILS/100 LEUKOCYTES:NFR:PT:BLD:Q N:AUTOMATED COUNT 0.4 % 0.0 - 8.0 % [facility] EOSINOPHILS:NCNC:PT:BLD :QN: 0 [facility] BASOPHILS/LEUKOCYTES:NF R.DF:PT:BLD:QN:AUTOMATE D COUNT 0 [facility] ERYTHROCYTE MEAN CORPUSCULAR HEMOGLOBIN CONCENTRATION:MCNC:PT:R BC:QN 34.5 [facility] ERYTHROCYTE MEAN CORPUSCULAR HEMOGLOBIN:ENTMASS:PT:R BC:QN 30.5 pg 27.0 - 34.0 pg [facility] ERYTHROCYTE MEAN CORPUSCULAR VOLUME:ENTVOL:PT:RBC:QN :AUTOMATED COUNT 88.4 fL 80.0 - 100.0 fL [facility] ERYTHROCYTES:NCNC:PT:BL D:QN:AUTOMATED COUNT 4.8 [facility] HEMOGLOBIN:MCNC:PT:BLD: QN: 14.5 [facility] LEUKOCYTES 9.6 [facility] MONOCYTES:NCNC:PT:BLD:Q N:AUTOMATED COUNT 0.6 [facility] NEUTROPHILS:NCNC:PT:BLD :QN:AUTOMATED COUNT 7 [facility] PLATELETS:NCNC:PT:BLD:Q N:AUTOMATED COUNT 328 [facility] Interpretation and review of laboratory results Abnormal [facility] LYMPHOCYTES:NCNC:PT:BLD :QN: 2 [facility] Neutrophils/100 WBC (Bld) 73 % 36.0 - 75.0 % [facility] Original Ordering Provider: QUIN BLACKBURNISYALBERT [facility] Free T4on 08-14-2024 Free T4 [Mass/Vol] 0.88 ng/dL Normal 0.58-1.64 [facility] Comment on above: Performed By: #### 2 [id number] #### [facility] Laboratory [address] [place] [address] HEMATOLOGYOrdered By: SYSTEM SYSTEM on 08-14-2024 Basophils/100 WBC (Bld) 0.3 % Normal 0.0 - 2.0 % [facility] Basophils/Leukocytes Auto (Bld) [Pure # fraction] 0.0 E9/L Normal 0.0 - 0.2 E9/L [facility] Eosinophils (Bld) [#/Vol] 0.0 E9/L Normal 0.0 - 0.5 E9/L [facility] Eosinophils/100 WBC (Bld) 0.4 % Normal 0.0 - 8.0 % [facility] Erythrocyte distribution width (RBC) [Ratio] 14.3 % High 10.9 - 14.2 % [facility] Hematocrit (Bld) [Volume fraction] 42.1 % Normal 34.0 - 46.0 % [facility] Hemoglobin (Bld) [Mass/Vol] 14.5 g/dL Normal 12.0 - 16.0 gm/dL [facility] Lymphocytes (Bld) [#/Vol] 2.0 E9/L Normal 1.0 - 4.0 E9/L [facility] Lymphocytes/100 WBC (Bld) 20.4 % Normal 14.0 - 50.0 % [facility] MCH (RBC) [Entitic mass] 30.5 pg Normal 27.0 - 34.0 pg [facility] MCHC (RBC) [Mass/Vol] 34.5 g/dL Normal 31.4 - 36.0 gm/dL [facility] MCV (RBC) [Entitic vol] 88.4 fL Normal 80.0 - 100.0 fL [facility] Monocytes (Bld) [#/Vol] 0.6 E9/L Normal 0.2 - 1.0 E9/L [facility] Monocytes/100 WBC (Bld) 5.9 % Normal 4.0 - 14.0 % [facility] Neutrophils (Bld) [#/Vol] 7.0 E9/L Normal 2.0 - 7.5 E9/L [facility] Neutrophils/100 WBC (Bld) 73.0 % Normal 36.0 - 75.0 % [facility] Platelet mean volume (Bld) [Entitic vol] 7.7 fL Normal 6.4 - 10.8 fL [facility] Platelets (Bld) [#/Vol] 328.0 E9/L Normal 150. 0 - 500.0 E9/L [facility] RBC (Bld) [#/Vol] 4.8 E12/L Normal 4.3 - 5.9 E12/L [facility] WBC corrected for nucl RBC Auto (Bld) [#/Vol] 9.6 E9/L Normal 4.0 - 11.0 E9/L [facility] BthL2tal 08-14-2024 HbA1c (Bld) [Mass fraction] 4.9 % Normal <=5.9 [facility] Comment on above: Performed By: #### 7 [id number] #### [facility] Laboratory [address] [place] [address] Reference Lab Notificationon 08-14-2024 Ref Lab OTHER Normal [facility] Comment on above: Performed By: #### 2 [id number] #### [facility] Laboratory [address] [place] [address] Results Report See Comment Normal [facility] Comment on above: Result Comment: Resu lts for this order will not be sent to [facility]. The Reference Lab performing the testing will send the results directly to the ordering provider. Performed By: #### 2 [id number] #### [facility] Laboratory [address] [place] [id number] Reference Laboratory Testing Ordered By: Esther Coleman on 08-14-2024 Ref Lab Other (08/14/24 5:08 PM) Normal [facility] SendOutsSS Results Report See Comment 8 (08/14/24 5:08 PM) Normal [facility] Comment on above: Result Comment: Resu lts for this order will not be sent to [facility]. The Reference Lab performing the testing will send the results directly to the ordering provider. TSHon 08-14-2024 TSH Qn 1.40 m[IU]/L Normal 0.34-5.60 [facility] Comment on above: Performed By: #### 2 [id number] #### [facility] Laboratory [address] [place] [address] U Drug Screenon 08-14-2024 Amphetamines Screen method >1000 ng/mL Ql (U) Negative Normal NEGATIVE [facility] Comment on above: Result Comment: Nega tive Cutoff: <1000 ng/mL Performed By: #### 2 [id number] #### [facility] Laboratory [address] [place] [address] Barbiturates Screen Ql (U) Negative Normal NEGATIVE [facility] Comment on above: Result Comment: Nega tive Cutoff: <200 ng/mL Performed By: #### 2 105190 #### [facility] Laboratory [address] [place] [address] Benzodiazepines Ql (U) Negative Normal NEGATIVE [facility] Comment on above: Result Comment: Nega tive Cutoff: <200 ng/mL Performed By: #### 2 [id number] #### [facility] Laboratory [address] [place] [address] Cannabinoids Screen Ql (U) Negative Normal NEGATIVE [facility] Comment on above: Result Comment: Nega tive Cutoff: <50 ng/mL Performed By: #### 2 397912 #### [facility] Laboratory [address] [place] [address] Cocaine Ql (U) Negative Normal NEGATIVE [facility] Comment on above: Result Comment: Nega tive Cutoff: <300 ng/mL Performed By: #### 2 805163 #### [facility] Laboratory [address] [place] [address] Opiates Screen Ql (U) Negative Normal NEGATIVE [facility] Comment on above: Result Comment: Nega tive Cutoff: <300 ng/mL Performed By: #### 2 [id number] #### [facility] Laboratory [address] [place] [address] Phencyclidine Screen method >25 ng/mL Ql (U) Negative Normal NEGATIVE [facility] Comment on above: Result Comment: Nega tive Cutoff: <25 ng/mL These drug screen results are to be used for medical (i.e., treatment) purposes only. Unconfirmed drug screening results must not be used for non-medical purposes (e.g., employment testing, legal testing). Performed By: #### 2 [id number] #### [facility] Laboratory [address] [place] [address] U Fentanyl Negative Normal NEGATIVE [facility] Comment on above: Result Comment: Nega tive Cutoff: <5 ng/mL These drug screen results are to be used for medical (i.e., treatment) purposes only. Unconfirmed drug screening results must not be used for non-medical purposes (e.g., employment testing, legal testing). Performed By: #### 2 [id number] #### [facility] Laboratory [address] [place] [address] MM special view RT w/CADon 0 07-09-2024 MM special view RT w/CAD [facility] [address] [place] [address] [address] [id number] Mammography Report Signed Patient: Anthony Ritchie MR#: [id number] : 1980 Acct:[id number] Age/Sex: 43 / F Adm Date: 07/04/24 Loc: [place] Room: Type: [facility] Attending Dr: PRIYANKA CovingtonC Ordering Provider: DARRELL Murillo Date of Service: 07/04/24 Procedure(s): MM special view RT w/CAD Accession Number(s): ([id number]) MM/MM special view RT w/CAD: ABN MAMM Copies to: DARRELL Murillo CLINICAL DATA: Screening for malignancy. RIGHT DIAGNOSTIC MAMMOGRAMS - FULL FIELD DIGITAL WITH TOMOSYNTHESIS AND CAD Tomosynthesis true lateral and spot compression craniocaudal and mediolateral oblique views of the right breast were obtained using low-dose digital technique. Comparison is made to prior studies from March 16, 2023 and June 20, 2024. This examination was reviewed with the aid of CAD. There are minor residual scattered fibroglandular densities. The asymmetry at the superior aspect of the right breast at the time the prior is not reproduced. There are no other suspicious masses, typically malignant calcifications or architectural distortion. MM/MM special view RT w/CAD IMPRESSION: NO MAMMOGRAPHIC EVIDENCE OF MALIGNANCY. ROUTINE FOLLOW-UP IS RECOMMENDED IN ONE YEAR. RESULT CODE: 1 Negative DENSITY CODE: 1 (<25% glandular) FOLLOW UP: 1YR The false-negative rate of mammography is approximately 10-percent. Management of a palpable abnormality must be based on clinical grounds. Patient was entered into a reminder system with a target due date for the next mammogram. Impression dictated by: Manju Sewell M.D.07/09/2024 9:15 AM Dictation Location: [place] [address] Dictated By: Manju Sewell MD 07/09/2410 Signed By: 07/09/24914 Normal [facility] FREE T4on 10-12-2023 Free T4 [Mass/Vol] 1.04 ng/dL Normal 0.61-1.60 [facility] Comment on above: Performed By: #### 3 016-3, 3024-7 #### [facility] ([id number]) [address], [address] [place] [address] TSH Qnon 10-12-2023 TSH 1.05 uIU/mL Normal 0.49-4.67 [facility] Comment on above: Performed By: #### 3 016-3, 3024-7 #### [facility] ([id number]) [address], [address] [place] [address] COMPREHENSIVE METABOLIC PANE Cuauhtemoc 08-17-2023 Albumin [Mass/Vol] 4.3 g/dL Normal 3.2-5.3 [facility] Comment on above: Performed By: #### C ANDREAS, 15448-6, THYR #### [facility] ([id number]) [address], [address] [place] [address] ALP [Catalytic activity/Vol] 64 U/L Normal 39-130 [facility] Comment on above: Performed By: #### C ANDREAS, 26812-5, THYR #### [facility] ([id number]) [address], [address] [place] [address] ALT [Catalytic activity/Vol] 15 U/L Normal 0-31 [facility] Comment on above: Performed By: #### Zeny JOHNS, 87663-7, THYR #### [facility] ([id number]) [address], [address] [place] [address] Anion gap [Moles/Vol] 8 mmol/L Normal 5-15 [facility] Comment on above: Performed By: #### Zeny OJHNS, 35571-3, THYR #### [facility] ([id number]) [address], [address] [place] [address] AST [Catalytic activity/Vol] 17 U/L Normal 0-41 [facility] Comment on above: Performed By: #### C ANDREAS, 89797-4, THYR #### [facility] ([id number]) [address] [place] [address] Bilirubin [Mass/Vol] 0.5 mg/dL Normal 0.3-1.2 [facility] Comment on above: Performed By: #### Zeny JOHNS, 47682-1, THYR #### [facility] ([id number]) [address] [place] [address] Calcium [Mass/Vol] 9.1 mg/dL Normal 8.5-10.5 [facility] Comment on above: Performed By: #### Zeny JOHNS, 37560-5, THYR #### [facility] ([id number]) [address], [address] [place] [address] Chloride [Moles/Vol] 103 mmol/L Normal 98-109 [facility] Comment on above: Performed By: #### Zeny JOHNS, 95420-8, THYR #### [facility] ([id number]) [address] [place] [address] CO2 [Moles/Vol] 26 mmol/L Normal 22-32 [facility] Comment on above: Performed By: #### Zeny JOHNS, 57060-8, THYR #### [facility] ([id number]) [address] [place] [address] Creatinine [Mass/Vol] 0.73 mg/dL Normal 0.40-1.00 [facility] Comment on above: Result Comment: METH OD TRACEABLE TO IDMS STANDARD Performed By: #### C ANDREAS, 91964-5, THYR #### [facility] ([id number]) [address] [place] [address] eGFR (CKD-EPI) NON-RACE DEPENDENT >90 Normal >59 [facility] Comment on above: Result Comment: Reported eGFR is based on the CKD-EPI 2020 equation that does not use a race coefficient. Performed By: #### C ANDREAS 94679-5, THYR #### [facility] ([id number]) [address], [facility] [address] [place] [address] Glucose [Mass/Vol] 91 mg/dL Normal 65-99 [facility] Comment on above: Performed By: #### Zeny JOHNS 55549-6, THYR #### [facility] ([id number]) [address], [address] [place] [address] Potassium [Moles/Vol] 4.6 mmol/L Normal 3.5-5.0 [facility] Comment on above: Performed By: #### Zeny JOHNS, 09836-6, THYR #### [facility] ([id number]) [address], [address] [place] [address] Protein [Mass/Vol] 7.8 g/dL Normal 6.0-8.0 [facility] Comment on above: Performed By: #### Zeny JOHNS, 59102-3, THYR #### [facility] ([id number]) [address] [address] [place] [address] Sodium [Moles/Vol] 137 mmol/L Normal 134-146 [facility] Comment on above: Performed By: #### Zeny JOHNS, 79909-6, THYR #### [facility] ([id number]) [address] [address] [place] [address] Urea nitrogen [Mass/Vol] 17 mg/dL Normal 5-23 [facility] Comment on above: Performed By: #### C , 73946-6, THYR #### [facility] ([id number]) [address] [facility] [place] [address] Comprehensive metabolic pane cuauhtemoc 08-17-2023 Albumin [Mass/Vol] 4.3 g/dL 3.2 - 5.3 g/dL [facility] ALP [Catalytic activity/Vol] 64 U/L 39 - 130 U/L [facility] ALT No additional P-5'-P [Catalytic activity/Vol] 15 U/L 0 - 31 U/L [facility] Anion gap [Moles/Vol] 8 mmol/L 5 - 15 mmol/L [facility] AST [Catalytic activity/Vol] 17 U/L 0 - 41 U/L [facility] Bilirubin [Mass/Vol] 0.5 mg/dL 0.3 - 1 .2 mg/dL [facility] Calcium [Mass/Vol] 9.1 mg/dL 8.5 - 10. 5 mg/dL [facility] Chloride [Moles/Vol] 103 mmol/L 98 - 10 9 mmol/L [facility] CO2 [Moles/Vol] 26 mmol/L 22 - 32 mmol/L [facility] Creatinine [Mass/Vol] 0.73 mg/dL 0.40 - 1.00 mg/dL [facility] Comment on above: METHOD TRACEABLE TO IDOH STANDARD eGFR (CKD-EPI)non-race dependent - PINF [facility] Comment on above: Reported eGFR is based on the CKD-EPI 2020 equation that does not use a race coefficient. Glucose [Mass/Vol] 91 mg/dL 65 - 99 mg/dL [facility] Potassium [Moles/Vol] 4.6 mmol/L 3.5 - 5.0 mmol/L [facility] Protein [Mass/Vol] 7.8 g/dL 6.0 - 8.0 g/dL [facility] Sodium [Moles/Vol] 137 mmol/L 134 - 146 mmol/L [facility] Urea nitrogen [Mass/Vol] 17 mg/dL 5 - 23 mg/dL [facility] Lipid 1996 panelon 4 Cholesterol [Mass/Vol] 173 mg/dL 150 - 200 mg/dL [facility] Cholesterol in HDL [Mass/Vol] 60 mg/dL 39 - PINF mg/dL [facility] Comment on above: HDL <40 mg/dL - High Risk HDL > or = 40mg/dL- Desirable HDL >60 mg/dL - Negative Risk Cholesterol in LDL [Mass/Vol] 96 mg/dL NINF - 130 mg/dL [facility] Comment on above: LDL <100 mg/dL - Desirable LDL >160 mg/dL - High Risk Cholesterol in VLDL [Mass/Vol] 17 mg/dL 0 - 30 mg/dL [facility] Cholesterol.total/Lee Ann sterol in HDL [Mass ratio] 2.9 {ratio} 1.0 - 5.0 [facility] Triglyceride [Mass/Vol] 83 mg/dL 27 - 150 mg/dL [facility] Cholesterol [Mass/Vol] 173 mg/dL Normal 150-200 [facility] Comment on above: Performed By: #### C , 07188-3, THYR #### [facility] ([id number]) [address] [facility] [address] [place] [address] Cholesterol in HDL [Mass/Vol] 60 mg/dL Normal >39 [facility] Comment on above: Result Comment: HDL <40 mg/dL - High Risk HDL > or = 40mg/dL- Desirable HDL >60 mg/dL - Negative Risk Performed By: #### Zeny JOHNS, 84866-8, THYR #### [facility] ([id number]) [address] [place] [address] Cholesterol in LDL [Mass/Vol] 96 mg/dL Normal <130 [facility] Comment on above: Result Comment: LDL <100 mg/dL - Desirable LDL >160 mg/dL - High Risk Performed By: #### Zeny JOHNS, 90595-2, THYR #### [facility] ([id number]) [address] [place] [address] Cholesterol in VLDL [Mass/Vol] 17 mg/dL Normal 0-30 [facility] Comment on above: Performed By: #### Zeny JOHNS, 75738-9, THYR #### [facility] ([id number]) [address] [address] [place] [address] CHOLESTEROL:HDL 2.9 Normal 1.0-5.0 [facility] Comment on above: Performed By: #### Zeny JOHNS, 55042-2, THYR #### [facility] ([id number]) [address] [place] [address] Triglyceride [Mass/Vol] 83 mg/dL Normal 27-150 [facility] Comment on above: Performed By: #### Zeny JOHNS 80756-0, THYR #### [facility] ([id number]) [address] [place] [address] No Panel Informationon 08-16 [facility] THYROID PROFILEon 08-17-2023 Free T4 [Mass/Vol] 0.85 ng/dL Normal 0.61-1.60 [facility] Comment on above: Performed By: #### Zeny JOHNS, 61126-6, THYR #### [facility] ([id number]) [address] [place] [address] TSH 0.82 uIU/mL Normal 0.49-4.67 [facility] Comment on above: Performed By: #### [place], [address]-1, THYR #### [facility] ([id number]) [address] [place] [address] Thyroid profile includes TSH FT4on 08-17-2023 Free T4 [Mass/Vol] 0.85 ng/dL 0.61 - 1. 60 ng/dL [facility] TSH Qn 0.82 m[IU]/L [facility] FREE T4on 08-12-2022 Free T4 [Mass/Vol] 0.98 ng/dL Normal 0.76-1.46 [facility] Comment on above: Performed By: #### F T4 #### [facility] [address] [place] [address] Dr. Yuly Schuler LIPID PROFILEon 08-12-2022 CHOL-HDL RATIO NORM SEE BELOW Normal [facility] Comment on above: Result Comment: 3.3 - 4.4 LOW RISK 4.4 - 7.1 AVERAGE RISK 7.1 - 11.0 MODERATE RISK >11.0 HIGH RISK Performed By: #### C MP, TSH #### [facility] [address] [address] [address] Yuly Schulre Cholesterol [Mass/Vol] 194 mg/dL Normal <=200 [facility] Comment on above: Performed By: #### C MP, TSH #### [facility] [address] [address] [address] Yuly Schuler Cholesterol in HDL [Mass/Vol] 63 mg/dL Critically high 40-60 [facility] Comment on above: Performed By: #### C MP, TSH #### [facility] [address] [address] [address] Yuly Schuler Cholesterol in LDL [Mass/Vol] 116.0 mg/dL Normal [facility] Comment on above: Performed By: #### C MP, TSH #### [facility] [address] [address] [address] Yuly Schuler Cholesterol.total/Lee Ann sterol in HDL [Mass ratio] 3.1 {ratio} Normal [facility] Comment on above: Performed By: #### C MP, TSH #### [facility] [address] [address] [address] Yuly Schuler HDL NORMAL > or = 60 mg/dl - LOW CARDIOVASCULAR RISK <40 mg/dl - HIGH CARDIOVASCULAR RISK Normal [facility] Comment on above: Performed By: #### C MP, TSH #### [facility] [address] [address] [address] Yuly Schuler LDL CALC NORMAL SEE BELOW Normal [facility] Comment on above: Result Comment: <100 mg/dl OPTIMAL 100 - 129 mg/dl NEAR OR ABOVE OPTIMAL 130 - 159 mg/dl BORDERLINE HIGH 160 - 189 mg/dl HIGH >190 mg/dl VERY HIGH Performed By: #### C MP, TSH #### [facility] [address] [address] [address] Yuly Schuler Triglyceride [Mass/Vol] 75 mg/dL Normal <=150 T [facility] Comment on above: Performed By: #### C MP, TSH #### [facility] [address] [address] [address] Yuly Schuler VLDL CALC 15.0 mg/dL Normal [facility] Comment on above: Performed By: #### C MP, TSH #### [facility] [address] [place] [address] Dr. Yuly Schuler PROF 14(COMP METB)on 023 Albumin [Mass/Vol] 3.6 g/dL Normal 3.4-5.0 [facility] Comment on above: Performed By: #### C MP, TSH #### [facility] [address] [place] [address] Dr. Yuly Schuler Albumin/Globulin [Mass ratio] 0.8 {ratio} Normal [facility] Comment on above: Performed By: #### C MP, TSH #### [facility] [address] [place] [address] Dr. Yuly Schuler ALP [Catalytic activity/Vol] 87 U/L Normal 46-116 [facility] Comment on above: Performed By: #### C MP, TSH #### [facility] [address] [address] [address] Yuly Schuler ALT [Catalytic activity/Vol] 23 U/L Normal 14-59 [facility] Comment on above: Performed By: #### C MP, TSH #### [facility] [address] [address] [address] Yuly Schuler Anion gap [Moles/Vol] 10.7 mmol/L Normal [facility] Comment on above: Performed By: #### C MP, TSH #### [facility] [address] [place] [address] Dr. Yuly Schuler AST [Catalytic activity/Vol] 17 U/L Normal 15-37 [facility] Comment on above: Performed By: #### C MP, TSH #### [facility] [address] [place] [address] Dr. Yuly Schuler Bilirubin [Mass/Vol] 0.2 mg/dL Normal 0.2-1.0 [facility] Comment on above: Performed By: #### C MP, TSH #### [facility] [address] [place] [address] Dr. Yuly Schuler Calcium [Mass/Vol] 8.8 mg/dL Normal 8.5-10.1 [facility] Comment on above: Performed By: #### C MP, TSH #### [facility] [address] [address] [address] Yuly Schuler Chloride [Moles/Vol] 104 mmol/L Normal 98-107 [facility] Comment on above: Performed By: #### C MP, TSH #### [facility] [address] [place] [address] Dr. Yuly Schuler CO2 [Moles/Vol] 28.5 mmol/L Normal 21.0-32.0 [facility] Comment on above: Performed By: #### C MP, TSH #### [facility] [address] [place] [address] Dr. Yuly Schuler Creatinine [Mass/Vol] 0.73 mg/dL Normal 0.55-1.02 [facility] Comment on above: Performed By: #### C MP, TSH #### [facility] [address] [place] [address] Dr. Yuly Schuler EGFR-AF LAO >60 Normal >=60 [facility] Comment on above: Performed By: #### C MP, TSH #### [facility] [address] [place] [address] Dr. Yuly Schuler EGFR-NON AF LAO >60 Normal >=60 [facility] Comment on above: Performed By: #### C MP, TSH #### [facility] [address] [place] [address] Dr. Yuly Schuler Globulin (S) [Mass/Vol] 4.4 g/dL Normal T [facility] Comment on above: Performed By: #### C MP, TSH #### [facility] [address] [place] [address] Dr. Yuly Schuler Glucose [Mass/Vol] 96 mg/dL Normal 74-106 [facility] Comment on above: Performed By: #### C MP, TSH #### [facility] [address] [place] [address] Dr. Yuly Schuler Potassium [Moles/Vol] 4.2 mmol/L Normal 3.5-5.1 [facility] Comment on above: Performed By: #### C MP, TSH #### [facility] [address] [place] [address] Dr. Yuly Schuler Protein [Mass/Vol] 8.0 g/dL Normal 6.4-8.2 [facility] Comment on above: Performed By: #### C MP, TSH #### [facility] [address] [place] [address] Dr. Yuly Schuler Sodium [Moles/Vol] 139 mmol/L Normal 136-145 [facility] Comment on above: Performed By: #### C MP, TSH #### [facility] [address] [place] [address] Dr. Yuly Schuler Urea nitrogen [Mass/Vol] 12.0 mg/dL Normal 7.0-18.0 [facility] Comment on above: Performed By: #### C MP, TSH #### [facility] [address] [place] [address] Dr. Yuly Schuler Urea nitrogen/Creatinine [Mass ratio] 16.4 mg/mg Normal [facility] Comment on above: Performed By: #### C MP, TSH #### [facility] [address] [place] [address] Dr. Yuly Schuler TSHon 08-12-2022 TSH 1.533 uIU/mL Normal 0.358-3.740 [facility] Comment on above: Performed By: #### C MP, TSH #### [facility] [address] [place] [address] Dr. Yuly Schuler KAT by IFAon 03-22-2022 Antinuclear Antibodies, IFA Negative Normal [facility] Comment on above: Result Comment: Nega tive <1:80 Borderline 1:80 Positive >1:80 ICAP nomenclature: AC-0 For more information about Hep-2 cell patterns use ANApatterns.org, the official website for the International Consensus on Antinuclear Antibody (KAT) Patterns (ICAP). Performed By: #### C MP, TSH #### [facility] [address] [place] [address] Dr. Yuly Schuler CRPon 03-21-2022 CRP [Mass/Vol] mg/L Normal <=1.0 [facility] Comment on above: Performed By: #### C RP, PREALB #### [facility] [address] [place] [address] Dr. Yuly Schuler PREALBUMINon 03-21-2022 Prealbumin [Mass/Vol] 25.8 mg/dL Normal 20.9-45.5 [facility] Comment on above: Performed By: #### C RP, PREALB #### [facility] [address] [place] [address] Dr. Yuly Schuler SED RATE WESTERGRENon 2021 SED RATE 35 mm/hr Critically high <=[address] [facility] Comment on above: Performed By: #### C MP, TSH #### [facility] [address] [address] [address] Yuly Schuler HCG ( test) Janine lincoln Ql (U)Ordered By: Dhaval Moran on 12-22-2021 HCG ( test) Ql (U) Negative [facility] COVID-19 Positive/NegativeOr dered By: Nadir Farris on 12-20-2021 SARS-CoV-2 (COVID-19) N gene AMINA+probe Ql (Resp) Negative Negative [facility] Comment on above: Testing for SARS-CoV -2 by RT-PCR This test was developed and its performance characteristics determined by [employer] ([employer] and validated at the [facility]. This test has not been FDA [...] microbial culture No Anaerobes Isolated 3 Days [facility] ABO and Rh group post transf usion reaction Nom (Bld)Ordered By: Fabiola Felipe on 12-08-2021 Microscopic observation Gram stain Nom (Unsp spec) [facility] CBC (INCLUDES DIFF/PLT)on Basophils (Bld) [#/Vol] 0.048 10*3/uL Normal 0-200 [facility] Comment on above: Performed By: #### 1 0231, 2099, 94211, 3570 #### [facility] of [address], [address] [place] [address] Lithograph Printer: Jasbir Membreno MD Basophils/100 WBC (Bld) 0.7 % Normal [facility] Comment on above: Performed By: #### 1 0231, 6399, 82924, 7600 #### [facility] of [address], [address] [place] [address] Lithograph Printer: Jasbir Membreno MD Eosinophils (Bld) [#/Vol] 0.041 10*3/uL Normal 15-500 [facility] Comment on above: Performed By: #### 1 0231, 6399, 87078, 7600 #### [facility] of [address], [address] [place] [address] Lithograph Printer: Jasbir Membreno MD Eosinophils/100 WBC (Bld) 0.6 % Normal [facility] Comment on above: Performed By: #### 1 0231, 6399, 56855, 7600 #### [facility] of [address], [address] [place] [address] Lithograph Printer: Jasbir Membreno MD Erythrocyte distribution width (RBC) [Ratio] 13.4 % Normal 11.0-15.0 [facility] Comment on above: Performed By: #### 1 0231, 6399, 67743, 7600 #### [facility] [address] [address] Lithograph Printer: Jasbir Membreno MD Hematocrit (Bld) [Volume fraction] 40.0 % Normal 35.0-45.0 [facility] Comment on above: Performed By: #### 1 0231, 6399, 83388, 7600 #### [facility] of [address], [address] [place] [address] Lithograph Printer: Jasbir Membreno MD Hemoglobin (Bld) [Mass/Vol] 13.4 g/dL Normal 11.7-15.5 [facility] Comment on above: Performed By: #### 1 0231, 6399, 31698, 7600 #### [facility] of [address] [address] Lithograph Printer: Jasbir Membreno MD Lymphocytes (Bld) [#/Vol] 1.691 10*3/uL Normal 850-3900 [facility] Comment on above: Performed By: #### 1 0231, 6399, 94384, 7600 #### [facility] of [address] [address] Lithograph Printer: Jasbir Membreno MD Lymphocytes/100 WBC (Bld) 24.5 % Normal [facility] Comment on above: Performed By: #### 1 0231, 6399, 56698, 7600 #### [facility] of [address] [address] Lithograph Printer: Jasbir Membreno MD MCH (RBC) [Entitic mass] 29.5 pg Normal 27.0-33.0 [facility] Comment on above: Performed By: #### 1 0231, 63, 06960, 7600 #### [facility] of [address] [address] Lithograph Printer: Jasbir Membreno MD MCHC (RBC) [Mass/Vol] 33.5 g/dL Normal 32.0-36.[address] [facility] Comment on above: Performed By: #### 1 0231, 6399, 00885, 7600 #### [facility] of [address] [address] Lithograph Printer: Jasbir Membreno MD MCV (RBC) [Entitic vol] 87.9 fL Normal 80.0-100.0 [facility] Comment on above: Performed By: #### 1 0231, 6399, 69125, 7600 #### [facility] of [address] [address] Lithograph Printer: Jasbir Membreno MD Monocytes (Bld) [#/Vol] 0.49 10*3/uL Normal 200-950 [facility] Comment on above: Performed By: #### 1 0231, 6399, 76332, 7600 #### [facility] of [address], [address] [place] [address] Lithograph Printer: Jasbir Membreno MD Monocytes/100 WBC (Bld) 7.1 % Normal [facility] Comment on above: Performed By: #### 1 0231, 6399, 31166, 7600 #### [facility] of [address], [address] [place] [address] Lithograph Printer: Jasbir Membreno MD Neutrophils (Bld) [#/Vol] 4.63 10*3/uL Normal 1252-8948 [facility] Comment on above: Performed By: #### 1 0231, 6399, 58678, 7600 #### [facility] of [address], [address] [place] [address] Lithograph Printer: Jasbir Membreno MD Neutrophils/100 WBC (Bld) 67.1 % Normal [facility] Comment on above: Performed By: #### 1 0231, 6399, 20127, 7600 #### [facility] of [address], [address] [place] [address] Lithograph Printer: Jasbir Membreno MD Platelet mean volume (Bld) [Entitic vol] 9.3 fL Normal 7.5-12.5 [facility] Comment on above: Performed By: #### 1 0231, 6399, 29703, 7600 #### [facility] [address], [address] [place] [address] Lithograph Printer: Jasbir Membreno MD Platelets (Bld) [#/Vol] 390 10*3/uL Normal 140-400 [facility] Comment on above: Performed By: #### 1 0231, 6399, 41422, 7600 #### [facility] [address], [address] [place] [address] Lithograph Printer: Jasbir Membreno MD RBC (Bld) [#/Vol] 4.55 10*6/uL Normal 3.80-5.10 [facility] Comment on above: Performed By: #### 1 0231, 6399, 90266, 7600 #### [facility] [address], [address] [place] [address] Lithograph Printer: Jasbir Membreno MD WBC (Bld) [#/Vol] 6.9 10*3/uL Normal 3.8-10.8 [facility] Comment on above: Performed By: #### 1 0231, 6399, 73938, 7600 #### [facility] of [address], [address] [place] [address] Lithograph Printer: Jasbir Membreno MD [facility] 11-26-2021 Albumin [Mass/Vol] 4.2 g/dL Normal 3.6-5.1 [facility] Comment on above: Performed By: #### 1 0231, 6399, 85782, 7600 #### [facility] of [address], [address] [place] [address] Lithograph Printer: Jasbir Membreno MD Albumin/Globulin [Mass ratio] 1.3 {ratio} Normal 1.0-2.5 [facility] Comment on above: Performed By: #### 1 0231, 6399, 57074, 7600 #### [facility] of [address] [address] Lithograph Printer: Jasbir Membreno MD ALP [Catalytic activity/Vol] 89 U/L Normal 31-125 [facility] Comment on above: Performed By: #### 1 0231, 6399, 33437, 7600 #### [facility] of [address], [address] [place] [address] Lithograph Printer: Jasbir Membreno MD ALT [Catalytic activity/Vol] 16 U/L Normal 6-29 [facility] Comment on above: Performed By: #### 1 0231, 6399, 02682, 7600 #### [facility] of [address] [place] [address] Lithograph Printer: Jasbir Membreno MD AST [Catalytic activity/Vol] 14 U/L Normal 10-30 [facility] Comment on above: Performed By: #### 1 0231, 6399, 72577, 7600 #### [facility] of [address] [place] [address] Lithograph Printer: Jasbir Membreno MD Bilirubin [Mass/Vol] 0.2 mg/dL Normal 0.2-1.2 [facility] Comment on above: Performed By: #### 1 0231, 6399, 78788, 7600 #### [facility] of [address] [place] [address] Lithograph Printer: Jasbir Membreno MD BUN/CREATININE RATIO NOT APPLICABLE Normal 6-22 [facility] Comment on above: Performed By: #### 1 0231, 6399, 62894, 7600 #### [facility] of [address] [place] [address] Lithograph Printer: Jasbir Membreno MD Calcium [Mass/Vol] 9.1 mg/dL Normal 8.6-10.2 [facility] Comment on above: Performed By: #### 1 0231, 6399, 55596, 7600 #### [facility] of [address] [place] [address] Lithograph Printer: Jasbir Membreno MD Chloride [Moles/Vol] 104 mmol/L Normal 98-110 [facility] Comment on above: Performed By: #### 1 0231, 6399, 93856, 7600 #### [facility] of [address] [place] [address] Lithograph Printer: Jasbir Membreno MD CO2 [Moles/Vol] 30 mmol/L Normal 20-32 [facility] Comment on above: Performed By: #### 1 0231, 6399, 01513, 7600 #### [facility] of [address] [place] [address] Lithograph Printer: Jasbir Membreno MD Creatinine [Mass/Vol] 0.73 mg/dL Normal 0.50-0.[address] [facility] Comment on above: Performed By: #### 1 0231, 6399, 78034, 7600 #### [facility] [place] [address] Lithograph Printer: Jasbir Membreno MD GFR/1.73 sq M.predicted among non-blacks MDRD (S/P/Bld) [Vol rate/Area] 107 mL/min/{1.73_m2} Normal > OR = 60 [facility] Comment on above: Result Comment: The eGFR is based on the CKD-EPI 2020 equation. To calculate the new eGFR from a previous Creatinine or Cystatin C result, go to https://www.kidney.org/professionals/ kdoqi/gfr%5Fcalculator Performed By: #### 1 0231, 6399, 81686, 7600 #### [facility] [place] [address] Lithograph Printer: Jasbir Membreno MD Globulin (S) [Mass/Vol] 3.2 g/dL Normal 1.9-3.7 [facility] Comment on above: Performed By: #### 1 0231, 6399, 96324, 7600 #### [facility] [address] [place] [address] Lithograph Printer: Jasbir Membreno MD Glucose [Mass/Vol] 82 mg/dL Normal 65-139 [facility] Comment on above: Result Comment: Non-fasting reference interval Performed By: #### 1 0231, 6399, 14606, 7600 #### [facility] [address] [place] [address] Lithograph Printer: Jasbir Membreno MD Potassium [Moles/Vol] 4.4 mmol/L Normal 3.5-5.[address] [facility] Comment on above: Performed By: #### 1 0231, 6399, 86734, 7600 #### [facility] [address] [place] [address] Lithograph Printer: Jasbir Membreno MD Protein [Mass/Vol] 7.4 g/dL Normal 6.1-8.1 [facility] Comment on above: Performed By: #### 1 0231, 6399, 60438, 7600 #### [facility] [address], [address] [place] [address] Lithograph Printer: Jasbir Membreno MD Sodium [Moles/Vol] 139 mmol/L Normal 135-146 [facility] Comment on above: Performed By: #### 1 0231, 6399, 85165, 7600 #### [facility] [address] [place] [address] Lithograph Printer: Jasbir Membreno MD Urea nitrogen [Mass/Vol] 17 mg/dL Normal 7-25 [facility] Comment on above: Performed By: #### 1 0231, 6399, 08423, 7600 #### [facility] [place] [address] Lithograph Printer: Jasbir Membreno MD LIPID PANEL, [facility] 08 Cholesterol [Mass/Vol] 158 mg/dL Normal <200 [facility] Comment on above: Order Comment: FASTI NG:NO FASTING: NO Performed By: #### 1 0231, 6399, 40983, 7600 #### [facility] [place] [address] Lithograph Printer: Jasbir Membreno MD Cholesterol in HDL [Mass/Vol] 57 mg/dL Normal > OR = 50 [facility] Comment on above: Order Comment: FASTI NG:NO FASTING: NO Performed By: #### 1 0231, 6399, 19389, 7600 #### [facility] [place] [address] Lithograph Printer: Jasbir Membreno MD Cholesterol in LDL [Mass/Vol] 85 mg/dL Normal [facility] Comment on above: Order Comment: FASTI NG:NO FASTING: NO Result Comment: Refe rence range: <100 Desirable range <100 mg/dL for primary prevention; <70 mg/dL for patients with CHD or diabetic patients with > or = 2 CHD risk factors. LDL-C is now calculated using the Thai-Philip calculation, which is a validated novel method providing better accuracy than the Friedewald equation in the estimation of LDL-C. Thai CALDWELL et al. LEFTY. 2013;310(19): 1207-7571 (http://education.Plethora.Sparks/faq/UBM432) Performed By: #### 1 0231, 6399, 76194, 7600 #### [facility] [address], [address] [place] [address] Lithograph Printer: Jasbir Membreno MD Cholesterol.total/Lee Ann sterol in HDL [Mass ratio] 2.8 {ratio} Normal <5.0 [facility] Comment on above: Order Comment: FASTI NG:NO FASTING: NO Performed By: #### 1 0231, 6399, 04233, 7600 #### [facility] [address], [address] [place] [address] Lithograph Printer: Jasbir Membreno MD NON HDL CHOLESTEROL 101 mg/dL (calc) Normal <130 [facility] Comment on above: Order Comment: FASTI NG:NO FASTING: NO Result Comment: For patients with diabetes plus 1 major ASCVD risk factor, treating to a non-HDL-C goal of <100 mg/dL (LDL-C of <70 mg/dL) is considered a therapeutic option. Performed By: #### 1 0231, 6399, 08166, 7600 #### [facility] [place] [address] Lithograph Printer: Jasbir Membreno MD Triglyceride [Mass/Vol] 75 mg/dL Normal <150 [facility] Comment on above: Order Comment: FASTI NG:NO FASTING: NO Performed By: #### 1 0231, 6399, 44379, 7600 #### [facility] [place] [address] Lithograph Printer: Jasbir Membreno MD TSH+FREE T4on 11-26-2021 Free T4 [Mass/Vol] 1.3 ng/dL Normal 0.8-1.8 [facility] Comment on above: Performed By: #### 1 0231, 6399, 10007, 7600 #### [facility] [address] [place] [address] Lithograph Printer: Jasbir Membreno MD TSH Qn 0.67 m[IU]/L Normal [facility] Comment on above: Result Comment: Refe rence Range > or = 20 Years 0.40-4.50 Ranges First trimester 0.26-2.66 Second trimester 0.55-2.73 Third trimester 0.43-2.91 Performed By: #### 1 0231, 6399, 81896, 7600 #### [facility] [address], [address] [place] [address] Lithograph Printer: Jasbir Membreno MD XR KUB 1 VIEWon 11-06-2021 XR KUB 1 VIEW EXAMINATION: XR KUB 1 VIEW HISTORY: Wound of abdomen ; recent COMPARISON: No relevant comparison available. FINDINGS: BOWEL GAS PATTERN: No abnormal dilation or deviation. CALCIFICATIONS: None significant. OTHER: Negative. No abnormal gaseous collections. IMPRESSION: 1. Normal bowel gas pattern. 2. No abnormal or suspicious findings. Electronically authenticated by: JENNFIER CALERO Date: 2021-11-06 08:23 Normal [facility] ECHOCARDIO M/2D COMPLETEon 0 09-29-2021 ECHOCARDIO M/2D COMPLETE Patient: ANTHONY RITCHIE Exam Date: 09/29/2021 : 1980 Gender:F Ordering : DR ESTELA BENNETT Admission #: [id number] Family : Order #: [id number] CLICK HERE TO VIEW EXAM ECHOCARDIOGRAM REPORT [...] Area(A4C): 14.80 cm2 Left Atrium Systolic Volume(A2C): 60850 mm3 Left Atrium Systolic Volume(A4C): 14369 mm3 Mitral Valve MV E to A [...] Rogel M.D. on 09/29/2021 at 14:34 Normal [facility] WOUND CULTUREon 09-03-2021 Antimicrobial Susceptibility Comment Normal [facility] Comment on above: Result Comment: S = [...] Performed By: #### C MP, TSH #### [facility] [address] [place] [address] Dr. Yuly Schuler Bacteria identified Aer cx Nom (Unsp spec) Final report Abnormal [facility] Comment on above: Performed By: #### C MP, TSH #### [facility] [address] [place] [address] Dr. Yuly Schuler Result 1 Enterococcus faecalis Abnormal [facility] Comment on above: Result Comment: For Enterococcus species, aminoglycosides (except for high-level resistance screening), cephalosporins, clindamycin, and trimethoprim-sulfamethoxazole are not effective clinically. (CLSI, [id number], 2016) Moderate growth Performed By: #### C MP, TSH #### [facility] [address] [place] [address] Dr. Yuly Schuler Result 2 Comment Abnormal [facility] Comment on above: Result Comment: Prot eus mirabilis/penneri Moderate growth Performed By: #### C MP, TSH #### [facility] [address] [place] [address] Dr. Yuly Schuler CBC AUTO DIFFon 08-30-2021 BASO # 0.1 103/ul Normal 0.0-0.1 [facility] Comment on above: Performed By: #### C BC #### [facility] [address] [place] [address] Dr. Yuly Schuler Basophils/100 WBC (Bld) 0.3 % Normal 0.2-2.0 [facility] Comment on above: Performed By: #### C BC #### [facility] [address] [place] [address] Dr. Yuly Schuler EO # 0.1 103/ul Normal 0.0-0.7 [facility] Comment on above: Performed By: #### C BC #### [facility] [address] [place] [address] Dr. Yuly Schuler Eosinophils/100 WBC (Bld) 0.4 % Critically low 0.9-7.0 [facility] Comment on above: Performed By: #### C BC #### [facility] [address] [place] [address] Dr. Yuly Schuler Erythrocyte distribution width (RBC) [Ratio] 14.0 % Normal 11.0-15.0 [facility] Comment on above: Performed By: #### C BC #### [facility] [address] [place] [address] Dr. Yuly Schuler Hematocrit (Bld) [Volume fraction] 33.2 % Critically low 36.0-48.0 [facility] Comment on above: Performed By: #### C BC #### [facility] [address] [place] [address] Dr. Yuly Schuler Hemoglobin (Bld) [Mass/Vol] 10.8 g/dL Critically low 12.0-16.0 [facility] Comment on above: Performed By: #### C BC #### [facility] [address] [place] [address] Dr. Yuly Schuler IG # 0.12 10e3/ul Critically high 0.00-0.03 [facility] Comment on above: Performed By: #### C BC #### [facility] [address] [place] [address] Dr. Yuly Schuler IG % 0.7 % Critically high 0.0-0.[address] [facility] Comment on above: Performed By: #### C BC #### [facility] [address] [place] [address] Dr. Yuly Schuler LYMPH # 1.6 103/ul Normal 1.2-3.8 [facility] Comment on above: Performed By: #### C BC #### [facility] [address] [place] [address] Dr. Yuly Schuler Lymphocytes/100 WBC (Bld) 9.4 % Critically low 20.5-60.0 [facility] Comment on above: Performed By: #### C BC #### [facility] [address] [place] [address] Dr. Yuly Schuler MANUAL DIFF REQ NO Normal [facility] Comment on above: Performed By: #### C BC #### [facility] [address] [place] [address] Dr. uYly Schuler MCH (RBC) [Entitic mass] 29.7 pg Normal 26.7-34.0 [facility] Comment on above: Performed By: #### C BC #### [facility] [address] [place] [address] Dr. Yuly Schuler MCHC (RBC) [Mass/Vol] 32.5 g/dL Normal 29.9-35.2 [facility] Comment on above: Performed By: #### C BC #### [facility] [address] [place] [address] Dr. Yuly Schuler MCV (RBC) [Entitic vol] 91.2 fL Normal 81.0-99.0 [facility] Comment on above: Performed By: #### C BC #### [facility] [address] [place] [address] Dr. Yuly Schuler MONO # 0.9 103/ul Critically high 0.3-0.[address] [facility] Comment on above: Performed By: #### C BC #### [facility] [address] [place] [address] Dr. Yuly Schuler Monocytes/100 WBC (Bld) 5.5 % Normal 1.7-12.0 [facility] Comment on above: Performed By: #### C BC #### [facility] [address] [place] [address] Dr. Yuly Schuler NEUT # 14.0 103/ul Critically high 1.4-6.5 [facility] Comment on above: Performed By: #### C BC #### [facility] [address] [address] [address] Yuly Schuler Neutrophils/100 WBC (Bld) 83.7 % Critically high 43.0-75.0 [facility] Comment on above: Performed By: #### C BC #### [facility] [address] [address] [address] Yuly Schuler Platelet mean volume (Bld) [Entitic vol] 7.7 fL Critically low 9.5-13.5 [facility] Comment on above: Performed By: #### C BC #### [facility] [address] [place] [address] Dr. Yuly Schuler PLT 568 103/ul Critically high 150-[address] [facility] Comment on above: Performed By: #### C BC #### [facility] [address] [place] [address] Dr. Yuly Schuler RBC 3.64 106/ul Critically low 4.20-5.40 [facility] Comment on above: Performed By: #### C BC #### [facility] [address] [place] [address] Dr. Yuly Schuler WBC 16.7 103/ul Critically high 4.0-11.0 [facility] Comment on above: Performed By: #### C BC #### [facility] [address] [place] [address] ABD/PELVIS WO CONon [...] by: ZAYDA MORENO Date: 2021-08-30 08:38 Normal [facility] CULTURE BLOODon 08-30-2021 Microscopic examination of blood, culture Culture Observations: NO GROWTH AT 5 DAYS. Normal [facility] Comment on above: Performed By: #### C MP, TSH #### [facility] [address] [place] [address] Dr. Yuly Schuler Microscopic examination of blood, culture Culture Observations: NO GROWTH AT 5 DAYS. Normal [facility] Comment on above: Performed By: #### C MP, TSH #### [facility] [address] [place] [address] Dr. Yuly Schuler CULTURE URINEon 08-30-2021 CULTURE URINE Culture Observations: LIGHT GROWTH OF MIXED GENITAL OLI. NO POTENTIAL PATHOGENS SEEN. Normal [facility] Comment on above: Performed By: #### C MP, TSH #### [facility] [address] [place] [address] Dr. Yuly Schuler [facility]-19 PCR ([facility]on 08-14 SARS-CoV-2 (COVID-19) RNA AMINA+probe Ql (Unsp spec) Not detected Normal NOT DETECTED [facility] Comment on above: Result Comment: When diagnostic [...] for this test is supported by the [employer] of [employer]'s declaration that [...] used). Performed By: #### C VDTBH #### [facility] [address] [place] [address] Dr. Yuly Schuler ER URINE PROFILEon 2 Bilirubin Ql (U) Negative Normal NEGATIVE [facility] Comment on above: Performed By: #### C MP, TSH #### [facility] [address] [place] [address] Dr. Yuly Schuler Clarity (U) CLEAR Normal CLEAR [facility] Comment on above: Performed By: #### C MP, TSH #### [facility] [address] [place] [address] Dr. Yuly Schuler Color (U) LT. YELLOW Normal YELLOW [facility] Comment on above: Performed By: #### C MP, TSH #### [facility] [address] [place] [address] Dr. Yuly Schuler ERUAHD A micrscopic examination will be performed if indicated. Normal [facility] Comment on above: Performed By: #### C MP, TSH #### [facility] [address] [place] [address] Dr. Yuly Schuler Glucose Ql (U) Negative Normal NEGATIVE [facility] Comment on above: Performed By: #### C MP, TSH #### [facility] [address] [place] [address] Dr. Yuly Schuler Hemoglobin Ql (U) TRACE-INTACT Abnormal NEGATIVE [facility] Comment on above: Performed By: #### C MP, TSH #### [facility] [address] [place] [address] Dr. Yuly Schuler Ketones Ql (U) Negative Normal NEGATIVE [facility] Comment on above: Performed By: #### C MP, TSH #### [facility] [address] [place] [address] Dr. Yuly Schuler LEUKOCYTES TRACE Abnormal NEGATIVE [facility] Comment on above: Performed By: #### C MP, TSH #### [facility] [address] [place] [address] Dr. Yuly Schuler Nitrite Ql (U) Negative Normal NEGATIVE [facility] Comment on above: Performed By: #### C MP, TSH #### [facility] [address] [place] [address] Dr. Yuly Schuler pH (U) 6.5 [pH] Normal 5-9 [facility] Comment on above: Performed By: #### C MP, TSH #### [facility] [address] [place] [address] Dr. Yuly Schuler SPEC GRAVITY <=1.005 Abnormal 1.005-<=1.02 5 [facility] Comment on above: Performed By: #### C MP, TSH #### [facility] [address] [place] [address] Dr. Yuly Schuler UA PROTEIN Negative Normal NEGATIVE/ TRACE [facility] Comment on above: Performed By: #### C MP, TSH #### [facility] [address] [place] [address] Dr. Yuly Schuler UR MICRO IND INDICATED Normal [facility] Comment on above: Performed By: #### C MP, TSH #### [facility] [address] [place] [address] Dr. Yuly Schuler Urobilinogen Qn (U) 0.2 {Robby'U}/dL Normal 0.2 - 1. 0 [facility] Comment on above: Performed By: #### C MP, TSH #### [facility] [address] [address] [address] Yuly Schuler LACTATE/LACTIC ACIDon 2021 Lactate [Moles/Vol] 0.4 mmol/L Normal 0.4-1.9 [facility] Comment on above: Performed By: #### L ACT #### [facility] [address] [address] [address] Yuly Schuler PROF 14(COMP METB)on 022 Albumin [Mass/Vol] 2.3 g/dL Critically low 3.4-5.0 [facility] Comment on above: Performed By: #### C MP #### [facility] [address] [place] [address] Dr. Yuly Schuler Albumin/Globulin [Mass ratio] 0.4 {ratio} Normal [facility] Comment on above: Performed By: #### C MP #### [facility] [address] [place] [address] Dr. Yuly Schuler ALP [Catalytic activity/Vol] 136 U/L Critically high 46-116 [facility] Comment on above: Performed By: #### C MP #### [facility] [address] [place] [address] Dr. Yuly Schuler ALT [Catalytic activity/Vol] 41 U/L Normal 14-59 [facility] Comment on above: Performed By: #### C MP #### [facility] [address] [address] [address] Yuly Schuler Anion gap [Moles/Vol] 12.6 mmol/L Normal [facility] Comment on above: Performed By: #### C MP #### [facility] [address] [place] [address] Dr. Yuly Schuler AST [Catalytic activity/Vol] 19 U/L Normal 15-37 [facility] Comment on above: Performed By: #### C MP #### [facility] [address] [place] [address] Dr. Yuly Schuler Bilirubin [Mass/Vol] 0.2 mg/dL Normal 0.2-1.0 [facility] Comment on above: Performed By: #### C MP #### [facility] [address] [address] [address] Yuly Schuler Calcium [Mass/Vol] 8.7 mg/dL Normal 8.5-10.1 [facility] Comment on above: Performed By: #### C MP #### [facility] [address] [address] [address] Yuly Schuler Chloride [Moles/Vol] 101 mmol/L Normal 98-107 [facility] Comment on above: Performed By: #### C MP #### [facility] [address] [address] [address] Yuly Schuler CO2 [Moles/Vol] 27.1 mmol/L Normal 21.0-32.0 [facility] Comment on above: Performed By: #### C MP #### [facility] [address] [address] [address] Yuly Schuler Creatinine [Mass/Vol] 0.79 mg/dL Normal 0.55-1.02 [facility] Comment on above: Performed By: #### C MP #### [facility] [address] [address] [address] Yuly Schuler EGFR-AF LAO >60 Normal >=60 [facility] Comment on above: Performed By: #### C MP #### [facility] [address] [address] [address] Yuly Schuler EGFR-NON AF LAO >60 Normal >=60 [facility] Comment on above: Performed By: #### C MP #### [facility] [address] [address] [address] Yuly Schuler Globulin (S) [Mass/Vol] 6.1 g/dL Normal [facility] Comment on above: Performed By: #### C MP #### [facility] [address] [place] [address] Dr. Yuly Schuler Glucose [Mass/Vol] 88 mg/dL Normal 74-106 [facility] Comment on above: Performed By: #### C MP #### [facility] [address] [address] [address] Yuly Schuler Potassium [Moles/Vol] 3.7 mmol/L Normal 3.5-5.1 [facility] Comment on above: Performed By: #### C MP #### [facility] [address] [place] [address] Dr. Yuly Schuler Protein [Mass/Vol] 8.4 g/dL Critically high 6.4-8.2 [facility] Comment on above: Performed By: #### C MP #### [facility] [address] [place] [address] Dr. Yuly Schuler Sodium [Moles/Vol] 137 mmol/L Normal 136-145 [facility] Comment on above: Performed By: #### C MP #### [facility] [address] [place] [address] Dr. Yuly Schuler Urea nitrogen [Mass/Vol] 11.0 mg/dL Normal 7.0-18.0 [facility] Comment on above: Performed By: #### C MP #### [facility] [address] [place] [address] Dr. Yuly Schuler Urea nitrogen/Creatinine [Mass ratio] 13.9 mg/mg Normal [facility] Comment on above: Performed By: #### C MP #### [facility] [address] [place] [address] Dr. Yuly Schuler URINE MICROSCOPIC ONLYon BACTERIA TRACE Abnormal NONE SEEN [facility] Comment on above: Performed By: #### C MP, TSH #### [facility] [address] [place] [address] Dr. Yuly Schuler Bacteria identified Cx Nom (U) INDICATED Normal [facility] Comment on above: Performed By: #### C MP, TSH #### [facility] [address] [place] [address] Dr. Yuly Schuler CAST NONE SEEN Normal NONE SEEN [facility] Comment on above: Performed By: #### C MP, TSH #### [facility] [address] [place] [address] Dr. Yuly Schuler Crystals LM Nom (Urine sed) NONE SEEN Normal NONE SEEN [facility] Comment on above: Performed By: #### C MP, TSH #### [facility] [address] [place] [address] Dr. Yuly Schuler Epithelial cells LM Ql (Urine sed) RARE Normal NONE SEEN /RARE [facility] Comment on above: Performed By: #### C MP, TSH #### [facility] [address] [place] [address] Dr. Yuly Schuler MUCOUS NONE SEEN Normal NONE SEEN [facility] Comment on above: Performed By: #### C MP, TSH #### [facility] [address] [place] [address] Dr. Yuly Schuler RBC 0-2 Normal 0-2 [facility] Comment on above: Performed By: #### C MP, TSH #### [facility] [address] [place] [address] Dr. Yuly Schuler WBC 0-2 Abnormal NONE SEEN [facility] Comment on above: Performed By: #### C MP, TSH #### [facility] [address] [place] [address] Dr. Yuly Schuler CBC AUTO DIFFon 08-29-2021 BASO # 0.1 103/ul Normal 0.0-0.1 [facility] Comment on above: Performed By: #### C BC #### [facility] [address] [place] [address] Dr. Yuly Schuler Basophils/100 WBC (Bld) 0.3 % Normal 0.2-2.0 [facility] Comment on above: Performed By: #### C BC #### [facility] [address] [place] [address] Dr. Yuly Schuler EO # 0.1 103/ul Normal 0.0-0.7 [facility] Comment on above: Performed By: #### C BC #### [facility] [address] [place] [address] Dr. Yuly Schuler Eosinophils/100 WBC (Bld) 0.4 % Critically low 0.9-7.0 [facility] Comment on above: Performed By: #### C BC #### [facility] [address] [place] [address] Dr. Yuly Schuler Erythrocyte distribution width (RBC) [Ratio] 14.0 % Normal 11.0-15.0 [facility] Comment on above: Performed By: #### C BC #### [facility] [address] [place] [address] Dr. Yuly Schuler Hematocrit (Bld) [Volume fraction] 31.7 % Critically low 36.0-48.0 [facility] Comment on above: Performed By: #### C BC #### [facility] [address] [place] [address] Dr. Yuly Schuler Hemoglobin (Bld) [Mass/Vol] 10.1 g/dL Critically low 12.0-16.0 [facility] Comment on above: Performed By: #### C BC #### [facility] [address] [place] [address] Dr. Yuly Schuler IG # 0.11 10e3/ul Critically high 0.00-0.03 [facility] Comment on above: Performed By: #### C BC #### [facility] [address] [place] [address] Dr. Yuly Schuler IG % 0.7 % Critically high 0.0-0.[address] [facility] Comment on above: Performed By: #### C BC #### [facility] [address] [place] [address] Dr. Yuly Schuler LYMPH # 2.0 103/ul Normal 1.2-3.8 [facility] Comment on above: Performed By: #### C BC #### [facility] [address] [place] [address] Dr. Yuly Schuler Lymphocytes/100 WBC (Bld) 13.3 % Critically low 20.5-60.0 [facility] Comment on above: Performed By: #### C BC #### [facility] [address] [place] [address] Dr. Yuly Schuler MANUAL DIFF REQ NO Normal [facility] Comment on above: Performed By: #### C BC #### [facility] [address] [place] [address] Dr. Yuly Schuler MCH (RBC) [Entitic mass] 29.3 pg Normal 26.7-34.0 [facility] Comment on above: Performed By: #### C BC #### [facility] [address] [address] [address] Yuly Schuler MCHC (RBC) [Mass/Vol] 31.9 g/dL Normal 29.9-35.2 [facility] Comment on above: Performed By: #### C BC #### [facility] [address] [address] [address] Yuly Schuler MCV (RBC) [Entitic vol] 91.9 fL Normal 81.0-99.0 [facility] Comment on above: Performed By: #### C BC #### [facility] [address] [place] [address] Dr. Yuly Schuler MONO # 0.8 103/ul Normal 0.3-0.8 [facility] Comment on above: Performed By: #### C BC #### [facility] [address] [place] [address] Dr. Yuly Schuler Monocytes/100 WBC (Bld) 5.3 % Normal 1.7-12.0 [facility] Comment on above: Performed By: #### C BC #### [facility] [address] [place] [address] Dr. Yuly Schuler NEUT # 12.0 103/ul Critically high 1.4-6.5 [facility] Comment on above: Performed By: #### C BC #### [facility] [address] [place] [address] Dr. Yuly Schuler Neutrophils/100 WBC (Bld) 80.0 % Critically high 43.0-75.0 [facility] Comment on above: Performed By: #### C BC #### [facility] [address] [place] [address] Dr. Yuly Schuler Platelet mean volume (Bld) [Entitic vol] 8.0 fL Critically low 9.5-13.5 [facility] Comment on above: Performed By: #### C BC #### [facility] [address] [address] [address] Yuly Schuler PLT 608 103/ul Critically high 150-[address] [facility] Comment on above: Performed By: #### C BC #### [facility] [address] [address] [address] Yuly Schuler RBC 3.45 106/ul Critically low 4.20-5.[address] [facility] Comment on above: Performed By: #### C BC #### [facility] [address] [address] [address] Yuly Schuler WBC 15.0 103/ul Critically high 4.0-11.0 [facility] Comment on above: Performed By: #### C BC #### [facility] [address] [place] [address] Dr. Yuly Schuler PROF 14(COMP METB)on 022 Albumin [Mass/Vol] 2.3 g/dL Critically low 3.4-5.0 [facility] Comment on above: Performed By: #### C MP, TSH #### [facility] [address] [place] [address] Dr. Yuly Schuler Albumin/Globulin [Mass ratio] 0.4 {ratio} Normal [facility] Comment on above: Performed By: #### C MP, TSH #### [facility] [address] [place] [address] Dr. Yuly Schuler ALP [Catalytic activity/Vol] 131 U/L Critically high 46-116 [facility] Comment on above: Performed By: #### C MP, TSH #### [facility] [address] [place] [address] Dr. Yuly Schuler ALT [Catalytic activity/Vol] 43 U/L Normal 14-59 [facility] Comment on above: Performed By: #### C MP, TSH #### [facility] [address] [place] [address] Dr. Yuly Schuler Anion gap [Moles/Vol] 11.3 mmol/L Normal [facility] Comment on above: Performed By: #### C MP, TSH #### [facility] [address] [place] [address] Dr. Yuly Schuler AST [Catalytic activity/Vol] 18 U/L Normal 15-37 [facility] Comment on above: Performed By: #### C MP, TSH #### [facility] [address] [place] [address] Dr. Yuly Schuler Bilirubin [Mass/Vol] 0.1 mg/dL Critically low 0.2-1.0 [facility] Comment on above: Performed By: #### C MP, TSH #### [facility] [address] [place] [address] Dr. Yuly Schuler Calcium [Mass/Vol] 8.9 mg/dL Normal 8.5-10.1 [facility] Comment on above: Performed By: #### C MP, TSH #### [facility] [address] [place] [address] Dr. Yuly Schuler Chloride [Moles/Vol] 101 mmol/L Normal 98-107 [facility] Comment on above: Performed By: #### C MP, TSH #### [facility] [address] [place] [address] Dr. Yuly Schuler CO2 [Moles/Vol] 28.9 mmol/L Normal 21.0-32.0 [facility] Comment on above: Performed By: #### C MP, TSH #### [facility] [address] [place] [address] Dr. Yuly Schuler Creatinine [Mass/Vol] 0.80 mg/dL Normal 0.55-1.02 [facility] Comment on above: Performed By: #### C MP, TSH #### [facility] [address] [place] [address] Dr. Yuly Schuler EGFR-AF LAO >60 Normal >=60 [facility] Comment on above: Performed By: #### C MP, TSH #### [facility] [address] [place] [address] Dr. Yuly Schuler EGFR-NON AF LAO >60 Normal >=60 The [facility] Comment on above: Performed By: #### C MP, TSH #### [facility] [address] [place] [address] Dr. Yuly Schuler Globulin (S) [Mass/Vol] 5.9 g/dL Normal T [facility] Comment on above: Performed By: #### C MP, TSH #### [facility] [address] [place] [address] Dr. Yuly Schuler Glucose [Mass/Vol] 92 mg/dL Normal 74-106 The [facility] Comment on above: Performed By: #### C MP, TSH #### [facility] [address] [place] [address] Dr. Yuly Schuler Potassium [Moles/Vol] 4.2 mmol/L Normal 3.5-5.1 [facility] Comment on above: Performed By: #### C MP, TSH #### [facility] [address] [place] [address] Dr. Yuly Schuler Protein [Mass/Vol] 8.2 g/dL Normal 6.4-8.2 [facility] Comment on above: Performed By: #### C MP, TSH #### [facility] [address] [place] [address] Dr. Yuly Schuler Sodium [Moles/Vol] 137 mmol/L Normal 136-145 [facility] Comment on above: Performed By: #### C MP, TSH #### [facility] [address] [place] [address] Dr. Yuly Schuler Urea nitrogen [Mass/Vol] 11.0 mg/dL Normal 7.0-18.0 [facility] Comment on above: Performed By: #### C MP, TSH #### [facility] [address] [place] [address] Dr. Yuly Schuler Urea nitrogen/Creatinine [Mass ratio] 13.8 mg/mg Normal [facility] Comment on above: Performed By: #### C MP, TSH #### [facility] [address] [place] [address] Dr. Yuly Schuler SED RATE [facility] 2021 SED RATE 72 mm/hr Critically high <=20 The [facility] Comment on above: Performed By: #### C MP, TSH #### [facility] [address], [place] [address] Dr. Yuly Schuler TSHon 08-29-2021 TSH 1.088 uIU/mL Normal 0.358-3.740 The [facility] Comment on above: Performed By: #### C MP, TSH #### [facility] [address] [place], [place] [address] Dr. Yuly Schuler TSH RANGE SEE BELOW Normal [facility] Comment on above: Result Comment: <0.3 4 UIU/ml HYPERTHYROID 0.34-5.60 UIU/ml EUTHYROID >5.60 UIU/ml HYPOTHYROID Performed By: #### C MP, TSH #### [facility] [address] [address] [address] Yuly Schuler Progress Noteon 12-04-2018 Zoology Teacher Authentication Interface Message Text The total patient time of the visit was 30 minutes, of which greater than 50% of the time was spent counseling and coordinating care. Yoko Ann MD [facility] Coding Summary.on 10-07-2018 Coding Summary. CODING DATE: 10/07/2018 [facility] DSC STATUS: Home (Routine DC) PAYOR: Medical Parnell APC DESCRIPTION 5671 Level 1 Pathology ADMIT [...] Escobedo CphT Date Saved: 10/07/2018 07:12 am Normal [facility] C Urineon 10-06-2018 Bacteria identified Cx Nom (U) Microbiology PROCEDURE: Urine Culture [R1] SOURCE: U Random BODY SITE: COLLECTED DATE/TIME: 10/04/2018 11:48 EDT RECEIVED DATE/TIME: 10/04/2018 19:46 EDT START DATE/TIME: 10/04/2018 19:46 EDT FREE TEXT SOURCE: AIDAN VALLES, Donna BERMUDEZ CNP, Donna Sheehan FINAL REPORTS Final Report [] Verified Date/Time: 10/06/2018 06:52 EDT 100 cfu/ml Mixed skin contaminants Performing Locations R1: This test was performed at: [facility], [address] [place] [address], [address] , Normal [facility] Comment on above: Performed By: #### 2 [id number] #### [facility] [address] [place] [address] Hep Bs Agon 10-06-2018 HBV surface Ag IA Ql Negative Negative Fish er [facility] Comment on above: Result Comment: Perf ormed at: [facility] [address] [id number] PhD Peter Ward Performed By: #### 2 [id number], [id number], [id number], [id number] #### [facility] [address] [place] [address] ABSCon 10-04-2018 ABSC Gel Interp Negative Normal [facility] Comment on above: Performed By: #### 1 [id number] #### [facility] [address] [place] [address] CBC w/Indiceson 10-04-2018 Erythrocyte distribution width Ratio (RBC) 13.1 % Normal 10.9-14.2 [facility] Comment on above: Performed By: #### 2 [id number], [id number], [id number], [id number] #### [facility] [address] [place] [address] Hematocrit Volume Fraction (Bld) 40.9 % Normal 34.0-46.0 [facility] Comment on above: Performed By: #### 2 [id number], [id number], [id number], [id number] #### [facility] [address] [place] [address] Hemoglobin mass conc (Bld) 14.3 g/dL Normal 12.0-16.0 [facility] Comment on above: Performed By: #### 2 [id number], [id number], [id number], [id number] #### [facility] [address] [place] [address] MCH Entitic mass (RBC) 32.5 pg Normal 27.0-34.0 [facility] Comment on above: Performed By: #### 2 [id number], [id number], [id number], [id number] #### [facility] [address] [place] [address] MCHC mass conc (RBC) 35.0 g/dL Normal 33.3-35.7 [facility] Comment on above: Performed By: #### 2 [id number], [id number], [id number], [id number] #### [facility] [address] [place] [address] MCV Entitic volume (RBC) 92.8 fL Normal 80.0-100.0 [facility] Comment on above: Performed By: #### 2 140558, [id number], [id number], [id number] #### [facility] [address] [place] [address] Platelet mean volume Entitic volume (Bld) 8.0 fL Normal 6.4-10.8 [facility] Comment on above: Performed By: #### 2 043701, [id number], [id number], [id number] #### [facility] [address] [place] [address] Platelets #/vol (Bld) 267.0 E9/L Normal 150.0-500.0 [facility] Comment on above: Performed By: #### 2 [id number], [id number], [id number], [id number] #### [facility] [address] [place] [address] RBC #/vol (Bld) 4.4 E12/L Normal 4.3-5.9 [facility] Comment on above: Performed By: #### 2 754115, [id number], [id number], [id number] #### [facility] [address] [place] [address] WBC corrected for nucl RBC Auto #/vol (Bld) 8.3 E9/L Normal 4.0-11.0 [facility] Comment on above: Performed By: #### 2 384994, [id number], [id number], [id number] #### [facility] [address] [place] [address] Gynecology Office/Clinic Not dougie 10-04-2018 Gynecology Office/Clinic [...] did have 2 periods in June. FOB, Yony, excited for . Review of Systems PHQ [...] Chlamydia/Gonococcu s, AMINA Collection Venous Blood Venipuncture 79820 Drug Screen Urine Hepatitis B Surface Antigen HgbA1c HIV Screen 4th Generation wRfx Office Visit Level 4 Est 72873 RPR Rubella Antibody TSH With T4fr Reflex Urine Culture US 1st Trimester 2. Endocrine, nutritional and metabolic diseases complicating , first trimester(O99.281: Hypothyroid) Will monitor TSH in Ordered: Antibody Screen CBC w/ Indices Chlamydia/Gonococcu s, AMINA Collection Venous Blood Venipuncture 93024 Drug Screen Urine Hepatitis B Surface Antigen HgbA1c HIV Screen 4th Generation wRfx Office Visit Level 4 Est 79376 RPR Rubella Antibody TSH With T4fr Reflex Urine Culture US 1st Trimester 3. Obesity complicating childbirth, (O99.214: Obesity)Obesity complicating childbirth Discussed in depth need to gain minimal weight in Ordered: Antibody Screen CBC w/ Indices Chlamydia/Gonococcu s, AMINA Collection Venous Blood Venipuncture 43732 Drug Screen Urine Hepatitis B Surface Antigen HgbA1c HIV Screen 4th Generation wRfx Office Visit Level 4 Est 00514 RPR Rubella Antibody TSH With T4fr Reflex Urine Culture US 1st Trimester 4. Supervision of elderly primigravida, first trimester(O09.511: Supervision of high risk in first trimester) NIPT ordered Will have weekly BPPS at 36 weeks Ordered: Antibody Screen CBC w/ Indices Chlamydia/Gonococcu s, AMINA Collection Venous Blood Venipuncture 85807 Drug Screen Urine Hepatitis B Surface Antigen HgbA1c HIV Screen 4th Generation wRfx Office Visit Level 4 Est 93494 RPR Rubella Antibody TSH With T4fr Reflex [...] Urine Dipstick: Negative (10/04/18 10:48:00 EDT) Normal [facility] Comment on above: Result Comment: Elec tronically Signed By: Donna BERMUDEZ CNP\Date and Time Signed: 10/04/18 13:24 EDT [id number] 10-04-2018 Hemoglobin A1c/Hemoglobin.total mass fraction (Bld) 4.9 % Normal <=5.9 [facility] Comment on above: Performed By: #### 2 748963, [id number], [id number], [id number] #### [facility] [address] [place] [address] TSH With T4fr Reflexon 10-04 Thyrotropin Qn 1.03 mcIU/mL Normal 0.34-5.60 [facility] Comment on above: Performed By: #### 2 697178, [id number], [id number], [id number] #### [facility] [address] [place] [address] U Drug Screenon 10-04-2018 Amphetamines Screen method >1000 ng/mL Ql (U) Negative Normal Negative [facility] Comment on above: Result Comment: Nega tive Cutoff: <1000 ng/mL Performed By: #### 2 [id number] #### [facility] [address] [place] [address] Barbiturates Screen Ql (U) Negative Normal Negative [facility] Comment on above: Result Comment: Nega tive Cutoff: <200 ng/mL Performed By: #### 2 [id number] #### [facility] [address] [place] [address] Benzodiazepines Ql (U) Negative Normal Negative [facility] Comment on above: Result Comment: Nega tive Cutoff: <200 ng/mL Performed By: #### 2 [id number] #### [facility] [address] [place] [address] Cocaine Ql (U) Negative Normal Negative [facility] Comment on above: Result Comment: Nega tive Cutoff: <300 ng/mL Performed By: #### 2 [id number] #### [facility] [address] [place] [address] Opiates Screen Ql (U) Negative Normal Negative [facility] Comment on above: Result Comment: Nega tive Cutoff: <300 ng/mL Performed By: #### 2 [id number] #### [facility] [address] [place] [address] Phencyclidine Screen method >25 ng/mL Ql (U) Negative Normal Negative [facility] Comment on above: Result Comment: Nega tive Cutoff: <25 ng/mL These drug screen results are to be used for medical (i.e., treatment) purposes only. Unconfirmed drug screening results must not be used for non-medical purposes (e.g., employment testing, legal testing). Performed By: #### 2 [id number] #### [facility] [address] [place] [address] Tetrahydrocannabinol Screen method >50 ng/mL Ql (U) Negative Normal Negative [facility] Comment on above: Result Comment: Nega tive Cutoff: <50 ng/mL Performed By: #### 2 [id number] #### [facility] [address] [place] [address] Vital Signs Date Time Vital Sign Value Performing Clinician Ck mariano 11-27-2024 15:00-0400 Body mass index (BMI) [Ratio] 47.12 kg/m2 Katalina Nataprawira DO Work Phone: [facility] 11-27-2024 15:00-0400 Body weight 120.66 kg Katalina Nataprawira DO Work Phone: [facility] 11-27-2024 15:00-0400 Diastolic blood pressure 76 mm[Hg] Katalina Nataprawira DO Work Phone: [facility] 11-27-2024 15:00-0400 Systolic blood pressure 122 mm[Hg] Katalina Nataprawira DO Work Phone: [facility] 10-30-2024 16:14-0400 Body mass index (BMI) [Ratio] 45.88 kg/m2 Katalina Nataprawira DO Work Phone: [facility] 10-30-2024 16:14-0400 Body weight 117.48 kg Katalina Nataprawira DO Work Phone: [facility] 10-30-2024 16:14-0400 Diastolic blood pressure 80 mm[Hg] Katalina Nataprawira DO Work Phone: [facility] 10-30-2024 16:14-0400 Systolic blood pressure 132 mm[Hg] Katalina Nataprawira DO Work Phone: [facility] 10-02-2024 15:56-0400 Body mass index (BMI) [Ratio] 45.7 kg/m2 Katalina Nataprawira DO Work Phone: [facility] 10-02-2024 15:56-0400 Body weight 117.03 kg Katalina Nataprawira DO Work Phone: [facility] 10-02-2024 15:56-0400 Diastolic blood pressure 76 mm[Hg] Katalina Nataprawira DO Work Phone: [facility] 10-02-2024 15:56-0400 Systolic blood pressure 130 mm[Hg] Katalina Nataprawira DO Work Phone: [facility] 08-22-2024 08:46-0400 Body height 160 cm Alfonsodenise Olivarezuch CHINESE LANGUAGE PROFESSOR-NAME PLATE STAMPER Work Phone: [facility] 08-22-2024 08:46-0400 Body mass index (BMI) [Ratio] 43.41 kg/m2 Alfonso Jess CHINESE LANGUAGE PROFESSOR-NAME PLATE STAMPER Work Phone: [facility] 08-22-2024 08:46-0400 Body temperature 97.9 [degF] Alfonso Mercado CHINESE LANGUAGE PROFESSOR-NAME PLATE STAMPER Work Phone: [facility] 08-22-2024 08:46-0400 Body weight 111.13 kg Alfonso Mercado CHINESE LANGUAGE PROFESSOR-NAME PLATE STAMPER Work Phone: [facility] 08-22-2024 08:46-0400 Diastolic blood pressure 60 mm[Hg] Alfonsodenise Mercado CHINESE LANGUAGE PROFESSOR-NAME PLATE STAMPER Work Phone: [facility] 08-22-2024 08:46-0400 Heart rate 90 /min Alfonsodenise Mercado CHINESE LANGUAGE PROFESSOR-NAME PLATE STAMPER Work Phone: [facility] 08-22-2024 08:46-0400 Respiratory rate 18 /min Alfonsodenise Mercado CHINESE LANGUAGE PROFESSOR-NAME PLATE STAMPER Work Phone: [facility] 08-22-2024 08:46-0400 SaO2% (BldA) [Mass fraction] 99 % Alfonso Mercado CHINESE LANGUAGE PROFESSOR-NAME PLATE STAMPER Work Phone: [facility] 08-22-2024 08:46-0400 Systolic blood pressure 122 mm[Hg] Alfonso Mercado CHINESE LANGUAGE PROFESSOR-NAME PLATE STAMPER Work Phone: [facility] 07-29-2024 08:02-0400 Body height 160 cm Dea Henry NP Work Phone: [facility] 10-12-2023 09:40-0400 Body height 160 cm Alfonso Mercado CHINESE LANGUAGE PROFESSOR-NAME PLATE STAMPER Work Phone: [facility] 10-12-2023 09:40-0400 Body mass index (BMI) [Ratio] 42.23 kg/m2 Alfonsodenise Mercado CHINESE LANGUAGE PROFESSOR-NAME PLATE STAMPER Work Phone: [facility] 10-12-2023 09:40-0400 Body temperature 97.7 [degF] Alfonso Jess CHINESE LANGUAGE PROFESSOR-NAME PLATE STAMPER Work Phone: [facility] 10-12-2023 09:40-0400 Body weight 108.14 kg Alfonso Mercado CHINESE LANGUAGE PROFESSOR-NAME PLATE STAMPER Work Phone: [facility] 10-12-2023 09:40-0400 Diastolic blood pressure 70 mm[Hg] Alfonso Mercado APRN-NAME PLATE STAMPER Work Phone: [facility] 10-12-2023 09:40-0400 Heart rate 73 /min Alfonso Mercado APRN-NAME PLATE STAMPER Work Phone: [facility] [facility] 10-12-2023 09:40-0400 SaO2% (BldA) [Mass fraction] 99 % Alfonso FELDMAN Work Phone: [facility] 10-12-2023 09:40-0400 Systolic blood pressure 104 mm[Hg] Alfonso Mercado APRN-NAME PLATE STAMPER Work Phone: [facility] [facility] 09-11-2023 09:41-0400 Body height 160 cm Estela Bennett APRN-MAKE UP OPERATOR Work Phone: [facility] [facility] 09-11-2023 09:41-0400 Body mass index (BMI) [Ratio] 43.65 kg/m2 Estela Bennett APRN-MAKE UP OPERATOR Work Phone: [facility] 09-11-2023 09:41-0400 Body temperature 98.01 [degF] Estela Bennett APRN-MAKE UP OPERATOR Work Phone: [facility] 09-11-2023 09:41-0400 Body weight 111.77 kg Estela BARNARDMAKE UP OPERATOR Work Phone: [facility] 09-11-2023 09:41-0400 Diastolic blood pressure 70 mm[Hg] Estela Bennett APRN-MAKE UP OPERATOR Work Phone: [facility] 09-11-2023 09:41-0400 Heart rate 81 /min Estela BARNARDMAKE UP OPERATOR Work Phone: [facility] 09-11-2023 09:41-0400 Respiratory rate 18 /min Estela Bennett APRN-MAKE UP OPERATOR Work Phone: [facility] 09-11-2023 09:41-0400 SaO2% (BldA) [Mass fraction] 98 % Estela Bennett APRN-MAKE UP OPERATOR Work Phone: [facility] 09-11-2023 09:41-0400 Systolic blood pressure 110 mm[Hg] Estela Bennett APRN-MAKE UP OPERATOR Work Phone: [facility] 08-17-2023 09:13-0400 Body height 160 cm Estela Bennett APRN-MAKE UP OPERATOR Work Phone: [facility] 08-17-2023 09:13-0400 Body mass index (BMI) [Ratio] 45.88 kg/m2 Estela Bennett APRN-MAKE UP OPERATOR Work Phone: [facility] 08-17-2023 09:13-0400 Body temperature 98.49 [degF] Estela Bennett APRN-MAKE UP OPERATOR Work Phone: [facility] 08-17-2023 09:13-0400 Body weight 117.48 kg Estela Bennett APRN-MAKE UP OPERATOR Work Phone: [facility] 08-17-2023 09:13-0400 Diastolic blood pressure 74 mm[Hg] Estela Bennett APRN-MAKE UP OPERATOR Work Phone: [facility] 08-17-2023 09:13-0400 Heart rate 73 /min Estela BARNARDMAKE UP OPERATOR Work Phone: [facility] 08-17-2023 09:13-0400 Respiratory rate 20 /min Estela Bennett APRN-MAKE UP OPERATOR Work Phone: [facility] 08-17-2023 09:13-0400 SaO2% (BldA) [Mass fraction] 100 % Estela Bennett APRN-MAKE UP OPERATOR Work Phone: [facility] 08-17-2023 09:13-0400 Systolic blood pressure 116 mm[Hg] Estela Bennett APRN-MAKE UP OPERATOR Work Phone: [facility] 06-15-2023 09:56-0500 Body height 160 cm Estela BARNARDMAKE UP OPERATOR Work Phone: [facility] 06-15-2023 09:56-0500 Body mass index (BMI) [Ratio] 45.67 kg/m2 Estela Bennett APRN-MAKE UP OPERATOR Work Phone: [facility] 06-15-2023 09:56-0500 Body temperature 98.4 [degF] Estela VALDERRAMA Work Phone: [facility] 06-15-2023 09:56-0500 Body weight 116.94 kg Estela BARNARDMAKE UP OPERATOR Work Phone: [facility] 06-15-2023 09:56-0500 Diastolic blood pressure 62 mm[Hg] Estela CABRALP Work Phone: [facility] 06-15-2023 09:56-0500 Heart rate 88 /min Estela VALDERRAMA Work Phone: [facility] 06-15-2023 09:56-0500 SaO2% (BldA) [Mass fraction] 99 % Estela CABRALP Work Phone: [facility] 06-15-2023 09:56-0500 Systolic blood pressure 108 mm[Hg] Estela Bennett APRN-MAKE UP OPERATOR Work Phone: [facility] 12-22-2021 12:26-0400 Diastolic blood pressure 81 mm[Hg] MAKE UP OPERATOR Estela Bennett Work Phone: [facility] 12-22-2021 12:26-0400 Heart rate 69 /min MAKE UP OPERATOR Estela Bennett Work Phone: [facility] 12-22-2021 12:26-0400 Respiratory rate 16 /min MAKE UP OPERATOR Estela Bennett Work Phone: [facility] 12-22-2021 12:26-0400 SaO2% (BldA) [Mass fraction] 100 % MAKE UP OPERATOR Estela Bennett Work Phone: [facility] 12-22-2021 12:26-0400 Systolic blood pressure 126 mm[Hg] MAKE UP OPERATOR Estela Bennett Work Phone: [facility] 12-22-2021 11:41-0400 Inhaled oxygen flow rate 8 L/min MAKE UP OPERATOR Estela Bennett Work Phone: [facility] 12-22-2021 11:15-0400 Body mass index (BMI) [Ratio] 42.5 kg/m2 MAKE UP OPERATOR Estela Bennett Work Phone: [facility] 12-22-2021 10:25-0400 Body height 160.02 cm MAKE UP OPERATOR Estela Bennett Work Phone: [facility] 12-22-2021 10:25-0400 Body weight 108.86 kg MAKE UP OPERATOR Estela Bennett Work Phone: [facility] 12-22-2021 09:05-0400 Body temperature 97.9 [degF] MAKE UP OPERATOR Estela Bennett Work Phone: [facility] 12-13-2021 10:23-0400 Body height 160.02 cm MAKE UP OPERATOR Estela Bennett Work Phone: [facility] 12-13-2021 10:23-0400 Body mass index (BMI) [Ratio] 38.9 kg/m2 MAKE UP OPERATOR Estela Bennett Work Phone: [facility] 12-13-2021 10:23-0400 Body weight 99.79 kg MAKE UP OPERATOR Estela Bennett Work Phone: [facility] 12-13-2021 09:28-0400 Body temperature 97.7 [degF] MAKE UP OPERATOR Estela Bennett Work Phone: [facility] 12-13-2021 09:28-0400 Diastolic blood pressure 80 mm[Hg] MAKE UP OPERATOR Estela Bolañoss Work Phone: [facility] 12-13-2021 09:28-0400 Heart rate 72 /min MAKE UP OPERATOR Estela Bennett Work Phone: [facility] 12-13-2021 09:28-0400 Respiratory rate 16 /min [facility] Estela Bennett Work Phone: [facility] 12-13-2021 09:28-0400 Systolic blood pressure 134 mm[Hg] [facility] Estela Bennett Work Phone: [facility] Encounters Encounter Date Encounter Type Care Provider Facility Start: 11-27-2024 End: 11-27-2024 flow sheet Katalina Edwards DO Work Phone: [facility] Comment on above: related co ndition, second trimester (HHS-HCC) (Primary Dx); 24 weeks gestation of (HHS-HCC); Advanced maternal age in multigravida, second trimester (HHS-HCC); Rh negative state in antepartum period (HHS-HCC); Hypothyroid in , antepartum (HCC); Other obesity due to excess calories affecting in second trimester (HHS-HCC); Screening for diabetes mellitus Start: 11-27-2024 End: 11-27-2024 ambulatory KATALINA Lehman LAURYNWILLARD Not Available Start: 11-27-2024 End: 11-27-2024 Bamboo flowsheet Katalina Espinozara DO Work Phone: [facility] Start: 11-27-2024 End: 11-27-2024 Bamboo flowsheet Katalina Dominik Nataprrenara DO Work Phone: [facility] Start: 10-30-2024 End: 10-30-2024 flow sheet Katalina Mesaaprrenara DO Work Phone: [facility] Comment on above: related co ndition, second trimester (HHS-HCC) (Primary Dx); 20 weeks gestation of (HHS-HCC); Advanced maternal age in multigravida, second trimester (HHS-HCC); Rh negative state in antepartum period (HHS-HCC); Hypothyroid in , antepartum (HCC); Other obesity due to excess calories affecting in second trimester (HHS-HCC) Start: 10-30-2024 End: 10-30-2024 ambulatory KATALINA EDWARDS Not Available Start: 10-02-2024 End: 10-02-2024 flow sheet Katalina Edwards DO Work Phone: [facility] Comment on above: related co ndition, second trimester ([facility]-H[facility]) (Primary Dx); 16 weeks gestation of ([facility]); Advanced maternal age in multigravida, second trimester ([facility]); Rh negative state in antepartum period ([facility]); Hypothyroid in , antepartum ([facility]); Maternal care due to low transverse uterine scar from previous delivery ([facility]); Other obesity due to excess calories affecting in second trimester ([facility]) Start: 10-02-2024 End: 10-02-2024 ambulatory KATALINA EDWARDS Not Available Start: 10-02-2024 End: 10-02-2024 Bamboo flowsheet Katalina Edwards DO Work Phone: [facility] Start: 10-02-2024 End: 10-02-2024 Bamboo flowsheet Katalina Edwards DO Work Phone: [facility] Start: 09-04-2024 End: 09-04-2024 ambulatory DEA Hall ELAINE Not Available Start: 08-22-2024 End: 08-22-2024 Patient encounter status Alfonso Mercado CHINESE LANGUAGE PROFESSOR-NAME PLATE STAMPER Work Phone: [facility] Work Phone: Start: 08-22-2024 End: 08-22-2024 Periodic preventive med est patient 40-64yrs Alfonso Mercado CHINESE LANGUAGE PROFESSOR-NAME PLATE STAMPER Work Phone: [facility] Comment on above: Wellness examination (Primary Dx); Acquired hypothyroidism; 11 weeks gestation of Start: 08-22-2024 End: 08-22-2024 ambulatory ALFONSO Gimenez JESS [facility] Start: 08-22-2024 Encounter for genera l adult medical examination without abnormal findings ALFONSO MERCADO [facility] Start: 08-14-2024 End: 08-14-2024 Patient encounter procedure Dea HENRY [facility] Start: 08-14-2024 End: 08-14-2024 ambulatory [facility] Start: 08-14-2024 End: 08-14-2024 Clinisync Result Encounter Dea Henry DIRECTOR OF THE BIOPHYSICS FACILITY Work Phone: [facility] Unsolicited Start: 08-14-2024 End: 08-14-2024 Clinisync Result Encounter Dea Henry DIRECTOR OF THE BIOPHYSICS FACILITY Work Phone: [facility] Unsolicited Start: 08-01-2024 End: 08-04-2024 Refill Minerva Leelee [facility] Start: 07-29-2024 End: 07-29-2024 flow sheet Dea Henry DIRECTOR OF THE BIOPHYSICS FACILITY Work Phone: [facility] Comment on above: GA: [id number] Start: 07-29-2024 End: 07-29-2024 ambulatory DEA HENRY Not Available Start: 07-07-2024 End: 07-07-2024 Orders Only Alfonso Pernell Jess CHINESE LANGUAGE PROFESSOR-NAME PLATE STAMPER [facility] Phone: [facility] Comment on above: Abnormal screening m ammogram (Primary Dx) Start: 07-04-2024 End: 07-04-2024 Patient encounter procedure Alfonso Mercado MAKE UP OPERATOR Work Phone: [facility] Work Phone: Start: 07-04-2024 End: 07-04-2024 ambulatory Alfonso Mercado MAKE UP OPERATOR Work Phone: [facility] Work Phone: Start: 06-25-2024 End: 06-25-2024 Orders Only Alfonso Pernell Jess CHINESE LANGUAGE PROFESSOR-NAME PLATE STAMPER Work Phone: [facility] Comment on above: Abnormal mammogram o f right breast (Primary Dx) Start: 04-30-2024 End: 04-30-2024 Orders Only Alfonso Mercado CHINESE LANGUAGE PROFESSOR-NAME PLATE STAMPER Work Phone: [facility] Comment on above: Encounter for screen ing mammogram for malignant neoplasm of breast (Primary Dx) Start: 04-29-2024 End: 04-30-2024 Telephone encounter Saranya Mendoza [facility] Start: 10-17-2023 End: 10-17-2023 Orders Only Alfonso Mercado CHINESE LANGUAGE PROFESSOR-NAME PLATE STAMPER Work Phone: [facility] Comment on above: Morbid obesity ([facility]- HCC) Start: 10-12-2023 End: 10-12-2023 ambulatory [facility] Start: 10-12-2023 End: 10-12-2023 Office outpatient visit 15 minutes [facility] CHINESE LANGUAGE PROFESSOR-NAME PLATE STAMPER Work Phone: [facility] Comment on above: Class 3 severe obesi ty due to excess calories without serious comorbidity with body mass index (BMI) of 40.0 to 44.9 in adult ([facility]-HCC) (Primary Dx); Acquired hypothyroidism Start: 10-12-2023 End: 10-12-2023 ambulatory [facility] Start: 09-14-2023 End: 09-14-2023 Orders Only Estela Bennett CHINESE LANGUAGE PROFESSOR-MAKE UP OPERATOR Work Phone: [facility] Comment on above: Morbid obesity ([facility]- HCC) Start: 09-11-2023 End: 09-11-2023 Office outpatient visit 15 minutes Estela Bennett CHINESE LANGUAGE PROFESSOR-MAKE UP OPERATOR Work Phone: [facility] Comment on above: Morbid obesity ([facility]- HCC) (Primary Dx); Rosacea; Palpitations Start: 08-19-2023 End: 08-19-2023 Orders Only Estela Bennett CHINESE LANGUAGE PROFESSOR-MAKE UP OPERATOR Work Phone: [facility] Start: 08-17-2023 End: 08-17-2023 ambulatory ESTELA BENNETT [facility] Start: 08-17-2023 Encounter for genera l adult medical examination without abnormal findings [facility] SABRINA [facility] Start: 08-17-2023 End: 08-17-2023 Patient encounter procedure Estela Bennett CHINESE LANGUAGE PROFESSOR-MAKE UP OPERATOR Work Phone: [facility] Work Phone: Start: 08-17-2023 End: 08-17-2023 Periodic preventive med est patient 40-64yrs Estela Bennett CHINESE LANGUAGE PROFESSOR-MAKE UP OPERATOR Work Phone: [facility] Comment on above: Encounter for annual health examination (Primary Dx); Acquired hypothyroidism; Rosacea; Morbid obesity ([facility]) Start: 06-15-2023 End: 06-15-2023 Office outpatient visit 15 minutes Estela Bennett CHINESE LANGUAGE PROFESSOR-MAKE UP OPERATOR Work Phone: [facility] Comment on above: Tongue and jaw pain (Primary Dx); Adenitis, acute Start: 08-17-2022 Encounter for genera l adult medical examination without abnormal findings DR ESTELA BENNETT [facility] Start: 08-12-2022 End: 08-13-[address] ESTELA BENNETT Facility:[facility] Start: 08-12-2022 End: 08-13-2022 Encounter for general adult medical examination without abnormal findings DR ESTELA BENNETT Facility:[facility] Start: 03-21-2022 End: 03-22-[address] DOCTOR HEWITT Facility:[facility] Start: 12-22-2021 End: 12-22-2021 Admission to same day surgery center DARRELL Bennett Work Phone: [facility] [place] Start: 12-20-2021 End: 12-20-2021 Patient encounter procedure DARRELL Bennett Work Phone: [facility] Start: 12-13-2021 Registered Recurring DARRELL Bennett Work Phone: [facility] Start: 11-04-2021 End: 11-05-[address] DOCTOR HEWITT Facility:[facility] Start: 09-29-2021 End: 09-30-[address] ESTELA BENNETT Facility:[facility] Start: 08-30-2021 End: 08-30-[address] KELSY JASON . Facility:[facility] Start: 08-29-2021 End: 08-30-[address] KEITH TORRES Facility:[facility] Procedures Date Procedure Procedure Detail Performing Clinician Start: 11-27-2024 Urnls dip stick/tabl et rgnt non-auto w/o micrscp Katalina J Nataprawira DO Work Phone: Start: 10-30-2024 Urnls dip stick/tabl et rgnt non-auto w/o micrscp Katalina J Nataprawira DO Work Phone: Start: 10-02-2024 Urnls dip stick/tabl et rgnt non-auto w/o micrscp Katalina J Nataprawira DO Work Phone: Start: 08-22-2024 Adult depression scr eening assessment Alfonso Jess CHINESE LANGUAGE PROFESSOR-NAME PLATE STAMPER Work Phone: Start: 08-14-2024 [facility] CBC W/ AUTO DIFF S gloria F Elaine DIRECTOR OF THE BIOPHYSICS FACILITY Work Phone: Start: 07-10-2024 Mammography Minerva Post ell FRUIT WORKER Start: 06-20-2024 Mammography Alfonsodenise Olivarezu CHINESE LANGUAGE PROFESSOR-NAME PLATE STAMPER Work Phone: Start: 10-12-2023 Adult depression scr eening assessment Alfonso Jess CHINESE LANGUAGE PROFESSOR-NAME PLATE STAMPER Work Phone: Start: 09-11-2023 Adult depression scr eening assessment Estela Bennett CHINESE LANGUAGE PROFESSOR-MAKE UP OPERATOR Work Phone: Start: 08-17-2023 Adult depression scr eening assessment Estela Bennett CHINESE LANGUAGE PROFESSOR-MAKE UP OPERATOR Work Phone: Start: 06-15-2023 Adult depression scr eening assessment Estela Bennett CHINESE LANGUAGE PROFESSOR-MAKE UP OPERATOR Work Phone: Start: 03-22-2023 Mammography Estela Bennett CHINESE LANGUAGE PROFESSOR-[facility] Work Phone: Start: 02-02-2023 Microscopic observat ion [Identifier] in Cervix by Cyto stain Estela Bennett CHINESE LANGUAGE PROFESSOR-[facility] Work Phone: Start: 12-22-2021 OR Wound Debridement/I&D/Hydradenit is (Not Applicable) MAKE UP OPERATOR Estela Bennett Work Phone: Start: 04-16-1988 Tonsillectomy and adenoidectomy Dea HENRY Aerobic microbial culture FN P Estela Bennett Work Phone: Anaerobic microbial culture MAKE UP OPERATOR Estela Bennett Work Phone: Investigation of transfusion reaction [facility] Estela Bennett Work Phone: Plan of Treatment Date Care Activity Detail Author Start: 06-21-2031 DTaP,Tdap and Td Vaccines (4 - Td or Tdap) DTaP,Tdap and Td Vaccines (4 - Td or Tdap) [facility] Start: 02-02-2026 Screening for malign ant neoplasm of cervix Pap Smear [facility] Start: 08-22-2025 Adult BMI Screening Adult BMI Screen ing [facility] Start: 08-22-2025 Depression Screening Depression Scre ening [facility] Start: 07-10-2025 Screening for malign ant neoplasm of breast Mammogram [facility] Start: 06-20-2025 Screening for malign ant neoplasm of breast Mammogram [facility] Start: 12-18-2024 End: 12-18-2024 Patient encounter procedure [facility] Start: 12-15-2024 Influenza vaccination Influenza Vacc ine [facility] Start: 11-27-2024 End: 11-27-2024 Patient encounter procedure [facility] Comment on above: related co ndition, second trimester ([facility]) (Primary Dx); 24 weeks gestation of ([facility]-H[facility]); Advanced maternal age in multigravida, second trimester ([facility]-HCC); Rh negative state in antepartum period ([facility]-HCC); Hypothyroid in , antepartum (HCC); Other obesity due to excess calories affecting in second trimester ([facility]-HCC); Screening for diabetes mellitus Start: 10-30-2024 End: 10-30-2024 Patient encounter procedure 10/30/2024 4:00 PM EDT Routine [facility] [address] [phone] Katalina Edwards DO [address] [phone] [facility] Start: 10-30-2024 End: 10-30-2024 Professional / ancillary services management 10/30/2024 3:00 PM EDT Ancillary Procedure [facility] [address] [phone] [facility] Start: 10-11-2024 Adult BMI Screening Adult BMI Screen ing [facility] Start: 10-11-2024 Depression Screening Depression Scre ening [facility] Start: 10-11-2024 Tobacco Screening Tobacco Screening [facility] Start: 10-02-2024 End: 10-02-2024 Patient encounter procedure 10/02/2024 3:45 PM EDT Routine [facility] [address] [phone] Katalina Edwards DO [address] [phone] related condition, second trimester ([facility]HS-HCC) (Primary Dx); 16 weeks gestation of (HHS-HCC); Advanced maternal age in multigravida, second trimester ([facility]-HCC); Rh negative state in antepartum period ([facility]-HCC); Hypothyroid in , antepartum (HCC); Maternal care due to low transverse uterine scar from previous delivery ([facility]HS-HCC); Other obesity due to excess calories affecting in second trimester ([facility]-HCC) [facility] Comment on above: related co ndition, second trimester ([facility]) (Primary Dx); 16 weeks gestation of ([facility]); Advanced maternal age in multigravida, second trimester ([facility]); Rh negative state in antepartum period ([facility]); Hypothyroid in , antepartum ([facility]); Maternal care due to low transverse uterine scar from previous delivery ([facility]); Other obesity due to excess calories affecting in second trimester ([facility]) Start: 09-10-2024 Adult BMI Screening Adult BMI Screen ing [facility] Start: 09-10-2024 Depression Screening Depression Scre ening [facility] Start: 09-10-2024 Tobacco Screening Tobacco Screening [facility] Start: 09-04-2024 End: 09-04-2024 ambulatory 09/04/2024 3:40 PM EDT Initial [facility] [address] [phone] Dea Henry NP [address] [place] [address] [facility] Start: 08-28-2024 End: 07-29-2025 ABO/Rh ABO/Rh Lab Routine care, subsequent in first trimester 7 weeks gestation of Expected: 08/28/2024 (Approximate), Expires: 07/29/2025 [facility] Work Phone: Comment on above: Expected: 08/28/2024 (Approximate), Expires: 07/29/2025 Start: 08-28-2024 End: 07-29-2025 Antibody screen Antibody screen Lab Routine care, subsequent in first trimester 7 weeks gestation of Expected: 08/28/2024 (Approximate), Expires: 07/29/2025 [facility] Comment on above: Expected: 08/28/2024 (Approximate), Expires: 07/29/2025 Start: 08-28-2024 End: 07-29-2025 Bacteria identified in Urine by Culture Urine culture Microbiology Routine care, subsequent in first trimester 7 weeks gestation of Expected: 08/28/2024 (Approximate), Expires: 07/29/2025 [facility] Comment on above: Expected: 08/28/2024 (Approximate), Expires: 07/29/2025 Start: 08-28-2024 End: 07-29-2025 CBC W Auto Differential panel - Blood CBC and differential Lab Routine care, subsequent in first trimester 7 weeks gestation of Expected: 08/28/2024 (Approximate), Expires: 07/29/2025 [facility] Comment on above: Expected: 08/28/2024 (Approximate), Expires: 07/29/2025 Start: 08-28-2024 End: 07-29-2025 Drugs of abuse panel - Urine by Screen method Rapid drug screen, urine Lab Routine care, subsequent in first trimester 7 weeks gestation of Expected: 08/28/2024 (Approximate), Expires: 07/29/2025 [facility] Comment on above: Expected: 08/28/2024 (Approximate), Expires: 07/29/2025 Start: 08-28-2024 End: 07-29-2025 Hemoglobin A1c/Hemoglobin.total in Blood Hemoglobin A1c Lab Routine care, subsequent in first trimester 7 weeks gestation of Expected: 08/28/2024 (Approximate), Expires: 07/29/2025 [facility] Comment on above: Expected: 08/28/2024 (Approximate), Expires: 07/29/2025 Start: 08-28-2024 End: 07-29-2025 Hepatitis B virus surface Ag [Presence] in Serum or Plasma by Immunoassay Hepatitis B surface Ag Lab Routine care, subsequent in first trimester 7 weeks gestation of Expected: 08/28/2024 (Approximate), Expires: 07/29/2025 [facility] Comment on above: Expected: 08/28/2024 (Approximate), Expires: 07/29/2025 Start: 08-28-2024 End: 07-29-2025 HIV-1/HIV-2 antigen/antibody combination immunoassay HIV-1 and HIV-2 antibodies Lab Routine care, subsequent in first trimester 7 weeks gestation of Expected: 08/28/2024 (Approximate), Expires: 07/29/2025 [facility] Comment on above: Expected: 08/28/2024 (Approximate), Expires: 07/29/2025 Start: 08-28-2024 End: 07-29-2025 Reagin Ab [Presence] in Serum by RPR RPR Lab Routine care, subsequent in first trimester 7 weeks gestation of Expected: 08/28/2024 (Approximate), Expires: 07/29/2025 [facility] Comment on above: Expected: 08/28/2024 (Approximate), Expires: 07/29/2025 Start: 08-28-2024 End: 07-29-2025 Rubella IgG Rubella IgG Lab Routine care, subsequent in first trimester 7 weeks gestation of Expected: 08/28/2024 (Approximate), Expires: 07/29/2025 [facility] Comment on above: Expected: 08/28/2024 (Approximate), Expires: 07/29/2025 Start: 08-28-2024 End: 07-29-2025 Thyrotropin [Units/volume] in Serum or Plasma TSH Lab Routine care, subsequent in first trimester 7 weeks gestation of Expected: 08/28/2024 (Approximate), Expires: 07/29/2025 [facility] Comment on above: Expected: 08/28/2024 (Approximate), Expires: 07/29/2025 Start: 08-28-2024 End: 07-29-2025 Thyroxine (T4) free [Mass/volume] in Serum or Plasma T4, free Lab Routine care, subsequent in first trimester 7 weeks gestation of Expected: 08/28/2024 (Approximate), Expires: 07/29/2025 [facility] Comment on above: Expected: 08/28/2024 (Approximate), Expires: 07/29/2025 Start: 08-22-2024 End: 08-22-2025 Lipid 1996 panel - Serum or Plasma [facility] Comment on above: Expected: 08/22/2024 (Approximate), Expires: 08/22/2025 Start: 08-22-2024 End: 08-22-2024 Patient encounter procedure 08/22/2024 8:40 AM EDT Office Visit [facility] [address] [place] [address] Alfonso Mercado, CHINESE LANGUAGE PROFESSOR-NAME PLATE STAMPER [address] [facility] [place] [address] [facility] Start: 08-16-2024 Adult BMI Follow Up Plan Adult BMI Follow Up Plan [facility] Start: 08-16-2024 Adult BMI Screening Adult BMI Screen ing [facility] Start: 08-16-2024 Depression Screening Depression Scre ening [facility] Start: 08-16-2024 Tobacco Screening Tobacco Screening [facility] Start: 08-14-2024 End: 08-14-2024 Professional / ancillary services management 08/14/2024 4:00 PM EDT Ancillary Procedure [facility] [address] [phone] [facility] Start: 07-07-2024 End: 07-07-2025 MG Breast duct - right Views W contrast intra duct Mammography diagnostic unilateral right with CAD Imaging Routine Abnormal screening mammogram Expected: 07/07/2024, Expires: 07/07/2025 [employer] Work Phone: Comment on above: Expected: 07/07/2024 , Expires: 07/07/2025 Start: 07-07-2024 End: 07-07-2025 US Breast - right limited Ultrasound breast limited right Imaging Routine Abnormal screening mammogram Expected: 07/07/2024, Expires: 07/07/2025 [facility] Comment on above: Expected: 07/07/2024 , Expires: 07/07/2025 Start: 07-04-2024 Mammography of right breast MM special view RT w/CAD [facility] Start: 07-04-2024 MG Breast - right Single view [facility] Start: 06-25-2024 End: 06-25-2025 MG Breast duct - right Views W contrast intra duct Mammography diagnostic unilateral right with CAD Imaging Routine Abnormal mammogram of right breast Expected: 06/25/2024, Expires: 06/25/2025 [employer] Work Phone: Comment on above: Expected: 06/25/2024 , Expires: 06/25/2025 Start: 06-25-2024 End: 06-25-2025 US Breast - right limited Ultrasound breast limited right Imaging Routine Abnormal mammogram of right breast Expected: 06/25/2024, Expires: 06/25/2025 [facility] Comment on above: Expected: 06/25/2024 , Expires: 06/25/2025 Start: 06-14-2024 Depression Screening Depression Scre ening [facility] Start: 06-14-2024 Tobacco Screening Tobacco Screening [facility] Start: 04-30-2024 End: 04-30-2025 DBT Breast - bilateral screening Mammography screening bilateral with CAD Imaging Routine Encounter for screening mammogram for malignant neoplasm of breast Expected: 04/30/2024, Expires: 04/30/2025 [employer] Work Phone: Comment on above: Expected: 04/30/2024 , Expires: 04/30/2025 Start: 03-22-2024 Screening for malign ant neoplasm of breast Mammogram [facility] Start: 02-03-2024 Adult BMI Screening Adult BMI Screen ing [facility] Start: 12-16-2023 Influenza vaccination Influenza Vacc ine [facility] Start: 10-12-2023 End: 10-11-2024 Thyrotropin [Units/volume] in Serum or Plasma TSH Lab Routine Acquired hypothyroidism Expected: 10/12/2023 (Approximate), Expires: 10/11/2024 [employer] Work Phone: Comment on above: Expected: 10/12/2023 (Approximate), Expires: 10/11/2024 Start: 10-12-2023 End: 10-12-2023 Patient encounter procedure 10/12/2023 9:40 AM EDT Office Visit [facility] [address] [place] [phone] Alfonso Mercado, CHINESE LANGUAGE PROFESSOR-NAME PLATE STAMPER [address] [place] [address] [facility] Start: 09-14-2023 End: 09-14-2023 Patient encounter procedure 09/14/2023 9:40 AM EDT Office Visit [facility] [address] [place] [phone] SabrinaEstela, CHINESE LANGUAGE PROFESSOR-MAKE UP OPERATOR [address] [place] [address] [facility] Start: 08-17-2023 End: 08-17-2023 Patient encounter procedure 08/17/2023 9:00 AM EDT Office Visit [facility] [address] [place] [phone] SabrinaEstelaSerenity, CHINESE LANGUAGE PROFESSOR-MAKE UP OPERATOR [address] [place] [address] [facility] Start: 12-15-2022 Influenza vaccination Influenza Vacc ine [facility] Start: 12-23-2021 [facility] Work Phone: Start: 12-22-2021 End: 12-22-2021 [facility] Work Phone: Start: 12-20-2021 [facility] Work Phone: Start: 2000 Adult BMI Follow Up Plan Adult BMI Follow Up Plan [facility] Aerobic Culture Aerobic Culture [facility] Anaerobic Culture Anaerobic Culture [facility] Bacteria identified in Unspecified specimen by Aerobe culture [facility] Work Phone: Bacteria identified in Unspecified specimen by Anaerobe culture [facility] Work Phone: End: 08-22-2025 Comprehensive metabolic 2000 panel - Serum or Plasma Comprehensive metabolic panel Lab Routine Wellness examination 1 Occurrences starting 08/22/2024 until 08/22/2025 [facility] Work Phone: Comment on above: 1 Occurrences starti ng 08/22/2024 until 08/22/2025 Comprehensive metabo lic 2000 panel - Serum or Plasma Comprehensive metabolic panel Lab Routine Wellness examination 08/22/2024 9:15 AM EDT [employer] [facility] Hemoglobin [Mass/volume] in Blood Hemoglobin and hematocrit, blood Lab Routine Screening for diabetes mellitus Ordered: 11/27/2024 [facility] [employer] Work Phone: Comment on above: Ordered: 11/27/2024 Measurement of gluco se 1 hour after glucose challenge for glucose tolerance test Glucose tolerance, 1 hour Lab Routine Screening for diabetes mellitus Ordered: 11/27/2024 [facility] [employer] Comment on above: Ordered: 11/27/2024 Microscopic observat ion [Identifier] in Unspecified specimen by Gram stain [facility] [facility] Patient Education How to Change a Wet to Dry Dressing [facility] Work Phone: Patient referral [facility] Work Phone: SARS-CoV-2 (COVID-19 ) N gene [Presence] in Respiratory specimen by AMINA with probe detection [facility] Work Phone: Thyrotropin [Units/volume] in Serum or Plasma TSH Lab Routine related condition, second trimester (HHS-HCC) 24 weeks gestation of (HHS-HCC) Hypothyroid in , antepartum (HCC) Ordered: 11/27/2024 [facility] Comment on above: Ordered: 11/27/2024 End: 10-11-2024 Thyroxine (T4) free [Mass/volume] in Serum or Plasma T4, free Lab Routine Acquired hypothyroidism 1 Occurrences starting 10/12/2023 until 10/11/2024 [facility] Comment on above: 1 Occurrences starti ng 10/12/2023 until 10/11/2024 Thyroxine (T4) free [Mass/volume] in Serum or Plasma T4, free Lab Routine related condition, second trimester (HHS-HCC) 24 weeks gestation of (HHS-HCC) Hypothyroid in , antepartum (HCC) Ordered: 11/27/2024 [facility] Comment on above: Ordered: 11/27/2024 Immunizations Immunization Date Immunization Notes Care Provider Luke huizar 06-20-2021 diphtheria, tetanus toxoids and acellular pertussis vaccine, 5 pertussis antigens Estela Bennett CHINESE LANGUAGE PROFESSOR-MAKE UP OPERATOR Work Phone: [facility] 02-03-2019 tetanus toxoid, reduced diphtheria toxoid, and acellular pertussis vaccine, adsorbed Estela Bennett CHINESE LANGUAGE PROFESSOR-MAKE UP OPERATOR Work Phone: [facility] 06-10-2012 tetanus toxoid, reduced diphtheria toxoid, and acellular pertussis vaccine, adsorbed Estela Bennett CHINESE LANGUAGE PROFESSOR-MAKE UP OPERATOR Work Phone: [facility] 06-01-2000 hepatitis A vaccine, unspecified formulation Estela Bennett CHINESE LANGUAGE PROFESSOR-MAKE UP OPERATOR Work Phone: [facility] 06-01-2000 hepatitis B vaccine, pediatric or pediatric/adolescent dosage Estela Bennett CHINESE LANGUAGE PROFESSOR-MAKE UP OPERATOR Work Phone: [facility] 01-11-2000 hepatitis B vaccine, pediatric or pediatric/adolescent dosage Estela Bennett CHINESE LANGUAGE PROFESSOR-MAKE UP OPERATOR Work Phone: [facility] 11-18-1999 hepatitis A vaccine, unspecified formulation Estela Bennett CHINESE LANGUAGE PROFESSOR-MAKE UP OPERATOR Work Phone: [facility] 11-18-1999 hepatitis B vaccine, pediatric or pediatric/adolescent dosage Estela Bennett CHINESE LANGUAGE PROFESSOR-MAKE UP OPERATOR Work Phone: [facility] NEGATED: Highlighted row has not occurred!08-06-2021 tetanus toxoid, reduced diphtheria toxoid, and acellular pertussis vaccine, adsorbed MAKE UP OPERATOR Estela Bennett Work Phone: [facility] NEGATED: Highlighted row has not occurred!04-07-2019 influenza virus vaccine, live, attenuated, for intranasal use Deajose HEN[facility] [place] Payers Date Payer Category Payer Self-pay [id number] 2024 [place] [employer] BS [id number] 2024 Unknown [id number] 2022 Blue [employer] Managed [employer] - Other [id number] 2022 Unknown [id number]. [id number]. [id number] 1982 Unknown [id number] 2.840.1.650252.3.579.2. 593 1982 Unknown [id number] 2.840.1.742683.3.579.2. 593 1982 Unknown [id number] 2.840.1.342534.3.579.2. 593 1982 Unknown [id number] 2.840.1.369290.3.579.2. 593 1982 Unknown [id number] 2.16840.1.641796.3.579.2. 593 1982 Unknown [id number] 2.16840.1.070388.3.579.2. 593 1982 Unknown [id number] 2.16840.1.550330.3.579.2. 1286 1982 Unknown [id number] 2.16840.1.942724.3.579.2. 1286 1982 Unknown [id number] 2.16840.1.747815.3.579.2. 727 1982 Unknown [id number] 2.16.840.1.464865.3.579.2. 1286 1982 Unknown [id number] 2.16.840.1.444488.3.579.2. 1286 1982 Unknown [id number] 2.16840.1.593944.3.579.2. 1258 1982 Unknown [id number] 2.16840.1.368693.3.579.2. 9 1982 Unknown [id number] 2.16840.1.374559.3.579.2. 1258 1982 Unknown [id number] 2.840.1.028439.3.579.2. 9 1982 Unknown [id number] 2.840.1.395290.3.579.2. 1258 1982 Unknown [id number] 2.16840.1.822044.3.579.2. 1258 1982 Unknown [id number] 2.840.1.402832.3.579.2. 9 1959 Unknown [id number] 1959 Unknown [id number] Unknown [id number] 2.840.1.879475.3.579.2. 531 Social History Date Type Detail Facility Start: 12-13-2021 End: 07-29-2024 Tobacco smoking status PRIS Never smoked tobacco (finding) [facility] Start: 1980 Sex Assigned At Female [facility] Start: 08-04-2022 End: 07-29-2024 Tobacco use and exposure Smokeless tobacco non-user [facility] Start: 10-12-2023 End: 07-29-2024 Alcoholic beverage intake Ex-drinker (finding) [facility] Start: 10-12-2023 End: 07-29-2024 History of Social function [facility] Start: 10-12-2023 End: 07-29-2024 Tobacco use panel [facility] How hard is it for y ou to pay for the very basics like food, housing, medical care, and heating Not very hard [facility] Adolescent depressio n screening assessment 0 [facility] Start: 1980 Sex assigned at Not on file [facility] Start: 02-05-2015 End: 12-26-2021 Sex Female (finding) [facility] Within the last year , have you been afraid of your partner or ex-partner? No [facility] Are you now , , , , never or living with a partner? [facility] How often to you hav e a drink containing alcohol? Monthly or less [facility] How many standard dr inks containing alcohol do you have on a typical day? 1 or 2 [facility] How often do you hav e 6 or more drinks on 1 occasion? Never [facility] Do you feel stress - tense, restless, nervous, or anxious, or unable to sleep at night because your mind is troubled all the time - these days [OSQ] Only a little [facility] (I/We) worried wheth er (my/our) food would run out before (I/we) got money to buy more. Never true [facility] Start: 07-29-2024 Education 15 [facility] Start: 06-21-2024 [facility] Sexual Orientation [facility] Goals Date Patient Goal Desired Activity /State Functional Status Date Assessment Result Facility 07-29-2024 Patient Health [facility] ionnaire 2 item (PHQ-2) [Reported] [facility] 07-29-2024 Total score [AUDIT-C] 1 07/30/19 25 8:24 AM Sammi Burleson LPN [facility] Clinical Notes 06-15-2023 to 11-27-2024 Jenny Cedeño MA - 11/27/2024 2:45 PM Carin Edwards DO - 11/27/2024 2:45 PM Vishal Cedeño MA - 10/30/2024 4:00 PM EDTMfrandy Edwards DO - 10/30/2024 4:00 PM EDT Note Date & Type Note Facility 11-27-2024 History of Presen t illness Narrative Glucola order, Tdap information, and kick count sheet provided for the patient. Tsh and Free T4 order printed and provided for the patient. Denies any concerns today. Growth us in 7w. Glucola, TSH orders given to patient documented in this encounter [facility] 10-30-2024 History of Presen t illness Narrative Patient reports increase swelling in both feet. Discussed us findings, EFW 91st%, breech, post placenta, 3VC, MAYA subjectively normal, CL 4.0cm, normal anatomy (lateral ventricle, choroid plexus, ductal arch suboptimally viewed secondary to position) - repeat in third trimester documented in this encounter [facility] 10-02-2024 History of Presen t illness Narrative Patient is considering V-manohar would like to discuss Discussed TOLAC vs. Repeat CB, risks/benefits/alternatives discussed. Patient voiced interest in trying TOLAC. States if she has to have repeat CB, would like bilateral salpingectomy Anatomy us scheduled 10/30/24 documented in this encounter [facility] 08-22-2024 History of Presen t illness Narrative [address] [place] [address] Patient: Anthony Ritchie Date of : 1980 Encounter Date: 08/22/2024 History of Present Illness: The patient is a 43 y.o. female, an established patient, and is here for Chief Complaint Patient presents with Annual Exam Cancelled pap, Labs at [facility] in [place] results . HPI Patient is here for a wellness exam. She is not due for a Pap until 2027. She is 10 weeks and 6 days and sees her Ob on the of this month. She is a with a vaginal and . Her labs from her OB were reviewed through her MyChart today from patient's phone. She had a normal hemoglobin A1c, unremarkable CBC, normal thyroid function tests. She is nonfasting today for her wellness labs. Patient is having some indigestion after taking her vitamin with iron. She has no other complaints today. Problem List Items Addressed This Visit Endocrine Acquired hypothyroidism Other 11 weeks gestation of Other Visit Diagnoses Wellness examination - Primary Relevant Orders Comprehensive metabolic panel Lipid profile Past Medical, Family, and Social History Update: The following portions of the patient's history were reviewed and updated as appropriate: allergies, current medications, past family history, past medical history, past social history, past surgical history and problem list. Past Medical History: Diagnosis Date Advanced maternal age, primigravida, antepartum 12/04/2018 - Genetic counseling - Negative cell free [place] teeth removed 05/24/2023 RIGHT SIDE No past [...] topically in the morning. 45 g 1 80-[id number] 9-dha 31 mg iron- 1 mg-200 mg capsule Take 1 capsule by mouth in the morning. 90 capsule 3 No current facility-administered medications for this visit. [...] Review of Systems: Review of Systems Constitutional: Positive for unexpected weight change (7lb weight gain - ). Negative for chills and fever. HENT: Negative for ear pain and sore throat. Eyes: Negative for pain and visual disturbance. Respiratory: Negative for cough and shortness of breath. Cardiovascular: Negative for chest pain and palpitations. Gastrointestinal: Negative for abdominal pain and vomiting. Some indigestion after taking pre luz elena Genitourinary: Negative for dysuria and hematuria. Musculoskeletal: Negative for arthralgias and back pain. Skin: Negative for color change and rash. Neurological: Negative for seizures and syncope. Psychiatric/Behavioral: Negative. All other systems reviewed and are negative. Physical Exam: BP 122/60 (BP Site: Left Arm, BP Postition: Sitting, BP CUFF SIZE: L (13-17 inches)) Pulse 90 Temp 36.6 C (97.9 F) (Oral) Resp 18 Ht 160 cm (5' 2.99 ) Wt 111.1 kg (245 lb) SpO2 99% BMI 43.41 kg/m Physical Exam Vitals reviewed. Constitutional: Appearance: Normal appearance. She is well-developed. She is obese. HENT: Head: Normocephalic and atraumatic. Right Ear: Tympanic membrane, ear canal and external ear normal. Left Ear: Tympanic membrane, ear canal and external ear normal. Nose: Nose normal. Mouth/Throat: Mouth: Mucous membranes are moist. Eyes: Pupils: Pupils are equal, round, and reactive to light. Neck: Thyroid: No thyroid mass, thyromegaly or thyroid tenderness. Cardiovascular: Rate and Rhythm: Normal rate and regular rhythm. Heart sounds: Normal heart sounds. No murmur heard. Pulmonary: Effort: Pulmonary effort is normal. No respiratory distress. Breath sounds: Normal breath sounds. No wheezing. Abdominal: General: Bowel sounds are normal. Palpations: Abdomen is soft. Tenderness: There is no abdominal tenderness. Musculoskeletal: General: Normal range of motion. Cervical back: Neck supple. Right lower leg: No edema. Left lower leg: No edema. Comments: Compression stockings STEVEN Lymphadenopathy: Cervical: No cervical adenopathy. Skin: General: Skin is warm and dry. Capillary Refill: Capillary refill takes less than 2 seconds. Findings: No rash. Neurological: General: No focal deficit present. Mental Status: She is alert and oriented to person, place, and time. Cranial Nerves: No cranial nerve deficit. Psychiatric: Mood and Affect: Mood normal. Behavior: Behavior normal. Assessment and Plan: Anthony was seen today for annual exam. Diagnoses and all orders for this visit: Wellness examination - Comprehensive metabolic panel; Future - Lipid profile; Future Acquired hypothyroidism - Cancel: Thyroid profile includes TSH FT4; Future 11 weeks gestation of Follow-up: Health maintenance immunizations were discussed and recommendations were made for optional HPV vaccine after she has delivered and has stopped , flu vaccine when it is flu season. Her OB has already checked her thyroid function tests so we will cancel that today. Patient may use the vitamins without iron until she is established in her 2nd trimester as these are giving her indigestion. She had a mammogram earlier this year and will continue to perform self-breast exams. It was recommended that she see dermatology for full body skin cancer assessment. Follow up in 1 year sooner as needed. FRANCIA MONTELONGO APRN-CNP 08/22/24 0917 documented in this encounter [facility] 08-14-2024 Evaluation + Plan note Diagnostic Tests PendingHepatitis B Surface Antigen 08/14/24RPR with Conf Rfx 08/14/24HIV Screen 4th Generation wRfx 08/14/24Rubella Antibody IgG 08/14/24Urine Culture 08/14/24 [facility] 07-29-2024 History of Presen t illness Narrative Subjective Anthony Ritchie is a 43 y.o. at 7w3d with a working estimated date of delivery of 03/14/2025, by Last Menstrual Period who presents for an initial visit. This is unplanned. OB History Para Term AB Living 3 2 2 0 0 2 SAB IAB Ectopic Multiple Live Births 0 0 0 0 2 # Outcome Date GA Lbr Nathan/2nd Weight Sex Type Anes PTL Lv 3 Current 2 Term 08/06/21 39w0d 6 lb 14 oz M CS-LTranv EPI, Spinal N KEZIA Complications: Intolerance, Nuchal cord affecting delivery 1 Term 04/24/19 39w0d 7 lb 11 oz F Vag-Spont EPI N KEZIA Complications: Polyhydramnios affecting in third trimester Objective Physical Exam Expected Total Weight Gain: 11 lb-19 lb Pregravid BMI: 41.64 Had chickenpox as child, wants to breastfeed and pumping Immunizations: Up to Date Labs ordered & printed will give to patient [facility]. D[place] Daily vitamins prescribed by PCP First trimester screening and second trimester screening discussed. Wants Genetic Testing and would like to know Sex of baby documented in this encounter [facility] 04-29-2024 Miscellaneous Notes Patient called and would like a mammogram. documented in this encounter [facility] 04-29-2024 Telephone encounter Note Patient called and would like a mammogram. [facility] 10-17-2023 History of Presen t illness Narrative The OARRS/MAPPS database was reviewed today and found to be appropriate. No indication of medication diversion, or non compliance. FRANCIA Montelongo 10/17/23 1014 documented in this encounter [facility] 10-12-2023 History of Presen t illness Narrative [address] [facility] [address] Patient: Anthony Ritchie Date of : 1980 [...] (BMI) of 40.0 to 44.9 in adult ([facility]) - Primary Past Medical, Family, and Social History Update: The following portions of the patient's history were reviewed and updated as appropriate: allergies, current medications, past family history, past medical history, past social history, past surgical history and problem list. Past Medical History: Diagnosis Date Advanced maternal age, primigravida, antepartum 12/04/2018 - Genetic counseling - Negative cell free [place] teeth removed 05/24/2023 RIGHT SIDE No past [...] (BMI) of 40.0 to 44.9 in adult ([facility]) Acquired hypothyroidism Follow-up: Since she is having [...] of medication diversion, or non compliance. FRANCIA MONTELONGO APRN-CNP 10/12/23 1008 FRANCIA Montelongo 10/12/23 1008 documented in this encounter [facility] 09-14-2023 History of Presen t illness Narrative The OARRS/MAPPS database was reviewed today and found to be appropriate. No indication of medication diversion, or non compliance. LAVELLE Dodson 09/14/23 0810 documented in this encounter [facility] 09-11-2023 History of Presen t illness Narrative [...] Dodson 09/11/23 1009 [facility] History of Presen t illness Narrative [...] includes TSH FT4; Future Rosacea Morbid obesity ([facility]) - phentermine (ADIPEX-P) 37.5 mg tablet; Take [...] Dodson 08/17/23 1147 documented in this encounter [facility] 06-15-2023 History of Presen t illness Narrative [...] Dodson 06/15/23 1052 documented in this encounter [facility] Evaluation note Diagnosis Onset Date Non-healing surgical wound a cute Hypothyroidism chronic Nonhealing nonsurgical wound [facility] Work Phone: Evaluation note* Diagnosis Encounter for screening mammogram for malignant neoplasm of breast- Primary [facility] Diagnosis Encounter for annual health examination- Primary Acquired hypothyroidism Unspecified hypothyroidism Rosacea Morbid obesity ([facility]) Morbid obesity documented in this encounter [facility]* Diagnosis Morbid obesity (CMS-HCC)- Primary Morbid obesity Rosacea Palpitations [facility] in [facility] Diagnosis Morbid obesity ([facility]) Morbid obesity [facility] Diagnosis Class 3 severe obesity due to excess calories without serious comorbidity with body mass index (BMI) of 40.0 to 44.9 in adult ([facility])- Primary Acquired hypothyroidism Unspecified hypothyroidism documented in this encounter [facility]* Diagnosis Morbid obesity ([facility]) Morbid obesity documented in this encounter [facility]* Diagnosis Tongue and jaw pain- Primary Adenitis, acute [facility] Diagnosis Abnormal mammogram of right breast- Primary documented in this encounter [facility] noteNo assessment information available [facility] Work Phone: Evaluation note* Diagnosis Abnormal screening mammogram- Primary documented in this encounter [facility]* Diagnosis care, subsequent in first trimester 7 weeks gestation of documented in this [facility]* Diagnosis Wellness examination- Primary Acquired hypothyroidism Unspecified hypothyroidism 11 weeks gestation of [facility] Diagnosis related condition, second trimester (HHS-HCC)- Primary 16 weeks gestation of (HHS-HCC) Advanced maternal age in multigravida, second trimester (HHS-HCC) Rh negative state in antepartum period (HHS-HCC) Hypothyroid in , antepartum (HCC) Maternal care due to low transverse uterine scar from previous delivery (HHS-HCC) Other obesity due to excess calories affecting in second trimester ([facility]) documented in this encounter [facility]* Diagnosis related condition, second trimester (HHS-HCC)- Primary 20 weeks gestation of (HHS-HCC) Advanced maternal age in multigravida, second trimester (HHS-HCC) Rh negative state in antepartum period (HHS-HCC) Hypothyroid in , antepartum (HCC) Other obesity due to excess calories affecting in second trimester (HHS-HCC) [facility] Diagnosis related condition, second trimester (HHS-HCC)- Primary 24 weeks gestation of (HHS-HCC) Advanced maternal age in multigravida, second trimester (HHS-HCC) Rh negative state in antepartum period (HHS-HCC) Hypothyroid in , antepartum (HCC) Other obesity due to excess calories affecting in second trimester (HHS-HCC) Screening for diabetes mellitus [facility] Narrative No data available for this section [facility] Hospital Discharge instructions No data available for this section [facility] InstructionsNot on filedocumented in this encounter [facility] filedocumented in this encounter [facility]ructions[facility] on filedocumented in this encounter [facility]ructions[facility] on filedocumented in this encounter [facility]ructionsNot on filedocumented in this encounter [facility]ructions[facility] on filedocumented in this encounter [facility] No data available for this section [facility] Summary Purpose Family History No Family History Records Found Relationship Condition Age at Onset Recorded Date/T ruby grandparent Malignant neoplasm of lung Unknown grandparent Tuberculosis Unknown Malignant neoplasm of lung Unknown grandparent Lupus Unknown Advance Directives No Advanced Directives Records Found Advance Directive Response Recorded Date/ Time Advance Directives No April 29, 2021 2:55pm Chief Complaint and Reason for Visit Chief Complaint Open Wound Abdominal Wound Reason for Visit Non-healing surgical wound Hypothyroidism Nonhealing nonsurgical wound Chief Complaint Open Wound Abdominal Wound Abdominal Wound Reason for Visit Non-healing surgical wound Hypothyroidism Nonhealing nonsurgical wound Chief Complaint Admit Date R92.8 July 04, 2024 7:4 7am Additional Source Comments INFORMATION SOURCE (unrecogn ized section and content) DATE CREATED AUTHOR 10/07/2018 [facility] DATE CREATED AUTHOR AUTHOR'S ORGANIZ ATION 12/05/2018 [facility] DATE CREATED AUTHOR AUTHOR'S ORGANIZ ATION 11/26/2021 [facility] DATE CREATED AUTHOR AUTHOR'S ORGANIZ ATION 08/18/2022 [facility] DATE CREATED AUTHOR AUTHOR'S ORGANIZ ATION 10/14/2023 [facility] DATE CREATED AUTHOR AUTHOR'S ORGANIZ ATION 07/11/2024 [facility] DATE CREATED AUTHOR AUTHOR'S ORGANIZ ATION 08/19/2024 [facility] DATE CREATED AUTHOR AUTHOR'S ORGANIZ ATION 08/20/2024 [facility] DATE CREATED AUTHOR AUTHOR'S ORGANIZ ATION 08/21/2024 [facility] DATE CREATED AUTHOR AUTHOR'S ORGANIZ ATION 09/14/2024 [facility] DATE CREATED AUTHOR AUTHOR'S ORGANIZ ATION 11/29/2024 [facility] EPIC Care Teams (unrecognized sec tion and content) [...] Dates DARRELL Prabhakar Primary Care Provider Active One Piece Expansion Maker Hand Relationship Specialty Start Date End Date Alfonso Mercado CHINESE LANGUAGE PROFESSOR-NAME PLATE STAMPER [address] [place] [address] PCP - General Internal Medicine 09/11/23 [employer] Maker Hand Relationship Specialty Start Date End Date Alfonso Mercado CHINESE LANGUAGE PROFESSOR-NAME PLATE STAMPER [address] [place] [address] PCP - General Internal Medicine 09/11/23 [employer] Pie[employer] Expansion Maker Hand Relationship Specialty Start Date End Date MikyEstela negreteSerenity, CHINESE LANGUAGE PROFESSOR-MAKE UP OPERATOR [address] [place] [address] PCP - General Internal Medicine 01/30/22 [employer] Exp[employer] Maker Hand Relationship Specialty Start Date End Date Estela Bennett, CHINESE LANGUAGE PROFESSOR-MAKE UP OPERATOR [address] [place] [address] PCP - General Internal Medicine 01/30/22 [employer] Piece Expansion Maker Hand Relationship Specialty Start Date End Date Joey Mercadoiana Pernell CHINESE LANGUAGE PROFESSOR-NAME PLATE STAMPER [address] [place] [address] PCP - General Internal Medicine 09/11/23 One Piece Expansion Maker Hand Relationship Specialty Start Date End Date Joey Mercadoiana Pernell CHINESE LANGUAGE PROFESSOR-NAME PLATE STAMPER [address] [place] [address] PCP - General Internal Medicine 09/11/23 One Piece Expansion Maker Hand Relationship Specialty Start Date End Date Jess Alfonsodenise Gimenez CHINESE LANGUAGE PROFESSOR-NAME PLATE STAMPER [address] [place] [address] PCP - General Internal Medicine 09/11/23 One Piece Expansion Maker Hand Relationship Specialty Start Date End Date Estela Bennett, CHINESE LANGUAGE PROFESSOR-MAKE UP OPERATOR [address] [place] [address] PCP - General Internal Medicine 01/30/22 Team Status: Active Member Role Status Dates DARRELL Murillo DIRECTOR OF THE [facility] Primary Care Provider Active Team Status: Inactive Member Role Status Dates DARRELL Murillo DIRECTOR [facility] THE [facility] Primary Care Pro vider, Attending Provider Active Start: July 04, 2024 End: July 04, 2024 One Piece Expansion Maker Hand Relationship Specialty Start Date End Date Keith Torres MD [address] [place] [address] PCP - General Internal Medicine 07/29/24 One Piece Expansion Maker Hand Relationship Specialty Start Date End Date Keith Torres MD [address] [place] [address] PCP - General Internal Medicine 07/29/24 One Piece Expansion Maker Hand Relationship Specialty Start Date End Date Alfonso Mercado, CHINESE LANGUAGE PROFESSOR-NAME PLATE STAMPER [address] [place] [address] PCP - General Internal Medicine 09/11/23 One Piece Expansion Maker Hand Relationship Specialty Start Date End Date Keith Torres MD [address] [place] [address] PCP - General Internal Medicine 07/29/24 One Piece Expansion Maker Hand Relationship Specialty Start Date End Date Keith Torres MD [address] [place] [address] PCP - General Internal Medicine 07/29/24 One Piece Expansion Maker Hand Relationship Specialty Start Date End Date Keith Torres MD [address] [place] [address] PCP - General Internal Medicine 07/29/24 One Piece Expansion Maker Hand Relationship Specialty Start Date End Date Keith Torres MD [address] [place] [address] PCP - General Internal Medicine 07/29/24 Goals (unrecognized section and content) Goals may [...] this encounterNot on filedocumented as of this encounterGoals may be documented in an alternate sectionNot on filedocumented as of this encounterNot on filedocumented as of this encounterNot on filedocumented as of this encounter No data available for this sectionNot on filedocumented as of this encounter Reason for Visit (unrecogniz ed section and content) Reason Comments Annual Exam Redness on cheeks Reason Comments Weight Check Reason Comments tongue pain No fever roughly 2 w eeks Reason Onset Date Comments Med Refill 08/01/2024 Reason Comments Annual Exam Cancelled pap, [facility] [place] results FOR RECORDS PERTAINING TO PATIENTS WHO ARE [...] BE BASED ON THE PRIMARY CLINICAL RECORDS. [email or web address] provides no warranty or guarantee of the accuracy or completeness of information in this document.
[2024-12-12 08:47] LABS: Hematocrit 38.0 % (36.0-48.0); Hemoglobin 12.7 g/dL (12.0-16.0)
[2024-12-12 10:23] LABS: Glucose 1 Hour 117 mg/dL (<130); Thyroid Stimulating Hormone 1.674 uIU/mL (0.358-3.740)
== END 2024-12-12 07:44 | disposition home or self-care (01) ==
LOC: LAB 07:43
DX: O26.92 Pregnancy related conditions, unspecified, second trimester (principal); Z13.1 Encounter for screening for diabetes mellitus; E03.9 Hypothyroidism, unspecified; O99.282 Endocrine, nutritional and metabolic diseases complicating pregnancy, second trimester
CPT/HCPCS: 36415; 82950; 84439; 84443; 85014; 85018